=== PATIENT | male | born 1945 | race Caucasian/White ===

== ENCOUNTER 2018-06-12 09:30 | Day surgery (SDC) | payer MEDICARE ==
[2018-06-09 15:06] VITALS: BMI 37.2
--- NOTE | 2018-06-12 15:45 | OP ---
DATE OF PROCEDURE: 06/12/2018 INDICATION FOR PROCEDURE: Irregular bowel habits. PROCEDURES PERFORMED: Colonoscopy with biopsy and polypectomy. DESCRIPTION OF PROCEDURE: After the risks and benefits of the procedure were explained to the patient including risks of bleeding, infection, perforation, reactions to anesthesia, aspiration and/or pain, informed consent was obtained. The patient was then taken to the endoscopy suite, where deep sedation was administered via propofol and Anesthesia support. Once adequate sedation was achieved, a digital rectal examination was performed followed by introduction of the standard colonoscope into the rectum and advanced all the way to the terminal ileum without difficulty. The quality of the prep was fair with a larger amount of adherent stool seen within the right colon, that was not amenable to aggressive irrigation and suctioning, thereby interfering with visualization for any lesions less than 5 mm in size. The patient tolerated the procedure well with no immediate perioperative complications. At the conclusion of the procedure, all equipment was removed from the patient and the patient was taken to Day Stay in satisfactory condition. FINDINGS: Digital rectal exam normal. Colon findings, normal-appearing mucosa was seen within the terminal ileum as well as at the appendiceal orifice and ileocecal valve. Three polyps measuring 3 to 4 mm were seen in the cecum and completely removed with biopsy forceps and cold snare polypectomy. They were retrieved and placed in a specimen jar for evaluation. Four polyps measuring 3 to 6 mm in size were seen in the ascending colon and removed with a combination of hot and cold snare polypectomy. All polyps were completely excised and placed in the specimen jar for evaluation. Three additional polyps were seen in the transverse colon measuring 3 to 4 mm in size and were completely removed with either biopsy forceps or cold snare polypectomy. They were placed in a specimen jar for evaluation. Otherwise, normal-appearing mucosa was seen in the distal transverse, descending, and sigmoid colon. Random colonic biopsies were taken from the ascending, transverse, descending, and sigmoid colon for evaluation of possible microscopic colitis. However, increased mucosal erythema and mild granularity of the tissue were seen in the rectum without overt erosions or ulcerations. Multiple random biopsies were taken within the rectum for evaluation of possible ulcerative colitis versus prep effect. No abnormalities were seen on rectal retroflexion. IMPRESSION: 1. Fair colonic preparation, especially within the right colon with a larger amount of adherent stool precluding visualization of any lesion less than 5 mm in size. 2. Three cecal polyps measuring 3 to 4 mm, status post biopsy forceps. 3. Four ascending colon polyps measuring 3 to 6 mm in size, status post cold and hot snare polypectomy. 4. Three 3 to 4 mm polyps in the transverse colon, status post biopsy forceps and cold snare polypectomy. 5. Increased mucosal erythema and mild granularity seen within the rectum concerning for ulcer proctitis/ulcer colitis of the rectum, status post biopsies. 6. No clear etiology for the patient's irregular bowel habits was seen during this examination other than the increased mucosal erythema in the rectum. RECOMMENDATIONS: 1. We will follow up on the biopsy results with repeat colonoscopy recommended within the next 12 months given the chronic preparation today. 2. We would recommend a higher fiber diet with Citrucel supplementation as discussed in clinic. 3. We will hold on treatment for ulcer colitis for now with biopsies to confirm the diagnosis. 4. We would have the patient follow up in 3 to 4 weeks for further management of his irregular bowel habits. Job ID: [id number]
[2018-06-12] MEDS ORDERED: PROPOFOL 200 MG/20 ML VIAL ONE (16:53)
[2018-06-12] MEDS ORDERED: Lidocaine 1% PF 5 ML VIAL ONE (16:53)
== END 2018-06-12 15:20 | disposition home or self-care (01) ==
LOC: SDC 09:30
PROVIDERS: ATTEND Internal Medicine
PROC: 0DBK8ZX Excision of Ascending Colon, Via Natural or Artificial Opening Endoscopic, Diagnostic (ICD-10-PCS; principal; 2018-06-12)
PROC: 0DBL8ZX Excision of Transverse Colon, Via Natural or Artificial Opening Endoscopic, Diagnostic (ICD-10-PCS; 2018-06-12)
PROC: 0DBN8ZZ Excision of Sigmoid Colon, Via Natural or Artificial Opening Endoscopic (ICD-10-PCS; 2018-06-12)
PROC: 0DBM8ZX Excision of Descending Colon, Via Natural or Artificial Opening Endoscopic, Diagnostic (ICD-10-PCS; 2018-06-12)
PROC: 0DBH8ZX Excision of Cecum, Via Natural or Artificial Opening Endoscopic, Diagnostic (ICD-10-PCS; 2018-06-12)
PROC: 0DBK8ZX Excision of Ascending Colon, Via Natural or Artificial Opening Endoscopic, Diagnostic (ICD-10-PCS; 2018-06-12)
PROC: 0DBL8ZZ Excision of Transverse Colon, Via Natural or Artificial Opening Endoscopic (ICD-10-PCS; 2018-06-12)
PROC: 0DBH8ZX Excision of Cecum, Via Natural or Artificial Opening Endoscopic, Diagnostic (ICD-10-PCS; 2018-06-12)
PROC: 0DBP8ZX Excision of Rectum, Via Natural or Artificial Opening Endoscopic, Diagnostic (ICD-10-PCS; 2018-06-12)
DX: D12.0 Benign neoplasm of cecum (principal); D12.2 Benign neoplasm of ascending colon; K63.5 Polyp of colon; K52.9 Noninfective gastroenteritis and colitis, unspecified; I10 Essential (primary) hypertension; E78.5 Hyperlipidemia, unspecified; J44.9 Chronic obstructive pulmonary disease, unspecified; G43.909 Migraine, unspecified, not intractable, without status migrainosus; F17.200 Nicotine dependence, unspecified, uncomplicated; N40.0 Benign prostatic hyperplasia without lower urinary tract symptoms; F41.9 Anxiety disorder, unspecified; Z79.51 Long term (current) use of inhaled steroids; Z79.899 Other long term (current) drug therapy
CPT/HCPCS: 88305; J2001; J2704

== ENCOUNTER 2018-07-17 13:38 | Outpatient (CLI) | payer MEDICARE ==
--- NOTE | 2018-07-17 15:41 | RAD ---
PA AND LATERAL VIEWS CHEST: HISTORY: Dyspnea. FINDINGS: Comparison is made with the exam of 01/16/2011. The heart size is normal. The lungs are expanded with mild chronic changes. No focal areas of conso lidation, pneumothoraces, or pleural effusions are seen. IMPRESSION: No radiographic evidence of acute cardiopulmonary process. POS: [facility]
== END 2018-07-17 13:39 | disposition home or self-care (01) ==
LOC: RAD 13:38
PROVIDERS: ATTEND Internal Medicine Pulmonary Disease
DX: R06.00 Dyspnea, unspecified (principal)
CPT/HCPCS: 71046

== ENCOUNTER 2018-08-11 10:31 | Outpatient (CLI) | payer MEDICARE ==
[2018-08-11 11:00] LABS: #Eosinphils 0.1 thou/uL (0.0-0.7); #Lymphocytes 1.4 thou/uL (1.20-3.40); #Monocytes 0.6 thou/uL (0.11-0.59); #Neutrophils 5.1 thou/uL (1.40-6.50); %Basophils 0.5 % (0.0-1.0); %Eosinophils 1.9 % (0.0-10.0); %Lymphocytes 19.6 % (21.0-51.0); %Monocytes 8.2 % (0.0-10.0); %Neutrophils 69.8 % (42.0-75.0); Hemoglobin 15.3 g/dL (14.0-18.0); Mean Corpuscular HGB CONC 32.8 g/dL (32.0-36.0); Mean Corpuscular Hemoglobin 28.6 pg (27.0-31.0); Mean Platelet Volume 7.5 fL (7.4-10.4); Platelet Count 190 thou/uL (130-400); RBC Distribution Width 12.9 % (11.5-14.5); Red Blood Cell (RBC) Count 5.35 mill/uL (4.70-6.10); White Blood Cell (WBC) Count 7.3 thou/uL (4.8-10.8)
[2018-08-11 11:05] LABS: INR-International Normal Ratio 1.1; Prothrombin Time 14.2 SEC (12.0-14.7)
[2018-08-11 11:28] LABS: ALT (SGPT) 28 U/L (8-55); AST (SGOT) 22 U/L (5-34); Albumin 4.2 g/dL (3.4-4.8); Alkaline Phosphatase 113 U/L (40-150); Anion Gap 15 mmol/L (10-20); BUN (Urea Nitrogen) 18 mg/dL (8.4-25.7); Bilirubin, Total 0.4 mg/dL (0.2-1.2); Calc. Creatinine Clearance 0 mL/min (70-130); Calcium 9.7 mg/dL (7.8-10.44); Carbon Dioxide 23 mmol/L (23-31); Chloride 108 mmol/L (98-107); Cholesterol 124 mg/dl (< 200 Desired); Estimated GFR-MDRD 60; Globulin 2.6 g/dL (2.4-3.5); Glucose 108 mg/dL (83-110); HDL Cholesterol 41 mg/dL (>60 Neg Risk); LDL Cholesterol, Calculated 62 mg/dL; Potassium 4.2 mmol/L (3.5-5.1); Protein, Total 6.8 g/dL (5.8-8.1); Sodium 142 mmol/L (136-145); Triglycerides 106 mg/dL (Less than 150)
== END 2018-08-11 10:32 | disposition home or self-care (01) ==
LOC: LABBT 10:31
PROVIDERS: ATTEND Internal Medicine Cardiovascular Disease
DX: Z01.812 Encounter for preprocedural laboratory examination (principal); I42.0 Dilated cardiomyopathy
CPT/HCPCS: 80053; 80061; 85025; 85610; 85730

== ENCOUNTER 2018-08-17 10:46 | Day surgery (SDC) | payer MEDICARE ==
[2018-08-11 10:55] VITALS: BMI 36.5
[2018-08-17] MEDS ORDERED: Iopamidol 370 76% 100 ML VIAL ONE (11:18)
[2018-08-17] MEDS ORDERED: Verapamil 5 MG/2 ML VIAL ONE (11:32)
[2018-08-17] MEDS ORDERED: Nitroglycerin 100MG/250ML BOT 250 ML ONE (11:32)
[2018-08-17] MEDS ORDERED: Heparin 10,000 UNITS/1 ML VIAL ONE (11:32)
[2018-08-17] MEDS ORDERED: Fentanyl 100 MCG/2 ML VIAL ONE (12:42)
[2018-08-17] MEDS ORDERED: Midazolam HCl 2 mg/2 ml Vial ONE (12:42)
--- NOTE | 2018-08-17 22:46 | CON ---
DATE OF CONSULTATION: HISTORY OF PRESENT ILLNESS: This is a 73-year-old gentleman with diagnosis of bladder cancer in April of this year following gross hematuria. It was partially resected and has recurred, in anticipation of repeat resection, the patient was asked to be evaluated by Cardiology. He underwent cardiac echo showing an ejection fraction of 20% with global hypokinesis. Cardiac catheterization today showed ostial left main and right coronary stenosis with the right coronary being about 90% and the ostial left main being about 70%. He had some [id number]-tm-[id number] disease in the single obtuse marginal and a bifurcating large diagonal that did not appear to have any significant disease with the LAD having about a 60% stenosis perhaps distal to this. Ejection fraction was difficult to assess, but was diminished. PAST MEDICAL HISTORY: Includes COPD, for which he is seen by Dr. Hunter. He had an FEV1 of 58%. He has a history of hypertension. No history of dyslipidemia, but was recently started on Lipitor 40 mg daily. PAST SURGICAL HISTORY: Includes cystoscopy. SOCIAL HISTORY: The patient smoked 2 packs a day until about 8 years ago. 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 REVIEW OF SYSTEMS: Significant for urinary frequency day and night. He gets dyspneic with minimal exertion and occasionally would get dyspneic talking. No history of TIA or stroke. He does have a history of Bella's esophagus, but no symptoms from this. He has occasional peripheral edema. MEDICATIONS: Include; 1. Spiriva 18 mcg b.i.d. 2. Flomax 0.4 b.i.d. 3. Prilosec 40 mg a day. 4. Losartan 100/25 daily. 5. Lipitor 40 once a day. 6. Proscar 5 mg a day. 7. Mucinex twice a day. ALLERGIES: TO TYLENOL. PHYSICAL EXAMINATION: GENERAL: Alert, cooperative gentleman, recorded weight of 245 pounds, height 5 feet 8 inches. NECK: Prominent apices of the lungs bilaterally. No carotid bruits. LUNGS: Increased chest diameter. No wheezes. CARDIAC: Distant heart sounds. No murmurs. ABDOMEN: Quite obese and tense, nontender. EXTREMITIES: He has no peripheral edema with palpable posterior tibial pulses bilaterally. PLAN: At this time is for coronary bypass grafting to the LAD, OM, and main right coronary artery and informed consent has been obtained. We will anticipate sternal wires and zip ties due to his COPD. He may need post discharge placement due to the fact that he lives alone and has significant comorbidities. Job ID: [id number]
--- NOTE | 2018-08-18 16:45 | EKG ---
Test Reason : POST CATH-PREOP CABG Blood Pressure : / mmHG Vent. Rate : 091 BPM Atrial Rate : 091 BPM P-R Int : 164 ms QRS Dur : 100 ms QT Int : 400 ms P-R-T Axes : 051 001 075 degrees QTc Int : 492 ms Normal sinus rhythm Cannot rule out Inferior infarct , age undetermined Abnormal ECG No previous ECGs available Confirmed by DR. Brie KING ([id number]) on 08/18/2018 4:45:20 PM Referred By: JOSEFINA Confirmed By:DR. Brie KING
== END 2018-08-17 15:45 | disposition home or self-care (01) ==
LOC: CCL 10:46
PROVIDERS: ATTEND Internal Medicine Cardiovascular Disease
PROC: 4A023N7 Measurement of Cardiac Sampling and Pressure, Left Heart, Percutaneous Approach (ICD-10-PCS; principal; 2018-08-17)
PROC: B2111ZZ Fluoroscopy of Multiple Coronary Arteries using Low Osmolar Contrast (ICD-10-PCS; 2018-08-17)
DX: I25.10 Atherosclerotic heart disease of native coronary artery without angina pectoris (principal); I42.9 Cardiomyopathy, unspecified; C67.9 Malignant neoplasm of bladder, unspecified; J44.9 Chronic obstructive pulmonary disease, unspecified; I10 Essential (primary) hypertension; Z87.891 Personal history of nicotine dependence; Z79.899 Other long term (current) drug therapy
CPT/HCPCS: 93005; 93010; 93458; 99152; 99153; C1769; J1644; J2250; J3010

== ENCOUNTER 2018-08-21 05:44 | Inpatient (IN) | payer MEDICARE ==
[2018-08-21] MEDS ORDERED: Bupivacaine HCl 0.5%/Epinephrine 1:200,000/PF 30 ml Vial ONE (06:28)
[2018-08-21] MEDS ORDERED: Dexamethasone 4 mg/ml Vial ONE (06:28)
[2018-08-21] MEDS ORDERED: Dexmedetomidine 200 MCG/2 ML VIAL ONE (06:32)
[2018-08-21] MEDS ORDERED: Midazolam HCl 5 mg/5 ml Vial ONE (06:32)
[2018-08-21] MEDS ORDERED: Midazolam HCl 2 mg/2 ml Vial ONE (06:32)
[2018-08-21] MEDS ORDERED: Fentanyl 100 MCG/2 ML VIAL ONE (06:32)
[2018-08-21] MEDS ORDERED: Vecuronium 10 MG VIAL ONE ×2 (06:32→16:47)
[2018-08-21] MEDS ORDERED: Heparin 10,000 UNITS/1 ML VIAL 30,000 UNITS in Sodium Chloride 0.9% 1,000 ML FS SCH (06:45)
[2018-08-21] MEDS ORDERED: Milrinone 10 MG/10 ML VIAL ONE (07:36)
[2018-08-21] MEDS ORDERED: Phenylephrine HCL 10 MG/ML VIAL ONE (09:46)
[2018-08-21] MEDS ORDERED: PHENYLEPHRINE-NS 100 MCG/ML 10 ML SYRINGE ONE ×2 (09:46→16:47)
[2018-08-21] MEDS ORDERED: Insulin Regular 300 UNITS/3 ML VIAL ONE (10:36)
[2018-08-21] MEDS ORDERED: Ketorolac Tromethamine 30 MG/ML VIAL IVP SCH (12:00)
[2018-08-21] MEDS ORDERED: Hetastarch 6% 500 ML 500 ML IVPB PRN (12:03)
[2018-08-21] MEDS ORDERED: Potassium Chloride 20 MEQ/100 ML PREMIX BAG IVPB PRN (12:03)
[2018-08-21] MEDS ORDERED: Promethazine HCl 25 MG/ML VIAL IM PRN (12:03)
[2018-08-21] MEDS ORDERED: Post-Op Insulin Drip Protocol IVPB ONE (12:03)
[2018-08-21] MEDS ORDERED: Mag-Al 1200 mg/1200 mg/30 ML UDCUP PO PRN (12:03)
[2018-08-21] MEDS ORDERED: Morphine 2 MG/ML SYRINGE SLOW IVP PRN (12:03)
[2018-08-21] MEDS ORDERED: Phenylephrine 10 MG/NS 250 ML 250 ML IVPB PRN (12:03)
[2018-08-21] MEDS ORDERED: hydrALAZINE 20 MG/ML VIAL SLOW IVP PRN (12:03)
[2018-08-21] MEDS ORDERED: DOPamine 400 MG/D5W 250 ML 250 ML IVPB PRN (12:03)
[2018-08-21] MEDS ORDERED: Guaifenesin DM 100-10/5 ML UDCUP PO PRN (12:03)
[2018-08-21] MEDS ORDERED: Sodium Chloride 0.9% 1,000 ML IV SCH (12:03)
[2018-08-21] MEDS ORDERED: Bisacodyl 10 MG SUPP PR PRN (12:03)
[2018-08-21] MEDS ORDERED: Norepinephrine 8 MG/0.9% NS 250 ML IVPB PRN (12:03)
[2018-08-21] MEDS ORDERED: Nitroglycerin 50 MG/250 ML BOT 250 ML IVPB PRN (12:03)
[2018-08-21] MEDS ORDERED: Fentanyl 100 MCG/2 ML VIAL SLOW IVP PRN (12:03)
[2018-08-21] MEDS ORDERED: Dextrose 50% Abboject 50 ML SYRINGE SLOW IVP PRN (12:07)
[2018-08-21] MEDS ORDERED: Dextrose 5% in Water 1,000 ML IV PRN (12:07)
[2018-08-21] MEDS ORDERED: HUMULIN R 100 UNITS in Sodium Chloride 0.9% 100 ML IVPB SCH (12:07)
[2018-08-21] MEDS ORDERED: Magnesium 2 GM/50 ML 2 GM in Premix Bag 1 BAG IVPB SCH (12:30)
[2018-08-21 12:31] LABS: #Eosinphils 0.1 thou/uL (0.0-0.7); #Lymphocytes 1.2 thou/uL (1.20-3.40); #Neutrophils 12.2 thou/uL (1.40-6.50); %Basophils 0.1 % (0.0-1.0); %Eosinophils 0.9 % (0.0-10.0); %Monocytes 6.7 % (0.0-10.0); %Neutrophils 84.3 % (42.0-75.0); Hemoglobin 11.2 g/dL (14.0-18.0); Mean Corpuscular HGB CONC 33.6 g/dL (32.0-36.0); Mean Corpuscular Hemoglobin 29.7 pg (27.0-31.0); Mean Corpuscular Volume 88.5 fL (78.0-98.0); Mean Platelet Volume 7.2 fL (7.4-10.4); Platelet Count 139 thou/uL (130-400); Red Blood Cell (RBC) Count 3.79 mill/uL (4.70-6.10); White Blood Cell (WBC) Count 14.5 thou/uL (4.8-10.8)
[2018-08-21 12:36] LABS: INR-International Normal Ratio 1.4; PTT 28.8 SEC (22.9-36.1); Prothrombin Time 17.6 SEC (12.0-14.7)
[2018-08-21] MEDS: Insulin Regular 300 UNITS/3 ML VIAL SC PRN ×3 (12:36→20:07)
[2018-08-21 12:54] LABS: Anion Gap 13 mmol/L (10-20); BUN (Urea Nitrogen) 17 mg/dL (8.4-25.7); Calc. Creatinine Clearance 80 mL/min (70-130); Calcium 8.5 mg/dL (7.8-10.44); Carbon Dioxide 24 mmol/L (23-31); Chloride 109 mmol/L (98-107); Estimated GFR-MDRD 52; Glucose 146 mg/dL (83-110); Potassium 4.3 mmol/L (3.5-5.1); Sodium 142 mmol/L (136-145)
[2018-08-21] MEDS: Fentanyl 100 MCG/2 ML VIAL SLOW IVP PRN ×2 (13:08→18:01)
[2018-08-21] MEDS: CEFAZOLIN 2 GM in Premix Bag 1 BAG IVPB SCH ×2 (13:18→21:51)
--- NOTE | 2018-08-21 14:12 | OP ---
DATE OF PROCEDURE: 08/21/2018 PREOPERATIVE DIAGNOSES: Coronary artery disease, left ventricular dysfunction, ejection fraction 23%, and bladder tumor. PROCEDURES PERFORMED: Coronary artery bypass graft x4, good quality left internal mammary artery to a 2 mm left anterior descending, good quality saphenous vein to a distal right coronary artery extending onto the PDA orifice, a 2.5 mm small saphenous vein to a 1.25 to 1.5 mm obtuse marginal, and small saphenous vein to a 1.5 to 2 mm diagonal second branch probably closer to 1.5. STUD SETTER: Issa Sandoval MD TRANSFUSION: None. DESCRIPTION OF PROCEDURE: After adequate anesthesia had been obtained, Dr. Sandoval performed an endovascular vein harvest of the left greater saphenous vein while I performed a median sternotomy. The left internal mammary artery was harvested without opening the left pleura. The patient was heparinized, mammary divided distally and passed posterior to the thymus gland. Pericardium had been opened and traction sutures were placed. The aorta was going to be cannulated above the pericardial reflection; however, there was calcified anterior plaque and for this reason, the cannulation was done lower into the right of the midline. The right atrium was cannulated and cardiopulmonary bypass was begun. Vessels were inspected for grafting. Aorta was crossclamped and a liter of cold blood cardioplegia was given through the aortic root. Following which, the 4 distal anastomosis were completed. Following removal of the cross clamp, a partial occluding clamp was placed and a single anastomosis performed on the aortic root with the right coronary graft. The other vein grafts were too small to place directly on the root. For this reason, the OM was placed on the wall of the right coronary graft and the partial occluding clamp was removed. The diagonal vein graft, which was the shortest of the group was anastomosed to the side of the OM vein graft about an inch and a half from the aortic root. The patient was then weaned from cardiopulmonary bypass. Cannula was removed and aortic cannulation site was secured with a Prolene suture. Weaning was slow from bypass due to poor left ventricular function and requirement for Levophed. Milrinone had been given after the initial HAYDEE confirmed an ejection fraction of 20%. The sternum was then reapproximated with a combination of #7 wire and zip ties using vancomycin paste on the sternal edges, platelet rich blood and platelet poor plasma. Subcutaneous tissue and skin were closed in layers and the patient is to be taken to the ICU in guarded condition. Job ID: [id number]
--- NOTE | 2018-08-21 14:31 | RAD ---
RADIOGRAPH CHEST 1 VIEW: Date: 08/21/18 Time: 1216 HOURS HISTORY: 73-year-old male status post open heart surgery. COMPARISON: 07/17/18. FINDINGS: There are new sternotomy wires. There is a new right subclavian central vascular catheter with distal tip overlying the SVC/right atrial junction. This is a supine image, which would be insensitive for pneumothorax detection. No cardiomegaly or pulmonary edema. No gross consolidation. IMPRESSION: 1. Very recently status post coronary artery bypass graft surgery is evidence for coronary atheroscl erotic disease. 2. Right subclavian central vascular catheter placement. ALFREDITO [] POS: [facility]
--- NOTE | 2018-08-21 14:31 | CON ---
DATE OF CONSULTATION: 08/21/2018 PRIMARY LEAF SORTER: Pacheco Paulino MD REASON FOR CONSULTATION: Post CABG. HISTORY OF PRESENT ILLNESS: Mr. Barahona is a very pleasant 73-year-old white gentleman, who comes to the hospital for a planned CABG. He came to see me about a month ago for preoperative evaluation. He was scheduled to have shaving of his bladder cancer and possible resection of part of his bladder. He was seeing me for preoperative evaluation and testing showed an EF of 20% to 25%, so he was taken to the catheterization lab, where he was found to have multivessel coronary artery disease. CT surgery was consulted and he was brought in for surgery today. He had this done earlier today. He is currently extubated. His blood pressure is being maintained on no pressors or inotropic support. LV function was severely reduced before his catheterization. PAST MEDICAL HISTORY: 1. COPD. 2. Hypertension. 3. Hyperlipidemia. 4. Coronary artery disease as above. PAST SURGICAL HISTORY: 1. Cystoscopy. 2. Coronary artery bypass grafting earlier today. OUTPATIENT MEDICATIONS: Include: 1. Spiriva. 2. Flomax. 3. Prilosec. 4. Losartan 100/25 with hydrochlorothiazide daily. 5. Lipitor 40 mg daily. 6. Proscar 5 mg a day. 7. Mucinex p.r.n. ALLERGIES: TYLENOL. SOCIAL HISTORY: Smokes 2 packs a day up until about 8 years ago. No alcohol or drugs. REVIEW OF SYSTEMS: A 12-point review of systems was done and negative unless stated in the history of present illness. FAMILY HISTORY: Noncontributory. PHYSICAL EXAMINATION: VITAL SIGNS: Temperature 96.8, pulse 87, respiratory rate 13, saturating 97% on 2 L nasal cannula, and blood pressure 107/58. GENERAL: Awake, alert, and oriented x3, in no distress. HEENT: Normocephalic, atraumatic. NECK: Supple. LUNGS: Clear. CARDIOVASCULAR: S1 and S2. There is a 2-component rub consistent with his recent bypass surgery and chest tubes. ABDOMEN: Soft. EXTREMITIES: 1+ edema bilateral. SKIN: Warm and dry. LABORATORY DATA: Laboratory work was reviewed. CBC was reviewed. Coags and chemistries were reviewed. Most recent creatinine 1.34. This is after surgery. ASSESSMENT AND PLAN: 1. Coronary artery disease. 2. Status post coronary artery bypass grafting. 3. Bladder cancer. 4. Hematuria. 5. Ischemic cardiomyopathy, ejection fraction at 20-25% on HAYDEE before surgery. PLAN: 1. Continue postoperative care. 2. Aspirin and statin for life. 3. We will add beta-polly and RACHEL inhibitor slowly in the next few days as blood pressure allows. Currently blood pressure borderline low, so we will stay away from these for now. 4. We will increase PT as tolerated in the next few days. 5. If everything goes well and his postoperative time goes without issues, he should be ready to have surgery at least after 1 month. Thank you for letting me to participate in the care of your patient. Job ID: [id number]
[2018-08-21] MEDS: HYDROcodone/Acetaminophen 5/325 mg Tablet PO PRN ×2 (14:41→19:40)
[2018-08-21] MEDS: Sodium Chloride 0.9% 1,000 ML IV SCH (16:19)
[2018-08-21] MEDS ORDERED: Esmolol 100 MG/10 ML VIAL ONE (16:47)
[2018-08-21] MEDS ORDERED: Heparin 30,000 units/30 ml VIAL ONE (16:47)
[2018-08-21] MEDS ORDERED: Norepinephrine 4 MG/4 ML VIAL ONE (16:47)
[2018-08-21] MEDS ORDERED: Magnesium 5 GM/10 ML VIAL ONE (16:47)
[2018-08-21] MEDS ORDERED: Albumin 25% 25 GM/100 ML BOT ONE (16:47)
[2018-08-21] MEDS ORDERED: Ondansetron PF 4 MG/2 ML Vial ONE (16:47)
[2018-08-21] MEDS ORDERED: Mannitol 12.5 GM/50 ML ONE (16:47)
[2018-08-21] MEDS ORDERED: Nitroglycerin 50 MG/250 ML BOT ONE (16:47)
[2018-08-21] MEDS ORDERED: Aminocaproic Acid 5 GM/20 ML VIAL ONE (16:47)
[2018-08-21] MEDS ORDERED: Glycopyrrolate 0.2 MG/ML 5 ML SYRINGE ONE (16:47)
[2018-08-21] MEDS ORDERED: Papaverine 60 MG/2 ML VIAL ONE (16:47)
[2018-08-21] MEDS ORDERED: Ketorolac Tromethamine 30 MG/ML VIAL ONE (16:47)
[2018-08-21] MEDS ORDERED: Sodium Bicarb 50 MEQ/50 ML VIAL ONE (16:47)
[2018-08-21] MEDS ORDERED: Potassium Chloride 60 MEQ/30 ML VIAL ONE (16:47)
[2018-08-21] MEDS ORDERED: Lidocaine 2% PF 100 mg/5 ml Syringe ONE (16:47)
[2018-08-21] MEDS ORDERED: Cardioplegic Soln 1,000 ML BAG ONE (16:47)
[2018-08-21] MEDS ORDERED: Calcium Chloride 1 GM/10 ML Abboject SYRINGE ONE (16:47)
[2018-08-21] MEDS ORDERED: Thrombin 5000 UNITS/5 ML VIAL ONE (16:47)
[2018-08-21] MEDS ORDERED: Heparin 5,000 UNITS/ML VIAL ONE (16:47)
[2018-08-21] MEDS ORDERED: ePHEDrine 50 MG/ML VIAL ONE (16:47)
[2018-08-21] MEDS ORDERED: Protamine Sulfate 250 MG/25 ML VIAL ONE (16:47)
[2018-08-21] MEDS ORDERED: Lidocaine 2% 11 ML SYR TOP SCH (17:30)
[2018-08-21 18:07] LABS: Hemoglobin 10.8 g/dL (14.0-18.0)
[2018-08-21 18:21] LABS: Potassium 4.5 mmol/L (3.5-5.1)
[2018-08-21] MEDS: Atorvastatin Calcium 10 MG TAB PO SCH (19:39)
[2018-08-21] MEDS ORDERED: Famotidine/PF 20 mg/2ml Vial SLOW IVP SCH (21:00)
[2018-08-21] MEDS ORDERED: Prevnar 13-Val Conj/PF 0.5 ML SYRINGE IM ONE (21:00)
--- NOTE | 2018-08-21 21:19 | CON ---
DATE OF CONSULTATION: 08/21/2018 SERVICE: Pulmonary Medicine. REASON FOR CONSULT: ICU patient. HISTORY OF PRESENT ILLNESS: The patient is a 73-year-old white male with past medical history significant for COPD. He follows with Dr. Hunter in the outpatient basis and takes Symbicort. Dr. Greco is out of town today, so I am covering for him. Denies any current fevers, chills, nausea, or vomiting. He was in his usual state of health when he was discovered to have some bladder cancer. He went for a big surgery. Ultimately, he was required to undergo cardiac evaluation for an elective procedure and was discovered to have multivessel disease. As such, he was referred for a coronary artery bypass graft surgery. This was an elective procedure. He presented in the outpatient setting and is recovering very nicely. He returned to the ICU, already extubated in the postanesthesia care unit. He denies any current fevers, chills, cough, sputum production, nausea, or vomiting. His voice is a little hoarse. This is new since the procedure. Otherwise, he has no specific complaints. PAST MEDICAL HISTORY: 1. COPD. 2. Hypertension. 3. Dyslipidemia. 4. Coronary artery disease. PAST SURGICAL HISTORY: 1. Cystoscopy. 2. Other bladder surgery. 3. Coronary artery bypass graft. ALLERGIES: TYLENOL. MEDICATIONS: List of his inpatient medications was reviewed. No specific updates were made at this time. Of note, he takes Spiriva and Symbicort in the outpatient setting. SOCIAL HISTORY: He has a greater than 80 pack-year history of smoking. Denies any alcohol or illicit drug use. He has no exposure to chemicals, dust, asbestos, or tuberculosis. FAMILY HISTORY: Noncontributory. REVIEW OF SYSTEMS: General, head, ears, eyes, nose, throat, cardiovascular, respiratory, GI, , musculoskeletal, neurologic, and skin is negative except as mentioned in the HPI. PHYSICAL EXAMINATION: VITAL SIGNS: Afebrile, pulse 90, blood pressure 110/67, respirations 8, and saturation at 95% on 3 L nasal cannula. GENERAL: The patient is awake and alert, in no apparent distress. LUNGS: Decent air entry. There is a slightly prolonged expiratory phase. I appreciate rhonchi, but no wheezing. Minimal dependent crackles are appreciated. HEART: Normal rate. Regular. ABDOMEN: Soft, nontender, and nondistended. Bowel sounds are positive. MUSCULOSKELETAL: No cyanosis or clubbing. There is 1 to 2+ pitting in the bilateral lower extremities. NEUROLOGIC: Grossly nonfocal. LABORATORY DATA: WBC 14.5, postoperatively; hemoglobin 11.2 (baseline 15), and platelets 139,000. INR 1.4. Creatinine 1.34, above baseline of 1.2. Basic metabolic profile is otherwise unremarkable. IMAGING STUDIES: Chest x-ray demonstrates right subclavian central venous catheter terminates in good position. Sternotomy wires are noted. I see no acute cardiopulmonary abnormality. ASSESSMENT: 1. Acute hypoxic respiratory failure. 2. Chronic obstructive pulmonary disease without current exacerbation. 3. Coronary artery disease, status post coronary artery bypass graft x4 vessels. 4. Chronic systolic heart failure (20% ejection fraction). 5. Bladder cancer. DISCUSSION AND PLAN: We will schedule DuoNebs every 6 hours. We will avoid his home Symbicort as he would not be able to get this medication effectively either way. Pulmonary Critical Care will continue to follow along. Tomorrow, we will mobilize the patient. He does have increased lower extremity swelling. As such , we will be careful with fluids and have a low threshold for giving a dose of Lasix in the morning. Pulmonary Critical Care will follow. 70 minutes have been devoted to this patient in various activities. I personally reviewed all imaging studies and laboratory data noted within this document. For fifty percent of this time, I was interacting with the patient at the bedside or coordinating care with the care team. For the remainder of the time I was immediately available to the patient in the hospital unit. Job ID: [id number] MTDD
--- NOTE | 2018-08-21 22:41 | CON ---
DATE OF CONSULTATION: 08/21/2018 HISTORY OF PRESENT ILLNESS: This is a 73-year-old white male who has had a coronary bypass graft done today by Dr. Causey. He has gross hematuria currently. He has a history of bladder cancer that was diagnosed in [place] in April. He is seeing Dr. Almaraz here and I think he needs to have another cysto TURBT done, but because of his cardiac status, he needed this bypass surgery done first. He is currently not on blood thinners, but was on heparin during the procedure. He had bloody urine yesterday I believe before coming into the hospital. I do not know anything about the stage and grade of his cancer. He is currently comfortable and his urine is grossly bloody. He has what looks to be a 16-Sammarinese catheter in with a temperature probe. PAST MEDICAL HISTORY: COPD, hypertension, hyperlipidemia, coronary artery disease. SURGICAL PROCEDURES: Includes TURBT in April. MEDICATIONS: Listed. He has been on Flomax for presumed lower urinary tract symptoms. ALLERGIES: HE HAS AN ALLERGY TO TYLENOL. PHYSICAL EXAMINATION: His bladder is not distended. He is circumcised, little bit of blood outside the catheter. Catheter is in good position. Testicles descended without mass or tenderness. I hand irrigated with about 250 mL of sterile water and cleared him up, just a few clots came out. Urine is light pink, so he may do okay draining with the catheter in now. However, I have brought up the floor 20 and 22-Sammarinese Miller catheter and asked the nurses to go ahead and get some xylocaine jelly so that if needs be, we can change his catheter out for a larger one. His hemoglobin at noon was 11.2 and his creatinine was 1.34. I will follow along with you while he is in the hospital while Dr. Almaraz is away. Job ID: [id number]
[2018-08-22] MEDS: Insulin Regular 300 UNITS/3 ML VIAL SC PRN ×2 (00:43→06:09)
[2018-08-22] MEDS: HYDROcodone/Acetaminophen 5/325 mg Tablet PO PRN ×3 (01:56→15:56)
[2018-08-22 05:38] LABS: #Lymphocytes 1.1 thou/uL (1.20-3.40); #Monocytes 0.8 thou/uL (0.11-0.59); #Neutrophils 6.4 thou/uL (1.40-6.50); %Eosinophils 0.1 % (0.0-10.0); %Lymphocytes 12.7 % (21.0-51.0); %Monocytes 9.5 % (0.0-10.0); %Neutrophils 77.7 % (42.0-75.0); Mean Corpuscular HGB CONC 33.3 g/dL (32.0-36.0); Mean Corpuscular Hemoglobin 29.5 pg (27.0-31.0); Mean Corpuscular Volume 88.6 fL (78.0-98.0); Mean Platelet Volume 7.6 fL (7.4-10.4); Platelet Count 146 thou/uL (130-400); RBC Distribution Width 13.2 % (11.5-14.5); Red Blood Cell (RBC) Count 3.72 mill/uL (4.70-6.10); White Blood Cell (WBC) Count 8.3 thou/uL (4.8-10.8)
[2018-08-22] MEDS: CEFAZOLIN 2 GM in Premix Bag 1 BAG IVPB SCH (05:39)
[2018-08-22 06:01] LABS: Anion Gap 11 mmol/L (10-20); BUN (Urea Nitrogen) 17 mg/dL (8.4-25.7); Calc. Creatinine Clearance 88 mL/min (70-130); Calcium 8.1 mg/dL (7.8-10.44); Carbon Dioxide 27 mmol/L (23-31); Chloride 108 mmol/L (98-107); Estimated GFR-MDRD 59; Glucose 131 mg/dL (83-110); Potassium 4.1 mmol/L (3.5-5.1); Sodium 142 mmol/L (136-145)
[2018-08-22] MEDS: Sodium Chloride 0.9% 1,000 ML IV SCH (06:10)
--- NOTE | 2018-08-22 08:46 | RAD ---
PORTABLE CHEST: HISTORY: Postop sternotomy. COMPARISON: 08/21/2018 FINDINGS: The lungs appear well aerated and clear of infiltrate. Postop sternotomy changes. Heart size upper normal and stable. Central line unchanged. IMPRESSION: No acute lung process or interval change apparent. POS: [facility]
[2018-08-22] MEDS: Aspirin 325 MG TAB PO SCH (08:50)
[2018-08-22] MEDS: Tamsulosin HCl 0.4 MG CAP PO SCH ×2 (08:51→20:41)
[2018-08-22] MEDS: Famotidine 20 MG TAB PO SCH ×2 (08:59→20:41)
--- NOTE | 2018-08-22 09:29 | PRG ---
DATE OF SERVICE: 08/22/2018 SUBJECTIVE: The patient states he is doing okay. He is still feeling like he is recovering from his chest surgery, which was yesterday. He is denying any significant bladder pain or bladder spasms. OBJECTIVE: VITAL SIGNS: Temperature 99.7, pulse 115, respirations 19, blood pressure 123/104, and saturations 94% on nasal cannula. GENERAL: No apparent distress. CARDIOVASCULAR: Tachycardic, symmetric pulses. CHEST: Incision is dressed. I did not remove the dressing. Bilateral crackles. ABDOMEN: Soft, nontender, and nondistended. GENITOURINARY: Miller catheter is in place. A 16-Moldovan with temperature probe with brighter red colored urine within the catheter, which appears to be free-flowing. No clots visible. EXTREMITIES: 1+ edema bilaterally. LABORATORY DATA: On laboratory evaluations, full set of labs in the [facility], which I have reviewed. Of note, white count is 8.3, hemoglobin is 11. Creatinine is 1.21. ASSESSMENT: A 73-year-old white male, status post coronary artery bypass grafting, postop day 1, with a known history of muscle invasive bladder cancer and BPH. The patient had originally been planned for a transurethral resection of the prostate and transurethral resection of bladder tumour concurrently, but during his cardiac clearance, he failed and was found to have stenotic vessels for which he has undergone a coronary artery bypass grafting for. At this point, he has not been cleared to undergo repeat surgery for 1 month. The earliest we could plan his surgery would probably be in early September or the very end of August, pending Dr. Paulino's cardiac clearance. In the meantime, we will have to leave the tumor in situ until he is adequately recovered to have surgery. As far as his gross hematuria, it is very likely coming due to the catheter irritation on the tumor itself. The best solution would be to remove the catheter as promptly as possible per Dr. Causey's protocol. Once the catheter was removed, the patient should be permitted to void on his own and the hematuria should clear. The patient does have a history of BPH and he may not be able to urinate since he had recent surgery with anesthesia. If this occurs, he would likely need to have the catheter replaced and I would recommend a larger catheter such as either a 20 or 22-Moldovan three-way Miller catheter in case the patient will require continuous bladder irrigation. The patient is currently taking his tamsulosin, which I recommend continuing. I will continue to follow along with the patient and ensure that his hematuria resolves, but the fastest way to ensure resolution of the hematuria would be removal of the catheter. Hopefully, the patient will be able to void, but we will monitor subsequently to ensure that he is able to continue voiding. SUMMARY OF PLAN: 1. Discontinue Miller as soon as possible. 2. We will monitor hematuria and the patient's ability to void. 3. Continue Flomax. Job ID: [id number]
[2018-08-22] MEDS ORDERED: Furosemide 20 MG/2 ML VIAL SLOW IVP SCH (09:30)
--- NOTE | 2018-08-22 09:51 | PRG ---
DATE OF SERVICE: 08/22/2018 SERVICE: Pulmonary Medicine. INTERVAL HISTORY: The patient is doing really well from respiratory standpoint. Breathing comfortably. He continues to have some chest discomfort. Otherwise, it is uneventful. There are no reports of nausea or vomiting. His appetite is coming back slowly. PHYSICAL EXAMINATION: VITAL SIGNS: Afebrile, pulse 100, blood pressure 122/104, respirations 19, and saturation 94% on 2 L nasal cannula. GENERAL: The patient is awake and alert, in no apparent distress. LUNGS: Decent air entry. Rhonchi are present, but clear with cough. Dependent crackles are noted. There is a prolonged expiratory phase, but I do not hear any overt wheezing. HEART: Normal rate and regular. ABDOMEN: Soft, nontender, and nondistended. Bowel sounds are positive. MUSCULOSKELETAL: No cyanosis or clubbing. There is 2+ pitting in the bilateral lower extremities. NEUROLOGIC: Grossly nonfocal. LABORATORY DATA: WBC 8.3, hemoglobin 11.0 and stable, platelets 146,000. Basic metabolic profile is otherwise unremarkable. Creatinine 1.21 and downtrending. IMAGING STUDIES: Chest x-ray demonstrates no acute lung process or interval changes apparent. There are no obvious pleural effusions present. Sternotomy changes are noted. Central line is in good position. ASSESSMENT: 1. Acute hypoxic respiratory failure. 2. Chronic obstructive pulmonary disease without current exacerbation. 3. Coronary artery disease, status post coronary artery bypass graft x4 vessels, postop day #1. 4. Chronic systolic heart failure (20% EF). 5. Bladder cancer with gross hematuria. DISCUSSION AND PLAN: The patient would benefit from having the Miller catheter removed as soon as possible. He has touch volume. As such, I will provide him with a dose of Lasix. Pulmonary/Critical Care will continue to follow along for the time being, but at this point, there is no need for aggressive management for COPD exacerbation as respiratory status is close to baseline. Job ID: [id number]
[2018-08-22] MEDS: Ondansetron PF 4 MG/2 ML Vial IVP PRN (16:33)
[2018-08-22] MEDS: Bisacodyl 5 MG TAB PO PRN (18:15)
--- NOTE | 2018-08-22 18:55 | PDOC.CTH ---
Cardiology Progress Note - Subjective No new issues. Sore chest. - Objective Vital Signs Temp Pulse Resp Pulse Ox 08/22/18 16:00 99.1 F 08/22/18 07:06 100 08/22/18 06:57 111 H 19 95 Weight 251 lb 14.4 oz 08/21/18 08/22/18 08/23/18 06:59 06:59 06:59 Intake Total 2412.6 1000 Output Total 1695 1190 Balance 717.6 -190 - Physical Examination General/Neuro: alert & oriented x3, NAD Neck: no JVD present Lungs: unlabored respirations Heart: RRR Abdomen: NT/ND Extremities: + edema B (2+) - Telemetry Telemetry Rhythm: NSR - Labs Result Diagrams: 08/22/18 04:35 08/22/18 04:35 - Assessment/Plan 1. Severe LM and ostial RCA disease. 2. S/P CABG x 4, ROSE to LAD, SVG to RPDA, SVG to OM, SVG to D1 3. Muscle invasive bladder cancer. 4. Ischemic CM EF at 20% PLAN: - Continue post op care. - Aspirin/statin for life - BB and ACEI once BP allows. - PT as tolerated. - Bladder surgery in one month if no major complications.
[2018-08-22] MEDS: Atorvastatin Calcium 10 MG TAB PO SCH (20:41)
[2018-08-23] MEDS: HYDROcodone/Acetaminophen 5/325 mg Tablet PO PRN ×5 (01:16→20:37)
[2018-08-23 05:46] LABS: #Monocytes 1.1 thou/uL (0.11-0.59); #Neutrophils 8.6 thou/uL (1.40-6.50); %Basophils 0.1 % (0.0-1.0); %Eosinophils 0.2 % (0.0-10.0); %Lymphocytes 9.5 % (21.0-51.0); %Monocytes 10.2 % (0.0-10.0); Hemoglobin 11.4 g/dL (14.0-18.0); Mean Corpuscular HGB CONC 32.5 g/dL (32.0-36.0); Mean Corpuscular Hemoglobin 29.2 pg (27.0-31.0); Mean Corpuscular Volume 89.6 fL (78.0-98.0); Mean Platelet Volume 7.3 fL (7.4-10.4); Platelet Count 153 thou/uL (130-400); RBC Distribution Width 13.2 % (11.5-14.5); Red Blood Cell (RBC) Count 3.92 mill/uL (4.70-6.10); White Blood Cell (WBC) Count 10.7 thou/uL (4.8-10.8)
[2018-08-23 06:00] LABS: Anion Gap 10 mmol/L (10-20); BUN (Urea Nitrogen) 17 mg/dL (8.4-25.7); Calc. Creatinine Clearance 96 mL/min (70-130); Calcium 8.6 mg/dL (7.8-10.44); Carbon Dioxide 29 mmol/L (23-31); Chloride 106 mmol/L (98-107); Estimated GFR-MDRD 64; Glucose 139 mg/dL (83-110); Potassium 4.2 mmol/L (3.5-5.1); Sodium 141 mmol/L (136-145)
--- NOTE | 2018-08-23 08:20 | RAD ---
CHEST ONE VIEW: Indication: Status post heart surgery. Comparison: 08-22-18 FINDINGS: There is a left subclavian central venous catheter. Mild cardiomegaly persists. No definite consolida tion, pleural effusion, or pneumothorax is evident. IMPRESSION: Stable exam to the prior day. POS: [facility]
[2018-08-23] MEDS: Famotidine 20 MG TAB PO SCH ×2 (08:37→20:34)
[2018-08-23] MEDS: Carvedilol 3.125 MG TAB PO SCH ×2 (08:37→16:20)
[2018-08-23] MEDS: Tamsulosin HCl 0.4 MG CAP PO SCH ×2 (08:40→20:34)
[2018-08-23] MEDS: Aspirin 325 MG TAB PO SCH (08:58)
[2018-08-23] MEDS ORDERED: Furosemide 20 MG/2 ML VIAL SLOW IVP SCH (09:00)
[2018-08-23] MEDS ORDERED: Lisinopril 2.5 MG TAB PO SCH (09:00)
--- NOTE | 2018-08-23 11:18 | PRG ---
DATE OF SERVICE: 08/23/2018 SERVICE: Pulmonary Medicine. INTERVAL HISTORY: The patient is doing fine from respiratory standpoint. Breathing comfortably. He is down to room air. He is out of bed into a chair. Denies any fevers, chills, chest pain, nausea, or vomiting. Otherwise, he is recovering, albeit slowly. 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 PHYSICAL EXAMINATION: VITAL SIGNS: Afebrile, pulse 114, blood pressure 145/108, respirations 19, saturation 93% on room air. GENERAL: The patient is awake and alert, in no apparent distress. LUNGS: Excellent air entry. No crackles or rhonchi appreciated. HEART: Normal rate, regular. ABDOMEN: Soft, nontender, and nondistended. Bowel sounds are positive. MUSCULOSKELETAL: No cyanosis or clubbing. There is 2+ pitting in the bilateral lower extremities. NEUROLOGIC: Grossly nonfocal. LABORATORY DATA: WBC 10.7, hemoglobin 11.4 and up trending, platelets 153,000. INR 1.4. Creatinine 1.12 and gently downtrending. Basic metabolic profile and potassium are unremarkable. IMAGING DATA: Chest x-ray demonstrates no acute cardiopulmonary abnormality. Low lung volumes are noted. Right subclavian central venous catheter terminates in excellent position. Costophrenic angles for the most part sharp. I see a mild amount of fluid in the fissure. His bibasilar interstitial changes are prominent, possibly consistent with his low lung volume state and atelectasis. I do not see any overt air bronchograms. ASSESSMENT: 1. Acute hypoxic respiratory failure, resolved. 2. Chronic obstructive pulmonary disease without current exacerbation. 3. Coronary artery disease, status post coronary artery bypass graft x4 vessels, postoperative day 2. 4. Chronic systolic heart failure (20% ejection fraction). 5. Bladder cancer with gross hematuria. DISCUSSION AND PLAN: The patient is stable for transition out of the ICU to the telemetry unit. We will continue to watch his heart rate. He remains a touch volume overloaded. I think he is tolerating once daily doses of Lasix. Pulmonary/Critical Care will continue to follow along for the time being. At this point, there is no indication for steroids for COPD, though we will continue his nebulized medications. Job ID: [id number]
--- NOTE | 2018-08-23 12:17 | RAD ---
FExam: KUB HISTORY: Abdominal distention COMPARISON: None FINDINGS: There is moderate gaseous distention of loops of small and large bowel which are nonspecifi c. No definite free air is noted. Lung bases are clear IMPRESSION: Nonspecific gaseous distention of small and large bowel may reflect ileus. Low colonic ob struction is not excluded. Continued follow-up is recommended.
[2018-08-23] MEDS ORDERED: Bisacodyl 10 MG SUPP PR PRN (12:40)
[2018-08-23] MEDS ORDERED: Magnesium Citrate 300 ML BOT PO SCH (12:45)
--- NOTE | 2018-08-23 17:06 | PRG ---
DATE OF SERVICE: 08/23/2018 SUBJECTIVE: The patient is still having pain from his surgery, but is otherwise recovering as expected. His Miller catheter was taken out this morning and he has since voided. His urine is still bloody, but he states that he did not have a significant amount of difficulty passing his urine. He felt fairly empty when he was done. He does not report any significant burning or discomfort with urination. OBJECTIVE: VITAL SIGNS: Temperature 97.7, pulse 116, respirations 16, blood pressure 118/93, and saturation 94% on room air. GENERAL: No apparent distress, communicating, and alert. ABDOMEN: Soft, nontender, and nondistended. : Miller catheter is gone. Penis otherwise unremarkable. There is urine in the urinal, which is a dark maroon color. ASSESSMENT AND PLAN: A 73-year-old white male, status post coronary artery bypass graft postop day #2 with successful void trial. His catheter has been removed and he is peeing on his own. He does have hematuria, which I expect will clear over the course of the next 2 to 3 days. If he has any problems with inability to urinate, I would recommend replacement with at least a 20 or 22-Samoan catheter to allow passage of blood and blood clots. So long as he is urinating on his own, I would not treat the hematuria as this should resolve ultimately. As per Dr. Paulino's recommendation, we will await at least 1 month, at which point once he receives his cardiac clearance, we will take him back for TURBT and remove his remaining bladder cancer. At which point, he will need to be referred to Oncology for chemotherapy with radiation to the bladder. I will check on him again after 1 or 2 days to ensure that he is still voiding okay and that his hematuria has cleared. Job ID: [id number]
--- NOTE | 2018-08-23 18:42 | PDOC.CTH ---
Cardiology Progress Note - Subjective No new issues. Chest tubes are out. He is passing gas and had a small BM earlier today. - Objective Vital Signs Temp Pulse Resp BP Pulse Ox 08/23/18 18:00 97.8 F 08/23/18 13:47 109 H 16 94 L 08/23/18 13:03 97.7 F 08/23/18 11:20 115 H 13 95 08/23/18 08:37 115 H 125/85 08/23/18 07:53 115 H 14 97 08/23/18 07:32 97 08/23/18 07:00 98.4 F Weight 254 lb 4.8 oz 08/22/18 08/23/18 08/24/18 06:59 06:59 06:59 Intake Total 2412.6 1080 270 Output Total 1695 1830 250 Balance 717.6 -750 20 - Physical Examination General/Neuro: alert & oriented x3, NAD Neck: no JVD present Lungs: unlabored respirations Heart: RRR Abdomen: other: (Distended but not tender.) Extremities: + edema B (1+) - Telemetry Telemetry Rhythm: NSR - Labs Result Diagrams: 08/23/18 05:20 08/23/18 05:20 - Assessment/Plan 1. Severe LM and ostial RCA disease. 2. S/P CABG x 4, ROSE to LAD, SVG to RPDA, SVG to OM, SVG to D1 3. Muscle invasive bladder cancer. 4. Ischemic CM EF at 20% PLAN: - Continue post op care. - Aspirin/statin for life - Tolerating BB and ACEI. - PT as tolerated. - Bladder surgery in one month if no major complications. - His abdomen is distended but not tender and he is passing gas, he states his abdomen gets this distended all the time.
[2018-08-23] MEDS: Acetaminophen 325 MG TAB PO PRN (18:53)
[2018-08-23] MEDS: Atorvastatin Calcium 10 MG TAB PO SCH (20:34)
[2018-08-24] MEDS: HYDROcodone/Acetaminophen 5/325 mg Tablet PO PRN ×3 (03:39→22:25)
[2018-08-24 04:05] LABS: #Eosinphils 0.1 thou/uL (0.0-0.7); #Lymphocytes 1.1 thou/uL (1.20-3.40); #Monocytes 1.1 thou/uL (0.11-0.59); #Neutrophils 8.7 thou/uL (1.40-6.50); %Basophils 0.2 % (0.0-1.0); %Lymphocytes 9.5 % (21.0-51.0); %Monocytes 10.1 % (0.0-10.0); %Neutrophils 79.3 % (42.0-75.0); Hemoglobin 10.7 g/dL (14.0-18.0); Mean Corpuscular HGB CONC 32.2 g/dL (32.0-36.0); Mean Corpuscular Hemoglobin 29.1 pg (27.0-31.0); Mean Corpuscular Volume 90.3 fL (78.0-98.0); Mean Platelet Volume 7.7 fL (7.4-10.4); Platelet Count 150 thou/uL (130-400); RBC Distribution Width 13.1 % (11.5-14.5); Red Blood Cell (RBC) Count 3.68 mill/uL (4.70-6.10)
[2018-08-24 04:33] LABS: Anion Gap 14 mmol/L (10-20); BUN (Urea Nitrogen) 34 mg/dL (8.4-25.7); Calc. Creatinine Clearance 41 mL/min (70-130); Calcium 8.5 mg/dL (7.8-10.44); Carbon Dioxide 28 mmol/L (23-31); Chloride 104 mmol/L (98-107); Estimated GFR-MDRD 24; Glucose 113 mg/dL (83-110); Potassium 4.8 mmol/L (3.5-5.1); Sodium 141 mmol/L (136-145)
[2018-08-24] MEDS ORDERED: Sodium Chloride 0.45% 1,000 ML IV SCH ×2 (07:00→16:13)
[2018-08-24] MEDS: DOBUTamine 500 mg/250 ml 250 ML IVPB SCH ×2 (07:24→22:06)
[2018-08-24 07:33] LABS: Anion Gap 13 mmol/L (10-20); BUN (Urea Nitrogen) 38 mg/dL (8.4-25.7); Calc. Creatinine Clearance 38 mL/min (70-130); Calcium 8.6 mg/dL (7.8-10.44); Carbon Dioxide 27 mmol/L (23-31); Chloride 103 mmol/L (98-107); Estimated GFR-MDRD 22; Glucose 110 mg/dL (83-110); Potassium 4.8 mmol/L (3.5-5.1); Sodium 138 mmol/L (136-145)
--- NOTE | 2018-08-24 07:48 | RAD ---
CHEST 1 VIEW: HISTORY: Post open heart surgery. COMPARISON: Radiograph prior day. FINDINGS: Central venous catheter tips extend to the inferior SVC in similar position. Atelectatic changes in both lung bases are similar. Heart size is enlarged. No pneumothorax. No significant effusion. IMPRESSION: Similar examination of the chest. POS: HOME
[2018-08-24] MEDS: Famotidine 20 MG TAB PO SCH ×2 (08:36→20:05)
[2018-08-24] MEDS: Aspirin 325 MG TAB PO SCH (08:36)
[2018-08-24] MEDS: Tamsulosin HCl 0.4 MG CAP PO SCH ×2 (08:36→20:05)
--- NOTE | 2018-08-24 11:48 | ULT ---
RENAL ULTRASOUND: Indications: Acute kidney insufficiency. FINDINGS: Both kidneys measure approximately 10 cm in length. Cortical echogenicity appears normally preserved. There is no evidence of hydronephrosis or mass lesion. Urinary bladder is only mildly distended and poorly evaluated. Bladder volume is recorded at 49 cc. IMPRESSION: Unremarkable renal ultrasound. POS: [facility]
--- NOTE | 2018-08-24 14:01 | CON ---
DATE OF CONSULTATION: REASON FOR CONSULTATION: Elevated creatinine. CONSULTING PHYSICIAN: Dr. Markus Almaraz. HISTORY OF PRESENT ILLNESS: This is a very pleasant 73-year-old gentleman, who was admitted to the hospital, status post CABG. The patient's baseline creatinine was 1.1, which increased to 2.6 today and 2.8 later today. The patient denies any chest pain at this time. Denies any other issues. PAST MEDICAL HISTORY: Coronary artery disease, status post coronary artery bypass graft, hypertension, anemia, COPD, cystoscopy, bladder surgery. ALLERGIES: REVIEWED. HOME MEDICATION: List reviewed. SOCIAL HISTORY: No alcohol use. REVIEW OF SYSTEMS: A 15-point review of system was performed negative except for what was noted above. GENERAL: HEAD: NECK: No swelling or lumps. NOSE: No epistaxis or discharge. EYES: No diplopia or pain. 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 NEUROPSYCHIATRIC SYSTEMS: No suicidal ideation. No ideation. SKIN: Denies any rash or ulcer. CONSTITUTIONAL: No fever or chills. FAMILY HISTORY: Noncontributory. PHYSICAL EXAMINATION: GENERAL: The patient is awake and alert. VITAL SIGNS: Afebrile, pulse 75, breathing 16, blood pressure was 95/61. GENERAL APPEARANCE AND MENTAL STATUS: Fair. HEAD/NECK: Normocephalic. Atraumatic. EYES: EOMI. No deformity. EARS: Clear. No ulcers. NOSE: Intact. No lesions. MOUTH: Clear. No discharge. THROAT: Clear. No exudate. LUNGS: Clear. No crackles. CARDIAC: S1, S2. No rub. ABDOMEN: Benign. Bowel sounds positive. GENITALIA/RECTUM: Miller absent. BACK/EXTREMITIES: Edema 0+. NEUROLOGICAL: Alert and motor intact. SKIN: LYMPHATICS: LABORATORY DATA: Labs show creatinine of 2.8. ASSESSMENT: 1. Acute kidney injury. 2. Chronic kidney disease, stage 4. No indication for dialysis. We will rule out hydronephrosis. 3. Cardiorenal syndrome. 4. Hypertension, stable. 5. Medication based on GFR, appropriate. Agree with stopping RACHEL. Job ID: [id number]
[2018-08-24 16:17] LABS: Anion Gap 13 mmol/L (10-20); BUN (Urea Nitrogen) 47 mg/dL (8.4-25.7); Calc. Creatinine Clearance 29 mL/min (70-130); Calcium 8.6 mg/dL (7.8-10.44); Carbon Dioxide 27 mmol/L (23-31); Chloride 103 mmol/L (98-107); Estimated GFR-MDRD 16; Glucose 118 mg/dL (83-110); Potassium 4.6 mmol/L (3.5-5.1); Sodium 138 mmol/L (136-145)
[2018-08-24] MEDS ORDERED: predniSONE 20 MG TAB PO SCH (16:30)
--- NOTE | 2018-08-24 16:42 | PRG ---
DATE OF SERVICE: 08/24/2018 SERVICE: Pulmonary Medicine. INTERVAL HISTORY: The patient is doing okay from a respiratory standpoint. Work of breathing is slightly increased. Denies any current chest pain, fevers, or chills. He is coughing a little bit. This is a nonproductive cough. Otherwise, there has been no interval change to his condition. PHYSICAL EXAMINATION: VITAL SIGNS: Afebrile, pulse 113, blood pressure 111/76, respirations 15, and saturation 93% on 2 L nasal cannula. GENERAL: The patient is awake and alert, in no apparent distress. LUNGS: Reduced air entry today. There is a prolonged expiratory phase. Both polyphonic wheezing and crackles are noted. HEART: Normal rate and regular. ABDOMEN: Soft, nontender, and nondistended. Bowel sounds are positive. MUSCULOSKELETAL: No cyanosis or clubbing. There is 2+ pitting in the bilateral lower extremities. NEUROLOGIC: Grossly nonfocal. LABORATORY DATA: WBC 11.0, hemoglobin 10.7, platelets 150,000. INR 1.0. Creatinine 2.85, which is significantly elevated compared to yesterday. Basic metabolic profile is otherwise unremarkable. IMAGING STUDIES: Ultrasound of bilateral kidneys demonstrates no evidence for hydronephrosis. It is unremarkable ultrasound of the kidneys. Chest x-ray demonstrates no acute interval change. ASSESSMENT: 1. Acute hypoxic respiratory failure. 2. Chronic obstructive pulmonary disease with mild exacerbation. 3. Coronary artery disease, status post coronary artery bypass graft x4 vessels, postop day #3. 4. Chronic systolic heart failure (20% EF). 5. Bladder cancer with gross hematuria. 6. Acute kidney injury. DISCUSSION AND PLAN: The kidney injury corresponds to his previous surgical procedure. At this point, we will likely back off diuretics and minimize IV fluids through time as the patient is volume overload presently. Prednisone will be started for a period of 5 days. Pulmonary/Critical Care will continue to follow along. Job ID: [id number]
--- NOTE | 2018-08-24 17:35 | PDOC.CTH ---
Cardiology Progress Note - Subjective He was hypotensive over night. - Objective Vital Signs Temp Pulse Pulse Pulse Resp BP BP 08/24/18 16:00 98.4 F 08/24/18 12:24 109 H 21 H 08/24/18 11:25 98.8 F 08/24/18 09:15 115 H 119 H 103/60 96/65 08/24/18 07:23 104 H 15 08/24/18 07:04 08/24/18 07:00 98.0 F Pulse Ox Pulse Ox Pulse Ox 08/24/18 16:00 08/24/18 12:24 08/24/18 11:25 08/24/18 09:15 91 L 91 L 08/24/18 07:23 08/24/18 07:04 94 L 08/24/18 07:00 Weight 255 lb 11.779 oz 08/23/18 08/24/18 08/25/18 06:59 06:59 06:59 Intake Total 1080 400 600 Output Total 1830 400 500 Balance -750 0 100 - Physical Examination General/Neuro: alert & oriented x3, NAD Neck: no JVD present Lungs: unlabored respirations Heart: RRR, other: (Tachy) Abdomen: other: (DIstended but not tender, tiipmanic, reducd Bowel sounds but is passing gas. ) Extremities: + edema B (1+) - Telemetry Telemetry Rhythm: S Tach - Labs Result Diagrams: 08/24/18 03:50 08/24/18 15:36 - Assessment/Plan 1. Severe LM and ostial RCA disease. 2. S/P CABG x 4, ROSE to LAD, SVG to RPDA, SVG to OM, SVG to D1 3. Muscle invasive bladder cancer. 4. Ischemic CM EF at 20% 5. LEENA on CKD, likely from hypotension. PLAN: - Post op care. - Agree with dobutamine. If BP continues to fall may need addition of levophed and would scan his belly. - He is passing gas so not obstructed. - Continue to stay away from any BP agents for now. - Normal appearing kidneys. - Remain in ICU. - Hgb stable
[2018-08-24] MEDS: Atorvastatin Calcium 10 MG TAB PO SCH (20:05)
[2018-08-25 05:20] LABS: #Lymphocytes 0.5 thou/uL (1.20-3.40); #Monocytes 0.9 thou/uL (0.11-0.59); %Eosinophils 0.1 % (0.0-10.0); %Lymphocytes 5.9 % (21.0-51.0); %Monocytes 10.2 % (0.0-10.0); %Neutrophils 83.8 % (42.0-75.0); Hemoglobin 10.5 g/dL (14.0-18.0); Mean Corpuscular HGB CONC 32.5 g/dL (32.0-36.0); Mean Corpuscular Hemoglobin 29.2 pg (27.0-31.0); Mean Platelet Volume 7.8 fL (7.4-10.4); Platelet Count 180 thou/uL (130-400); RBC Distribution Width 13.3 % (11.5-14.5); Red Blood Cell (RBC) Count 3.58 mill/uL (4.70-6.10); White Blood Cell (WBC) Count 8.4 thou/uL (4.8-10.8)
[2018-08-25 05:44] LABS: Anion Gap 12 mmol/L (10-20); BUN (Urea Nitrogen) 60 mg/dL (8.4-25.7); Calc. Creatinine Clearance 28 mL/min (70-130); Calcium 8.8 mg/dL (7.8-10.44); Carbon Dioxide 27 mmol/L (23-31); Chloride 102 mmol/L (98-107); Estimated GFR-MDRD 16; Glucose 137 mg/dL (83-110); Potassium 4.4 mmol/L (3.5-5.1); Sodium 137 mmol/L (136-145)
[2018-08-25] MEDS: Aspirin 325 MG TAB PO SCH (09:04)
[2018-08-25] MEDS: Famotidine 20 MG TAB PO SCH ×3 (09:04→20:55)
[2018-08-25] MEDS: Tamsulosin HCl 0.4 MG CAP PO SCH ×3 (09:04→20:57)
[2018-08-25] MEDS: predniSONE 20 MG TAB PO SCH (09:05)
--- NOTE | 2018-08-25 10:07 | PRG ---
DATE OF SERVICE: 08/25/2018 SERVICE: Pulmonary Medicine. INTERVAL HISTORY: The patient has yet turned the corner. He is on a dobutamine drip. He has hiccups. Also, he has an aversion for food. He has increased work of breathing, though he says he is comfortable. Denies any current chest pain, fevers, or chills. He has a little bit of confusion at setting overnight. He did not realize where he was. PHYSICAL EXAMINATION: VITAL SIGNS: Afebrile, pulse 115, blood pressure 98/64, respirations 14, saturation 91% on 3 L nasal cannula. GENERAL: The patient is awake and alert, in no apparent distress. LUNGS: Slightly improved air entry. Dependent crackles are noted. There is a prolonged expiratory phase, but I do not hear the polyphonic wheezing today. HEART: Normal rate, regular. ABDOMEN: Soft, nontender, and nondistended. Bowel sounds are positive. MUSCULOSKELETAL: No cyanosis or clubbing. There is 1 to 2+ pitting in the bilateral lower extremities. LABORATORY DATA: WBC 8.4, hemoglobin 10.5, and platelets 180,000. INR 1.4. Creatinine 3.84 and roughly stable, BUN 60. Basic metabolic profile is otherwise unremarkable. ASSESSMENT: 1. Acute hypoxic respiratory failure. 2. Chronic obstructive pulmonary disease with mild exacerbation. 3. Coronary artery disease status post coronary artery bypass graft x4 vessels, postop day #4. 4. Chronic systolic heart failure (20% EF). 5. Acute kidney injury. 6. Bladder cancer with hematuria, resolved. DISCUSSION AND PLAN: We will continue supportive care. The patient is technically volume overloaded. Inotropic support of the heart will be continued. He will need to remain in the ICU or IMCU for the time being. His kidneys will take a little bit of time to recover. We will try to avoid any nephrotoxic agents or hypotension moving forward. Pulmonary will continue to follow. Job ID: [id number]
--- NOTE | 2018-08-25 12:34 | RAD ---
FAbdomen one view HISTORY: Abdominal pain and distention. COMPARISON: 2019. FINDINGS: Gaseous distention of the colon and small bowel persists, only minimally improved since the prior exam. Gas (within the stomach) overlying the upper abdomen and lower mediastinum is similar in appearance to prior exams. IMPRESSION: Persistent radiographic appearance of ileus, with only minimal improvement since the prev ious exam.
[2018-08-25] MEDS ORDERED: Bisacodyl 10 MG SUPP PR SCH ×2 (13:00→13:15)
[2018-08-25] MEDS: Sodium Chloride 0.45% 1,000 ML IV SCH (13:00)
--- NOTE | 2018-08-25 13:03 | PRG ---
DATE OF SERVICE: 08/25/2018 SUBJECTIVE: A 73-year-old male being seen for acute kidney injury. The patient denies any nausea, vomiting, or chest pain. OBJECTIVE: CONSTITUTIONAL: The patient is awake and alert. VITAL SIGNS: Pulse 57, breathing 16, and blood pressure . GENERAL APPEARANCE AND MENTAL STATUS: Fair. HEAD/NECK: Normocephalic. Atraumatic. EYES: EOMI. No deformity. EARS: Clear. No ulcers. NOSE: Intact. No lesions. MOUTH: Clear. No discharge. THROAT: Clear. No exudate. LUNGS: Clear. No crackles. CARDIAC: S1, S2. No rub. ABDOMEN: Benign. Bowel sounds positive. GENITALIA/RECTUM: Miller absent. BACK/EXTREMITIES: Edema 0+. NEUROLOGICAL: Alert and motor intact. SKIN: LYMPHATICS: LABORATORY DATA: Labs showed hemoglobin 10.5, creatinine 3.8. IMPRESSION AND PLAN: 1. Acute kidney injury with chronic kidney disease due to cardiorenal syndrome and baseline CKD. His baseline GFR was at chronic kidney disease stage 3. 2. Anemia, stable. 3. Medication based on GFR appropriate. No indication for dialysis. All the above findings were discussed and explained to the patient. Job ID: [id number]
[2018-08-25] MEDS: DOBUTamine 500 mg/250 ml 250 ML IVPB SCH (13:14)
--- NOTE | 2018-08-25 15:08 | PDOC.CTH ---
Cardiology Progress Note - Subjective Abdominal discomfort worse today. NG tube in place now. - Objective Vital Signs Temp Pulse Pulse Pulse Resp BP BP 08/25/18 14:35 116 H 12 08/25/18 12:00 98.7 F 08/25/18 09:24 122 H 117 H 114/83 81/65 L 08/25/18 08:00 08/25/18 07:00 98.6 F 08/25/18 06:54 123 H 17 08/25/18 04:00 98.4 F Pulse Ox Pulse Ox Pulse Ox 08/25/18 14:35 92 L 08/25/18 12:00 08/25/18 09:24 93 L 91 L 08/25/18 08:00 95 08/25/18 07:00 08/25/18 06:54 95 08/25/18 04:00 Weight 255 lb 11.779 oz 08/24/18 08/25/18 08/26/18 06:59 06:59 06:59 Intake Total 400 1848 1270 Output Total 400 850 100 Balance 0 998 1170 - Physical Examination General/Neuro: alert & oriented x3 Neck: no JVD present Lungs: unlabored respirations Heart: other: (SInus tach) Abdomen: NT/ND Extremities: + edema B (1+) - Telemetry Telemetry Rhythm: S tach - Labs Result Diagrams: 08/25/18 04:30 08/25/18 04:30 - Assessment/Plan 1. Severe LM and ostial RCA disease. 2. S/P CABG x 4, ROSE to LAD, SVG to RPDA, SVG to OM, SVG to D1 3. Muscle invasive bladder cancer. 4. Ischemic CM EF at 20% 5. LEENA on CKD, likely from hypotension and increased abdominal pressures. 6. Post op Ileus PLAN: - Continue post op care. - NG tube in place. - Continue innotropes. - Severely ill and would not be unexpected. - No BB or ACEI. - Agree with gentle hydration.
--- NOTE | 2018-08-25 15:40 | RAD ---
ABDOMEN 1 VIEW: HISTORY: Confirm NG tube placement. COMPARISON: 08/25/2018, 2:48 p.m. study. FINDINGS: Again noted is moderate dilatation of the colon and small bowel, evidence for persistent ileus. An N G tube has been placed with the tip extending into the stomach. The side hole is difficult to see bu t is probably at the GE junction region. IMPRESSION: Stable gaseous dilatation of the colon and small bowel, evidence for ileus. Nasogastric tube in plac e with the tip in the stomach and the side hole, somewhat difficult to see, probably near the gastroe sophageal junction. POS: [facility]
--- NOTE | 2018-08-25 15:52 | RAD ---
CHEST ONE VIEW: 08/25/18 HISTORY: NG tube placement. COMPARISON: KUB done earlier today. Heart size is within normal limits. Postop sternotomy changes seen. A right subclavian line is presen t. On this film, an NG tube is seen. The tip of the tube is in the region of the GE junction. I canno t see the distal end of the tube on this study. IMPRESSION: NG tube which is seen at least to the level of the GE junction. POS: [facility]
--- NOTE | 2018-08-25 18:55 | RAD ---
KUB: 08/25/18 HISTORY: NG tube placement. COMPARISON: Earlier exam done today. Once again, an NG tube is present. The tip is coiled and lies in the region of the GE junction. There is an air structure which is in the midline of the abdomen presumably this is the stomach, although slightly more midline in position than typically seen. IMPRESSION: NG tube which is coiled overlying the GE junction region. POS: [facility]
[2018-08-25] MEDS ORDERED: Polyethylene Glycol 3350 17 GM Packet PO PRN (19:53)
[2018-08-25] MEDS: Atorvastatin Calcium 10 MG TAB PO SCH ×2 (20:41→20:55)
[2018-08-25] MEDS: Acetaminophen 325 MG TAB PO PRN (20:41)
--- NOTE | 2018-08-26 00:08 | RAD ---
SUPINE ABDOMEN: 08/25/18 HISTORY: NG tube. The NG tube is not identified on this film of the lower chest and upper abdomen. Diffuse gaseous dist ention of the colon is noted. IMPRESSION: NG tube is not identified on this film. POS: [facility]
--- NOTE | 2018-08-26 03:09 | CON ---
DATE OF CONSULTATION: 08/25/2018 REASON FOR CONSULTATION: Postoperative ileus, increased abdominal distention. CONSULTING PHYSICIAN: Dr. Juan A Causey. HISTORY OF PRESENT ILLNESS: The patient is a 73-year-old male with past medical history of COPD, hypertension, hyperlipidemia, bladder cancer, ischemic cardiomyopathy, and coronary artery disease, now status post CABG x4 vessel bypass, presenting with increased abdominal distention in the postoperative period. The patient was recently diagnosed with a bladder cancer and as part of the workup related to this particular condition, a cardiac workup was initiated given increased risk of complication with any cardiac abnormalities. He was noted to have significant coronary artery disease and was subsequently admitted to the hospital for cardiac bypass surgery that was performed on August 21, 2018. In the postoperative period, he experienced a first constipation with inability to have a bowel movement and was placed on a bowel regimen consisting of lactulose and bisacodyl. However, over the last 2 to 3 days, he has been having increased abdominal distention as well as decreased frequency of having a bowel movement with his last bowel movement being approximately 2 to 3 days ago. When he did have a bowel movement 2 to 3 days ago, it was liquid in consistency and very small volume per the patient and the patient's brother. He has been able to ambulate around the sánchez somewhat yesterday, but had not been able to ambulate around the sánchez today due to significant hypotension noted on monitoring and was ultimately placed on a dobutamine drip. With his increased abdominal distention over the last 2 to 3 days, it prompted obtaining an abdominal x-ray on August 25, 2018 and August 23, 2018, which showed moderate gaseous distention of loops of small and large bowels that were nonspecific and most likely reflected a postoperative ileus. At this time, the patient does endorse mild increased abdominal pain located in the generalized abdomen and characterized as an aching/cramping type sensation with a severity of approximately 3/10 to 4/10. This is associated with mild increase in nausea with vomiting of nonbloody emesis x1. However, he currently denies any fevers, chills, hematemesis, melena, hematochezia, dysphagia, or odynophagia. Of note, he had repeat imaging obtained earlier today, which showed only minimal improvement of colonic and small bowel distention. REVIEW OF SYSTEMS: A 10-category review of systems was obtained with all responses negative except for the pertinent positives as listed in the HPI. PAST MEDICAL HISTORY: As per HPI. PAST SURGICAL HISTORY: TURBT, coronary artery bypass graft with 4-vessel bypass. FAMILY HISTORY: Denies any family history of GI malignancy. SOCIAL HISTORY: Denies any tobacco, alcohol, or illicit drug use. ALLERGIES: NO KNOWN DRUG ALLERGIES. PHYSICAL EXAMINATION: VITAL SIGNS: Temperature 98.3, pulse 115, blood pressure 145/78, respiratory rate 13, saturating 92% on 2 L nasal cannula. GENERAL: The patient was lying in bed, in no acute distress. Alert and oriented x3. HEENT: Normocephalic, atraumatic. No scleral icterus noted. NECK: Supple. CARDIOVASCULAR: Regular rate and rhythm with no discernible murmurs, gallops, or rubs. RESPIRATORY: Clear to auscultation bilaterally with no discernible wheezes or rales (although difficult to discern due to patient's body habitus). ABDOMEN: Hypoactive bowel sounds, tense to palpation. Moderate to severe abdominal distention, but relatively nonpainful to palpation. EXTREMITIES: No cyanosis or clubbing, 1+ bilateral lower extremity edema. LABORATORY DATA: CBC with a white blood cell count of 8.4, hemoglobin 10.5, hematocrit 32.3, platelets 180. Chemistry with a sodium of 137, potassium 4.4, chloride 102, CO2 of 27, BUN 60, creatinine 3.84, glucose 137. IMAGING DATA: Plain film of the abdomen obtained on August 25, 2018, showed again moderate dilation of the colon and small bowel, evidence for persistent ileus, although an NG tube had been placed with its tip extending into the stomach. Repeat KUB on August 25, 2018 at 1800 hours showed that the NG tube tip was coiled and lies in the region of the GE junction. ASSESSMENT AND PLAN: The patient is a 73-year-old male with past medical history of chronic obstructive pulmonary disease, hypertension, hyperlipidemia, ischemic cardiomyopathy, bladder cancer, and now coronary artery disease status post 4-vessel coronary artery bypass graft, presenting with postoperative ileus. Postoperative ileus: As part of the workup for surgery to remove the bladder cancer, he ultimately underwent a cardiac workup which showed significant coronary artery disease. He subsequently underwent a coronary artery bypass graft with 4-vessel bypass on August 21, 2018. In the postoperative period, he experienced increased constipation with inability to have a bowel movement while on narcotic medications. However, over the last 2 to 3 days, he has had significant worsening abdominal distention as well as constipation/inability to have a bowel movement, with bowel movements obtained thus far being small in volume and liquid in consistency. Upon evaluation of imaging of the abdomen, it is most consistent with a postoperative ileus given dilation of both the small and large bowels with no clear transition point. Upon evaluating his labs, he is currently electrolyte replete making the likelihood of electrolyte abnormality much less likely. At this point, the more likely reason the patient may or may not have a postoperative ileus is due to the significant operation that has taken place and just ileus from that particular procedure. However, with the use of narcotics and administration of lactulose (which is notorious for being gas-forming) they could contribute to the current clinical situation. At this point, his ileus seems to be slightly improving on imaging and I would continue with a more conservative management at this time with holding on any endoscopic management due to increased risk of complication. RECOMMENDATIONS: 1. Pain control per primary team, but we would attempt to minimize any narcotic administration given its ability to decrease colonic transit and further contribute to colonic/small bowel ileus. 2. We would continue IV fluid administration and maintain normovolemia and electrolyte replacement. 3. We would make the patient n.p.o. for now given significant abdominal distention and restart the patient on a liquid diet upon resolving abdominal distention. 4. We would continue with NG tube suction to low intermittent wall suctioning. 5. We would obtain KUB evaluation daily to determine worsening or improvement of the colonic ileus. 6. We would discontinue the use of lactulose in favor of MiraLAX daily as part of the bowel regimen given its less gas-forming qualities. We will continue to follow. Please call with any questions. Job ID: [id number]
[2018-08-26] MEDS: Ondansetron PF 4 MG/2 ML Vial IVP PRN (03:10)
[2018-08-26] MEDS: HYDROcodone/Acetaminophen 5/325 mg Tablet PO PRN ×4 (03:20→20:40)
[2018-08-26] MEDS: DOBUTamine 500 mg/250 ml 250 ML IVPB SCH (03:51)
[2018-08-26 04:48] LABS: Anion Gap 13 mmol/L (10-20); BUN (Urea Nitrogen) 79 mg/dL (8.4-25.7); Calc. Creatinine Clearance 38 mL/min (70-130); Calcium 8.5 mg/dL (7.8-10.44); Carbon Dioxide 27 mmol/L (23-31); Chloride 103 mmol/L (98-107); Estimated GFR-MDRD 22; Glucose 123 mg/dL (83-110); Potassium 3.9 mmol/L (3.5-5.1); Sodium 139 mmol/L (136-145)
[2018-08-26 05:09] LABS: Band 37 % (5-11); Hemoglobin 9.8 g/dL (14.0-18.0); Lymphocytes 19 % (21-51); MDiff Complete? YES; Mean Corpuscular HGB CONC 33.1 g/dL (32.0-36.0); Mean Corpuscular Hemoglobin 29.4 pg (27.0-31.0); Mean Corpuscular Volume 88.9 fL (78.0-98.0); Mean Platelet Volume 7.3 fL (7.4-10.4); Metamyelocyte 1 % (0-0); Monocytes 17 % (0-10); Myelocyte 2 % (0-0); Neutrophil 24 % (42-75); Platelet Count 188 thou/uL (130-400); RBC Distribution Width 13.4 % (11.5-14.5); Red Blood Cell (RBC) Count 3.33 mill/uL (4.70-6.10); White Blood Cell (WBC) Count 4.8 thou/uL (4.8-10.8)
[2018-08-26] MEDS: Aspirin 325 MG TAB PO SCH (08:30)
[2018-08-26] MEDS: predniSONE 20 MG TAB PO SCH (08:30)
[2018-08-26] MEDS: Famotidine 20 MG TAB PO SCH ×2 (08:31→20:38)
[2018-08-26] MEDS: Tamsulosin HCl 0.4 MG CAP PO SCH ×3 (08:31→20:59)
--- NOTE | 2018-08-26 08:36 | RAD ---
KUB: Date: 08/26/18 INDICATION: Abdominal distention. COMPARISON: Prior exam dated 08/25/18. IMPRESSION: Gas-filled loops of small and large bowel are unchanged. NG tube is not demonstrated. IMPRESSION: Diffuse gaseous distention of small and large bowel appear similar. POS: BH
--- NOTE | 2018-08-26 10:14 | PDOC.CTH ---
Cardiology Progress Note - Subjective He is doing better. Still no BM but more comfortable. - Objective Vital Signs Temp Pulse Resp Pulse Ox 08/26/18 07:42 96 08/26/18 07:41 96 08/26/18 07:40 113 H 15 96 08/26/18 07:02 98.2 F 08/26/18 04:00 98.8 F 100 08/26/18 00:00 98.6 F 120 H 18 96 Weight 248 lb 08/25/18 08/26/18 08/27/18 06:59 06:59 06:59 Intake Total 1848 2070 Output Total 850 1025 Balance 998 1045 - Physical Examination General/Neuro: alert & oriented x3 Neck: no JVD present Lungs: CTA, unlabored respirations Heart: RRR Abdomen: NT/ND Extremities: + edema B (1+) - Telemetry Telemetry Rhythm: S tach. - Labs Result Diagrams: 08/26/18 04:13 08/26/18 04:13 - Assessment/Plan 1. Severe LM and ostial RCA disease. 2. S/P CABG x 4, ROSE to LAD, SVG to RPDA, SVG to OM, SVG to D1 3. Muscle invasive bladder cancer. 4. Ischemic CM EF at 20% 5. LEENA on CKD, likely from hypotension and increased abdominal pressures. 6. Post op Ileus PLAN: - Continue post op care. - Continue NG tube for decompression. - Continue innotropes. - No BB or ACEI. - Creatinine improving now.
--- NOTE | 2018-08-26 11:52 | PRG ---
DATE OF SERVICE: 08/26/2018 SUBJECTIVE: This is a 73-year-old gentleman being seen for acute kidney injury. The patient denied any nausea, vomiting, or chest pain. OBJECTIVE: CONSTITUTIONAL: On examination, the patient is awake, alert. VITAL SIGNS: Afebrile, pulse 75, breathing 16, and blood pressure 110/73. GENERAL APPEARANCE AND MENTAL STATUS: Fair. HEAD/NECK: Normocephalic. Atraumatic. EYES: EOMI. No deformity. EARS: Clear. No ulcers. NOSE: Intact. No lesions. MOUTH: Clear. No discharge. THROAT: Clear. No exudate. LUNGS: Clear. No crackles. CARDIAC: S1, S2. No rub. ABDOMEN: Benign. Bowel sounds positive. GENITALIA/RECTUM: Miller absent. BACK/EXTREMITIES: Edema 0+. NEUROLOGICAL: Alert and motor intact. LABORATORY DATA: Hemoglobin 9.8. Creatinine 2.8. ASSESSMENT AND PLAN: 1. Acute kidney injury, improved. 2. Hypertension, stable. 3. Anemia, stable. 4. Medications based on glomerular filtration rate are appropriate. I will continue hydration with normal saline. Job ID: [id number]
--- NOTE | 2018-08-26 14:10 | PRG ---
DATE OF SERVICE: 08/26/2018 SERVICE: Pulmonary Medicine. INTERVAL HISTORY: The patient is doing a little bit better today. His abdominal distention is improving ever so slightly. Otherwise, there has been no interval change to his condition. He really does not have much of an appetite for food. There were no fevers or overnight events. PHYSICAL EXAMINATION: VITAL SIGNS: Afebrile, pulse 111, blood pressure 111/73, respirations 15, saturation 96% on room air. GENERAL: The patient is awake and alert, in no apparent distress. LUNGS: Good air entry. There is a prolonged expiratory phase with minimal wheezing. No rhonchi or crackles are appreciated. HEART: Normal rate, regular. ABDOMEN: Distended. Bowel sounds are hypoactive. : Miller catheter in place. NEUROLOGIC: Grossly nonfocal. LABORATORY DATA: WBC 4.8. His band count has increased to 37%. Hemoglobin 9.8, platelets 188,000. INR 1.4. Creatinine 2.81. Basic metabolic profile is otherwise unremarkable. IMAGING STUDIES: Abdominal x-ray demonstrates diffuse gaseous distention of small and large bowel is roughly similar. NG tube is in place. ASSESSMENT: 1. Acute hypoxic respiratory failure. 2. Chronic obstructive pulmonary disease with mild exacerbation. 3. Coronary artery disease, status post coronary artery bypass graft x4 vessels, postop day 5. 4. Chronic systolic heart failure. 5. Ileus. 6. Acute kidney injury, improving. 7. Bladder cancer with hematuria. DISCUSSION AND PLAN: Because he has had this band count and tachycardia, we will go ahead and panculture him. I am not going to initiate any antibiotics for the time being. Simethicone will be scheduled for 4-5 doses. If he has a bowel movement and it is liquidy, C diff will obviously be sent. Pulmonary Critical Care will continue to follow along. He will remain in the IM for the time being. Job ID: [id number]
--- NOTE | 2018-08-26 16:56 | PRG ---
DATE OF SERVICE: 08/26/2018 REASON FOR CONSULTATION: Postoperative ileus, increased abdominal distention. SUBJECTIVE: Today, the patient states that he is feeling better when compared to previous with slightly decreased abdominal distention, decreased hiccups, and overall just feeling slightly better. Currently, he denies any nausea, vomiting, fevers, chills, abdominal pain. Although, he has not been able to have a bowel movement nor is he passing much gas. OBJECTIVE: VITAL SIGNS: Temperature 97.8, pulse 114, blood pressure 89/64, respiratory rate 16, saturating 97% on 2 L nasal cannula. GENERAL: The patient was sitting at bedside, in no acute distress. Alert and oriented x4. CARDIOVASCULAR: Regular rate and rhythm. RESPIRATORY: Clear to auscultation bilaterally. ABDOMEN: Hypoactive bowel sounds, tense to palpation, moderate to severe abdominal distention, but nonpainful to palpation. EXTREMITIES: No cyanosis or clubbing. 1+ bilateral lower extremity edema. LABORATORY DATA: CBC with a white blood cell count of 4.8, hemoglobin 9.8, hematocrit 29.6, platelets 188. Chemistry with a sodium of 139, potassium 3.9, chloride 103, CO2 of 27, BUN 79, creatinine 2.81, glucose 123. IMAGING DATA: KUB obtained on August 26, 2018, showed gas-filled loops of small and large bowel that are relatively unchanged when compared to previous. ASSESSMENT AND PLAN: The patient is a 73-year-old male with past medical history of chronic obstructive pulmonary disease, hypertension, hyperlipidemia, ischemic cardiomyopathy, bladder cancer, and now coronary artery disease, status post four-vessel CABG, presenting with postoperative ileus. Postoperative ileus. As part of the workup for surgery to remove the bladder cancer, he ultimately underwent a cardiac workup, which showed significant coronary artery disease, necessitating a 4-vessel bypass that was performed on August 21, 2018. In the postoperative period, he experienced increased constipation with inability to have a bowel movement while on narcotic medications, but within 2 to 3 days of the operative period, began having significant worsening of abdominal distention along with constipation. Upon evaluation of the imaging within the last 24 to 48 hours, which shows dilation of both the small and large intestine consistent with a postoperative ileus. At this point, he is feeling somewhat better with more conservative management including discontinuation of lactulose, minimization of narcotics, and placement of an NG tube to low intermittent wall suction. RECOMMENDATIONS: 1. Pain control per primary team, but would attempt to minimize any narcotic administration. 2. Continue IV fluid administration with monitoring towards euvolemia. 3. We would continue the patient on n.p.o. status with NG tube placed to low intermittent wall suctioning. 4. We would obtain KUB daily for monitoring of his postoperative ileus. We will continue to follow. Please call with any questions. Job ID: [id number]
[2018-08-26] MEDS: Sodium Chloride 0.45% 1,000 ML IV SCH (18:08)
[2018-08-26] MEDS: Simethicone Chewable 80 MG TAB PO SCH (20:38)
[2018-08-26] MEDS: Atorvastatin Calcium 10 MG TAB PO SCH (20:38)
[2018-08-27] MEDS: Simethicone Chewable 80 MG TAB PO SCH ×4 (00:19→19:13)
[2018-08-27 04:23] LABS: Phosphorus 3.6 mg/dL (2.3-4.7)
[2018-08-27 04:24] LABS: Anion Gap 13 mmol/L (10-20); BUN (Urea Nitrogen) 70 mg/dL (8.4-25.7); Calc. Creatinine Clearance 68 mL/min (70-130); Calcium 8.9 mg/dL (7.8-10.44); Carbon Dioxide 28 mmol/L (23-31); Chloride 104 mmol/L (98-107); Estimated GFR-MDRD 44; Glucose 125 mg/dL (83-110); Magnesium 2.5 mg/dL (1.6-2.6); Potassium 3.9 mmol/L (3.5-5.1); Sodium 141 mmol/L (136-145)
[2018-08-27 04:51] LABS: Band 22 % (5-11); Eosinophils 1 % (0-10); Hemoglobin 10.8 g/dL (14.0-18.0); Lymphocytes 18 % (21-51); MDiff Complete? YES; Mean Corpuscular HGB CONC 33.8 g/dL (32.0-36.0); Mean Corpuscular Hemoglobin 29.7 pg (27.0-31.0); Mean Corpuscular Volume 87.9 fL (78.0-98.0); Mean Platelet Volume 6.8 fL (7.4-10.4); Monocytes 16 % (0-10); Neutrophil 42 % (42-75); Platelet Count 240 thou/uL (130-400); RBC Distribution Width 13.4 % (11.5-14.5); Red Blood Cell (RBC) Count 3.63 mill/uL (4.70-6.10); White Blood Cell (WBC) Count 5.1 thou/uL (4.8-10.8)
[2018-08-27] MEDS: Sodium Chloride 0.45% 1,000 ML IV SCH (06:02)
[2018-08-27] MEDS: DOBUTamine 500 mg/250 ml 250 ML IVPB SCH (08:16)
[2018-08-27] MEDS ORDERED: DOBUTamine 500 mg/250 ml 250 ML IVPB SCH (09:45)
[2018-08-27] MEDS: predniSONE 20 MG TAB PO SCH (10:36)
[2018-08-27] MEDS: Famotidine 20 MG TAB PO SCH ×2 (10:37→21:16)
[2018-08-27] MEDS: Aspirin 325 MG TAB PO SCH (10:38)
[2018-08-27] MEDS: Tamsulosin HCl 0.4 MG CAP PO SCH ×3 (10:42→21:29)
--- NOTE | 2018-08-27 11:31 | PRG ---
DATE OF SERVICE: 08/27/2018 SUBJECTIVE: A 73-year-old gentleman being seen for acute kidney injury. The patient denied any nausea, vomiting, or chest pain. OBJECTIVE: CONSTITUTIONAL: On examination, the patient is awake and alert. VITAL SIGNS: Afebrile, pulse 106, breathing 16, blood pressure 143/75. GENERAL APPEARANCE AND MENTAL STATUS: Fair. HEAD/NECK: Normocephalic. Atraumatic. EYES: EOMI. No deformity. EARS: Clear. No ulcers. NOSE: Intact. No lesions. MOUTH: Clear. No discharge. THROAT: Clear. No exudate. LUNGS: Clear. No crackles. CARDIAC: S1, S2. No rub. ABDOMEN: Benign. Bowel sounds positive. GENITALIA/RECTUM: Miller absent. BACK/EXTREMITIES: Edema 0+. NEUROLOGICAL: Alert and motor intact. SKIN: LYMPHATICS: LABORATORY DATA: Labs show hemoglobin 10.8. ASSESSMENT AND PLAN: 1. Stage 4 chronic kidney disease, stable. 2. Acute kidney injury, resolved. 3. Hypertension, stable. 4. Anemia, stable. I will sign off on this patient. Please reconsult as needed. Job ID: [id number]
--- NOTE | 2018-08-27 12:16 | PRG ---
DATE OF SERVICE: 08/27/2018 SERVICE: Pulmonary Medicine. INTERVAL HISTORY: The patient is doing quite a bit better. Yesterday, he walked around several times. His pain is under better control so is not requiring narcotics. He is passing significant amounts of gas. He is not having any nausea. That being said, he still has a little aversion for food. He is asking for solid food, but I told him that I think that would be craig at this point. Denies any chest pain. His shortness of breath has actually improved, though he remains quite labored. PHYSICAL EXAMINATION: VITAL SIGNS: Afebrile, pulse 114, blood pressure 108/88, respirations 15, and saturation 100% on 3 L nasal cannula. GENERAL: The patient is awake and alert, in no apparent distress. LUNGS: Decreased air entry with a prolonged expiratory phase. There is some wheezing present. I do not appreciate any crackling. HEART: Normal rate and regular. ABDOMEN: Soft, nontender, and nondistended. Bowel sounds are positive. MUSCULOSKELETAL: No cyanosis or clubbing. No pitting in the bilateral lower extremities. NEUROLOGIC: Grossly nonfocal. LABORATORY DATA: WBC 5.1, hemoglobin 10.8, platelets 240,000. Creatinine 1.55 and improving, BUN 70 and downtrending. Basic metabolic profile is otherwise unremarkable. Phosphorus 3.6, magnesium 2.5. Blood cultures x2 and urine culture are unremarkable. ASSESSMENT: 1. Acute hypoxic respiratory failure. 2. Chronic obstructive pulmonary disease with mild exacerbation. 3. Coronary artery disease, status post coronary artery bypass graft x4 vessels, postop day 6. 4. Chronic systolic heart failure. 5. Ileus, resolving. 6. Acute kidney injury, improving. 7. Bladder cancer with hematuria. DISCUSSION AND PLAN: The patient is doing absolutely wonderful at this point. We will continue our supportive measures. He is on prednisone for a mild COPD exacerbation. Mobilization efforts will be continued. Pulmonary Critical Care will follow in this location. Job ID: [id number]
--- NOTE | 2018-08-27 16:38 | PDOC.CTH ---
Cardiology Progress Note - Subjective He is doing much better today. he has not had a BM yet but is passing much more gas. - Objective Vital Signs Temp Pulse Pulse Pulse Resp BP BP 08/27/18 15:00 98.8 F 08/27/18 14:49 115 H 23 H 08/27/18 13:13 108 H 106 H 135/86 117/86 08/27/18 11:10 97.2 F L 08/27/18 09:52 114 H 114 H 108/88 125/80 08/27/18 07:37 98.6 F 08/27/18 06:07 08/27/18 06:04 111 H 14 Pulse Ox Pulse Ox Pulse Ox 08/27/18 15:00 08/27/18 14:49 98 08/27/18 13:13 98 100 08/27/18 11:10 08/27/18 09:52 100 100 08/27/18 07:37 08/27/18 06:07 99 08/27/18 06:04 99 Weight 242 lb 11.2 oz 08/26/18 08/27/18 08/28/18 06:59 06:59 06:59 Intake Total 2070 757 Output Total 1025 1670 50 Balance 1045 -913 -50 - Physical Examination General/Neuro: alert & oriented x3 Neck: no JVD present Lungs: unlabored respirations Heart: RRR Abdomen: NT/ND Extremities: + edema B (1+) - Telemetry Telemetry Rhythm: S tach - Labs Result Diagrams: 08/27/18 03:50 08/27/18 03:50 - Assessment/Plan 1. Severe LM and ostial RCA disease. 2. S/P CABG x 4, ROSE to LAD, SVG to RPDA, SVG to OM, SVG to D1 3. Muscle invasive bladder cancer. 4. Ischemic CM EF at 20% 5. LEENA on CKD, likely from hypotension and increased abdominal pressures. 6. Post op Ileus PLAN: - Continue post op care. - Continue NG tube for decompression. - Continue innotropes today, probably will start to wean tomorrow. - No BB or ACEI. - Creatinine continues to improve now.
[2018-08-27] MEDS: Bisacodyl 5 MG TAB PO PRN (21:15)
[2018-08-27] MEDS: Atorvastatin Calcium 10 MG TAB PO SCH (21:17)
--- NOTE | 2018-08-27 23:35 | PRG ---
DATE OF SERVICE: 08/27/2018 REASON FOR CONSULTATION: Postoperative ileus, increased abdominal distention. SUBJECTIVE: The patient states that he has been able to ambulate around the sánchez without difficulty, was feeling much better. He has also been able to pass a significant amount of gas when compared to previous, although he has not had a bowel movement just yet. Currently, he denies any nausea, vomiting, fevers, chills, or abdominal pain. OBJECTIVE: VITAL SIGNS: Temperature 99.3, pulse 111, blood pressure 138/84, respiratory rate 16, saturating 95% on room air. GENERAL: The patient was sitting in a chair at bedside. No acute distress. Alert and oriented x4. CARDIOVASCULAR: Regular rate and rhythm. RESPIRATORY: Clear to auscultation bilaterally. ABDOMEN: Mildly hypoactive bowel sounds, but improved from previous. Mildly tense to palpation. Moderate to severe abdominal distention, but nonpainful to palpation. EXTREMITIES: No cyanosis or clubbing. 1+ bilateral lower extremity edema to mid snyder. LABORATORY DATA: CBC with a white blood cell count of 5.1, hemoglobin 10.8, hematocrit 31.9, platelets 240. Chemistry with a sodium of 141, potassium 3.9, chloride 104, CO2 28, BUN 70, creatinine 1.55, glucose 125. IMAGING DATA: No current GI imaging is available for review. ASSESSMENT AND PLAN: The patient is a 73-year-old male with past medical history of chronic obstructive pulmonary disease, hypertension, hyperlipidemia, ischemic cardiomyopathy, bladder cancer, and now coronary artery disease status post 4-vessel CABG, presenting with postoperative ileus. Postoperative ileus: As part of the workup for surgery to remove the bladder cancer, he ultimately underwent a cardiac workup which shows significant coronary artery disease necessitating a 4-vessel bypass. In the postoperative period, he experienced increased constipation with inability to have a bowel movement while on narcotic medications, but was also associated with increased abdominal distention. With an NG tube placed to lower mid wall suction, he did experience some mild relief in symptoms, but this was removed earlier today by the Cardiothoracic Surgery Service. Currently passing increased amounts of gas and increased bowel sounds indicating response to treatment. RECOMMENDATIONS: 1. Pain control per Primary Team but would attempt to minimize any narcotic administration. 2. Would hold on replacing the NG-tube secondary to discomfort with placement, but would rather monitor clinically for passing increased flatus. 3. Would obtain KUB tomorrow for monitoring of the postoperative ileus. At this point, he is responding to more conservative management. We have no further recommendations. We will sign off at this time. Please call with any additional questions. Job ID: [id number]
[2018-08-28 06:39] LABS: Anion Gap 9 mmol/L (10-20); BUN (Urea Nitrogen) 42 mg/dL (8.4-25.7); Calc. Creatinine Clearance 89 mL/min (70-130); Calcium 8.5 mg/dL (7.8-10.44); Carbon Dioxide 30 mmol/L (23-31); Chloride 107 mmol/L (98-107); Estimated GFR-MDRD 62; Glucose 112 mg/dL (83-110); Magnesium 2.1 mg/dL (1.6-2.6); Potassium 3.4 mmol/L (3.5-5.1); Sodium 143 mmol/L (136-145)
[2018-08-28 06:57] LABS: Band 10 % (5-11); Eosinophils 1 % (0-10); Hemoglobin 9.6 g/dL (14.0-18.0); Lymphocytes 28 % (21-51); MDiff Complete? YES; Mean Corpuscular HGB CONC 33.1 g/dL (32.0-36.0); Mean Corpuscular Hemoglobin 28.8 pg (27.0-31.0); Mean Corpuscular Volume 87.1 fL (78.0-98.0); Mean Platelet Volume 7.1 fL (7.4-10.4); Monocytes 17 % (0-10); Myelocyte 1 % (0-0); Neutrophil 43 % (42-75); Platelet Count 213 thou/uL (130-400); RBC Distribution Width 13.3 % (11.5-14.5); Red Blood Cell (RBC) Count 3.34 mill/uL (4.70-6.10); White Blood Cell (WBC) Count 4.9 thou/uL (4.8-10.8)
[2018-08-28] MEDS ORDERED: Activase 2 MG VIAL CATH SCH (08:45)
[2018-08-28] MEDS: predniSONE 20 MG TAB PO SCH (09:34)
[2018-08-28] MEDS: Famotidine 20 MG TAB PO SCH ×2 (09:34→21:49)
[2018-08-28] MEDS: Aspirin 325 MG TAB PO SCH (09:34)
[2018-08-28] MEDS: Tamsulosin HCl 0.4 MG CAP PO SCH ×2 (09:34→21:50)
[2018-08-28] MEDS ORDERED: Potassium Chloride 20 MEQ TAB PO SCH ×2 (14:15→15:15)
[2018-08-28] MEDS ORDERED: Furosemide 40 MG TAB PO SCH (14:15)
--- NOTE | 2018-08-28 15:35 | PRG ---
DATE OF SERVICE: 08/28/2018 SERVICE: Pulmonary Medicine. INTERVAL HISTORY: The patient had significant amounts of gas and had multiple bowel movements in the last 24 hours. He indicates that his abdominal swelling has significantly improved. He denies any current chest pain, fevers, or chills. He denies any shortness of breath. He appears to be less labored today with his respirations. Nursing reports no other events overnight. PHYSICAL EXAMINATION: VITAL SIGNS: Afebrile, pulse 112, blood pressure 131/83, respirations 16, saturation 99% on room air. GENERAL: The patient is awake and alert, in no apparent distress. LUNGS: Much improved air entry. There is not a prolonged expiratory phase or wheezing appreciated today. No crackles or rhonchi. HEART: Normal rate, regular. ABDOMEN: Soft, nontender, and nondistended. Bowel sounds are positive. MUSCULOSKELETAL: No cyanosis or clubbing. No pitting in the bilateral lower extremities. NEUROLOGIC: Grossly nonfocal. LABORATORY DATA: WBC 4.9, hemoglobin 9.6, platelets 213,000. Creatinine 1.15 and downtrending, BUN 42. Basic metabolic profile is otherwise unremarkable. Potassium 3.4. Magnesium 1.5, phosphorus 3.0. Clostridium difficile antigen and toxin are unremarkable. Blood culture x2 are negative. Urine culture is unremarkable. ASSESSMENT: 1. Acute hypoxic respiratory failure. 2. Chronic obstructive pulmonary disease with mild exacerbation, improving. 3. Coronary artery disease, status post coronary artery bypass graft x4 vessels, postoperative day 7. 4. Chronic systolic heart failure (20% ejection fraction). 5. Ileus, resolved. 6. Acute kidney injury, resolved. 7. Bladder cancer with hematuria. DISCUSSION AND PLAN: At this point, the patient is stable for transition out of the IMCU to the medical unit. Potassium will be replaced. Pulmonary/Critical Care will continue to follow along while he remains in-house. Job ID: [id number] [facility]
--- NOTE | 2018-08-28 15:37 | PDOC.CTH ---
Cardiology Progress Note - Subjective Doing much better. Finally had a BM today and passing gas. - Objective Vital Signs Temp Pulse Pulse Pulse Resp BP BP 08/28/18 15:07 98.8 F 08/28/18 13:08 111 H 108 H 143/106 H 142/94 H 08/28/18 13:05 112 H 22 H 08/28/18 06:07 107 H 21 H 08/28/18 04:00 99.0 F Pulse Ox Pulse Ox Pulse Ox 08/28/18 15:07 08/28/18 13:08 97 100 08/28/18 13:05 98 08/28/18 06:07 100 08/28/18 04:00 Weight 239 lb 08/27/18 08/28/18 08/29/18 06:59 06:59 06:59 Intake Total 757 1688 Output Total 1670 1475 Balance -913 213 - Physical Examination General/Neuro: alert & oriented x3, NAD Neck: no JVD present Lungs: CTA, unlabored respirations Heart: RRR Abdomen: NT/ND Extremities: + edema B (1+) - Telemetry Telemetry Rhythm: NSR - Labs Result Diagrams: 08/28/18 06:00 08/28/18 06:00 - Assessment/Plan 1. Severe LM and ostial RCA disease. 2. S/P CABG x 4, ROSE to LAD, SVG to RPDA, SVG to OM, SVG to D1 3. Muscle invasive bladder cancer. 4. Ischemic CM EF at 20% 5. LEENA on CKD, likely from hypotension and increased abdominal pressures. 6. Post op Ileus, improved. PLAN: - Continue post op care. - Stop innotropes today. - No BB or ACEI until more stable. - Creatinine continues to improve now back to normal.
[2018-08-28] MEDS: Sodium Chloride 0.45% 1,000 ML IV SCH (15:51)
[2018-08-28 16:27] LABS: Actual Bicarbonate (HCO3a) 22.9 mEq/L (22-28); Analyzer IN Cardio OR; Base Excess (BEa) -3.3 mEq/L (-2.0 to +3.0); CO2 Tension 45.4 mmHg (35.0-45.0); Calcium, Ionized 1.17 mmol/L (1.12-1.30); Carboxyhemoglobin (COHb) 0.4 gm% (0.0-3.0); Hemoglobin (Hb) 14.6 g/dL (14.0-18.0); O2 Tension (PaO2) 467.8 mmHg (> 70.0); Potassium - ABG Lab 3.99 mmol/L (3.70-5.30); pH, Arterial 7.32 (7.35-7.45)
[2018-08-28 16:28] LABS: Actual Bicarbonate (HCO3a) 24.7 mEq/L (22-28); Analyzer IN Cardio OR; Base Excess (BEa) -3.2 mEq/L (-2.0 to +3.0); CO2 Tension 56.5 mmHg (35.0-45.0); Calcium, Ionized 1.13 mmol/L (1.12-1.30); Carboxyhemoglobin (COHb) 0.4 gm% (0.0-3.0); Hemoglobin (Hb) 13.9 g/dL (14.0-18.0); O2 Tension (PaO2) 476.8 mmHg (> 70.0); Potassium - ABG Lab 4.33 mmol/L (3.70-5.30); pH, Arterial 7.26 (7.35-7.45)
[2018-08-28 16:28] LABS: Actual Bicarbonate (HCO3a) 25.9 mEq/L (22-28); Analyzer IN Cardio OR; Base Excess (BEa) -0.8 mEq/L (-2.0 to +3.0); CO2 Tension 52.1 mmHg (35.0-45.0); Calcium, Ionized 1.03 mmol/L (1.12-1.30); Carboxyhemoglobin (COHb) 0.3 gm% (0.0-3.0); Hemoglobin (Hb) 11.5 g/dL (14.0-18.0); O2 Tension (PaO2) 441.3 mmHg (> 70.0); Potassium - ABG Lab 5.04 mmol/L (3.70-5.30); pH, Arterial 7.32 (7.35-7.45)
[2018-08-28 16:29] LABS: Actual Bicarbonate (HCO3v) 26 mEq/L (22-28); Analyzer IN Cardio OR; Base Excess -2.6 mEq/L (-2.0 to +3.0); Calcium, Ionized 1.03 mmol/L (1.16-1.32); Chloride (ABG LAB) 102 mmol/L (98-106); Hemoglobin (Hb) 11.5 g/dL (12.6-17.4); Potassium - ABG Lab 4.86 mmol/L (3.70-5.30); Sodium 132.9 mmol/L (133-146)
[2018-08-28 16:29] LABS: Actual Bicarbonate (HCO3v) 24 mEq/L (22-28); Analyzer IN Cardio OR; Base Excess -2.5 mEq/L (-2.0 to +3.0); Calcium, Ionized 1.02 mmol/L (1.16-1.32); Chloride (ABG LAB) 107 mmol/L (98-106); Potassium - ABG Lab 5.06 mmol/L (3.70-5.30); Sodium 136.2 mmol/L (133-146); pH (venous) 7.31 (7.32-7.43)
[2018-08-28 16:30] LABS: Actual Bicarbonate (HCO3v) 28 mEq/L (22-28); Analyzer IN Cardio OR; Base Excess 1.2 mEq/L (-2.0 to +3.0); Calcium, Ionized 1.19 mmol/L (1.16-1.32); Chloride (ABG LAB) 107 mmol/L (98-106); Hemoglobin (Hb) 11.1 g/dL (12.6-17.4); Potassium - ABG Lab 4.59 mmol/L (3.70-5.30); Sodium 137.3 mmol/L (133-146); pH (venous) 7.31 (7.32-7.43)
[2018-08-28 16:30] LABS: Actual Bicarbonate (HCO3a) 24.7 mEq/L (22-28); Analyzer IN Cardio OR; Base Excess (BEa) -2.2 mEq/L (-2.0 to +3.0); CO2 Tension 51.5 mmHg (35.0-45.0); Calcium, Ionized 1.16 mmol/L (1.12-1.30); Carboxyhemoglobin (COHb) 0.2 gm% (0.0-3.0); Hemoglobin (Hb) 11.7 g/dL (14.0-18.0); O2 Tension (PaO2) 338.8 mmHg (> 70.0); Potassium - ABG Lab 4.29 mmol/L (3.70-5.30)
--- NOTE | 2018-08-28 16:40 | EKG ---
Test Reason : POST CABG Blood Pressure : / mmHG Vent. Rate : 097 BPM Atrial Rate : 097 BPM P-R Int : 152 ms QRS Dur : 098 ms QT Int : 408 ms P-R-T Axes : 073 044 066 degrees QTc Int : 518 ms Sinus rhythm with Premature ventricular complexes or Fusion complexes Prolonged QT Abnormal ECG When compared with ECG of 17-AUG-2018 14:08, Fusion complexes are now Present Premature ventricular complexes are now Present Confirmed by ZAMZAM HAYNES (2) on 08/28/2018 4:40:08 PM Referred By: OPAL Confirmed By:ZAMZAM HAYNES
--- NOTE | 2018-08-28 17:38 | PRG ---
DATE OF SERVICE: 08/28/2018 SUBJECTIVE: Patient was seen and examined at bedside and overnight events noted. Patient denies any shortness of breath or chest pain or palpitation. No history of nausea or vomiting or diarrhea or fever or chills or cramps. OBJECTIVE: GENERAL: This is a well-built male, in no apparent distress. VITAL SIGNS: Temperature 98. Heart rate 106. Respiratory rate 18. Blood pressure 128/78. HEENT: Atraumatic, normocephalic. Oral mucosa is moist NECK: Supple. CARDIOVASCULAR: S1, S2 heard. Rate and rhythm regular. RESPIRATORY: Clear to auscultation. GASTROINTESTINAL: Abdomen is soft. MUSCULOSKELETAL: No tenderness. No edema. DERMATOLOGIC: No skin rash. NEUROLOGIC: Alert and awake and oriented X3. No focal neurologic deficits. Moving all the extremities. PSYCHIATRIC: Mood and affect normal. LABORATORY DATA: Potassium 3.4, BUN is 42, and creatinine is 1.1. ASSESSMENT AND PLAN: 1. Acute kidney injury on chronic kidney disease stage 2, much improved. 2. Hypertension, stable. 3. Anemia. Creatinine is much better. I will sign off. Please call back with any questions. Job ID: [id number]
[2018-08-28] MEDS: Atorvastatin Calcium 10 MG TAB PO SCH (21:49)
[2018-08-29 06:08] LABS: Anion Gap 11 mmol/L (10-20); BUN (Urea Nitrogen) 32 mg/dL (8.4-25.7); Calc. Creatinine Clearance 88 mL/min (70-130); Calcium 8.4 mg/dL (7.8-10.44); Carbon Dioxide 29 mmol/L (23-31); Chloride 108 mmol/L (98-107); Estimated GFR-MDRD 63; Glucose 108 mg/dL (83-110); Potassium 3.4 mmol/L (3.5-5.1); Sodium 145 mmol/L (136-145)
[2018-08-29] MEDS ORDERED: Furosemide 40 MG TAB PO SCH (07:30)
[2018-08-29 07:53] LABS: Puncture Site ALINE
[2018-08-29 07:57] LABS: pH (venous) 7.24 (7.32-7.43)
[2018-08-29 07:58] LABS: Puncture Site ALINE
[2018-08-29 07:58] LABS: Puncture Site ALINE
[2018-08-29 07:58] LABS: Puncture Site ALINE
[2018-08-29] MEDS ORDERED: Potassium Chloride 20 MEQ TAB PO SCH ×2 (10:30→17:00)
--- NOTE | 2018-08-29 10:44 | PRG ---
DATE OF SERVICE: 08/29/2018 SERVICE: Pulmonary Medicine. INTERVAL HISTORY: The patient is doing really well from respiratory standpoint. He continues to pass gas. Denies any current chest pain, fevers, or chills. Otherwise, there has been no interval change to his condition. PHYSICAL EXAMINATION: VITAL SIGNS: Afebrile, pulse 118, blood pressure 140/79, respirations 16, and saturation 100% on 2 L nasal cannula. GENERAL: The patient is awake and alert, in no apparent distress. LUNGS: Decent air entry with no prolonged expiratory phase. HEART: Normal rate, regular. ABDOMEN: Soft. Distended. Bowel sounds are present. No rebound or guarding is present. MUSCULOSKELETAL: No cyanosis or clubbing. There is trace pitting in the bilateral lower extremities. NEUROLOGIC: Grossly nonfocal. LABORATORY DATA: Sodium 145, potassium 3.4. Basic metabolic profile stable/unremarkable otherwise. C diff antigen and toxin are negative. Blood cultures x2 and urine culture are negative to date. ASSESSMENT: 1. Acute hypoxic respiratory failure. 2. Chronic obstructive pulmonary disease with mild exacerbation, improving. 3. Coronary artery disease, status post coronary artery bypass graft x4 vessel, postop day 8. 4. Chronic systolic heart failure. 5. Ileus, resolved. 6. Acute kidney injury, resolved. 7. Bladder cancer with hematuria. DISCUSSION AND PLAN: The patient is stable for transition out of the IMCU to the telemetry unit or to discharge from the hospital altogether. I will once again replace potassium. Please call with additional questions or concerns through time. Job ID: [id number] MTDD
[2018-08-29] MEDS: Carvedilol 3.125 MG TAB PO SCH ×2 (11:01→17:50)
[2018-08-29] MEDS: Aspirin 325 MG TAB PO SCH (11:04)
[2018-08-29] MEDS: Famotidine 20 MG TAB PO SCH ×2 (11:04→21:55)
[2018-08-29] MEDS: Tamsulosin HCl 0.4 MG CAP PO SCH ×2 (11:04→21:55)
[2018-08-29] MEDS ORDERED: Furosemide 20 MG/2 ML VIAL SLOW IVP SCH (13:15)
--- NOTE | 2018-08-29 17:31 | PDOC.CTH ---
Cardiology Progress Note - Subjective SOB since this morning. - Objective Vital Signs Temp Pulse Pulse Pulse Resp BP BP 08/29/18 15:12 98.4 F 08/29/18 12:19 112 H 17 08/29/18 11:26 98.0 F 08/29/18 09:45 137 H 112 H 158/105 H 126/84 08/29/18 08:00 08/29/18 07:16 98.8 F 08/29/18 06:47 08/29/18 06:31 105 H 17 Pulse Ox Pulse Ox Pulse Ox 08/29/18 15:12 08/29/18 12:19 100 08/29/18 11:26 08/29/18 09:45 92 L 97 08/29/18 08:00 100 08/29/18 07:16 08/29/18 06:47 94 L 08/29/18 06:31 94 L Weight 245 lb 08/28/18 08/29/18 08/30/18 06:59 06:59 06:59 Intake Total 1688 695 550 Output Total 1475 1325 150 Balance 213 -630 400 - Physical Examination General/Neuro: alert & oriented x3, NAD Neck: no JVD present Lungs: other: (mild crackles.) Heart: RRR Abdomen: soft Extremities: + edema B (1+) - Telemetry Telemetry Rhythm: S Tach - Labs Result Diagrams: 08/28/18 06:00 08/29/18 05:35 - Assessment/Plan 1. Severe LM and ostial RCA disease. 2. S/P CABG x 4, ROSE to LAD, SVG to RPDA, SVG to OM, SVG to D1 3. Muscle invasive bladder cancer. 4. Ischemic CM EF at 20% 5. LEENA on CKD, likely from hypotension and increased abdominal pressures. 6. Post op Ileus, improved. PLAN: - Continue post op care. - On BB now, tolerating well. - Will give extra dose of lasix this afternoon.
[2018-08-29] MEDS: Acetaminophen 325 MG TAB PO PRN (19:18)
--- NOTE | 2018-08-29 19:34 | RAD ---
CHEST ONE VIEW: 08/29/18 COMPARISON: 08/25/18 HISTORY: Increased difficulty breathing. FINDINGS: Right sided central venous catheter, terminates in the region of the superior vena cava. Normal cardi ac silhouette. Pulmonary vessels and hilum are normal. No consolidation or mass. No pneumothorax or o sseous abnormalities. IMPRESSION: No acute cardiopulmonary process. POS: PPP
[2018-08-29] MEDS ORDERED: Furosemide 40 MG/4 ML VIAL SLOW IVP SCH (20:00)
[2018-08-29] MEDS ORDERED: Enoxaparin Sodium 40 MG/0.4 ML SYRINGE SC SCH (21:00)
--- NOTE | 2018-08-29 21:25 | EKG ---
Test Reason : Blood Pressure : / mmHG Vent. Rate : 115 BPM Atrial Rate : 115 BPM P-R Int : 134 ms QRS Dur : 098 ms QT Int : 350 ms P-R-T Axes : 071 076 061 degrees QTc Int : 484 ms Sinus tachycardia with occasional Premature ventricular complexes Cannot rule out Inferior infarct (cited on or before 29-AUG-2018) Abnormal ECG When compared with ECG of 21-AUG-2018 12:24, Fusion complexes are no longer Present ST elevation now present in Inferior leads Confirmed by DEVIN HUFF, DR. Peña ([id number]) on 08/29/2018 9:25:11 PM Referred By: OPAL Confirmed By:DR. Casey BELTRAN MD
--- NOTE | 2018-08-29 21:45 | ULT ---
FEXAM: Bilateral lower extremity venous Doppler PROVIDED CLINICAL HISTORY: Bilateral lower extremity edema FINDINGS: Grayscale and color Doppler sonography with spectral analysis was performed of the common femoral, fe moral, popliteal, posterior tibial, greater saphenous and profunda femoral veins bilaterally. There i s partial compressibility and decreased flow involving the distal right popliteal and proximal radiology supervisor ior tibial veins. There is partial compressibility and decreased flow involving the left posterior ti bial vein in the midportion. The remainder of the interrogated deep venous structures of each lower e xtremity appear normal. IMPRESSION: Bilateral lower extremity deep vein thrombosis as above. Findings were communicated to the clinicians caring for the patient upon completion of the examination by the timber watchman.
[2018-08-29] MEDS: Atorvastatin Calcium 10 MG TAB PO SCH (21:56)
[2018-08-29] MEDS ORDERED: Enoxaparin Sodium 120 MG/0.8 ML SYRINGE SC SCH (22:00)
[2018-08-30] MEDS: HYDROcodone/Acetaminophen 5/325 mg Tablet PO PRN (03:45)
[2018-08-30 06:55] LABS: Anion Gap 14 mmol/L (10-20); BUN (Urea Nitrogen) 31 mg/dL (8.4-25.7); Calc. Creatinine Clearance 72 mL/min (70-130); Calcium 8.8 mg/dL (7.8-10.44); Carbon Dioxide 28 mmol/L (23-31); Chloride 105 mmol/L (98-107); Estimated GFR-MDRD 48; Glucose 119 mg/dL (83-110); Sodium 143 mmol/L (136-145)
[2018-08-30] MEDS ORDERED: Furosemide 20 MG/2 ML VIAL SLOW IVP SCH ×2 (07:00→15:00)
[2018-08-30] MEDS ORDERED: Furosemide 40 MG/4 ML VIAL SLOW IVP SCH (09:00)
[2018-08-30] MEDS ORDERED: Amoxicillin/Potassium Clav 500 MG TAB PO SCH (10:15)
[2018-08-30] MEDS ORDERED: predniSONE 20 MG TAB PO SCH (10:15)
[2018-08-30] MEDS: Enoxaparin Sodium 120 MG/0.8 ML SYRINGE SC SCH ×2 (10:35→20:59)
[2018-08-30] MEDS: Carvedilol 3.125 MG TAB PO SCH ×2 (10:36→17:50)
[2018-08-30] MEDS: Aspirin 325 MG TAB PO SCH (10:36)
[2018-08-30] MEDS: Tamsulosin HCl 0.4 MG CAP PO SCH ×2 (10:36→21:00)
[2018-08-30] MEDS: Famotidine 20 MG TAB PO SCH ×2 (10:36→20:59)
--- NOTE | 2018-08-30 10:48 | PRG ---
DATE OF SERVICE: 08/30/2018 SERVICE: Pulmonary Medicine. INTERVAL HISTORY: The patient is doing okay from a cardiovascular standpoint. From a respiratory standpoint; however, the patient is doing poorly. He has shortness of breath with minimal activity. Despite the fact that his belly has been decreasing in size over the last 48 hours, his shortness of breath is actually gotten a little bit worse. Denies any current fevers, chills, nausea, or vomiting. PHYSICAL EXAMINATION: VITAL SIGNS: Afebrile, pulse 103, blood pressure 115/77, respirations 18, and saturation 96% on 3 L nasal cannula. GENERAL: The patient is awake and alert, in no apparent distress. LUNGS: There is a decreased air entry with a prolonged expiratory phase and polyphonic wheezing. HEART: Normal rate. Regular. ABDOMEN: Distended. Bowel sounds are present. No rebound or guarding. MUSCULOSKELETAL: No cyanosis or clubbing. There is trace pitting in the bilateral lower extremities. NEUROLOGIC: Grossly nonfocal. LABORATORY DATA: Creatinine 1.43. Basic metabolic profile is otherwise unremarkable. Potassium 4.0. C. diff antigen and toxin are negative. Blood cultures x2 and urine culture are unremarkable. IMAGING: Ultrasound of the bilateral lower extremities demonstrates evidence consistent with acute DVTs. Chest x-ray demonstrates no acute cardiopulmonary abnormality. Minimal cephalization/pulmonary vascular congestion is noted, particularly on the left and the right lung appears to be hypovolemic. Right subclavian central venous catheter terminates in very good position. ASSESSMENT: 1. Acute hypoxic respiratory failure. 2. Chronic obstructive pulmonary disease with mild exacerbation. 3. Coronary artery disease, status post coronary artery bypass graft x4 vessel, postop day 9. 4. Chronic systolic heart failure. 5. Ileus, resolving. 6. Deep venous thrombosis of the bilateral lower extremities. 7. Acute kidney injury. 8. Bladder cancer with hematuria. DISCUSSION AND PLAN: The patient is already on full-dose anticoagulation. A V/Q scan is being scheduled for this afternoon. We will continue our low-dose prednisone through time. I will initiate a brief course of antibiotics treating for a COPD exacerbation. Job ID: [id number]
--- NOTE | 2018-08-30 12:23 | NM ---
FVentilation perfusion lung scan: 08/30/2018 COMPARISON: None HISTORY: Shortness of breath, DVT noted on recent lower extremity Doppler ultrasound, assess for pulm onary embolism TECHNIQUE: Ventilation imaging obtained following the inhalation of 7.5 mCi xenon-133 gas via facemas k. Perfusion imaging obtained following the intravenous administration of 6 mCi technetium 99m labele d M AA FINDINGS: The ventilation imaging demonstrates normal wash-in, equilibrium, and washout phase imaging . There is a large mismatched perfusion defect involving the right upper lobe. There are scattered smal l mismatched perfusion defects also noted within the right lung base, the region of the lingula, and the lateral aspect of the mid left lung zone. IMPRESSION: High probability for pulmonary embolism.
[2018-08-30] MEDS ORDERED: Sodium Chloride 0.9% 500 ML IV SCH (16:00)
--- NOTE | 2018-08-30 18:13 | PDOC.CTH ---
Cardiology Progress Note - Subjective He had a LE doppler US yesterday evening and had DVT's most likely his SOB is from DVT/PE. - Objective Vital Signs Temp Pulse Resp Pulse Ox 08/30/18 15:30 97.5 F L 08/30/18 13:59 103 H 22 H 98 08/30/18 08:00 98 08/30/18 07:43 109 H 24 H 98 08/30/18 07:15 98.8 F Weight 238 lb 4.8 oz 08/29/18 08/30/18 08/31/18 06:59 06:59 06:59 Intake Total 695 2 1000 Output Total 1325 3376 2024 Balance -911 -8415 -6318 - Physical Examination General/Neuro: alert & oriented x3, NAD Neck: no JVD present Lungs: CTA, unlabored respirations Heart: RRR Abdomen: NT/ND Extremities: + edema B (1+) - Telemetry Telemetry Rhythm: S tach. - Labs Result Diagrams: 08/28/18 06:00 08/30/18 06:25 - Assessment/Plan 1. Severe LM and ostial RCA disease. 2. S/P CABG x 4, ROSE to LAD, SVG to RPDA, SVG to OM, SVG to D1 3. Muscle invasive bladder cancer. 4. Ischemic CM EF at 20% 5. LEENA on CKD, likely from hypotension and increased abdominal pressures. 6. Post op Ileus, improved. 7. Acute DVT/PE PLAN: - Full anticoagulation with Lovenox. - Continue BB, ASA, statin. - Agree with holding diuresis for now.
[2018-08-30] MEDS: Amoxicillin/Potassium Clav 500 MG TAB PO SCH (21:00)
[2018-08-30] MEDS: Atorvastatin Calcium 10 MG TAB PO SCH (21:00)
[2018-08-31 07:20] LABS: Anion Gap 11 mmol/L (10-20); BUN (Urea Nitrogen) 32 mg/dL (8.4-25.7); Calc. Creatinine Clearance 80 mL/min (70-130); Calcium 8.6 mg/dL (7.8-10.44); Carbon Dioxide 32 mmol/L (23-31); Chloride 103 mmol/L (98-107); Estimated GFR-MDRD 56; Glucose 133 mg/dL (83-110); Sodium 142 mmol/L (136-145)
[2018-08-31] MEDS: Enoxaparin Sodium 120 MG/0.8 ML SYRINGE SC SCH ×2 (09:20→21:06)
[2018-08-31] MEDS: Amoxicillin/Potassium Clav 500 MG TAB PO SCH ×2 (09:21→21:05)
[2018-08-31] MEDS: Aspirin 325 MG TAB PO SCH (09:21)
[2018-08-31] MEDS: predniSONE 20 MG TAB PO SCH (09:21)
[2018-08-31] MEDS: Carvedilol 3.125 MG TAB PO SCH ×2 (09:22→17:46)
[2018-08-31] MEDS: Tamsulosin HCl 0.4 MG CAP PO SCH ×2 (09:22→21:06)
[2018-08-31] MEDS: Famotidine 20 MG TAB PO SCH ×2 (09:22→21:05)
--- NOTE | 2018-08-31 12:46 | PDOC.CTH ---
Cardiology Progress Note - Subjective Still SOB. Not worse but no better. Still passing gas. No BM today. - Objective Vital Signs Temp Pulse Resp Pulse Ox 08/31/18 07:24 95 18 96 08/31/18 04:00 98.1 F 08/31/18 01:52 97.4 F L Weight 239 lb 11.2 oz 08/30/18 08/31/18 09/01/18 06:59 06:59 06:59 Intake Total 2 1720 Output Total 7720 2750 Balance -1323 -1030 - Physical Examination General/Neuro: alert & oriented x3 Neck: no JVD present Lungs: unlabored respirations Heart: RRR Abdomen: NT/ND Extremities: + edema B (1+) - Telemetry Telemetry Rhythm: NSR. - Labs Result Diagrams: 08/28/18 06:00 08/31/18 06:40 - Assessment/Plan 1. Severe LM and ostial RCA disease. 2. S/P CABG x 4, ROSE to LAD, SVG to RPDA, SVG to OM, SVG to D1 3. Muscle invasive bladder cancer. 4. Ischemic CM EF at 20% 5. LEENA on CKD, likely from hypotension and increased abdominal pressures. 6. Post op Ileus, improved. 7. Acute DVT/PE PLAN: - Full anticoagulation with Lovenox. - Continue BB, ASA, statin. - Currently on treatment for possible COPD exacerbation. - Continue other meds. - 45 minutes critical care.
--- NOTE | 2018-08-31 14:05 | PRG ---
DATE OF SERVICE: 08/31/2018 SERVICE: Pulmonary Medicine. INTERVAL HISTORY: The patient is doing fine from respiratory standpoint. Breathing okay. His shortness of breath is not any better today. That being said, it is not any worse. Last night, however, he had a different story. Apparently, he got into a pretty bad state associated with some desaturations. For a brief period of time, he did not think he was going to make it, but ultimately he settled back down. PHYSICAL EXAMINATION: VITAL pulse: Afebrile, pulse 114, blood pressure 129/82, respirations 26, and saturation 97% on 3 L nasal cannula. HEENT: Normocephalic and atraumatic. Sclerae white. Conjunctivae pink. Oral mucosa is moist without lesions. LUNGS: Decent air entry. There is a prolonged expiratory phase, polyphonic wheezing, as well as minimal crackles present. HEART: Normal rate and regular. ABDOMEN: Soft, nontender, and nondistended. Bowel sounds are positive. MUSCULOSKELETAL: No cyanosis or clubbing. There is trace to 1+ pitting in the bilateral lower extremities. NEUROLOGIC: Grossly nonfocal. LABORATORY DATA: Creatinine has improved to 1.27. Basic metabolic profile is otherwise unremarkable once again. ASSESSMENT: 1. Acute hypoxic respiratory failure. 2. Chronic obstructive pulmonary disease with mild exacerbation. 3. Acute pulmonary embolism. 4. Coronary artery disease, status post coronary artery bypass graft x4 vessels, postop day #10. 5. Chronic systolic heart failure. 6. Ileus, resolved. 7. Bladder cancer with hematuria. DISCUSSION AND PLAN: I will repeat a stat echocardiogram to see how the right ventricle is holding up. If it is doing well, we will just simply continue anticoagulation. If on the other hand it is not doing very well, we will consider transitioning him to a higher level of care and/or giving him a low dose of tPA, which would likely exacerbate bladder bleeding. He has multiple relative contraindications (recent surgery, age, active hematuria). If the right ventricle was stressed out, a temporary IVC filter will be placed. Job ID: [id number] MTDD
[2018-08-31] MEDS: Atorvastatin Calcium 10 MG TAB PO SCH (21:05)
[2018-09-01] MEDS: Carvedilol 3.125 MG TAB PO SCH ×2 (09:03→16:00)
[2018-09-01] MEDS: Amoxicillin/Potassium Clav 500 MG TAB PO SCH ×2 (09:03→20:25)
[2018-09-01] MEDS: predniSONE 20 MG TAB PO SCH (09:03)
[2018-09-01] MEDS: Enoxaparin Sodium 120 MG/0.8 ML SYRINGE SC SCH ×2 (09:04→20:24)
[2018-09-01] MEDS: Aspirin 325 MG TAB PO SCH (09:04)
[2018-09-01] MEDS: Tamsulosin HCl 0.4 MG CAP PO SCH ×2 (09:04→20:25)
[2018-09-01] MEDS: Famotidine 20 MG TAB PO SCH ×2 (09:04→20:25)
--- NOTE | 2018-09-01 11:33 | PRG ---
DATE OF SERVICE: 09/01/2018 SERVICE: Pulmonary Medicine. INTERVAL HISTORY: The patient is doing fine from respiratory standpoint. Breathing comfortably. He actually feels like he has turned the corner to a significant degree. He is up, walking with Physical Therapy yesterday, and his dyspnea on exertion has much improved. Denies any fevers or chills. Otherwise, there has been no interval change to his condition. He slept well last night. He is passing plenty of gas, and having good bowel movements. PHYSICAL EXAMINATION: VITAL SIGNS: Afebrile. Pulse 103, blood pressure 125/76, respirations 22, and saturations 98% on 3 L nasal cannula. GENERAL: The patient is awake and alert, in no apparent distress. LUNGS: Decent air entry. There is expiratory wheezing. There is a prolonged expiratory phase. Minimal dependent crackles are noted. HEART: Normal rate, regular. ABDOMEN: Soft, nontender. It is a little distended. Bowel sounds are present. : No [place]. NEUROLOGIC: Grossly nonfocal. MUSCULOSKELETAL: No cyanosis or clubbing. There is trace 1+ pitting in the bilateral lower extremities. IMAGING: Echocardiogram limited for the RV function, did not demonstrate any significant reduced RV systolic function. The left atrium is still dilated with a reduced ejection fraction of 20% to 25% of the LV. ASSESSMENT: 1. Acute hypoxic respiratory failure. 2. Chronic obstructive pulmonary disease with mild exacerbation. 3. Acute pulmonary embolism. 4. Coronary artery disease, status post coronary artery bypass graft x4 vessels, postop day 11. 5. Chronic systolic heart failure. 6. Bladder cancer with hematuria. 7. Ileus, resolved. DISCUSSION AND PLAN: The RV seems to be holding up just fine with his pulmonary embolism. As such, I do not see a role in IVC filters or any aggressive maneuvers. We will continue our full-dose anticoagulation, which will need to be continued for a minimum of 6 months, but I would prefer 9 months if the patient is tolerating it well. Any elective procedures needs to be delayed at the very least for 6 weeks before any interruption in anticoagulation can be done. Pulmonary Critical Care will continue to follow along while the patient remains inhouse. Job ID: [id number]
[2018-09-01] MEDS: Acetaminophen 325 MG TAB PO PRN (16:00)
--- NOTE | 2018-09-01 16:19 | PDOC.CTH ---
Cardiology Progress Note - Subjective He is doing better today;. He had a BM and had breakfast. Breathing is better. - Objective Vital Signs Temp Pulse Pulse Pulse Resp BP Pulse Ox 09/01/18 15:55 97.8 F 09/01/18 13:27 98 20 97 09/01/18 11:10 97.8 F 09/01/18 09:32 97 94 125/79 09/01/18 07:50 97 09/01/18 07:23 97.2 F L 09/01/18 07:06 98 17 96 Pulse Ox Pulse Ox 09/01/18 15:55 09/01/18 13:27 09/01/18 11:10 09/01/18 09:32 90 L 99 09/01/18 07:50 09/01/18 07:23 09/01/18 07:06 Admit Weight 253 lb 4.978 oz Weight 240 lb 8 oz 08/31/18 09/01/18 09/02/18 06:59 06:59 06:59 Intake Total 1720 320 Output Total 2750 1045 Balance -1030 -725 - Physical Examination General/Neuro: alert & oriented x3, NAD Neck: no JVD present Lungs: unlabored respirations Heart: RRR Abdomen: NT/ND Extremities: + edema B (1+) - Telemetry Telemetry Rhythm: NSR - Labs Result Diagrams: 08/28/18 06:00 08/31/18 06:40 - Assessment/Plan 1. Severe LM and ostial RCA disease. 2. S/P CABG x 4, ROSE to LAD, SVG to RPDA, SVG to OM, SVG to D1 3. Muscle invasive bladder cancer. 4. Ischemic CM EF at 20% 5. LEENA on CKD, likely from hypotension and increased abdominal pressures. 6. Post op Ileus, improved. 7. Acute DVT/PE PLAN: - Full anticoagulation with Lovenox. - Continue BB, ASA, statin. - Currently on treatment for possible COPD exacerbation, significant improvement since starting this. - Continue other meds. - 30 minutes critical care.
[2018-09-01] MEDS: Atorvastatin Calcium 10 MG TAB PO SCH (20:25)
[2018-09-02 05:25] LABS: Hemoglobin 10.5 g/dL (14.0-18.0); Platelet Count 29 thou/uL (130-400)
[2018-09-02] MEDS: predniSONE 20 MG TAB PO SCH (08:07)
[2018-09-02] MEDS: Carvedilol 3.125 MG TAB PO SCH (08:07)
[2018-09-02] MEDS: Famotidine 20 MG TAB PO SCH (08:07)
[2018-09-02] MEDS: Tamsulosin HCl 0.4 MG CAP PO SCH (08:07)
[2018-09-02] MEDS: Amoxicillin/Potassium Clav 500 MG TAB PO SCH (08:07)
[2018-09-02] MEDS ORDERED: Apixaban 5 MG TAB PO SCH ×2 (09:00→20:00)
--- NOTE | 2018-09-02 09:03 | PDOC.CTH ---
Cardiology Progress Note - Objective Vital Signs Temp Pulse Resp Pulse Ox 09/02/18 07:48 91 L 09/02/18 07:47 105 H 24 H 91 L 09/02/18 07:07 97.5 F L 09/02/18 04:00 97.4 F L 09/02/18 00:26 95 23 H 97 09/01/18 23:57 98.0 F Admit Weight 253 lb 4.978 oz Weight 237 lb 4 oz 09/01/18 09/02/18 09/03/18 06:59 06:59 06:59 Intake Total 320 1380 Output Total 1045 1150 Balance -725 230 - Labs Result Diagrams: 09/02/18 04:59 09/02/18 04:15 - Assessment/Plan 1. Severe LM and ostial RCA disease. 2. S/P CABG x 4, ROSE to LAD, SVG to RPDA, SVG to OM, SVG to D1 3. Muscle invasive bladder cancer. 4. Ischemic CM EF at 20% 5. LEENA on CKD, likely from hypotension and increased abdominal pressures. 6. Post op Ileus, improved. 7. Acute DVT/PE
[2018-09-02] MEDS: Sodium Chloride 0.9% 1,000 ML IV SCH ×3 (09:11→23:43)
--- NOTE | 2018-09-02 09:34 | CT ---
FCT angiogram abdomen with contrast CT angiogram pelvis with contrast CT angiogram bilateral lower extremities with contrast: 09/02/2018 HISTORY: 73-year-old male with right lower extremity pain. TECHNIQUE: chief cardiopulmonary technologist notified patient's nurse of the current decreased GFR. Nurse confirmed that the CTA w as to be performed despite that. Nurse was advised to hydrate the patient before and after the IV con trast injection, and to monitor the GFR for a few weeks. IV injection of 100 mL of Isovue-370. Arteri al bolus chasing technique scan performed from upper abdomen to bilateral feet. Coronal and sagittal 3-D MIP reconstructions. FINDINGS: Central lobular emphysema at lung bases. Abdomen distended by the large volume of visceral fat. No as cites or pneumoperitoneum. Diffuse mural thickening of the urinary bladder with mild surrounding fat stranding representing lorin a. Small 1 x 1.5 cm focal masslike lesion at with peripheral enhancement in the left wall of urinary bladder. Bladder volume small at time of scan. Calcified and noncalcified atherosclerotic plaque in most major arteries, to varying degrees. Abdominal aorta: No high-grade stenosis. 2.8 cm AP oblique dimension of infrarenal mid abdominal aort a at L2-3 level. 2.5 cm AP dimension of the distal abdominal aorta at L4-5 level at bifurcation with posterior outpouching. Superior mesenteric: No high-grade stenosis proximally. Atherosclerotic irregularity throughout. Celiac: Severe stenosis at origin. 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 Upper pole moiety is diffusely small in caliber and difficult to evaluate. There may be a moderate stenosis at proximal aspect of lower and mid pole moiety. Left renal: Calcified and noncalcified plaque proximally causing moderate stenosis. Right common iliac: No high-grade stenosis Right internal iliac: Moderate to severe stenosis at origin. Right external iliac: No high-grade stenosis Right common femoral: Multifocal mild stenosis. Occluded distally. Right profunda femoral: Occluded at origin, but branches are reconstituted. Right superficial femoral: Occluded at origin and proximal several centimeters. Brief reconstitution with contrast opacification in severely narrowed proximal to mid segment, then totally occluded throu ghout rest of mid and distal portion. Right popliteal: Severe stenosis throughout. Small amount of contrast at posterior aspect probably re presents contrast opacification rather than calcification. Right popliteal trifurcation: No contrast visualized within the lumen of the tibioperoneal trunk, ant erior tibial artery, posterior tibial artery, or peroneal artery. Left common iliac: No high-grade stenosis identified Left internal iliac: Moderate stenosis at origin. Left external iliac: No high-grade stenosis Left common femoral: No high-grade stenosis Left profunda femoral: No high-grade stenosis Left superficial femoral: Short segment focal moderate to severe stenosis at level of proximal femora l shaft. No high-grade stenosis at rest of mid and distal, until Giovanni's canal, where there is multi focal mild and moderate stenosis. Left popliteal: No high-grade stenosis. Left popliteal trifurcation: Tibioperoneal trunk, anterior tibial, posterior tibial, and peroneal, ar e contrast opacified proximally. Distal posterior tibial artery runoff to the foot is demonstrated. N o contrast is visualized in the other 2 vessels at the ankle or foot. IMPRESSION: 1. Extensive atherosclerotic disease involving all major arteries. 2. Occlusion of arteries on the right, with varying degrees of reconstitution, beginning at the dista l common femoral artery, involving most of right superficial femoral artery, and lack of contrast opa cification of trifurcation vessels of the right popliteal artery. No runoff to the right foot. 3. Single vessel runoff to the left foot.
[2018-09-02] MEDS ORDERED: Fentanyl 250 MCG/5 ML VIAL ONE (09:55)
[2018-09-02] MEDS ORDERED: Norepinephrine 8 MG/0.9% NS 250 ML ONE (09:55)
[2018-09-02] MEDS ORDERED: Vecuronium 10 MG VIAL ONE (10:00)
[2018-09-02] MEDS ORDERED: Succinylcholine Chloride 20 MG/ML 10 ml SYRINGE FS ONE (10:00)
[2018-09-02] MEDS ORDERED: Rocuronium Bromide 10 MG/ML (10ML VIAL) ONE (10:00)
[2018-09-02] MEDS ORDERED: Lidocaine 1% PF 5 ML VIAL ONE (10:00)
[2018-09-02] MEDS: Argatroban (Non -ESRD) 250 MG in Sodium Chloride 0.9% 250 ML 250 ML IVPB SCH (10:05)
[2018-09-02] MEDS: OCTAGAM 10% 80 GM, OCTAGAM 10% 10 GM in Admixture Fee 1 EACH IVPB SCH (10:10)
--- NOTE | 2018-09-02 10:43 | PRG ---
DATE OF SERVICE: 09/02/2018 SUBJECTIVE: Keith Barahona this morning was found to be severely thrombocytopenic. Shortly thereafter, he started having pain in his right leg and now has an arterial occlusion on the right. He has not been in atrial fibrillation. 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 He will need to go to the operating room to restore flow to his leg. He is in no distress at this time other than the pain in his leg. OBJECTIVE: VITAL SIGNS: His heart rate is 97, blood pressure 133/79, respiratory rate is 18. LUNGS: Clear. HEART: Regular rhythm. ABDOMEN: Soft. LABORATORY DATA: Hemoglobin is 10.5, platelets are down to 29,000 from 213,000 five days ago. Creatinine is down to 1.22, but unfortunately received contrast today to evaluate the flow to his leg. PLAN: I plan to give him IV immunoglobulin 90 g prior to his trip to the OR and start him on argatroban at 1.5 mcg/kg/minute. I met with family and answered their questions. Dr. Causey and I have met multiple times and discussed this case. Hopefully, we will have successful protestant of flow. I would anticipate he will probably need blood at some point in the perioperative period. He will need to avoid all heparin flushes and all heparin products. CRITICAL CARE TIME: 30 minutes. He will come back to the operating room mechanically ventilated. Job ID: [id number]
[2018-09-02] MEDS ORDERED: Norepinephrine 8 MG/0.9% NS 250 ML IVPB PRN (12:51)
[2018-09-02] MEDS ORDERED: Ondansetron PF 4 MG/2 ML Vial IVP PRN (12:51)
[2018-09-02] MEDS ORDERED: DOPamine 400 MG/D5W 250 ML 250 ML IVPB PRN (12:51)
[2018-09-02] MEDS ORDERED: niCARdipine HCl 25 MG in Sodium Chloride 0.9% 250 ML 240 ML IVPB PRN (12:51)
[2018-09-02] MEDS ORDERED: Fentanyl 100 MCG/2 ML VIAL SLOW IVP PRN ×2 (12:51)
[2018-09-02] MEDS ORDERED: hydrALAZINE 20 MG/ML VIAL SLOW IVP PRN (12:51)
[2018-09-02] MEDS ORDERED: Nitroglycerin 50 MG/250 ML BOT 250 ML IVPB PRN (12:51)
[2018-09-02] MEDS ORDERED: Morphine 2 MG/ML SYRINGE SLOW IVP PRN ×2 (12:51→13:09)
[2018-09-02] MEDS ORDERED: Hetastarch 6% 500 ML 500 ML IVPB PRN (12:51)
[2018-09-02] MEDS ORDERED: Propofol 1,000 MG/100 ML VIAL IV ONE (12:52)
[2018-09-02] MEDS ORDERED: Ventilator Sedation Protocol 1 EACH FS ONE (13:04)
[2018-09-02] MEDS ORDERED: Lorazepam 2 MG/ML VIAL SLOW IVP PRN (13:09)
[2018-09-02] MEDS ORDERED: Fentanyl BOLUS 250 ML IVPB PRN (13:09)
[2018-09-02] MEDS ORDERED: Propofol BOLUS 1,000 MG/100 ML VIAL IV PRN (13:09)
[2018-09-02] MEDS ORDERED: DISCONTINUE PREVIOUS NARCOTIC PAIN MEDICATIONS AND BENZODIAZEPINES FS SCH (13:09)
[2018-09-02] MEDS ORDERED: fentaNYL Citrate/PF 2,000 MCG in Sodium Chloride 0.9% 60 ML IV SCH (13:09)
[2018-09-02 13:14] LABS: Actual Bicarbonate (HCO3a) 27.6 mEq/L (22-28); Base Excess (BEa) -2.1 mEq/L (-2.0 to +3.0); Calcium, Ionized 1.11 mmol/L (1.12-1.30); Carboxyhemoglobin (COHb) 0.8 gm% (0.0-3.0); Hemoglobin (Hb) 11.3 g/dL (14.0-18.0); O2 Tension (PaO2) 100.4 mmHg (> 70.0); Potassium - ABG Lab 5.37 mmol/L (3.70-5.30)
--- NOTE | 2018-09-02 13:16 | RAD ---
FRadiograph chest one view: 09/02/2018 12:56 PM HISTORY: 73-year-old male status post open heart surgery COMPARISON: 08/29/2018 FINDINGS: Sternotomy wires are again demonstrated. Right subclavian central venous catheter remains. There is a new endotracheal tube with distal tip in midthoracic trachea. Lungs remain fairly clear. No pulmonar y edema or pneumothorax. No interval change in the appearance of the lungs. IMPRESSION: 1. Status post intubation. 2. No other interval change.
[2018-09-02 13:36] LABS: #Eosinphils 0.2 thou/uL (0.0-0.7); #Lymphocytes 1.1 thou/uL (1.20-3.40); #Neutrophils 14.7 thou/uL (1.40-6.50); %Lymphocytes 6.2 % (21.0-51.0); %Monocytes 5.9 % (0.0-10.0); %Neutrophils 86.9 % (42.0-75.0); Hemoglobin 9.7 g/dL (14.0-18.0); Mean Corpuscular HGB CONC 31.8 g/dL (32.0-36.0); Mean Corpuscular Hemoglobin 28.6 pg (27.0-31.0); Mean Corpuscular Volume 90.1 fL (78.0-98.0); Platelet Count 30 thou/uL (130-400); RBC Distribution Width 13.5 % (11.5-14.5); White Blood Cell (WBC) Count 16.9 thou/uL (4.8-10.8)
[2018-09-02 13:41] LABS: INR-International Normal Ratio 3.8; Prothrombin Time 37.6 SEC (12.0-14.7)
[2018-09-02 13:51] LABS: Anion Gap 11 mmol/L (10-20); BUN (Urea Nitrogen) 31 mg/dL (8.4-25.7); Calc. Creatinine Clearance 59 mL/min (70-130); Calcium 7.4 mg/dL (7.8-10.44); Carbon Dioxide 24 mmol/L (23-31); Chloride 100 mmol/L (98-107); Estimated GFR-MDRD 40; Glucose 207 mg/dL (83-110); Potassium 5.2 mmol/L (3.5-5.1); Sodium 130 mmol/L (136-145)
[2018-09-02 14:02] LABS: CO2 Tension 75.4 mmHg (35.0-45.0); Puncture Site RBA; pH, Arterial 7.18 (7.35-7.45)
[2018-09-02] MEDS ORDERED: Iopamidol 370 76% 100 ML VIAL ONE (15:15)
[2018-09-02 16:45] LABS: Actual Bicarbonate (HCO3v) 28 mEq/L (22-28); pH (venous) 7.37 (7.32-7.43)
[2018-09-02 16:46] LABS: Hemoglobin (Hb) 9.5 g/dL (12.6-17.4)
[2018-09-02 16:47] LABS: Calcium, Ionized 1.11 mmol/L (1.16-1.32); Chloride (ABG LAB) 104 mmol/L (98-106); Potassium - ABG Lab 4.47 mmol/L (3.70-5.30); Sodium 134.9 mmol/L (133-146)
[2018-09-02] MEDS: CEFAZOLIN 2 GM in Premix Bag 1 BAG IVPB SCH (18:25)
[2018-09-02 18:33] LABS: INR-International Normal Ratio 3.6; Prothrombin Time 36.1 SEC (12.0-14.7)
[2018-09-02 18:34] LABS: PTT 80.6 SEC (22.9-36.1)
[2018-09-02 19:13] LABS: Hemoglobin 9.1 g/dL (14.0-18.0)
[2018-09-02 19:28] LABS: Potassium 4.2 mmol/L (3.5-5.1)
[2018-09-02] MEDS: DOBUTamine 500 mg/250 ml 500 MG in Premix Bag 1 BAG IVPB SCH (19:30)
[2018-09-02] MEDS: Propofol 1,000 MG/100 ML VIAL IV PRN (20:02)
[2018-09-02] MEDS: Famotidine/PF 20 mg/2ml Vial SLOW IVP SCH (20:03)
[2018-09-02 20:40] LABS: INR-International Normal Ratio 3.2; PTT 76.6 SEC (22.9-36.1); Prothrombin Time 32.5 SEC (12.0-14.7)
[2018-09-03] MEDS: Propofol 1,000 MG/100 ML VIAL IV PRN ×4 (01:43→20:39)
[2018-09-03] MEDS: CEFAZOLIN 2 GM in Premix Bag 1 BAG IVPB SCH ×2 (02:34→10:35)
[2018-09-03 05:05] LABS: #Eosinphils 0.1 thou/uL (0.0-0.7); #Lymphocytes 1.3 thou/uL (1.20-3.40); #Monocytes 0.8 thou/uL (0.11-0.59); #Neutrophils 8.2 thou/uL (1.40-6.50); %Basophils 0.1 % (0.0-1.0); %Eosinophils 1.1 % (0.0-10.0); %Lymphocytes 12.3 % (21.0-51.0); %Monocytes 7.3 % (0.0-10.0); %Neutrophils 79.3 % (42.0-75.0); Hemoglobin 8.5 g/dL (14.0-18.0); Mean Corpuscular HGB CONC 32.7 g/dL (32.0-36.0); Mean Corpuscular Hemoglobin 29.3 pg (27.0-31.0); Mean Corpuscular Volume 89.6 fL (78.0-98.0); Mean Platelet Volume 9.2 fL (7.4-10.4); Platelet Count 37 thou/uL (130-400); RBC Distribution Width 13.7 % (11.5-14.5); Red Blood Cell (RBC) Count 2.89 mill/uL (4.70-6.10); White Blood Cell (WBC) Count 10.3 thou/uL (4.8-10.8)
[2018-09-03] MEDS: Argatroban (Non -ESRD) 250 MG in Sodium Chloride 0.9% 250 ML 250 ML IVPB SCH (05:51)
[2018-09-03] MEDS: Famotidine/PF 20 mg/2ml Vial SLOW IVP SCH ×2 (08:24→20:40)
[2018-09-03] MEDS: Sodium Chloride 0.9% 1,000 ML IV SCH ×2 (08:24→17:46)
[2018-09-03] MEDS: Aspirin Chewable 81 MG TAB PO SCH (08:27)
[2018-09-03 08:35] LABS: Actual Bicarbonate (HCO3v) 26 mEq/L (22-28); Base Excess 1.4 mEq/L (-2.0 to +3.0); Hemoglobin (Hb) 8.8 g/dL (12.6-17.4); pH (venous) 7.43 (7.32-7.43)
[2018-09-03 08:36] LABS: Calcium, Ionized 1.13 mmol/L (1.16-1.32); Chloride (ABG LAB) 110 mmol/L (98-106); Potassium - ABG Lab 3.76 mmol/L (3.70-5.30)
--- NOTE | 2018-09-03 08:41 | RAD ---
FRadiograph chest one view: 09/03/2018 at 4:57 AM HISTORY: 73-year-old male on assisted ventilation. COMPARISON: 09/02/2018 at 12:56 PM FINDINGS: The visualized lung merritt are clear. The cardiomediastinal silhouette is normal. No pneumothorax. No change in life support lines. Sternotomy wires. No interval change overall. IMPRESSION: No acute cardiopulmonary findings. No interval change Life-support lines remain
[2018-09-03 10:23] LABS: Anion Gap 10 mmol/L (10-20); BUN (Urea Nitrogen) 23 mg/dL (8.4-25.7); Calc. Creatinine Clearance 79 mL/min (70-130); Calcium 7.5 mg/dL (7.8-10.44); Carbon Dioxide 25 mmol/L (23-31); Chloride 107 mmol/L (98-107); Estimated GFR-MDRD 56; Glucose 110 mg/dL (83-110); Potassium 3.8 mmol/L (3.5-5.1); Sodium 138 mmol/L (136-145)
[2018-09-03] MEDS: DOBUTamine 500 mg/250 ml 500 MG in Premix Bag 1 BAG IVPB SCH (10:28)
[2018-09-03] MEDS: OCTAGAM 10% 80 GM, OCTAGAM 10% 10 GM in Admixture Fee 1 EACH IVPB SCH (10:28)
--- NOTE | 2018-09-03 11:35 | PDOC.CTH ---
Cardiology Progress Note - Subjective Improving. Following commands. Good pulses in LE bilaterally. - Objective Vital Signs Temp Pulse Resp BP Pulse Ox 09/03/18 10:00 24 H 09/03/18 08:00 24 H 09/03/18 07:23 100 09/03/18 07:05 77 117/69 09/03/18 07:04 78 24 H 99 09/03/18 07:00 99.3 F 09/03/18 06:00 24 H 09/03/18 04:00 24 H 09/03/18 03:00 98.2 F 09/03/18 02:49 79 09/03/18 02:00 24 H 09/03/18 00:00 24 H Admit Weight 253 lb 4.978 oz Weight 238 lb 8.642 oz 09/02/18 09/03/18 09/04/18 06:59 06:59 06:59 Intake Total 1380 2940 0 Output Total 1150 1865 360 Balance 230 1075 -360 - Physical Examination General/Neuro: alert & oriented x3, NAD Neck: carotid US brisk, no JVD present Lungs: CTA, unlabored respirations Heart: PMI normal, RRR Abdomen: NT/ND, soft Extremities: + femoral B - Labs Result Diagrams: 09/03/18 04:40 09/03/18 04:40 - Assessment/Plan 1. Severe LM and ostial RCA disease. 2. S/P CABG x 4, ROSE to LAD, SVG to RPDA, SVG to OM, SVG to D1 3. Muscle invasive bladder cancer. 4. Ischemic CM EF at 20% 5. LEENA on CKD, likely from hypotension and increased abdominal pressures. 6. Post op Ileus, improved. 7. Acute DVT/PE HIT Improving PTLT count better On direct thrombin inhibitor Switch to Factor X inhibitor vs DTI po after a fewdays
--- NOTE | 2018-09-03 13:32 | PRG ---
DATE OF SERVICE: 09/03/2018 SUBJECTIVE: Keith Barahona remains mechanically ventilated. His minute volume is 12 to 14 L a minute. OBJECTIVE: VITAL SIGNS: He is afebrile, heart rate is 85, and blood pressure is 117/69. HEAD AND NECK: Unremarkable. LUNGS: Clear. HEART: Regular rhythm. ABDOMEN: Soft and nontender. EXTREMITIES: Warm. He has pulses in both lower extremities. LABORATORY DATA: White count 10.3, hemoglobin 8.5, and platelets 37,000. PTT this morning is 65. Venous blood gas, pH of 7.43 this morning. Electrolytes are normal this morning. IMPRESSION: Heparin-induced thrombocytopenia with transient arterial occlusion, status post IVIG as well as argatroban, clinically stable. We will decrease ventilatory support today and I suspect he will be weanable in the morning from mechanical ventilation. He was severely hypoventilating after his trip to the OR. Prior to going to the OR, he had mild respiratory acidosis. I suspect he will do well, but I also suspect he has significant obstructive sleep apnea. His family says he definitely does. He may benefit from extubation to CPAP or BiPAP. CRITICAL CARE TIME: 30 minutes. Job ID: [id number]
[2018-09-04] MEDS: DOBUTamine 500 mg/250 ml 500 MG in Premix Bag 1 BAG IVPB SCH ×2 (02:36→20:50)
[2018-09-04] MEDS: Propofol 1,000 MG/100 ML VIAL IV PRN ×2 (02:37→06:26)
[2018-09-04] MEDS: Sodium Chloride 0.9% 1,000 ML IV SCH ×3 (02:38→06:53)
[2018-09-04 06:03] LABS: #Eosinphils 0.1 thou/uL (0.0-0.7); #Monocytes 0.6 thou/uL (0.11-0.59); %Basophils 0.2 % (0.0-1.0); %Eosinophils 1.2 % (0.0-10.0); %Lymphocytes 13.2 % (21.0-51.0); %Monocytes 7.8 % (0.0-10.0); %Neutrophils 77.7 % (42.0-75.0); Hemoglobin 7.6 g/dL (14.0-18.0); Mean Corpuscular HGB CONC 32.8 g/dL (32.0-36.0); Mean Corpuscular Hemoglobin 29.6 pg (27.0-31.0); Mean Corpuscular Volume 90.3 fL (78.0-98.0); Mean Platelet Volume 7.9 fL (7.4-10.4); Platelet Count 48 thou/uL (130-400); RBC Distribution Width 13.8 % (11.5-14.5); Red Blood Cell (RBC) Count 2.56 mill/uL (4.70-6.10); White Blood Cell (WBC) Count 7.8 thou/uL (4.8-10.8)
[2018-09-04] MEDS: Argatroban (Non -ESRD) 250 MG in Sodium Chloride 0.9% 250 ML 250 ML IVPB SCH (06:22)
--- NOTE | 2018-09-04 07:42 | RAD ---
FXR Chest 1 View Portable History: [Assisted ventilation.] Comparison: Radiograph prior day Findings: The patient continues to be intubated with endotracheal tube tip below the clavicles approx imately 5.2 cm. Enteric tube tip not well seen. Mild atelectatic changes in the lung bases. No pneumothorax. Central venous catheter similar. Impression: Similar examination of the chest.
--- NOTE | 2018-09-04 08:58 | PRG ---
DATE OF SERVICE: 09/04/2018 SUBJECTIVE: A 73-year-old morbidly obese gentleman, status post CABG with multiple medical problems. He is now intubated on the vent. He developed LETICIA and is now getting dobutamine, argatroban neb treatments. OBJECTIVE: GENERAL: He is awake, responsive. VITAL SIGNS: Blood pressure 135/83, pulse is 90, saturations 90% and respiratory rate 18. CHEST: Decreased breath sounds. No wheezing. CARDIAC: Normal S1, S2. No gallop. ABDOMEN: No masses. LABORATORY DATA: H and H are 7.6 and 23, platelet count 48. White count 7000. Creatinine 1.27. IMPRESSION: Status post coronary artery bypass graft, morbid obesity, sleep apnea, chronic obstructive pulmonary disease, renal failure, and status post heparin induced thrombocytopenia with thrombosis. PLAN: Continue present treatment. We will try and wean and extubate. May require noninvasive ventilation post extubation. We will follow. One-half hour of critical time. Job ID: [id number]
[2018-09-04] MEDS: Famotidine/PF 20 mg/2ml Vial SLOW IVP SCH ×2 (09:30→21:01)
[2018-09-04] MEDS: methylPREDNISolone Sod Succ 40 MG VIAL IVP SCH ×2 (09:35→21:01)
[2018-09-04 12:10] LABS: Anion Gap 6 mmol/L (10-20); BUN (Urea Nitrogen) 13 mg/dL (8.4-25.7); Calc. Creatinine Clearance 106 mL/min (70-130); Calcium 7.8 mg/dL (7.8-10.44); Carbon Dioxide 26 mmol/L (23-31); Chloride 109 mmol/L (98-107); Estimated GFR-MDRD 77; Glucose 99 mg/dL (83-110); Potassium 3.4 mmol/L (3.5-5.1); Sodium 138 mmol/L (136-145)
[2018-09-04] MEDS: Aspirin Chewable 81 MG TAB PO SCH (12:37)
--- NOTE | 2018-09-04 18:11 | PRG ---
DATE OF SERVICE: 09/04/2018 SUBJECTIVE: The patient is currently intubated and sedated. He does open his eyes and will respond to simple commands. OBJECTIVE: VITAL SIGNS: Temperature 98, pulse 90, respirations 18 on ventilator, blood pressure 124/74, and saturation 97%. GENERAL: Intubated, does respond to brief commands with hand gestures and feet motions. CHEST: Incision clean, dry, and intact. ABDOMEN: Soft, nontender, mildly distended. Hypoactive bowel sounds. : Miller catheter in place with a very light pink translucent urine without clots. EXTREMITIES: 2+ edema bilaterally. ASSESSMENT AND PLAN: A 73-year-old white male with muscle invasive bladder cancer, currently with multiple complicated issues after his coronary artery bypass graft including pulmonary embolisms and ileus. The patient is recovering and is on anticoagulation currently. From my standpoint, his hematuria is very mild. I would recommend keeping the catheter in at the current time as the patient is very weak and is currently sedated. Even after he is extubated, I would not attempt a void trial until the patient is able to ambulate and move around some as he has a high likelihood of failing his void trial. For the current time, the patient's hematuria is not bad enough to warrant any kind of continuous bladder irrigation. I would not recommend any change in the current plans other than continued catheterization until the patient is more mobile, at which point, another voiding trial can be initiated. I will be on standby, but not be actively following the patient unless my assistance is necessary. Job ID: [id number]
--- NOTE | 2018-09-04 18:22 | PDOC.CTH ---
Cardiology Progress Note - Subjective No new issues. Extubated this morning. Had BM after extubation. - Objective Vital Signs Temp Pulse Pulse Resp BP BP Pulse Ox 09/04/18 16:32 98.0 F 09/04/18 16:20 97 09/04/18 13:32 102 H 19 98 09/04/18 13:00 98.9 F 09/04/18 11:57 97 09/04/18 10:00 99.4 F 09/04/18 09:23 95 09/04/18 09:22 99.4 F 95 20 135/84 97 09/04/18 08:53 97 144/82 H 09/04/18 08:00 99.5 F 22 H 09/04/18 07:55 99.5 F 96 22 H 109/68 98 09/04/18 07:40 97 09/04/18 06:51 92 121/67 Admit Weight 253 lb 4.978 oz Weight 241 lb 2.971 oz 09/03/18 09/04/18 09/05/18 06:59 06:59 06:59 Intake Total 2940 4624 2525 Output Total 1865 2710 1385 Balance 1075 1914 1140 - Physical Examination General/Neuro: alert & oriented x3, NAD Neck: no JVD present Lungs: unlabored respirations Heart: RRR Abdomen: NT/ND Extremities: + edema B (1+) - Telemetry Telemetry Rhythm: NSR - Labs Result Diagrams: 09/04/18 05:35 09/04/18 11:11 - Assessment/Plan 1. Severe LM and ostial RCA disease. 2. S/P CABG x 4, ROSE to LAD, SVG to RPDA, SVG to OM, SVG to D1 3. Muscle invasive bladder cancer. 4. Ischemic CM EF at 20% 5. LEENA on CKD, likely from hypotension and increased abdominal pressures. 6. Post op Ileus, improved. 7. Acute DVT/PE 8. HIT PLAN: - Continue Argatroban. - Plateletes improving. - Will get PF4 - Will need to switch to Eliquis before discharge. - Replace K.
[2018-09-04] MEDS: Mometasone/Formoterol 120 PUFF INHALER INH SCH (19:29)
[2018-09-04] MEDS ORDERED: Magnesium Oxide 400 MG TAB PO PRN ×2 (19:41)
[2018-09-04] MEDS ORDERED: Potassium Chloride 40 MEQ in Premix Bag 1 BAG IVPB PRN (19:41)
[2018-09-04] MEDS ORDERED: CCU ELECTROLYTE REPLACEMENT PROTOCOL FS PRN (19:41)
[2018-09-04] MEDS ORDERED: PHOS-NAK 1 PKT PACK PO PRN ×2 (19:41)
[2018-09-04] MEDS ORDERED: Potassium Phosphate 9 MMOL in Sodium Chloride 0.9% 100 ML IVPB PRN (19:41)
[2018-09-04] MEDS ORDERED: Potassium Phosphate 15 MMOL in Sodium Chloride 0.9% 250 ML 250 ML IV PRN (19:41)
[2018-09-04] MEDS ORDERED: Potassium Chloride 40 MEQ in Sodium Chloride 0.9% 250 ML 250 ML IVPB PRN (19:41)
[2018-09-04] MEDS ORDERED: Potassium Chloride 20 MEQ TAB PO PRN (19:41)
[2018-09-04] MEDS ORDERED: Magnesium 2 GM/50 ML 2 GM in Premix Bag 1 BAG IVPB PRN (19:41)
[2018-09-04] MEDS ORDERED: Potassium Phosphate 12 MMOL in Sodium Chloride 0.9% 250 ML 250 ML IV PRN (19:41)
[2018-09-05] MEDS: Sodium Chloride 0.9% 1,000 ML IV SCH (03:17)
[2018-09-05 04:49] LABS: #Basophils 0.1 thou/uL (0.0-0.2); #Lymphocytes 0.4 thou/uL (1.20-3.40); #Monocytes 0.4 thou/uL (0.11-0.59); #Neutrophils 10.1 thou/uL (1.40-6.50); %Basophils 1.1 % (0.0-1.0); %Eosinophils 0.4 % (0.0-10.0); %Lymphocytes 3.5 % (21.0-51.0); %Monocytes 3.2 % (0.0-10.0); %Neutrophils 91.8 % (42.0-75.0); Mean Corpuscular Hemoglobin 28.5 pg (27.0-31.0); Mean Corpuscular Volume 89.2 fL (78.0-98.0); Mean Platelet Volume 8.4 fL (7.4-10.4); Platelet Count 72 thou/uL (130-400); RBC Distribution Width 13.8 % (11.5-14.5); Red Blood Cell (RBC) Count 3.16 mill/uL (4.70-6.10)
[2018-09-05 05:00] LABS: Anion Gap 9 mmol/L (10-20); BUN (Urea Nitrogen) 17 mg/dL (8.4-25.7); Calc. Creatinine Clearance 97 mL/min (70-130); Carbon Dioxide 24 mmol/L (23-31); Chloride 110 mmol/L (98-107); Estimated GFR-MDRD 69; Glucose 175 mg/dL (83-110); Potassium 3.8 mmol/L (3.5-5.1); Sodium 139 mmol/L (136-145)
[2018-09-05] MEDS: Argatroban (Non -ESRD) 250 MG in Sodium Chloride 0.9% 250 ML 250 ML IVPB SCH (06:06)
--- NOTE | 2018-09-05 07:41 | RAD ---
EXAM: Chest one view: HISTORY: Postop open heart COMPARISON: 09/04/2018 FINDINGS: Right central line. Post midline sternotomy. Heart size is within normal limits. The lungs appear clear of acute process. No evidence for pneumonia, pleural effusion, acute edema, or pneumothorax, or other significant acute process. IMPRESSION: No significant acute intrathoracic disease. Stable from prior study.
[2018-09-05] MEDS: Mometasone/Formoterol 120 PUFF INHALER INH SCH ×2 (07:58→19:14)
[2018-09-05] MEDS ORDERED: DC Sedation Protocol FS ONE (08:32)
--- NOTE | 2018-09-05 08:57 | PRG ---
DATE OF SERVICE: 09/05/2018 SUBJECTIVE: This morning, awake, alert, responsive, better. OBJECTIVE: VITAL SIGNS: Saturations are 96% on 2 L, respiratory rate 17, pulse 100, blood pressure 134/76. CHEST: Decreased breath sounds. No wheezing. CARDIAC: Normal S1 and S2. No gallops. no murmers ABDOMEN: Soft. No masses. LABORATORY DATA: Platelet count is 72,000, H and H are 9 and 28. His lytes are normal. He has some blood in the urine, probably traumatic. X-ray is clear. IMPRESSION: Status post coronary artery bypass grafting, status post LETICIA thrombocytopenia, status post pulmonary emboli. PLAN: Continue argatroban until platelet count of 100,000. Correct electrolytes. Wean and taper off Levophed. PT. Supportive care. Nocturnal CPAP. We will follow. Job ID: [id number] MTDD
[2018-09-05] MEDS: methylPREDNISolone Sod Succ 40 MG VIAL IVP SCH ×2 (09:00→21:55)
[2018-09-05] MEDS: Aspirin Chewable 81 MG TAB PO SCH (09:00)
[2018-09-05] MEDS: Famotidine/PF 20 mg/2ml Vial SLOW IVP SCH ×2 (09:00→21:54)
--- NOTE | 2018-09-05 20:04 | PDOC.CTH ---
Cardiology Progress Note - Subjective He is doing much better. Having a BM today. - Objective Vital Signs Temp Pulse Resp Pulse Ox 09/05/18 19:16 96 09/05/18 19:14 96 09/05/18 16:00 98.8 F 09/05/18 13:18 92 16 95 Admit Weight 253 lb 4.978 oz Weight 241 lb 2.971 oz 09/04/18 09/05/18 09/06/18 06:59 06:59 06:59 Intake Total 4624 4129 1229 Output Total 2710 2145 860 Balance 1914 1984 369 - Physical Examination General/Neuro: alert & oriented x3, NAD Neck: no JVD present Lungs: CTA, unlabored respirations Heart: RRR Abdomen: NT/ND Extremities: + edema B (1+) - Telemetry Telemetry Rhythm: NSR - Labs Result Diagrams: 09/06/18 03:52 09/06/18 03:52 - Assessment/Plan 1. Severe LM and ostial RCA disease. 2. S/P CABG x 4, ROSE to LAD, SVG to RPDA, SVG to OM, SVG to D1 3. Muscle invasive bladder cancer. 4. Ischemic CM EF at 20% 5. LEENA on CKD, likely from hypotension and increased abdominal pressures. 6. Post op Ileus, improved. 7. Acute DVT/PE 8. HIT PLAN: - Continue Argatroban. - Platelets improving. - Will switch to Eliquis 10 mg BID. - Replace K.
[2018-09-05] MEDS: Acetaminophen 500 MG TAB PO PRN (23:24)
[2018-09-06 04:06] LABS: #Lymphocytes 0.5 thou/uL (1.20-3.40); #Monocytes 0.4 thou/uL (0.11-0.59); #Neutrophils 9.2 thou/uL (1.40-6.50); %Eosinophils 0.3 % (0.0-10.0); %Lymphocytes 5.3 % (21.0-51.0); %Monocytes 3.4 % (0.0-10.0); Hemoglobin 9.1 g/dL (14.0-18.0); Mean Corpuscular HGB CONC 32.7 g/dL (32.0-36.0); Mean Corpuscular Hemoglobin 29.1 pg (27.0-31.0); Mean Corpuscular Volume 89.1 fL (78.0-98.0); Mean Platelet Volume 7.7 fL (7.4-10.4); Platelet Count 93 thou/uL (130-400); RBC Distribution Width 13.8 % (11.5-14.5); Red Blood Cell (RBC) Count 3.11 mill/uL (4.70-6.10); White Blood Cell (WBC) Count 10.1 thou/uL (4.8-10.8)
[2018-09-06 04:17] LABS: Anion Gap 8 mmol/L (10-20); BUN (Urea Nitrogen) 20 mg/dL (8.4-25.7); Calc. Creatinine Clearance 104 mL/min (70-130); Carbon Dioxide 25 mmol/L (23-31); Chloride 109 mmol/L (98-107); Estimated GFR-MDRD 75; Glucose 137 mg/dL (83-110); Potassium 4.1 mmol/L (3.5-5.1); Sodium 138 mmol/L (136-145)
[2018-09-06] MEDS: Mometasone/Formoterol 120 PUFF INHALER INH SCH ×2 (07:52→18:20)
--- NOTE | 2018-09-06 08:48 | PRG ---
DATE OF SERVICE: 09/06/2018 SUBJECTIVE: This morning, he is awake, alert, responsive, no distress. OBJECTIVE: VITAL SIGNS: Sats are 97% on 2 L, temperature 99, blood pressure 129/75, and respiratory rate 18. CHEST: Decreased breath sounds. No wheezing. CARDIAC: Normal S1, S2. No gallops. ABDOMEN: No masses. LABORATORY DATA: PTT is 61. He is well anticoagulated. White count 10,000 and H and H 9 and 27, and platelet count is 93,000, much improved. IMPRESSION: 1. Status post coronary artery bypass graft. 2. Cardiomyopathy. 3. Sleep apnea. 4. Morbid obesity. 5. Status post heparin-induced thrombocytopenia with thrombosis syndrome. PLAN: His argatroban was discontinued. He was started on Eliquis 10 mg twice a day. Continue aggressive PT. Eventually, transferred out of the ICU. We will follow. Job ID: [id number]
[2018-09-06] MEDS ORDERED: Furosemide 40 MG/4 ML VIAL SLOW IVP SCH (09:00)
[2018-09-06] MEDS: Aspirin Chewable 81 MG TAB PO SCH (09:15)
[2018-09-06] MEDS: Apixaban 5 MG TAB PO SCH ×2 (09:15→20:26)
[2018-09-06] MEDS: Famotidine/PF 20 mg/2ml Vial SLOW IVP SCH ×2 (09:15→20:26)
[2018-09-06] MEDS: methylPREDNISolone Sod Succ 40 MG VIAL IVP SCH (09:16)
--- NOTE | 2018-09-06 18:36 | PDOC.CTH ---
Cardiology Progress Note - Subjective He is doing well. He denies any chest pain. No new issues. - Objective Vital Signs Temp Pulse Pulse Pulse Resp BP BP 09/06/18 18:13 98 16 09/06/18 16:00 98.3 F 09/06/18 14:25 98 108 H 167/67 H 122/72 09/06/18 12:34 102 H 19 09/06/18 11:00 98.4 F 09/06/18 07:52 94 17 09/06/18 07:00 98.4 F Pulse Ox Pulse Ox Pulse Ox 09/06/18 18:13 98 09/06/18 16:00 09/06/18 14:25 99 97 09/06/18 12:34 09/06/18 11:00 09/06/18 07:52 09/06/18 07:00 Admit Weight 253 lb 4.978 oz Weight 241 lb 2.971 oz 09/05/18 09/06/18 09/07/18 06:59 06:59 06:59 Intake Total 4129 2572 503.3 Output Total 2145 1485 3385 Balance 1984 1087 -2881.7 - Physical Examination General/Neuro: alert & oriented x3, NAD Neck: no JVD present Lungs: unlabored respirations Heart: RRR Abdomen: NT/ND Extremities: other: (no edema) - Telemetry Telemetry Rhythm: S tach. - Labs Result Diagrams: 09/06/18 03:52 09/06/18 03:52 - Assessment/Plan 1. Severe LM and ostial RCA disease. 2. S/P CABG x 4, ROSE to LAD, SVG to RPDA, SVG to OM, SVG to D1 3. Muscle invasive bladder cancer. 4. Ischemic CM EF at 20% 5. LEENA on CKD, likely from hypotension and increased abdominal pressures. 6. Post op Ileus, improved. 7. Acute DVT/PE 8. HIT PLAN: - Continue full anticoagulation with Eliquis for HIT in same dosage s for DVT/ PE treatment. - Continue to increase PT as tolerated. - Restart Statin. - BB and ACEI as BP allows.
[2018-09-06] MEDS: Atorvastatin Calcium 40 MG TAB PO SCH (20:26)
[2018-09-07 02:13] LABS: Heparin-Induced Ab (HITA) Positive (.)
[2018-09-07 05:17] LABS: #Eosinphils 0.1 thou/uL (0.0-0.7); #Lymphocytes 1.3 thou/uL (1.20-3.40); #Monocytes 0.9 thou/uL (0.11-0.59); #Neutrophils 7.5 thou/uL (1.40-6.50); %Basophils 0.1 % (0.0-1.0); %Eosinophils 1.2 % (0.0-10.0); %Lymphocytes 13.6 % (21.0-51.0); %Monocytes 8.7 % (0.0-10.0); %Neutrophils 76.5 % (42.0-75.0); Hemoglobin 10.1 g/dL (14.0-18.0); Mean Corpuscular HGB CONC 33.1 g/dL (32.0-36.0); Mean Corpuscular Volume 87.8 fL (78.0-98.0); Mean Platelet Volume 7.2 fL (7.4-10.4); Platelet Count 120 thou/uL (130-400); RBC Distribution Width 13.9 % (11.5-14.5); Red Blood Cell (RBC) Count 3.47 mill/uL (4.70-6.10); White Blood Cell (WBC) Count 9.8 thou/uL (4.8-10.8)
[2018-09-07] MEDS ORDERED: Mag-Al 1200 mg/1200 mg/30 ML UDCUP PO PRN (06:23)
[2018-09-07] MEDS ORDERED: Mineral Oil ENEMA PR PRN (06:23)
[2018-09-07] MEDS ORDERED: Guaifenesin DM 100-10/5 ML UDCUP PO PRN (06:23)
[2018-09-07] MEDS ORDERED: Nitroglycerin 0.4 MG TAB (25 Tab Bottle) SL PRN (06:23)
[2018-09-07] MEDS ORDERED: Bisacodyl 10 MG SUPP PR PRN (06:23)
[2018-09-07] MEDS: Mometasone/Formoterol 120 PUFF INHALER INH SCH ×2 (07:30→18:13)
[2018-09-07] MEDS: Carvedilol 3.125 MG TAB PO SCH ×2 (08:50→17:13)
[2018-09-07] MEDS: Apixaban 5 MG TAB PO SCH ×2 (08:50→19:49)
[2018-09-07] MEDS: Famotidine 20 MG TAB PO SCH ×2 (08:50→19:49)
[2018-09-07] MEDS: Aspirin Chewable 81 MG TAB PO SCH (08:50)
[2018-09-07] MEDS: Potassium Chloride 10 MEQ TAB PO SCH (08:50)
[2018-09-07] MEDS: Furosemide 40 MG TAB PO SCH (08:50)
--- NOTE | 2018-09-07 09:58 | PRG ---
DATE OF SERVICE: 09/07/2018 SUBJECTIVE: This morning, he is much better, awake, alert, and responsive. OBJECTIVE: VITAL SIGNS: Blood pressure is 150/80, sats are 98% on 2 L, pulse 101, and temperature 98. CHEST: Minimal wheezing. CARDIAC: Normal S1 and S2. No gallops. ABDOMEN: No masses. LABORATORY DATA: White count 9000, hemoglobin and hematocrit platelet count 120 back to normal. His heparin antibody assay was positive. IMPRESSION: Status post heparin-induced thrombocytopenia with pulmonary embolism and deep venous thrombosis, status post argatroban, now on Eliquis minimum 6 months of anticoagulation. PLAN: He transferred out of the ICU. Continue cardiac care. PT supportive care. Eventually, outpatient sleep study. Job ID: [id number]
--- NOTE | 2018-09-07 15:53 | PDOC.CTH ---
Cardiology Progress Note - Subjective He is doing better every day. Still having BM's. Working with PT. No new issues. - Objective Vital Signs Temp Pulse Pulse Pulse Resp BP BP 09/07/18 14:49 111 H 94 131/87 120/83 09/07/18 12:20 100 19 09/07/18 11:00 98.4 F 09/07/18 10:43 111 H 102 H 134/80 149/80 H 09/07/18 09:03 115 H 107 H 136/82 133/77 09/07/18 07:30 101 H 14 09/07/18 07:00 98.4 F Pulse Ox Pulse Ox 09/07/18 14:49 96 95 09/07/18 12:20 09/07/18 11:00 09/07/18 10:43 09/07/18 09:03 96 95 09/07/18 07:30 09/07/18 07:00 Admit Weight 253 lb 4.978 oz Weight 241 lb 2.971 oz 09/06/18 09/07/18 09/08/18 06:59 06:59 06:59 Intake Total 2572 1143.3 480 Output Total 1485 4035 1140 Balance 1087 -2891.7 -660 - Physical Examination General/Neuro: alert & oriented x3, NAD Neck: no JVD present Lungs: CTA, unlabored respirations Heart: RRR Abdomen: NT/ND Extremities: + edema B (1+) - Telemetry Telemetry Rhythm: NSR - Labs Result Diagrams: 09/07/18 05:05 09/06/18 03:52 - Assessment/Plan 1. Severe LM and ostial RCA disease. 2. S/P CABG x 4, ROSE to LAD, SVG to RPDA, SVG to OM, SVG to D1 3. Muscle invasive bladder cancer. 4. Ischemic CM EF at 20% 5. LEENA on CKD, likely from hypotension and increased abdominal pressures. 6. Post op Ileus, improved. 7. Acute DVT/PE 8. HIT PLAN: - Continue full anticoagulation with Eliquis for HIT in same dosage as for DVT/ PE treatment. - Continue to increase PT as tolerated. - Statin. - On BB - BP still borderline low for addition of ACEI/ARB. Will start Entresto once BP allows.
[2018-09-07] MEDS: Acetaminophen 500 MG TAB PO PRN (19:49)
[2018-09-07] MEDS: Atorvastatin Calcium 40 MG TAB PO SCH (19:49)
[2018-09-08] MEDS: Mometasone/Formoterol 120 PUFF INHALER INH SCH ×2 (06:50→19:41)
[2018-09-08] MEDS: Carvedilol 3.125 MG TAB PO SCH ×2 (07:48→16:01)
[2018-09-08] MEDS: Potassium Chloride 10 MEQ TAB PO SCH (07:49)
[2018-09-08] MEDS: Furosemide 40 MG TAB PO SCH (08:02)
[2018-09-08] MEDS: Famotidine 20 MG TAB PO SCH ×2 (08:02→20:24)
[2018-09-08] MEDS: Apixaban 5 MG TAB PO SCH ×2 (08:02→20:24)
[2018-09-08] MEDS: Aspirin Chewable 81 MG TAB PO SCH (08:02)
--- NOTE | 2018-09-08 12:37 | PRG ---
DATE OF SERVICE: 09/08/2018 SUBJECTIVE: This morning, he is better, less short of breath. OBJECTIVE: VITAL SIGNS: Saturations 92% on room air, respiratory rate 18, temperature 98.7, pulse is 89, and blood pressure 140/66. CHEST: Decreased breath sounds. No wheezing. CARDIAC: Normal S1 and S2. No gallops. ABDOMEN: No masses. IMPRESSION: 1. Status post heparin-induced thrombocytopenia syndrome. 2. Status post coronary artery bypass grafting. 3. Status post pulmonary embolism and deep venous thrombosis. 4. Status post severe thrombocytopenia, resolved. PLAN: The patient is much improved. He can be transferred to rehab any time. As noted, he is going to need Eliquis for a total of 6 months. Job ID: [id number]
--- NOTE | 2018-09-08 16:37 | PDOC.CTH ---
Cardiology Progress Note - Subjective He is doing well. He has been walking without issues. He is having BM's and feels better overall. - Objective Vital Signs Temp Pulse Pulse Pulse Resp BP BP 09/08/18 15:57 97.8 F 93 18 09/08/18 13:38 113 H 98 132/75 127/72 09/08/18 11:54 89 18 09/08/18 11:07 97.5 F L 101 H 19 09/08/18 08:54 118 H 104 H 151/81 H 127/73 09/08/18 07:39 98.1 F 102 H 18 09/08/18 06:50 84 18 09/08/18 06:49 84 18 BP Pulse Ox Pulse Ox Pulse Ox 09/08/18 15:57 149/82 H 93 L 09/08/18 13:38 91 L 94 L 09/08/18 11:54 94 L 09/08/18 11:07 148/66 H 94 L 09/08/18 08:54 90 L 91 L 09/08/18 07:39 136/75 93 L 09/08/18 06:50 94 L 09/08/18 06:49 94 L Admit Weight 253 lb 4.978 oz Weight 241 lb 2.971 oz 09/07/18 09/08/18 09/09/18 06:59 06:59 06:59 Intake Total 1143.3 1120 Output Total 4035 2840 Balance -2891.7 -1720 - Physical Examination General/Neuro: alert & oriented x3, NAD Neck: no JVD present Lungs: CTA, unlabored respirations Heart: RRR Abdomen: NT/ND Extremities: + edema B (Trace) - Telemetry Telemetry Rhythm: NSR - Labs Result Diagrams: 09/07/18 05:05 09/06/18 03:52 - Assessment/Plan 1. Severe LM and ostial RCA disease. 2. S/P CABG x 4, ROSE to LAD, SVG to RPDA, SVG to OM, SVG to D1 3. Muscle invasive bladder cancer. 4. Ischemic CM EF at 20% 5. LEENA on CKD, likely from hypotension and increased abdominal pressures. 6. Post op Ileus, improved. 7. Acute DVT/PE 8. HIT PLAN: - Continue full anticoagulation with Eliquis for HIT in same dosage as for DVT/ PE treatment. - Continue to increase PT as tolerated. - Statin. - On BB - Will start Entresto tomorrow. - Placement. Likely will need PT. - Bladder surgery in the future once he can be off anticoagulation.
--- NOTE | 2018-09-08 17:29 | PDOC.CTH ---
Cardiology Progress Note - Subjective Doing much better today. Still having BM's, walking with PT. No new issues. - Objective Vital Signs Temp Pulse Pulse Pulse Resp BP BP 09/08/18 15:57 97.8 F 93 18 09/08/18 13:38 113 H 98 132/75 127/72 09/08/18 11:54 89 18 09/08/18 11:07 97.5 F L 101 H 19 09/08/18 08:54 118 H 104 H 151/81 H 127/73 09/08/18 07:39 98.1 F 102 H 18 09/08/18 06:50 84 18 09/08/18 06:49 84 18 09/08/18 04:26 98.7 F 93 20 BP BP Pulse Ox Pulse Ox Pulse Ox 09/08/18 15:57 149/82 H 93 L 09/08/18 13:38 91 L 94 L 09/08/18 11:54 94 L 09/08/18 11:07 148/66 H 94 L 09/08/18 08:54 90 L 91 L 09/08/18 07:39 136/75 93 L 09/08/18 06:50 94 L 09/08/18 06:49 94 L 09/08/18 04:26 129/78 93 L Admit Weight 253 lb 4.978 oz Weight 241 lb 2.971 oz 09/07/18 09/08/18 09/09/18 06:59 06:59 06:59 Intake Total 1143.3 1120 Output Total 4035 2840 Balance -2891.7 -1720 - Physical Examination General/Neuro: alert & oriented x3, NAD Neck: no JVD present Lungs: unlabored respirations Heart: RRR Abdomen: NT/ND Extremities: other: (trace edema.) - Telemetry Telemetry Rhythm: NSR - Labs Result Diagrams: 09/07/18 05:05 09/06/18 03:52
[2018-09-08] MEDS: Atorvastatin Calcium 40 MG TAB PO SCH (20:24)
[2018-09-08] MEDS: Sacubitril 24.5 MG/Valsartan 25.5 MG TABLET PO SCH (20:24)
[2018-09-09 04:41] LABS: #Eosinphils 0.2 thou/uL (0.0-0.7); #Lymphocytes 1.3 thou/uL (1.20-3.40); #Monocytes 0.8 thou/uL (0.11-0.59); #Neutrophils 5.3 thou/uL (1.40-6.50); %Basophils 0.6 % (0.0-1.0); %Eosinophils 2.2 % (0.0-10.0); %Lymphocytes 17.3 % (21.0-51.0); %Monocytes 10.7 % (0.0-10.0); %Neutrophils 69.1 % (42.0-75.0); Hemoglobin 10.8 g/dL (14.0-18.0); Mean Corpuscular HGB CONC 32.3 g/dL (32.0-36.0); Mean Corpuscular Hemoglobin 28.6 pg (27.0-31.0); Mean Corpuscular Volume 88.8 fL (78.0-98.0); Mean Platelet Volume 7.6 fL (7.4-10.4); Platelet Count 128 thou/uL (130-400); RBC Distribution Width 14.1 % (11.5-14.5); Red Blood Cell (RBC) Count 3.76 mill/uL (4.70-6.10); White Blood Cell (WBC) Count 7.6 thou/uL (4.8-10.8)
[2018-09-09 04:58] LABS: Anion Gap 12 mmol/L (10-20); BUN (Urea Nitrogen) 22 mg/dL (8.4-25.7); Calc. Creatinine Clearance 108 mL/min (70-130); Carbon Dioxide 20 mmol/L (23-31); Chloride 108 mmol/L (98-107); Estimated GFR-MDRD 79; Potassium 3.1 mmol/L (3.5-5.1); Sodium 137 mmol/L (136-145)
[2018-09-09 04:59] LABS: Calcium 8.3 mg/dL (7.8-10.44); Glucose 99 mg/dL (83-110)
[2018-09-09] MEDS: Aspirin Chewable 81 MG TAB PO SCH (08:47)
[2018-09-09] MEDS: Furosemide 40 MG TAB PO SCH (08:47)
[2018-09-09] MEDS: Potassium Chloride 10 MEQ TAB PO SCH (08:47)
[2018-09-09] MEDS: Carvedilol 3.125 MG TAB PO SCH ×2 (08:47→16:45)
[2018-09-09] MEDS: Famotidine 20 MG TAB PO SCH ×2 (08:47→20:29)
[2018-09-09] MEDS: Apixaban 5 MG TAB PO SCH ×2 (08:47→20:29)
[2018-09-09] MEDS: Mometasone/Formoterol 120 PUFF INHALER INH SCH ×2 (09:36→19:21)
[2018-09-09] MEDS: Sacubitril 24.5 MG/Valsartan 25.5 MG TABLET PO SCH ×2 (10:11→20:29)
--- NOTE | 2018-09-09 12:35 | PDOC.CTH ---
Cardiology Progress Note - Subjective The pt seen and examined. No overnight events. No cardiac complaints. He complains of generalized weakness. - Objective Vital Signs Temp Pulse Resp BP Pulse Ox 09/09/18 09:36 72 18 09/09/18 09:24 72 18 09/09/18 08:00 98.4 F 99 16 131/63 92 L 09/09/18 03:44 97.6 F 92 16 133/79 94 L 09/09/18 00:48 83 16 94 L Admit Weight 253 lb 4.978 oz Weight 241 lb 2.971 oz 09/08/18 09/09/18 09/10/18 06:59 06:59 06:59 Intake Total 1120 1420 Output Total 2840 740 Balance -1720 680 - Physical Examination General/Neuro: alert & oriented x3 Neck: no JVD present Lungs: CTA (diminished at bases) Heart: RRR Abdomen: soft Extremities: other: (generalized edema; distended ABD) - Telemetry Telemetry Rhythm: SR - Labs Result Diagrams: 09/09/18 04:29 09/09/18 04:29 - Assessment/Plan 1. Severe LM and ostial RCA disease. 2. S/P CABG x 4, ROSE to LAD, SVG to RPDA, SVG to OM, SVG to D1 - stable; On Bblocker, ASA, statin 3. Acute DVT/PE - On Eliquis 10mg BID from 09/06/2018 4. Ischemic CM EF at 20-25% in 08/2018 - EF on 08/11/2018 was 15-20%; On Entresto, Bblocker, and Lasix; LifeVest will be ordered 5. LEENA on CKD, likely from hypotension and increased abdominal pressures - stable 6. Post op Ileus, improved. 7. Muscle invasive bladder cancer - Bladder surgery in the future once he can be off anticoagulation. 8. HTN - stable 9. Post-op Afib - remains in SR; on BBlocker and Eliquis for DVT/PE/AFib MAR reviewed * LifeVest will be ordered * Dr Paulino's pt. Pt. seen and eval. by me. I agree with the A/P by the PHOTOGRAPHY INSTRUCTOR. No complaints. Maintaining NSR.Chest clear. RRR. Review of Systems - Review of Systems Constitutional: reports: weakness EENTM: reports: no symptoms reported Respiratory: reports: no symptoms reported Cardiac (ROS): reports: no symptoms reported ABD/GI: reports: no symptoms reported : reports: no symptoms reported Musculoskeletal: reports: no symptoms reported
--- NOTE | 2018-09-09 12:50 | PRG ---
DATE OF SERVICE: 09/09/2018 SUBJECTIVE: This morning, he is doing better. Awaiting placement. OBJECTIVE: VITAL SIGNS: Saturations are 92% on room air, respiratory rate 18, and temperature 98, blood pressure . CHEST: Decreased breath sounds. No wheezing. CARDIAC: Normal S1, S2. No gallops. ABDOMEN: Soft. LABORATORY DATA: His platelet count is normal 128. His lytes are normal. ASSESSMENT AND PLAN: 1. Status post heparin-induced thrombocytopenia, resolved. 2. Congestive heart failure. 3. Coronary artery bypass grafting. 4. Pulmonary embolism. 5. Deep venous thrombosis. Continue aggressive PT placement. Job ID: [id number]
[2018-09-09] MEDS ORDERED: Potassium Chloride 20 MEQ TAB PO SCH (13:30)
[2018-09-09] MEDS: Atorvastatin Calcium 40 MG TAB PO SCH (20:29)
[2018-09-10] MEDS: Mometasone/Formoterol 120 PUFF INHALER INH SCH ×2 (08:42→18:50)
[2018-09-10] MEDS: Furosemide 40 MG TAB PO SCH (09:27)
[2018-09-10] MEDS: Famotidine 20 MG TAB PO SCH ×2 (09:27→20:34)
[2018-09-10] MEDS: Potassium Chloride 10 MEQ TAB PO SCH (09:27)
[2018-09-10] MEDS: Aspirin Chewable 81 MG TAB PO SCH (09:27)
[2018-09-10] MEDS: Carvedilol 3.125 MG TAB PO SCH ×2 (09:27→16:20)
[2018-09-10] MEDS: Sacubitril 24.5 MG/Valsartan 25.5 MG TABLET PO SCH ×2 (09:28→20:34)
[2018-09-10] MEDS: Apixaban 5 MG TAB PO SCH ×2 (09:28→20:34)
--- NOTE | 2018-09-10 12:11 | PRG ---
DATE OF SERVICE: 09/10/2018 SUBJECTIVE: This morning, he is doing well. OBJECTIVE: VITAL SIGNS: Saturations are 97% on room air, blood pressure is 149/69, pulse 98, respiratory rate 18, and afebrile. CHEST: No wheezing, crackles. CARDIAC: Normal S1 and S2. No gallops. ABDOMEN: No masses. IMPRESSION: 1. Status post respiratory failure. 2. Obesity. 3. Sleep apnea. 4. Chronic obstructive pulmonary disease. 5. Coronary artery bypass graft. PLAN: Hopefully, we continue Rush. Job ID: [id number]
--- NOTE | 2018-09-10 16:36 | PDOC.CTH ---
Cardiology Progress Note - Subjective The pt seen and examined. No overnight events. No cardiac complaints. - Objective Vital Signs Temp Pulse Pulse Pulse Resp BP BP 09/10/18 16:00 97.5 F L 83 16 09/10/18 14:00 86 16 09/10/18 12:00 98.1 F 92 18 09/10/18 09:08 115 H 94 149/69 H 123/65 09/10/18 08:42 99 16 09/10/18 08:33 99 16 09/10/18 08:00 98.1 F 96 17 BP Pulse Ox Pulse Ox Pulse Ox 09/10/18 16:00 122/68 95 09/10/18 14:00 09/10/18 12:00 110/64 94 L 09/10/18 09:08 90 L 94 L 09/10/18 08:42 09/10/18 08:33 97 09/10/18 08:00 101/65 93 L Admit Weight 253 lb 4.978 oz Weight 241 lb 2.971 oz 09/09/18 09/10/18 09/11/18 06:59 06:59 06:59 Intake Total 1420 1840 Output Total 740 1450 Balance 680 390 - Physical Examination General/Neuro: alert & oriented x3 Neck: no JVD present Lungs: CTA (diminished at bases) Heart: RRR Abdomen: soft Extremities: other: (generalized edema) - Telemetry Telemetry Rhythm: SR - Labs Result Diagrams: 09/09/18 04:29 09/09/18 04:29 - Assessment/Plan 1. Severe LM and ostial RCA disease. 2. S/P CABG x 4 on 08/21/2018 with ROSE to LAD, SVG to RPDA, SVG to OM, SVG to D1 - stable; On Bblocker, ASA, statin 3. Acute DVT/PE - On Eliquis 10mg BID from 09/06/2018 (may changed to 5mg BID for 6 months from 09/13/2018); managed by optimization analyst/PCP 4. Ischemic CM EF at 20-25% in 08/2018 - EF on 08/11/2018 was 15-20%; On Entresto, Bblocker, and Lasix; LifeVest will be ordered 5. LEENA on CKD, likely from hypotension and increased abdominal pressures - stable 6. Post op Ileus, improved. 7. Muscle invasive bladder cancer - Bladder surgery in the future once he can be off anticoagulation. 8. HTN - stable 9. Post-op Afib - remains in SR; on BBlocker and Eliquis for DVT/PE/AFib MAR reviewed * LifeVest will be ordered * Dr Paulino's pt. Pt. seen and eval. by me. I agree with the A/P by the [employer] RECEIVABLE ASSOCIATE Review of Systems - Review of Systems Constitutional: reports: no symptoms reported EENTM: reports: no symptoms reported Respiratory: reports: no symptoms reported Cardiac (ROS): reports: no symptoms reported ABD/GI: reports: no symptoms reported : reports: no symptoms reported Musculoskeletal: reports: no symptoms reported
[2018-09-10] MEDS: Atorvastatin Calcium 40 MG TAB PO SCH (20:34)
[2018-09-11] MEDS: Mometasone/Formoterol 120 PUFF INHALER INH SCH ×2 (06:28→18:33)
[2018-09-11] MEDS: Famotidine 20 MG TAB PO SCH ×2 (08:44→20:16)
[2018-09-11] MEDS: Potassium Chloride 10 MEQ TAB PO SCH ×2 (08:44→17:41)
[2018-09-11] MEDS: Aspirin Chewable 81 MG TAB PO SCH (08:44)
[2018-09-11] MEDS: Carvedilol 3.125 MG TAB PO SCH ×2 (08:44→17:41)
[2018-09-11] MEDS: Furosemide 40 MG TAB PO SCH (08:44)
[2018-09-11] MEDS: Apixaban 5 MG TAB PO SCH ×2 (08:44→20:16)
[2018-09-11] MEDS: Sacubitril 24.5 MG/Valsartan 25.5 MG TABLET PO SCH ×2 (08:48→20:16)
--- NOTE | 2018-09-11 10:26 | PRG ---
DATE OF SERVICE: 09/11/2018 SUBJECTIVE: This morning, he is better, less short of breath. He has a LifeVest in place and was started on Entresto. OBJECTIVE: VITAL SIGNS: Blood pressure is 112/66, sats are 94% on room air, respiratory rate 18, temperature 98, pulse 87. CHEST: Decreased breath sounds. No wheezing. CARDIAC: Normal S1, S2. No gallops. IMPRESSION: 1. Congestive heart failure. 2. Coronary artery bypass grafting. 3. Morbid obesity. 4. Sleep apnea. 5. Status post heparin-induced thrombocytopenia. DISPOSITION: Rehab. PLAN: 1. We will follow. 2. Continue Eliquis. Job ID: [id number]
--- NOTE | 2018-09-11 12:34 | PDOC.CTH ---
Cardiology Progress Note - Subjective He is doing very well. Walking around without issues. - Objective Vital Signs Temp Pulse Pulse Pulse Pulse Resp BP 09/11/18 09:50 114 H 89 112 H 123/67 09/11/18 08:00 98.3 F 87 18 09/11/18 06:27 87 20 09/11/18 04:00 98 F 98 18 09/11/18 00:46 94 20 BP BP BP Pulse Ox Pulse Ox Pulse Ox Pulse Ox 09/11/18 09:50 132/76 92 L 94 L 94 L 09/11/18 08:00 112/66 94 L 09/11/18 06:27 94 L 09/11/18 04:00 135/71 94 L 09/11/18 00:46 93 L Admit Weight 253 lb 4.978 oz Weight 240 lb 6.4 oz 09/10/18 09/11/18 09/12/18 06:59 06:59 06:59 Intake Total 1840 900 Output Total 1450 1140 Balance 390 -240 - Physical Examination General/Neuro: alert & oriented x3, NAD Neck: no JVD present Lungs: unlabored respirations, other: (reduced breath sounds bilat. ) Heart: RRR Abdomen: NT/ND Extremities: + edema B (1+) - Telemetry Telemetry Rhythm: NSR - Labs Result Diagrams: 09/09/18 04:29 09/09/18 04:29 - Assessment/Plan 1. Severe LM and ostial RCA disease. 2. S/P CABG x 4, ROSE to LAD, SVG to RPDA, SVG to OM, SVG to D1 3. Muscle invasive bladder cancer. 4. Ischemic CM EF at 20% 5. LEENA on CKD, likely from hypotension and increased abdominal pressures. 6. Post op Ileus, improved. 7. Acute DVT/PE 8. HIT PLAN: - Continue full anticoagulation with Eliquis for HIT in same dosage as for DVT/ PE treatment. - Continue to increase PT as tolerated. - Statin. - On BB - Will start Entresto tomorrow. - Placement. Likely will need PT. - Bladder surgery in the future once he can be off anticoagulation. - Lifevest set up. May discharge any time from cardiac perspective.
[2018-09-11] MEDS: Atorvastatin Calcium 40 MG TAB PO SCH (20:16)
[2018-09-12] MEDS ORDERED: Metolazone 2.5 MG TAB PO SCH (06:30)
[2018-09-12] MEDS: Mometasone/Formoterol 120 PUFF INHALER INH SCH ×2 (07:10→18:32)
--- NOTE | 2018-09-12 09:34 | PRG ---
DATE OF SERVICE: 09/12/2018 SUBJECTIVE: A 73-year-old gentleman status post CABG, status post HIT, doing well. OBJECTIVE: VITAL SIGNS: Saturations are 92% on room air, respiratory rate 18, temperature 97 and blood pressure 130/71. LifeVest placed yesterday. CHEST: Decreased breath sounds. No wheezing. CARDIAC: Normal S1, S2. No gallops. ABDOMEN: No masses. IMPRESSION: Decrease Eliquis after tomorrow to 5 mg twice a day for a total of at least 6 months. Otherwise, continue supportive care and PT. We will follow. Job ID: [id number]
[2018-09-12] MEDS: Apixaban 5 MG TAB PO SCH ×2 (09:35→20:26)
[2018-09-12] MEDS: Furosemide 40 MG TAB PO SCH (09:35)
[2018-09-12] MEDS: Carvedilol 3.125 MG TAB PO SCH ×2 (09:35→17:26)
[2018-09-12] MEDS: Aspirin Chewable 81 MG TAB PO SCH (09:35)
[2018-09-12] MEDS: Famotidine 20 MG TAB PO SCH ×2 (09:35→20:26)
[2018-09-12] MEDS: Potassium Chloride 10 MEQ TAB PO SCH ×2 (09:36→17:27)
[2018-09-12] MEDS: Sacubitril 24.5 MG/Valsartan 25.5 MG TABLET PO SCH ×2 (09:36→20:30)
--- NOTE | 2018-09-12 13:16 | DIS ---
DATE OF ADMISSION: 08/21/2018 DATE OF DISCHARGE: 09/11/2018 HOSPITAL COURSE: This is a 73-year-old gentleman, who was admitted to the hospital for elective coronary artery bypass grafting on 08/21. At that time, he underwent grafting to the LAD, right PDA, obtuse marginal and diagonal. Postoperatively, he was seen in consultation by Urology for known bladder cancer with hematuria. Pulmonary for known COPD and Cardiology for known poor ejection fraction. He initially demonstrated a significant abdominal distention from an ileus. About 3 days postop, he had a markedly elevated creatinine having gone from 1.12 mg/dL on 08/23 to 2.62 on 08/24, and peaking at 3.84 on 08/25. It then gradually returned toward normal levels. He was making slow, but steady progress. However, on 08/29, he complained of this new dyspnea just prior to being sent to rehab and a venous ultrasound demonstrated bilateral DVT and a V/Q scan was suspicious for pulmonary emboli. He was begun on Lovenox twice a day and was making marginal progress. On 09/02, he had a platelet count of 29,000, which was markedly decreased from the 1 checked previously on 08/28. Within an hour of this laboratory value coming back, he complained of severe right leg pain, felt to have HIT, later confirmed by antibodies and begun on a thrombin inhibitor argatroban IV. He was taken emergently to the operating room, where he underwent embolectomy from his right superficial femoral artery, having a good Doppler signal return to his right foot. Since that time, he has been switched from IV argatroban to oral Eliquis 10 b.i.d. with plan to decrease this to 5 b.i.d. in a couple of more days. He will be discharged home with a LifeVest in place as well as an aspirin 81 a day, Coreg 3.125 b.i.d., Lasix 40 daily, potassium 10 b.i.d., Entresto 24/25 b.i.d., Flomax 0.4 b.i.d., and Proscar 5 daily. No pain medicines have been prescribed. He will follow up with me in 2 weeks after discharge from inpatient rehab. Discharge and followup instructions have been given. His wounds are healing nicely and he still has at least 1+ bilateral pitting edema in his legs and plan for daily Lasix with resolution of this. Once again, his Eliquis is to be tapered to 5 b.i.d. later this week and he is to avoid all heparin products due to his diagnosis of HIT. Job ID: [id number]
--- NOTE | 2018-09-12 15:22 | PDOC.CTH ---
Cardiology Progress Note - Subjective he is doign very well. Waiting to be accepted at [facility]. - Objective Vital Signs Temp Pulse Pulse Pulse Resp BP BP 09/12/18 11:20 118 H 101 H 146/80 H 134/75 09/12/18 07:50 97.9 F 88 20 09/12/18 07:08 91 16 09/12/18 04:00 98.0 F 88 20 BP BP Pulse Ox Pulse Ox Pulse Ox 09/12/18 11:20 93 L 92 L 09/12/18 07:50 136/71 09/12/18 07:08 92 L 09/12/18 04:00 129/71 96 Admit Weight 253 lb 4.978 oz Weight 240 lb 6.4 oz 09/11/18 09/12/18 09/13/18 06:59 06:59 06:59 Intake Total 900 1100 Output Total 1140 1250 Balance -240 -150 - Physical Examination General/Neuro: alert & oriented x3, NAD Neck: no JVD present Lungs: unlabored respirations, other: (Reduced breath sounds. ) Heart: RRR Abdomen: NT/ND Extremities: + edema B (Trace) - Telemetry Telemetry Rhythm: NSR - Labs Result Diagrams: 09/09/18 04:29 09/09/18 04:29 - Assessment/Plan 1. Severe LM and ostial RCA disease. 2. S/P CABG x 4, ROSE to LAD, SVG to RPDA, SVG to OM, SVG to D1 3. Muscle invasive bladder cancer. 4. Ischemic CM EF at 20% 5. LEENA on CKD, likely from hypotension and increased abdominal pressures. 6. Post op Ileus, improved. 7. Acute DVT/PE 8. HIT PLAN: - Continue full anticoagulation with Eliquis for HIT in same dosage as for DVT/ PE treatment, down to 5 mg BID tomorrow. - Continue to increase PT as tolerated. - Statin/BB/Entresto. - Bladder surgery in the future once he can be off anticoagulation. - Lifevest in place. May discharge to [facility] from cardiac perspective.
[2018-09-12] MEDS: Atorvastatin Calcium 40 MG TAB PO SCH (20:26)
[2018-09-12] MEDS: Acetaminophen 500 MG TAB PO PRN (20:26)
[2018-09-13 07:10] LABS: #Eosinphils 0.1 thou/uL (0.0-0.7); #Lymphocytes 1.1 thou/uL (1.20-3.40); #Monocytes 0.5 thou/uL (0.11-0.59); #Neutrophils 3.1 thou/uL (1.40-6.50); %Basophils 0.2 % (0.0-1.0); %Lymphocytes 21.6 % (21.0-51.0); %Monocytes 10.9 % (0.0-10.0); %Neutrophils 64.3 % (42.0-75.0); Hemoglobin 10.4 g/dL (14.0-18.0); Mean Corpuscular HGB CONC 32.6 g/dL (32.0-36.0); Mean Corpuscular Hemoglobin 28.3 pg (27.0-31.0); Mean Platelet Volume 7.3 fL (7.4-10.4); Platelet Count 131 thou/uL (130-400); RBC Distribution Width 14.5 % (11.5-14.5); Red Blood Cell (RBC) Count 3.67 mill/uL (4.70-6.10); White Blood Cell (WBC) Count 4.9 thou/uL (4.8-10.8)
[2018-09-13 07:39] LABS: Anion Gap 9 mmol/L (10-20); BUN (Urea Nitrogen) 14 mg/dL (8.4-25.7); Calc. Creatinine Clearance 101 mL/min (70-130); Calcium 8.4 mg/dL (7.8-10.44); Carbon Dioxide 25 mmol/L (23-31); Chloride 109 mmol/L (98-107); Estimated GFR-MDRD 73; Glucose 104 mg/dL (83-110); Potassium 3.6 mmol/L (3.5-5.1); Sodium 139 mmol/L (136-145)
[2018-09-13] MEDS: Mometasone/Formoterol 120 PUFF INHALER INH SCH ×2 (08:09→20:12)
[2018-09-13] MEDS: Carvedilol 3.125 MG TAB PO SCH ×2 (09:43→16:15)
[2018-09-13] MEDS: Potassium Chloride 10 MEQ TAB PO SCH ×2 (09:44→16:15)
[2018-09-13] MEDS: Apixaban 5 MG TAB PO SCH ×2 (09:45→20:24)
[2018-09-13] MEDS: Sacubitril 24.5 MG/Valsartan 25.5 MG TABLET PO SCH ×2 (09:47→20:24)
[2018-09-13] MEDS: Aspirin Chewable 81 MG TAB PO SCH (09:47)
[2018-09-13] MEDS: Famotidine 20 MG TAB PO SCH ×2 (09:47→20:24)
[2018-09-13] MEDS: Furosemide 40 MG TAB PO SCH (09:47)
--- NOTE | 2018-09-13 10:31 | PRG ---
DATE OF SERVICE: 09/13/2018 SUBJECTIVE: Keith Barahona is better placement. OBJECTIVE: VITAL SIGNS: Saturations are 98% on room air, temperature 98.7, pulse 83, respirations 14, blood pressure 120/68. LUNGS: Denies any wheezing, chest pain, shortness of breath. CHEST: Decreased breath sounds. No wheezing. CARDIAC: Normal S1, S2. No gallops. ABDOMEN: No masses. IMPRESSION: 1. Status post coronary artery bypass graft. 2. Status post heparin-induced thrombocytopenia. 3. Status post deep venous thrombosis/pulmonary embolism. 4. Status post severe thrombocytopenia. 5. Morbid obesity. 6. Sleep apnea. 7. Chronic obstructive pulmonary disease. PLAN: Eliquis decreased to 5 mg twice a day. Continue supportive care, PT, eventually placement. Job ID: [id number]
[2018-09-13 13:15] VITALS: BMI 36.5
[2018-09-13] MEDS ORDERED: Potassium Chloride 20 MEQ TAB PO SCH (13:15)
--- NOTE | 2018-09-13 17:03 | PDOC.CTH ---
Cardiology Progress Note - Subjective No new issues. Awaiting approval from insurance company for placement. - Objective Vital Signs Temp Pulse Pulse Pulse Resp BP BP 09/13/18 16:11 97.9 F 90 18 09/13/18 13:50 115 H 97 174/75 H 123/69 09/13/18 13:04 100 21 H 09/13/18 10:30 90 88 120/69 121/68 09/13/18 08:08 09/13/18 08:06 83 14 09/13/18 07:55 97.8 F 88 20 BP Pulse Ox Pulse Ox Pulse Ox Pulse Ox 09/13/18 16:11 121/71 93 L 09/13/18 13:50 91 L 87 L 96 09/13/18 13:04 09/13/18 10:30 94 L 94 L 09/13/18 08:08 99 09/13/18 08:06 99 09/13/18 07:55 121/68 97 Admit Weight 253 lb 4.978 oz Weight 240 lb 6.4 oz 09/12/18 09/13/18 09/14/18 06:59 06:59 06:59 Intake Total 1100 400 Output Total 1250 350 Balance -150 50 - Physical Examination General/Neuro: alert & oriented x3, NAD Neck: no JVD present Lungs: CTA, unlabored respirations Heart: RRR Abdomen: NT/ND Extremities: + edema B (1+) - Telemetry Telemetry Rhythm: NSR - Labs Result Diagrams: 09/13/18 06:44 09/13/18 06:44 - Assessment/Plan 1. Severe LM and ostial RCA disease. 2. S/P CABG x 4, ROSE to LAD, SVG to RPDA, SVG to OM, SVG to D1 3. Muscle invasive bladder cancer. 4. Ischemic CM EF at 20% 5. LEENA on CKD, likely from hypotension and increased abdominal pressures. 6. Post op Ileus, improved. 7. Acute DVT/PE 8. HIT PLAN: - Continue full anticoagulation with Eliquis for HIT in same dosage as for DVT/ PE treatment, down to 5 mg BID today. - Continue to increase PT as tolerated. - Statin/BB/Entresto. - Bladder surgery in the future once he can be off anticoagulation. - Lifevest in place. May discharge to swing bed from cardiac perspective. - Will see in 4 weeks at which point he will be 6 weeks out of initial HIT diagnosis and may stop anticoagulation at that time fro bladder surgery.
[2018-09-13] MEDS: Atorvastatin Calcium 40 MG TAB PO SCH (20:24)
[2018-09-14] MEDS: Mometasone/Formoterol 120 PUFF INHALER INH SCH ×2 (07:30→18:37)
[2018-09-14] MEDS: Apixaban 5 MG TAB PO SCH ×2 (08:46→20:41)
[2018-09-14] MEDS: Carvedilol 3.125 MG TAB PO SCH ×2 (08:46→16:08)
[2018-09-14] MEDS: Famotidine 20 MG TAB PO SCH ×2 (08:47→20:41)
[2018-09-14] MEDS: Aspirin Chewable 81 MG TAB PO SCH (08:47)
[2018-09-14] MEDS: Metolazone 5 MG TAB PO SCH (08:47)
[2018-09-14] MEDS: Furosemide 40 MG TAB PO SCH (08:48)
[2018-09-14] MEDS: Potassium Chloride 10 MEQ TAB PO SCH ×2 (08:48→16:08)
[2018-09-14] MEDS: Sacubitril 24.5 MG/Valsartan 25.5 MG TABLET PO SCH ×2 (08:48→21:21)
--- NOTE | 2018-09-14 09:45 | PRG ---
DATE OF SERVICE: SUBJECTIVE: Keith Barahona is still awaiting placement. OBJECTIVE: VITAL SIGNS: Sats are 98% on room air, respiratory rate 16, temperature 98, blood pressure 132/79. Denies pain, discomfort, or shortness of breath. CHEST: Clear. CARDIAC: Normal S1 and S2. No gallops. ABDOMEN: No masses. ASSESSMENT AND PLAN: Status post coronary artery bypass graft, status post thrombocytopenia, probably sleep apnea, chronic obstructive pulmonary disease, pulmonary embolism and deep venous thrombosis. Eliquis 5 mg twice a day for 6 months. We will follow. Job ID: [id number]
--- NOTE | 2018-09-14 11:55 | PDOC.CTH ---
Cardiology Progress Note - Subjective He feels a little dysuria today. No fevers. - Objective Vital Signs Temp Pulse Pulse Pulse Resp BP BP 09/14/18 11:32 98.0 F 80 20 09/14/18 08:50 95 110 H 132/74 146/78 H 09/14/18 08:46 09/14/18 07:28 88 16 09/14/18 07:27 84 18 09/14/18 04:20 98.1 F 91 16 09/14/18 01:34 86 16 BP BP Pulse Ox Pulse Ox 09/14/18 11:32 105/67 96 09/14/18 08:50 94 L 09/14/18 08:46 99 09/14/18 07:28 98 09/14/18 07:27 132/79 99 09/14/18 04:20 138/69 93 L 09/14/18 01:34 Admit Weight 253 lb 4.978 oz Weight 240 lb 6.4 oz 09/13/18 09/14/18 09/15/18 06:59 06:59 06:59 Intake Total 400 1700 Output Total 350 1100 Balance 50 600 - Physical Examination General/Neuro: alert & oriented x3, NAD Neck: no JVD present Lungs: CTA, unlabored respirations Heart: RRR Abdomen: NT/ND Extremities: + edema B (2+) - Telemetry Telemetry Rhythm: NSR - Labs Result Diagrams: 09/13/18 06:44 09/13/18 06:44 - Assessment/Plan 1. Severe LM and ostial RCA disease. 2. S/P CABG x 4, ROSE to LAD, SVG to RPDA, SVG to OM, SVG to D1 3. Muscle invasive bladder cancer. 4. Ischemic CM EF at 20% 5. LEENA on CKD, likely from hypotension and increased abdominal pressures. 6. Post op Ileus, improved. 7. Acute DVT/PE 8. HIT 9. Possible UTI. PLAN: - Continue full anticoagulation with Eliquis for HIT in same dosage as for DVT/ PE treatment, down to 5 mg BID yesterday. - Continue to increase PT as tolerated. - Statin/BB/Entresto. - Bladder surgery in the future once he can be off anticoagulation. - Lifevest in place. May discharge to swing bed from cardiac perspective. - Will see in 4 weeks at which point he will be 6 weeks out of initial HIT diagnosis and may stop anticoagulation at that time fro bladder surgery. - UA - Awaiting insurance approval for placement.
[2018-09-14 12:37] LABS: Bilirubin Negative (Negative); Blood, Urine Moderate (Negative); Clarity CLOUDY (Clear); Glucose, Urine (Dipstick) Negative (Negative); Leukocyte Moderate (Negative); Nitrite Negative (Negative); Protein, Urine (Dipstick) Negative (Neg-Trace); Specific Gravity, Urine 1.008 (1.002-1.036); Urobilinogen 0.2 mg/dL (0.2-1.0)
[2018-09-14 12:39] LABS: Bacteria/HPF 1+ HPF (None Seen); Hyaline Casts/LPF 0-3 HYALINE CAST LPF (0-3 Hyaline); Pathc Cast-AUWi Flag 0.27 (0-2.49); Squamous Epithelial None Seen HPF (0-3)
[2018-09-14] MEDS: Atorvastatin Calcium 40 MG TAB PO SCH (20:41)
[2018-09-14] MEDS: Acetaminophen 500 MG TAB PO PRN (20:41)
[2018-09-15] MEDS: Furosemide 40 MG TAB PO SCH (08:49)
[2018-09-15] MEDS: Aspirin Chewable 81 MG TAB PO SCH (08:49)
[2018-09-15] MEDS: Apixaban 5 MG TAB PO SCH ×2 (08:49→20:48)
[2018-09-15] MEDS: Famotidine 20 MG TAB PO SCH ×2 (08:49→20:48)
[2018-09-15] MEDS: Carvedilol 3.125 MG TAB PO SCH ×2 (08:49→16:35)
[2018-09-15] MEDS: Metolazone 5 MG TAB PO SCH (08:49)
[2018-09-15] MEDS: Sacubitril 24.5 MG/Valsartan 25.5 MG TABLET PO SCH ×2 (08:49→20:48)
[2018-09-15] MEDS: Potassium Chloride 10 MEQ TAB PO SCH ×2 (08:49→16:35)
[2018-09-15] MEDS: Mometasone/Formoterol 120 PUFF INHALER INH SCH ×2 (11:11→18:39)
--- NOTE | 2018-09-15 13:24 | PRG ---
DATE OF SERVICE: 09/15/2018 SUBJECTIVE: Mr. Barahona is doing well. He had no complaints for me. He says he is breathing fine. OBJECTIVE: VITAL SIGNS: His temperature is 97.7, pulse 101, respirations 22, O2 saturation 93% on room air, blood pressure 130/70. HEENT: Unremarkable. NECK: No JVD. CHEST: Clear to auscultation anteriorly. CARDIAC: S1, S2. Regular. ABDOMEN: Soft. EXTREMITIES: 2+ edema from the knees downward. ASSESSMENT: 1. Stable pulmonary status. 2. Status post coronary artery bypass grafting surgery. 3. Stable chronic obstructive pulmonary disease. 4. History of pulmonary embolism and deep venous thrombosis. PLAN: The patient is continuing anticoagulation with Eliquis. He is awaiting rehab placement. Job ID: [id number]
[2018-09-15] MEDS: Atorvastatin Calcium 40 MG TAB PO SCH (20:48)
[2018-09-16] MEDS: Bisacodyl 5 MG TAB PO PRN (01:51)
[2018-09-16] MEDS: Mometasone/Formoterol 120 PUFF INHALER INH SCH ×2 (06:59→19:29)
[2018-09-16] MEDS: Furosemide 40 MG TAB PO SCH (08:29)
[2018-09-16] MEDS: Sacubitril 24.5 MG/Valsartan 25.5 MG TABLET PO SCH ×2 (08:29→20:22)
[2018-09-16] MEDS: Famotidine 20 MG TAB PO SCH ×2 (08:29→20:22)
[2018-09-16] MEDS: Potassium Chloride 10 MEQ TAB PO SCH ×2 (08:29→16:35)
[2018-09-16] MEDS: Carvedilol 3.125 MG TAB PO SCH ×2 (08:29→16:35)
[2018-09-16] MEDS: Aspirin Chewable 81 MG TAB PO SCH (08:29)
[2018-09-16] MEDS: Apixaban 5 MG TAB PO SCH ×2 (08:29→20:22)
[2018-09-16] MEDS: Metolazone 5 MG TAB PO SCH (08:29)
--- NOTE | 2018-09-16 12:55 | PRG ---
DATE OF SERVICE: 09/16/2018 SUBJECTIVE: He is sitting up in a chair, doing well, has no complaints. OBJECTIVE: VITAL SIGNS: On exam, temperature 98.1, pulse 86, respirations 20, O2 saturation 97% on room air, blood pressure 127/76. HEENT: Unremarkable. NECK: No JVD. LUNGS: Clear to Auscultation. CARDIAC: S1 and S2 regular without murmur. ABDOMEN: Soft, nontender. EXTREMITIES: No edema. LABORATORY DATA: No labs were obtained today. ASSESSMENT: 1. Stable pulmonary status. 2. Status post coronary artery bypass grafting surgery. 3. Chronic obstructive pulmonary disease. 4. History of pulmonary embolism and DVT. PLAN: Continuing anticoagulation with Eliquis. He is stable for discharge from Pulmonary standpoint. Job ID: [id number]
[2018-09-16] MEDS: Acetaminophen 500 MG TAB PO PRN ×2 (14:05→20:22)
[2018-09-16] MEDS: Atorvastatin Calcium 40 MG TAB PO SCH (20:22)
[2018-09-17] MEDS: Mometasone/Formoterol 120 PUFF INHALER INH SCH ×2 (07:07→19:07)
[2018-09-17] MEDS: Famotidine 20 MG TAB PO SCH ×2 (08:12→21:36)
[2018-09-17] MEDS: Apixaban 5 MG TAB PO SCH ×2 (08:12→21:36)
[2018-09-17] MEDS: Furosemide 40 MG TAB PO SCH (08:12)
[2018-09-17] MEDS: Potassium Chloride 10 MEQ TAB PO SCH ×2 (08:12→16:38)
[2018-09-17] MEDS: Aspirin Chewable 81 MG TAB PO SCH (08:12)
[2018-09-17] MEDS: Sacubitril 24.5 MG/Valsartan 25.5 MG TABLET PO SCH ×2 (08:12→21:36)
[2018-09-17] MEDS: Metolazone 5 MG TAB PO SCH (08:12)
[2018-09-17] MEDS: Carvedilol 3.125 MG TAB PO SCH ×2 (08:13→16:38)
--- NOTE | 2018-09-17 12:53 | PRG ---
DATE OF SERVICE: 09/17/2018 SUBJECTIVE: The patient is doing good except for urinary retention. He is having no breathing spells. OBJECTIVE: VITAL SIGNS: On exam, temperature 97.3, pulse 92, respirations 16, and O2 saturations 96% on room air. HEENT: Unremarkable. NECK: Without adenopathy, JVD, or bruits. LUNGS: Clear. CARDIAC: S1 and S2. Regular. ABDOMEN: Soft. EXTREMITIES: No edema. ASSESSMENT: 1. Stable pulmonary status. 2. Status post coronary artery bypass grafting surgery. 3. Chronic obstructive pulmonary disease. PLAN: Continue current care and current anticoagulation. He is stable for discharge from the hospital. Job ID: [id number]
--- NOTE | 2018-09-17 13:04 | PRG ---
DATE OF SERVICE: 09/17/2018 SUBJECTIVE: The patient is currently doing well, has no complaints. He has been walking around the [place] with assistance. OBJECTIVE: VITAL SIGNS: On exam, temperature 97.5, pulse 108, respirations 16, O2 saturation 93% on room air. HEENT: Unremarkable. NECK: No adenopathy or JVD. CHEST: Clear. CARDIAC: S1 and S2. Regular. ABDOMEN: Soft. Wound VAC noted. EXTREMITIES: No edema. ASSESSMENT: 1. Stable pulmonary status. 2. Status post laparotomy. 3. Stable chronic obstructive pulmonary disease. PLAN: Continue nebulization treatments and Dulera. Job ID: [id number]
[2018-09-17] MEDS: Acetaminophen 500 MG TAB PO PRN (21:35)
[2018-09-17] MEDS: Bisacodyl 5 MG TAB PO PRN (21:35)
[2018-09-17] MEDS: Atorvastatin Calcium 40 MG TAB PO SCH (21:36)
[2018-09-18] MEDS: Mometasone/Formoterol 120 PUFF INHALER INH SCH (07:06)
[2018-09-18] MEDS: Sacubitril 24.5 MG/Valsartan 25.5 MG TABLET PO SCH (08:52)
[2018-09-18] MEDS: Metolazone 5 MG TAB PO SCH (08:52)
[2018-09-18] MEDS: Apixaban 5 MG TAB PO SCH (08:52)
[2018-09-18] MEDS: Famotidine 20 MG TAB PO SCH (08:52)
[2018-09-18] MEDS: Aspirin Chewable 81 MG TAB PO SCH (08:52)
[2018-09-18] MEDS: Carvedilol 3.125 MG TAB PO SCH ×2 (08:53→17:17)
[2018-09-18] MEDS: Furosemide 40 MG TAB PO SCH (08:53)
[2018-09-18] MEDS: Potassium Chloride 10 MEQ TAB PO SCH ×2 (08:53→17:17)
--- NOTE | 2018-09-18 10:12 | PRG ---
DATE OF SERVICE: 09/18/2018 OBJECTIVE: Sats are 94%, respiratory rate 18, temperature 98.7, blood pressure 130/62. GENERAL: He is weak, but no shortness of breath. CHEST: Clear. CARDIAC: Normal S1 and S2. No gallops. ABDOMEN: No masses. IMPRESSION: 1. Status post coronary artery bypass graft. 2. Chronic obstructive pulmonary disease. 3. Status post pulmonary embolism and deep venous thrombosis. PLAN: Continue Eliquis. PT supportive care. Placement. Job ID: [id number]
[2018-09-18 12:32] VITALS: TEMP 98.1
[2018-09-18 17:16] VITALS: BP 109/66
--- NOTE | 2018-09-19 08:07 | DIS ---
DATE OF ADMISSION: 08/21/2018 DATE OF DISCHARGE: 09/18/2018 ADDENDUM: The patient was previously discharged on 09/11, however, did not qualify for rehab. Over the ensuing week, he was evaluated for [facility] unit swing bed, ultimately being turned down by his insurance company for coverage. He is now being discharged with a LifeVest in place for ejection fraction of 23% with some nonsustained ventricular tachycardia. His discharge medications will include Eliquis 5 b.i.d., aspirin 81 a day, Lipitor 40 at bedtime, Coreg 3.125 b.i.d., Lasix 40 daily, potassium 10 mEq b.i.d., Entresto 24/25 b.i.d. He is going to resume his medications for his bladder problems, which include saw palmetto, Flomax, and Proscar. He will follow up with me in [address] Paulino in about 3-4 weeks. Discharge and followup instructions have been given. Job ID: [id number]
--- NOTE | 2018-09-19 13:11 | OP ---
DATE OF PROCEDURE: 09/02/2018 PREOPERATIVE DIAGNOSIS: Acutely ischemic right lower extremity due to the heparin-induced thrombocytopenia. PROCEDURE PERFORMED: Embolectomy, right femoral system. ANESTHESIA: General. ESTIMATED BLOOD LOSS: 150. DESCRIPTION OF PROCEDURE: After prepping and draping, the right groin incision was made over the right common femoral artery. The patient was on a thrombin inhibitor on arrival to the OR and this was continued. After isolating the common superficial and deep femoral arteries, arteriotomy was performed in the distal common femoral artery. There was good forward flow. There was no retrograde flow from the SFA or profunda. Balloon catheter was passed down the profunda femoral artery and withdrawn and although there was no thrombus removed, there was then good backbleeding. Saline was used to flush this and following this, the embolectomy catheter was passed down the superficial femoral artery. Initial pass did not reveal any thrombus or blood flow. On second pass, the catheter would not pass more than about 1 cm down the SFA. At that time, it was elected to extent the arteriotomy onto the SFA and at that time, a white plug was visualized and removed and my initial impression was that I may have performed an endarterectomy with a balloon catheter. The balloon catheter was then repassed down the SFA and passed this time and on removal a second white plug was removed and at this time, there was a good brisk backbleeding from the SFA. A bovine patch was then used to close the arteriotomy and flow was restored. There was a good pulse in the SFA and profunda vessels. The wound was then irrigated and closed in layers and the patient is to be taken to the ICU in guarded condition. Job ID: [id number]
== END 2018-09-18 17:24 | disposition home or self-care (01) | DRG 235 ==
LOC: SURG A 05:44 → CCU 12:21 → IMCU/EMU 08-25 17:17 → CCU 09-02 12:05 → 2NO 09-07 16:44
PROVIDERS: ADMIT Thoracic Surgery (Cardiothoracic Vascular Surgery); ATTEND Thoracic Surgery (Cardiothoracic Vascular Surgery)
PROC: 02100Z9 Bypass Coronary Artery, One Artery from Left Internal Mammary, Open Approach (ICD-10-PCS; principal; 2018-08-21)
PROC: 021209W Bypass Coronary Artery, Three Arteries from Aorta with Autologous Venous Tissue, Open Approach (ICD-10-PCS; 2018-08-21)
PROC: 06BQ4ZZ Excision of Left Saphenous Vein, Percutaneous Endoscopic Approach (ICD-10-PCS; 2018-08-21)
PROC: 5A1221Z Performance of Cardiac Output, Continuous (ICD-10-PCS; 2018-08-21)
PROC: 04CK0ZZ Extirpation of Matter from Right Femoral Artery, Open Approach (ICD-10-PCS; 2018-09-02)
PROC: 04UK0KZ Supplement Right Femoral Artery with Nonautologous Tissue Substitute, Open Approach (ICD-10-PCS; 2018-09-02)
DX: I25.10 Atherosclerotic heart disease of native coronary artery without angina pectoris (principal); J96.01 Acute respiratory failure with hypoxia; I26.99 Other pulmonary embolism without acute cor pulmonale; I50.22 Chronic systolic (congestive) heart failure; N17.9 Acute kidney failure, unspecified; I13.0 Hypertensive heart and chronic kidney disease with heart failure and stage 1 through stage 4 chronic kidney disease, or unspecified chronic kidney disease; N18.4 Chronic kidney disease, stage 4 (severe); J44.1 Chronic obstructive pulmonary disease with (acute) exacerbation; K56.7 Ileus, unspecified; I82.403 Acute embolism and thrombosis of unspecified deep veins of lower extremity, bilateral; I74.3 Embolism and thrombosis of arteries of the lower extremities; I47.2 Ventricular tachycardia; D75.82 Heparin induced thrombocytopenia (HIT); T45.515A Adverse effect of anticoagulants, initial encounter; I95.9 Hypotension, unspecified; D63.1 Anemia in chronic kidney disease; I42.0 Dilated cardiomyopathy; I25.5 Ischemic cardiomyopathy; I48.0 Paroxysmal atrial fibrillation; K59.03 Drug induced constipation; T40.605A Adverse effect of unspecified narcotics, initial encounter; C67.9 Malignant neoplasm of bladder, unspecified; E78.5 Hyperlipidemia, unspecified; G47.33 Obstructive sleep apnea (adult) (pediatric); N40.1 Benign prostatic hyperplasia with lower urinary tract symptoms; R33.8 Other retention of urine; R31.0 Gross hematuria; E66.9 Obesity, unspecified; Z87.891 Personal history of nicotine dependence; Z68.37 Body mass index [BMI] 37.0-37.9, adult
CPT/HCPCS: 36415; 36416; 36430; 71045; 74018; 75635; 76770; 78582; 80048; 81003; 81015; 82542; 82565; 82805; 83735; 84100; 85014; 85018; 85025; 85049; 85610; 85730; 86850; 86900; 86901; 87040; 87086; 87324; 87449; 88304; 93005; 93010; 93306; 93798; 93970; 94002; 94003; 94150; 94640; 94664; A9540; A9558; J0360; J0670; J0690; J0883; J1100; J1250; J1265; J1568; J1642; J1644; J1650; J1815; J1885; J1940; J2001; J2060; J2150; J2250; J2260; J2370; J2405; J2440; J2704; J2720; J2920; J2997; J3010; J3370; J3475; J3480; J3490; J7050; J7512; J7620; P9016; P9045; P9047; Q9967; S0017; S0028

== ENCOUNTER 2018-10-17 12:12 | Outpatient (CLI) | payer MEDICARE ==
--- NOTE | 2018-10-17 13:58 | RAD ---
Chest 2 views HISTORY: Preop. COMPARISON: 09/05/2018. FINDINGS: Cardiac silhouette and pulmonary vasculature are unremarkable. Mediastinum is midline with postoperative changes. Lungs remain slightly hyperinflated. Linear scarring at the lung bases. Nipple shadows overlie the lung bases. No lobar consolidation, pleural fluid, or pneumothorax. IMPRESSION: No active cardiopulmonary abnormalities are demonstrated.
[2018-10-17 14:39] LABS: Hemoglobin 12.7 g/dL (14.0-18.0); Mean Corpuscular HGB CONC 32.8 g/dL (32.0-36.0); Mean Corpuscular Volume 85.2 fL (78.0-98.0); Mean Platelet Volume 7.2 fL (7.4-10.4); Platelet Count 252 thou/uL (130-400); RBC Distribution Width 14.3 % (11.5-14.5); Red Blood Cell (RBC) Count 4.52 mill/uL (4.70-6.10); White Blood Cell (WBC) Count 9.7 thou/uL (4.8-10.8)
[2018-10-17 14:45] LABS: INR-International Normal Ratio 1.5; PTT 38.1 SEC (22.9-36.1); Prothrombin Time 18.3 SEC (12.0-14.7)
[2018-10-17 14:59] LABS: Anion Gap 14 mmol/L (10-20); Calc. Creatinine Clearance 0 mL/min (70-130); Calcium 9.7 mg/dL (7.8-10.44); Carbon Dioxide 25 mmol/L (23-31); Chloride 105 mmol/L (98-107); Estimated GFR-MDRD 42; Glucose 131 mg/dL (83-110); Sodium 140 mmol/L (136-145)
[2018-10-17 15:03] LABS: BUN (Urea Nitrogen) 30 mg/dL (8.4-25.7)
== END 2018-10-17 12:13 | disposition home or self-care (01) ==
LOC: LABBT 12:12
PROVIDERS: ATTEND Urology
DX: Z01.818 Encounter for other preprocedural examination (principal); C67.9 Malignant neoplasm of bladder, unspecified
CPT/HCPCS: 71046; 80048; 85027; 85610; 85730; 87086; 93005; 93010

== ENCOUNTER 2018-10-24 14:12 | Outpatient (CLI) | payer MEDICARE ==
--- NOTE | 2018-10-24 15:53 | CT ---
CT of abdomen and pelvis: 10/24/2018 COMPARISON: 09/02/2018 TECHNIQUE: Axial CT imaging obtained at 5 mm intervals from lung bases through pubic symphysis withou t contrast. Coronal reformatted imaging obtained. Contrast media was not administered secondary to the patient's abnormal renal function HISTORY: Bladder cancer. FINDINGS: There is a nonspecific 7-8 mm pulmonary nodule within the left lower lobe, unchanged when c ompared to a CT examination performed 05/15/2018. The lack of contrast limits assessment of the viscera, bowel, vascular structures, and for lymphadeno cezar. No free intraperitoneal air or fluid is seen. The liver, gallbladder, spleen, pancreas, and adrenal glands are grossly unremarkable. No nephrolithiasis or evidence of obstructive uropathy is seen on either side. There is a cyst within the mid pole of the left kidney posteriorly measuring 1.4 cm. There is a retroaortic left renal vein. There is circumferential irregular urinary bladder wall thickening, consistent with the provided hist ory of bladder cancer, not optimally assessed on noncontrast enhanced imaging. No evidence for bowel inflammatory change or bowel obstruction. Postoperative clips are noted anterior to the right inguinal vasculature. There is extensive atherosclerotic calcification of the abdominal aorta and its branches. Limited ass essment for lymphadenopathy within the abdomen and pelvis appears unremarkable. There is prominent multilevel degenerative change within the imaged spine with multilevel disc space narrowing osteophyte formation and vacuum disc formation. No worrisome lytic or blastic bone lesions. IMPRESSION: Irregular circumferential urinary bladder wall thickening, consistent with the provided h istory of bladder cancer. Nonspecific subcentimeter pulmonary nodule within the left lower lobe. Transcribed Date/Time: 10/24/2018 4:16 PM
== END 2018-10-24 14:13 | disposition home or self-care (01) ==
LOC: CT 14:12
PROVIDERS: ATTEND Urology
DX: C67.9 Malignant neoplasm of bladder, unspecified (principal); R91.1 Solitary pulmonary nodule
CPT/HCPCS: 74176; 82565

== ENCOUNTER 2018-10-26 08:59 | Inpatient (IN) | payer MEDICARE ==
[2018-10-26] MEDS ORDERED: Levofloxacin 500 mg/D5W 100 ml Premix Bag ONE (11:31)
[2018-10-26] MEDS ORDERED: Iothalamate Meglumine 60% 50 ML VIAL FS ONE (12:51)
[2018-10-26] MEDS ORDERED: Fentanyl 100 MCG/2 ML VIAL ONE ×3 (13:45→17:29)
[2018-10-26] MEDS ORDERED: Norepinephrine 8 MG/0.9% NS 250 ML ONE (13:46)
[2018-10-26] MEDS ORDERED: Phenylephrine HCL 10 MG/ML VIAL ONE (15:38)
[2018-10-26] MEDS ORDERED: Rocuronium Bromide 10 MG/ML (10ML VIAL) ONE (15:38)
[2018-10-26] MEDS ORDERED: Glycopyrrolate 0.2 MG/ML 5 ML SYRINGE ONE (15:38)
[2018-10-26] MEDS ORDERED: Furosemide 20 MG/2 ML VIAL ONE (16:14)
[2018-10-26] MEDS ORDERED: SUGAMMADEX SODIUM 200 MG/2 ML VIAL ONE (16:14)
[2018-10-26] MEDS ORDERED: B & O ONE (16:44)
[2018-10-26] MEDS ORDERED: Promethazine HCl 25 MG/ML VIAL SLOW IVP PRN (17:09)
[2018-10-26] MEDS ORDERED: Hyoscyamine Sulfate SL 0.125 mg Tablet ONE (17:09)
[2018-10-26] MEDS ORDERED: Promethazine HCl 25 MG/ML VIAL IM PRN (17:09)
[2018-10-26] MEDS ORDERED: Ondansetron HCl/PF 4 MG/2 ML Vial IVP PRN (17:09)
[2018-10-26] MEDS ORDERED: diphenhydrAMINE 25 MG CAP PO PRN (17:23)
[2018-10-26] MEDS ORDERED: Oxybutynin 5 MG TAB PO PRN (17:23)
[2018-10-26] MEDS ORDERED: Hyoscyamine Sulfate SL 0.125 mg Tablet SL PRN (17:23)
[2018-10-26] MEDS ORDERED: HYDROcodone/Acetaminophen 5/325 mg Tablet PO PRN (17:23)
[2018-10-26] MEDS ORDERED: hydrALAZINE 20 MG/ML VIAL SLOW IVP PRN (17:23)
[2018-10-26] MEDS ORDERED: Bisacodyl 10 MG SUPP PR PRN (17:23)
[2018-10-26] MEDS ORDERED: Mag-Al 1200 mg/1200 mg/30 ML UDCUP PO PRN (17:23)
[2018-10-26] MEDS ORDERED: traMADol HCl 50 MG TAB PO PRN (17:27)
--- NOTE | 2018-10-26 18:50 | ULT ---
BILATERAL LOWER EXTREMITY VENOUS DUPLEX STUDY: 10/26/18 Deep veins of both lower extremities evaluated with color Doppler, spectral analysis and compression. INDICATIONS: Bilateral lower extremity patent edema. Deep veins of both lower extremities show normal blood flow and compression. No evidence of DVT. IMPRESSION: No evidence of DVT. POS: FRANCIA
[2018-10-26] MEDS: Morphine 4 MG/ML VIAL SLOW IVP PRN (20:07)
[2018-10-26] MEDS: Docusate 100 MG CAP PO SCH (20:16)
[2018-10-26] MEDS: guaiFENesin ER 600 MG TAB PO SCH (20:17)
[2018-10-26] MEDS: Atorvastatin Calcium 40 MG TAB PO SCH (20:17)
[2018-10-26] MEDS: Famotidine/PF 20 mg/2ml Vial SLOW IVP SCH (20:17)
[2018-10-26] MEDS: Gabapentin 300 MG CAP PO SCH (20:17)
[2018-10-26] MEDS ORDERED: Non-Formulary Item 1 EACH (Symbicort 2 PUFF) INH SCH (21:00)
[2018-10-26] MEDS ORDERED: Sacubitril 24.5 MG/Valsartan 25.5 MG TABLET PO SCH (21:45)
--- NOTE | 2018-10-26 23:09 | OP ---
DATE OF PROCEDURE: 10/26/2018 SERVICE: Urology. PREOPERATIVE DIAGNOSIS: Muscle invasive bladder cancer. POSTOP DIAGNOSIS: Muscle invasive bladder cancer. PROCEDURE PERFORMED: Transurethral resection of bladder tumor, greater than 5 cm. INDICATION FOR PROCEDURE: Mr. Barahona is a 73-year-old white male, who initially presented to me with a history of muscle invasive bladder cancer, which had been diagnosed and resected at an outside hospital. Due to his significant cardiac comorbidities, I recommended that he not undergo cystectomy, but rather go re-resection for maximal removal of tumor and then subsequently undergo chemotherapy with radiation. He failed his cardiac clearance and ended up getting a CABG with multiple other complications while in the hospital. He has finally been cleared by Cardiology to proceed forward, although he remains at high risk for mortality and morbidity. We have had an extensive discussion about end of life care as well as the resuscitative measures and hospice care and he has elected to proceed forward with transurethral resection of bladder tumor. DESCRIPTION OF PROCEDURE: After identification of armband and verification of consent, the patient was brought back to the operating room. He underwent general anesthesia with endotracheal intubation and full paralysis. He was placed in dorsal lithotomy position and prepped and draped in usual sterile fashion. After appropriate time-out, a lubricated 22-Icelandic rigid resectoscope sheath with visual obturator was passed through the urethra into the bladder. There was an extensive amount of tumor, which had previously been noted on prior office cystoscopy. The visual obturator was switched out for the bipolar bladder resectoscope loop. The tumor was resected from all visible areas along almost the entire dome of the bladder, majority of the left and right lateral grande, anterior bladder with the only areas being spared being around the bladder neck in certain locations and the trigone and superior posterior bladder wall. The ureteral orifices could be identified during resection and actually were not found to have any significant concerns for tumor. These were marked cephalad and medial to the ureteral orifice for easier identification. The resection was carried down to the muscular layer, but not through the muscular layer. There was no noted perforations. After approximately 2 hours of resecting, it did appear that almost all the visible tumor had been resected. There are obviously little pockets of areas that appeared to have small amounts of tumor that may be within cellules of the bladder. These could not safely be resected without high risk for perforation. These small areas will probably have to be treated with chemotherapy and radiation as it is unlikely there will be any significant success with repeat resection and the patient again remains extremely high risk for anesthesia. I do feel that at least 98% of the tumor has been resected, although there are probably small islands of cancer that are still present within the muscle tissue and in scattered locations around the bladder. Upon completion, all tumor chips were evacuated. Both ureters were identified in orthotopic location and were seen effluxing clear urine. Meticulous hemostasis was performed until there was no active bleeding even with the bladder decompressed. The bladder was then refilled and the resectoscope removed. A 22-Icelandic 3-way Miller catheter was inserted into the bladder with ease. 30 mL of sterile water was placed into the balloon. Continuous bladder irrigation was initiated at a slow drip since the patient has had an extensive resection. He was then awakened and transported to PACU for recovery in stable condition. COMPLICATIONS: None. ESTIMATED BLOOD LOSS: Minimal. RETAINED TUBES AND DRAINS: 22-Icelandic 3-way Miller catheter. SPECIMENS: Bladder tumor. DISPOSITION: The patient will go to ICU due to his severe comorbidities. He can probably do a step-down telemetry bed rather than full critical care. We will monitor him there for at least 24 hours before we could consider either discharge or transfer to a floor bed depending on any other issues. We will continue to monitor him and Dr. Paulino, his dispensary technician is aware of his surgery today. Job ID: [id number]
[2018-10-26] MEDS: HYDROcodone/Acetaminophen 5/325 mg Tablet PO PRN (23:11)
[2018-10-26] MEDS: Ipratropium Bromide 2.5 ml Neb NEB SCH (23:20)
[2018-10-27] MEDS: Morphine 4 MG/ML VIAL SLOW IVP PRN (02:13)
[2018-10-27 04:38] LABS: #Eosinphils 0.3 thou/uL (0.0-0.7); #Monocytes 0.9 thou/uL (0.11-0.59); #Neutrophils 6.8 thou/uL (1.40-6.50); %Eosinophils 3.8 % (0.0-10.0); %Lymphocytes 11.5 % (21.0-51.0); %Monocytes 9.6 % (0.0-10.0); Mean Corpuscular HGB CONC 33.1 g/dL (32.0-36.0); Mean Corpuscular Volume 84.7 fL (78.0-98.0); Mean Platelet Volume 7.4 fL (7.4-10.4); Platelet Count 208 thou/uL (130-400); RBC Distribution Width 14.3 % (11.5-14.5); Red Blood Cell (RBC) Count 4.27 mill/uL (4.70-6.10); White Blood Cell (WBC) Count 9.1 thou/uL (4.8-10.8)
[2018-10-27 05:01] LABS: Anion Gap 13 mmol/L (10-20); BUN (Urea Nitrogen) 21 mg/dL (8.4-25.7); Calc. Creatinine Clearance 79 mL/min (70-130); Calcium 8.8 mg/dL (7.8-10.44); Carbon Dioxide 24 mmol/L (23-31); Chloride 103 mmol/L (98-107); Estimated GFR-MDRD 60; Glucose 109 mg/dL (83-110); Potassium 4.1 mmol/L (3.5-5.1); Sodium 136 mmol/L (136-145)
[2018-10-27] MEDS: Ipratropium Bromide 2.5 ml Neb NEB SCH ×3 (08:05→19:25)
[2018-10-27] MEDS: Mometasone/Formoterol 120 PUFF INHALER INH SCH ×2 (08:06→19:25)
[2018-10-27] MEDS: Carvedilol 3.125 MG TAB PO SCH ×2 (08:22→16:07)
[2018-10-27] MEDS: guaiFENesin ER 600 MG TAB PO SCH ×2 (08:23→20:06)
[2018-10-27] MEDS: Ferrous Sulfate 325 MG TAB PO SCH (08:23)
[2018-10-27] MEDS: Furosemide 40 MG TAB PO SCH (08:23)
[2018-10-27] MEDS: Loratadine 10 MG TAB PO SCH (08:23)
[2018-10-27] MEDS: Tamsulosin HCl 0.4 MG CAP PO SCH (08:23)
[2018-10-27] MEDS: Potassium Chloride 10 MEQ TAB PO SCH ×2 (08:23→16:07)
[2018-10-27] MEDS: Zinc Sulfate 220 MG CAP PO SCH (08:23)
[2018-10-27] MEDS: Sacubitril 24.5 MG/Valsartan 25.5 MG TABLET PO SCH ×2 (08:24→20:06)
[2018-10-27] MEDS: Finasteride 5 MG TAB PO SCH (08:24)
[2018-10-27] MEDS: predniSONE 20 MG TAB PO SCH (08:24)
[2018-10-27] MEDS: Docusate 100 MG CAP PO SCH ×2 (08:24→20:06)
[2018-10-27] MEDS: Citrucel 500 MG TAB PO SCH (08:24)
[2018-10-27] MEDS: Senokot 8.6 MG TAB PO SCH (08:24)
[2018-10-27] MEDS: Gabapentin 300 MG CAP PO SCH ×2 (08:24→20:05)
[2018-10-27] MEDS ORDERED: Metolazone 5 MG TAB PO SCH (08:30)
[2018-10-27] MEDS ORDERED: Spiriva 18 MCG CAP (Box of 5 Caps) INH SCH (09:00)
--- NOTE | 2018-10-27 09:47 | CON ---
DATE OF CONSULTATION: PRIMARY CARE PHYSICIAN: Christopher Johnson MD PRIMARY ATTENDING: Markus Almaraz MD REASON FOR CONSULT: Medical comanagement. REASON FOR ADMISSION: The patient underwent transurethral resection of bladder tumor and currently, the patient is on continuous bladder irrigation. HISTORY OF PRESENT ILLNESS: A 73-year-old male, who has underlying history of chronic systolic heart failure with ischemic cardiomyopathy. He is wearing LifeVest for almost 6 weeks. He also has underlying multiple medical problems including COPD, hypertension, benign enlargement of prostate, chronic low back pain, CKD stage 3, gastroesophageal reflux disease, and he was also recently diagnosed with bladder tumor. This patient underwent transurethral resection of bladder tumor on October 26, 2018. The patient is getting continuous bladder irrigation. He is hemodynamically stable. We are consulted for medical comanagement. At this point, the patient feels that he has constipation. He does not have any chest pain, shortness of breath. He is on room air. He denies any dizziness. He denies any pain anywhere in his body. He denies any edema, orthopnea, or PND. He denies any fever or chills. He is getting bladder irrigation and he has pinkish urine. PAST MEDICAL HISTORY: Ischemic cardiomyopathy, COPD, hypertension, benign enlargement of prostate, chronic low back pain, CKD stage 3, history of bladder tumor, obstructive uropathy, gastroesophageal reflux disease, history of DVT of bilateral lower extremity, chronic anticoagulation with Eliquis, history of heparin-induced thrombocytopenia. PAST SURGICAL HISTORY: Right femoral embolectomy [place] [address] Causey, bladder cauterization in 2018, upper endoscopy, colonoscopy, CABG in July 2018, status post transurethral resection of bladder tumor. PAST PSYCHIATRIC HISTORY: Reviewed and negative. SOCIAL HISTORY: The patient denies any tobacco, alcohol, or illicit drug abuse. He is a former smoker. ALLERGIES: HEPARIN. FAMILY HISTORY: No strong family history of premature coronary artery disease, stroke, or cancer. CURRENT HOME MEDICATION: 1. Lipitor 40 mg p.o. at bedtime. 2. Calcium with vitamin D 1 tablet p.o. daily. 3. Citrucel 500 mg daily. 4. Ferrous sulfate 325 mg p.o. daily. 5. Proscar 5 mg daily. 6. Claritin 10 mg daily. 7. Multivitamin one tablet p.o. daily. 8. Omeprazole 40 mg p.o. b.i.d. 9. Entresto one tablet p.o. b.i.d. 10. Saw palmetto one capsule b.i.d. 11. Symbicort 2 puffs inhalation b.i.d. 12. Flomax 0.8 mg daily. 13. Spiriva 18 mcg inhalation daily. 14. Coreg 3.125 mg p.o. b.i.d. 15. Lasix 40 mg p.o. daily. 16. Neurontin 300 mg p.o. b.i.d. 17. Zaroxolyn 5 mg p.o. Tuesday, Tuesday, and Tuesday. Currently, the patient is off aspirin and Eliquis because of bladder tumor surgery. REVIEW OF SYSTEMS: CONSTITUTIONAL: Negative for weight loss or gain, ability to conduct usual activities. SKIN: Negative for rash, itching. EYES: Negative for double vision, pain. ENT/MOUTH: Negative for nose bleeding, neck stiffness, pain, tenderness. CARDIOVASCULAR: Negative for palpitations, dyspnea on exertion, orthopnea. RESPIRATORY: Negative for shortness of breath, wheezing, cough, hemoptysis, fever or night sweats. GASTROINTESTINAL: Negative for poor appetite, abdominal pain, heartburn, nausea , vomiting, constipation, or diarrhea. GENITOURINARY: Negative for urgency, frequency, dysuria, nocturia. MUSCULOSKELETAL: Negative for pain, swelling. NEUROLOGIC/PSYCHIATRIC: Negative for anxiety, depression. ALLERGY/IMMUNOLOGIC: Negative for skin rash, bleeding tendency. Please see my HPI for pertinent positive and negative. All other review of systems reviewed and negative except as mentioned in HPI. Emergency room course, reviewed. PHYSICAL EXAMINATION: VITAL SIGNS: Currently, temperature 98.5, pulse 117, with occasional PVC, respiratory rate 17, saturation 98% on room air, blood pressure 100/65. Weight 220 pounds. GENERAL: The patient is currently alert, awake, in no obvious acute distress. HEENT: Head; normocephalic, atraumatic. Eyes; pupils round, reactive to light. Extraocular muscle intact. ENT; oropharynx within normal limits. Moist mucous membranes. No oral lesion. No pharyngeal erythema. No exudate. NECK: Supple. No JVD. No thyromegaly. No carotid bruit. LUNGS: Clear to auscultation without any rhonchi or rales. CARDIAC: S1, S2 regular. Occasional PVC noted on monitor. No murmur elicited. The patient has LifeVest in place. ABDOMEN: Obesity present. Bowel sounds present. Nontender. Nondistended. No organomegaly. No mass. No suprapubic tenderness. GENITALIA: Miller catheter in place with triple-lumen three way Miller catheter and the patient is getting bladder irrigation. EXTREMITIES: No edema. Good distal pulsation. No calf tenderness. SKIN: No skin rash. HEMATOLOGICAL SYSTEM: No lymphadenopathy. NEUROLOGIC: Nonfocal examination. SIGNIFICANT LABORATORY DATA: CBC; WBC 9.1, hemoglobin 12.0, platelet 208. BMP; sodium 136, potassium 4.1, chloride 103, carbon dioxide 24, anion gap 13, BUN 21 , creatinine 1.19, glucose 109, calcium 8.8. monitoring specialist showing sinus rhythm with PVCs. The patient had ultrasound of lower extremity on October 26, which is negative for any DVT. ASSESSMENT AND PLAN: Impression: 1. Chronic systolic heart failure, ACC stage C with a history of ischemic cardiomyopathy. Based on echocardiography, his ejection fraction is 20% to 25% . He has LifeVest in place for 6 weeks. He has several PVCs on monitor. I will consult Cardiology for comanagement. Currently, the patient is euvolemic. We will continue Coreg 3.125 mg p.o. b.i.d., Lasix 40 mg p.o. daily, and Entresto one tablet p.o. b.i.d. We will closely monitor on Telemetry floor. 2. Chronic obstructive pulmonary disease without exacerbation. We will continue Mucinex 1200 mg twice daily, DuoNeb q.6 hourly, Dulera 2 puff inhalation b.i.d. , and prednisone 20 mg p.o. daily. 3. Dyslipidemia. Continue Lipitor 40 mg p.o. at bedtime. 4. Coronary artery disease with history of coronary artery bypass graft, currently stable. Continue medical management. The patient will not be getting aspirin at this point because of gross hematuria after bladder tumor rejection. 5. Benign enlargement of prostate. Continue Proscar 5 mg p.o. daily and Flomax 0.8 mg p.o. daily. 6. History of bladder tumor, status post transurethral resection of bladder tumor. Currently, the patient is getting CBI and because of this, the patient is on hold for aspirin and Eliquis therapy. 7. Obesity with body mass index 33. Dietary education given. Weight loss education given. Healthy lifestyle measure discussed with the patient. 8. Deep venous thrombosis prophylaxis, SCD boots. 9. GI prophylaxis, Pepcid 20 mg p.o. daily. CODE STATUS: Patient wants everything to be done but he does not want chest compression to be done. The patient does not have any surrogate decision maker. DISPOSITION PLAN: Based on clinical course. We will follow up with you while in hospital. Job ID: [id number] BEAU
[2018-10-27] MEDS: HYDROcodone/Acetaminophen 5/325 mg Tablet PO PRN (16:07)
[2018-10-27] MEDS ORDERED: Fioricet 325/50/40 mg Tablet PO PRN (16:23)
--- NOTE | 2018-10-27 17:55 | PRG ---
DATE OF SERVICE: SUBJECTIVE: The patient states he is feeling much better today. His bladder pain has significantly improved and he is no longer having spasms or severe pain. He is on a slow drip CBI. He did undergo venous Doppler studies yesterday, which demonstrated no DVT. OBJECTIVE: VITAL SIGNS: Temperature 99.2, pulse 106, blood pressure 103/72, saturations 91% on room air, respirations 16. GENERAL: No apparent distress, communicative and alert. CARDIOVASCULAR: Sinus tachycardia with occasional irregular rhythm. Normal S1 and S2. ABDOMEN: Soft, nontender, and nondistended. Positive bowel sounds. : Miller catheter in place secured with a slow drip CBI with light pink urine. EXTREMITIES: No clubbing, cyanosis, or edema. LABORATORY EVALUATION: The full set of labs are in the [facility] system which I have reviewed. Of note, the patient's white count is 9.1 with a hemoglobin of 12. Creatinine is 1.19. ASSESSMENT AND PLAN: A 73-year-old white male with history of muscle invasive bladder cancer, status post maximal transurethral resection of bladder tumor, postop day 1, the patient had an extensive surface of his bladder resected almost 75%. I do not expect him to be able to urinate in the near future as he does have BPH and urinary difficulties. I would recommend keeping the catheter in for now. Given the patient's multiple comorbidities, I would recommend that he remain in the hospital for the time being while we restart his Eliquis, which can be done once his hematuria begins to clear. If his hematuria is not excessive on Eliquis, he can be discharged home with his Miller catheter. We will consider a voiding trial in approximately a week. Dr. Yohan Salinas will be on-call over the weekend and I will sign out to him for care during the weekend. He is also being followed by the hospitalist group and Cardiology. I will start SCDs as the patient does not have any DVTs and start a walking program to help prevent future blood clots. Job ID: [id number]
--- NOTE | 2018-10-27 18:37 | CON ---
DATE OF CONSULTATION: 10/27/2018 PRIMARY CHEMIST PHYSICAL: Pacheco Paulino MD REASON FOR CONSULTATION: Ischemic cardiomyopathy. HISTORY OF PRESENT ILLNESS: Mr. Barahona is a very pleasant 73-year-old white gentleman, very well known to myself, who comes to the hospital for planned bladder procedure. He had a transurethral resection of bladder tumor secondary to muscle invasive bladder cancer performed yesterday by Dr. Almaraz. He was seen originally for a preoperative evaluation in the office before this was done and was found to have a severe LV dysfunction. Angiogram showed evidence of multivessel disease and he underwent coronary artery bypass grafting by Dr. Causey. He had several complications postoperatively. He developed a DVT and subsequent PE. 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 He was on argatroban for a while and was discharged home after that on one anti-Xa inhibitors. He did well postoperatively, eventually was discharged home on a LifeVest given his LV dysfunction. He was seen in the office recently and was stable for this procedure, so he was scheduled for this. He did well yesterday. He had this tumor resected and is resting comfortably on the bed right now. Because he has been off blood thinners and we cannot give him DVT prophylaxis dose of anything given the possible hematuria that he may develop from his bladder surgery, we did an ultrasound of the legs to make sure that the blood clots were gone and sure enough, they were not there, and at least we have a baseline now. There is no chronic clots, which is continue to monitor clinically. He denies any chest pain, tightness, or pressure. No shortness of breath. PAST MEDICAL HISTORY: 1. Ischemic cardiomyopathy, EF at 20% to 25% before his CABG. 2. Coronary artery disease, status post CABG as above. 3. History of HIT, post CABG. 4. History of DVT and PE, post CABG. 5. Muscle invasive bladder cancer. 6. He had a postop ileus. 7. COPD. 8. Hypertension. 9. Hyperlipidemia. PAST SURGICAL HISTORY: 1. Cystoscopy in the past. 2. Resection of muscle invasive bladder cancer as above. 3. Coronary artery bypass grafting x4 just a month and half ago. MEDICATIONS: Outpatient medications were reviewed, include; 1. Loratadine. 2. Tramadol. 3. Prednisone 10 mg q.a.m. 4. Guaifenesin. 5. Zinc. 6. Spiriva. 7. Tamsulosin. 8. Symbicort. 9. Senna. 10. Saw palmetto. 11. Entresto b.i.d. 12. Klor-Con 10 mEq a day. 13. Omeprazole. 14. Multivitamin. 15. Metolazone p.r.n. he takes on Tuesday, Tuesday, and Tuesday. 16. Gabapentin 300 mg b.i.d. 17. Lasix 4 mg a day. 18. Finasteride. 19. Ferrous sulfate. 20. Citrucel. 21. Coreg 3.125 b.i.d. 22. Atorvastatin 10 mg at bedtime. 23. Tylenol p.r.n. 24. Oxybutynin. 25. Hydrocodone p.r.n. 26. Docusate. ALLERGIES: HEPARIN GAVE HIM HIT. FAMILY HISTORY: Noncontributory. SOCIAL HISTORY: Quit smoking about 8 years ago before that it was 2 packs a day. No alcohol or drugs. REVIEW OF SYSTEMS: A 12-point review of systems was done and negative unless stated in the history of present illness. PHYSICAL EXAMINATION: VITAL SIGNS: Temperature 99.2, pulse 100 to 117, respiratory rate 14, saturating 91% on 2 L nasal cannula, and blood pressure 103/72. GENERAL: Awake, alert, and oriented x3. No distress. HEENT: Normocephalic and atraumatic. NECK: Supple. LUNGS: Reduced breath sounds bilaterally. CARDIOVASCULAR: S1 and S2. No S3 or S4. There is a grade 2/6 systolic murmur at the right upper sternal border. ABDOMEN: Prominent, but positive bowel sounds. EXTREMITIES: Trace edema. SKIN: Warm and dry. LABORATORY DATA: Laboratory work was reviewed. CBC and CMP were reviewed. ASSESSMENT AND PLAN: 1. Ischemic cardiomyopathy, ejection fraction at 20% before bypass. He is about a month and a half out. We will plan on doing an echocardiogram to see if he still needs a LifeVest, which he is wearing at that time. 2. Restart home medications as soon as possible. He was on Eliquis postoperatively because of his heparin-induced thrombocytopenia. Restart this per Urology when they feel it is safe. 3. Continue to keep an eye clinically on his legs, high risk for deep venous thrombosis and pulmonary embolism. If he develops a deep venous thrombosis, he will need an inferior vena cava filter placed. Thank you for letting me to participate in the care of your patient. We will follow. Job ID: [id number]
[2018-10-27] MEDS: Famotidine/PF 20 mg/2ml Vial SLOW IVP SCH (20:05)
[2018-10-27] MEDS: Atorvastatin Calcium 40 MG TAB PO SCH (20:05)
[2018-10-28 05:54] LABS: #Eosinphils 0.2 thou/uL (0.0-0.7); White Blood Cell (WBC) Count 9.6 thou/uL (4.8-10.8)
[2018-10-28 06:04] LABS: #Lymphocytes 1.2 thou/uL (1.20-3.40); #Neutrophils 7.3 thou/uL (1.40-6.50); %Basophils 0.1 % (0.0-1.0); %Eosinophils 1.6 % (0.0-10.0); %Lymphocytes 12.5 % (21.0-51.0); %Monocytes 10.1 % (0.0-10.0); %Neutrophils 75.7 % (42.0-75.0); Hemoglobin 12.1 g/dL (14.0-18.0); Mean Corpuscular HGB CONC 31.2 g/dL (32.0-36.0); Mean Corpuscular Hemoglobin 26.3 pg (27.0-31.0); Mean Corpuscular Volume 84.2 fL (78.0-98.0); Mean Platelet Volume 6.8 fL (7.4-10.4); Platelet Count 217 thou/uL (130-400); RBC Distribution Width 14.4 % (11.5-14.5)
[2018-10-28 06:10] LABS: Anion Gap 12 mmol/L (10-20); BUN (Urea Nitrogen) 22 mg/dL (8.4-25.7); Calc. Creatinine Clearance 68 mL/min (70-130); Carbon Dioxide 26 mmol/L (23-31); Chloride 100 mmol/L (98-107); Estimated GFR-MDRD 49; Glucose 120 mg/dL (83-110); Potassium 3.9 mmol/L (3.5-5.1); Sodium 134 mmol/L (136-145)
[2018-10-28] MEDS: Mometasone/Formoterol 120 PUFF INHALER INH SCH ×2 (08:10→19:14)
[2018-10-28] MEDS: Ipratropium Bromide 2.5 ml Neb NEB SCH ×5 (08:10→23:41)
[2018-10-28] MEDS: Tamsulosin HCl 0.4 MG CAP PO SCH (08:58)
[2018-10-28] MEDS: Zinc Sulfate 220 MG CAP PO SCH (08:58)
[2018-10-28] MEDS: Finasteride 5 MG TAB PO SCH (08:59)
[2018-10-28] MEDS: guaiFENesin ER 600 MG TAB PO SCH ×2 (08:59→19:48)
[2018-10-28] MEDS: Ferrous Sulfate 325 MG TAB PO SCH (09:00)
[2018-10-28] MEDS: Senokot 8.6 MG TAB PO SCH (09:00)
[2018-10-28] MEDS: Docusate 100 MG CAP PO SCH ×2 (09:00→19:48)
[2018-10-28] MEDS: Furosemide 40 MG TAB PO SCH (09:00)
[2018-10-28] MEDS: Loratadine 10 MG TAB PO SCH (09:00)
[2018-10-28] MEDS: Potassium Chloride 10 MEQ TAB PO SCH ×2 (09:00→16:38)
[2018-10-28] MEDS: predniSONE 20 MG TAB PO SCH (09:01)
[2018-10-28] MEDS: Carvedilol 3.125 MG TAB PO SCH ×2 (09:01→16:38)
[2018-10-28] MEDS: Sacubitril 24.5 MG/Valsartan 25.5 MG TABLET PO SCH ×2 (09:01→19:47)
[2018-10-28] MEDS: Gabapentin 300 MG CAP PO SCH ×2 (09:01→19:48)
[2018-10-28] MEDS: Citrucel 500 MG TAB PO SCH (11:38)
--- NOTE | 2018-10-28 15:02 | PDOC.PN ---
- Subjective Encounter Start Date: 10/28/18 Encounter Start Time: 11:20 Doing very well. No complaints. - Objective Resuscitation Status - Order Detail: 10/27/18 09:17 Resuscitation Status Routine Resuscitation Status: PRTL: Chem only Discussed with: discussed with pt Additional comments: he does not want CPR only, otherwise everything OK Vital Signs & Weight: Vital Signs (12 hours) Temp Pulse Resp Pulse Ox 10/28/18 14:55 98.3 F 10/28/18 14:43 103 H 15 97 10/28/18 10:31 97.6 F 10/28/18 08:10 97 15 99 10/28/18 07:28 96 10/28/18 07:17 98.1 F 10/28/18 03:45 99.0 F 10/28/18 03:12 95 Weight Admit Weight 225 lb Weight 228 lb 4.8 oz Most Recent Monitor Data Heart Rate from ECG 98 NIBP 124/84 NIBP BP-Mean 97 Respiration from ECG 17 SpO2 96 I&O: 10/27/18 10/28/18 10/29/18 06:59 06:59 06:59 Intake Total 6090 Output Total 250 5725 2800 Balance -250 365 -2800 Result Diagrams: 10/28/18 05:39 10/28/18 05:39 Phys Exam - Physical Examination Constitutional: NAD Respiratory: no wheezing, no rales, no rhonchi, clear to auscultation bilateral Cardiovascular: RRR, no significant murmur, no rub Gastrointestinal: soft, non-tender, no distention, positive bowel sounds Musculoskeletal: no edema Psychiatric: normal affect, A&O x 3 Dx/Plan (1) COPD (chronic obstructive pulmonary disease) Status: Acute (2) CAD (coronary artery disease) Code(s): I25.10 - ATHSCL HEART DISEASE OF [place] CORONARY ARTERY W/O ANG PCTRS Status: Acute (3) Ischemic cardiomyopathy Code(s): I25.5 - ISCHEMIC CARDIOMYOPATHY Status: Acute (4) Bladder tumor Code(s): D49.4 - NEOPLASM OF UNSPECIFIED BEHAVIOR OF BLADDER Status: Acute - Plan * S/P TURBT. * CBI. * Continue Dulera, nebs as needed. * echo pending. Recent CABG. Checking to see if the EF has improved. Continue Life Vest for now.
[2018-10-28] MEDS: Atorvastatin Calcium 40 MG TAB PO SCH (19:48)
[2018-10-28] MEDS: Famotidine/PF 20 mg/2ml Vial SLOW IVP SCH (19:49)
[2018-10-29 04:56] LABS: #Eosinphils 0.1 thou/uL (0.0-0.7); #Lymphocytes 1.2 thou/uL (1.20-3.40); #Neutrophils 7.8 thou/uL (1.40-6.50); %Basophils 0.3 % (0.0-1.0); %Eosinophils 1.1 % (0.0-10.0); %Lymphocytes 12.1 % (21.0-51.0); %Monocytes 9.7 % (0.0-10.0); %Neutrophils 76.8 % (42.0-75.0); Hemoglobin 12.7 g/dL (14.0-18.0); Mean Corpuscular HGB CONC 32.3 g/dL (32.0-36.0); Mean Corpuscular Hemoglobin 27.5 pg (27.0-31.0); Mean Corpuscular Volume 85.2 fL (78.0-98.0); Mean Platelet Volume 6.9 fL (7.4-10.4); Platelet Count 199 thou/uL (130-400); RBC Distribution Width 14.3 % (11.5-14.5); Red Blood Cell (RBC) Count 4.63 mill/uL (4.70-6.10); White Blood Cell (WBC) Count 10.1 thou/uL (4.8-10.8)
[2018-10-29 05:17] LABS: Anion Gap 12 mmol/L (10-20); BUN (Urea Nitrogen) 29 mg/dL (8.4-25.7); Calc. Creatinine Clearance 68 mL/min (70-130); Calcium 9.2 mg/dL (7.8-10.44); Carbon Dioxide 24 mmol/L (23-31); Chloride 101 mmol/L (98-107); Estimated GFR-MDRD 49; Glucose 125 mg/dL (83-110); Potassium 3.6 mmol/L (3.5-5.1); Sodium 133 mmol/L (136-145)
[2018-10-29] MEDS: Ipratropium Bromide 2.5 ml Neb NEB SCH ×4 (07:30→23:39)
[2018-10-29] MEDS: Mometasone/Formoterol 120 PUFF INHALER INH SCH ×2 (07:30→18:44)
[2018-10-29] MEDS: predniSONE 20 MG TAB PO SCH (08:55)
[2018-10-29] MEDS: Carvedilol 3.125 MG TAB PO SCH ×2 (08:55→17:13)
[2018-10-29] MEDS: Potassium Chloride 10 MEQ TAB PO SCH ×2 (08:55→17:13)
[2018-10-29] MEDS: Docusate 100 MG CAP PO SCH ×2 (08:56→20:25)
[2018-10-29] MEDS: Citrucel 500 MG TAB PO SCH (08:56)
[2018-10-29] MEDS: Ferrous Sulfate 325 MG TAB PO SCH (08:56)
[2018-10-29] MEDS: Finasteride 5 MG TAB PO SCH (08:56)
[2018-10-29] MEDS: Senokot 8.6 MG TAB PO SCH (08:57)
[2018-10-29] MEDS: Gabapentin 300 MG CAP PO SCH ×2 (08:57→20:25)
[2018-10-29] MEDS: guaiFENesin ER 600 MG TAB PO SCH ×2 (08:57→20:25)
[2018-10-29] MEDS: Sacubitril 24.5 MG/Valsartan 25.5 MG TABLET PO SCH ×2 (08:57→20:25)
[2018-10-29] MEDS: Loratadine 10 MG TAB PO SCH (08:57)
[2018-10-29] MEDS: Tamsulosin HCl 0.4 MG CAP PO SCH (08:57)
[2018-10-29] MEDS: Furosemide 40 MG TAB PO SCH (08:57)
[2018-10-29] MEDS: Zinc Sulfate 220 MG CAP PO SCH (08:58)
--- NOTE | 2018-10-29 12:12 | PDOC.PN ---
- Subjective Encounter Start Date: 10/29/18 Encounter Start Time: 10:20 Feels well. No complaints except he doesn't enjoy wearing the Life Vest. - Objective Resuscitation Status - Order Detail: 10/27/18 09:17 Resuscitation Status Routine Resuscitation Status: PRTL: Chem only Discussed with: discussed with pt Additional comments: he does not want CPR only, otherwise everything OK Vital Signs & Weight: Vital Signs (12 hours) Temp Pulse Resp Pulse Ox 10/29/18 11:05 98.0 F 10/29/18 08:00 98 10/29/18 07:32 100 10/29/18 07:30 95 17 100 10/29/18 07:05 97.9 F 10/29/18 03:48 97.6 F 10/29/18 02:22 95 Weight Admit Weight 225 lb Weight 223 lb 9.6 oz Most Recent Monitor Data Heart Rate from ECG 102 NIBP 113/84 NIBP BP-Mean 93 Respiration from ECG 21 SpO2 99 I&O: 10/28/18 10/29/18 10/30/18 06:59 06:59 06:59 Intake Total 6090 1200 Output Total 5725 5200 200 Balance 365 -4000 -200 Result Diagrams: 10/29/18 04:41 10/29/18 04:41 Phys Exam - Physical Examination Constitutional: NAD Respiratory: no wheezing, no rales, no rhonchi, clear to auscultation bilateral Cardiovascular: RRR, no significant murmur, no rub Gastrointestinal: soft, non-tender, no distention, positive bowel sounds Musculoskeletal: no edema Dx/Plan (1) COPD (chronic obstructive pulmonary disease) Status: Acute (2) CAD (coronary artery disease) Code(s): I25.10 - ATHSCL HEART DISEASE OF [place] CORONARY ARTERY W/O ANG PCTRS Status: Acute (3) Ischemic cardiomyopathy Code(s): I25.5 - ISCHEMIC CARDIOMYOPATHY Status: Acute (4) Bladder tumor Code(s): D49.4 - NEOPLASM OF UNSPECIFIED BEHAVIOR OF BLADDER Status: Acute - Plan * Discussed with Dr. Salinas. Urine is clearing. * Will stop the CBI today. * If urine remains clear tomorrow, can restart the Eliquis. * His echo shows persistent cardiomyopathy. Continue the Life Vest.
[2018-10-29] MEDS: Atorvastatin Calcium 40 MG TAB PO SCH (20:25)
[2018-10-29] MEDS: Famotidine/PF 20 mg/2ml Vial SLOW IVP SCH (20:25)
[2018-10-30 05:38] LABS: Anion Gap 12 mmol/L (10-20); BUN (Urea Nitrogen) 36 mg/dL (8.4-25.7); Calc. Creatinine Clearance 70 mL/min (70-130); Calcium 9.1 mg/dL (7.8-10.44); Carbon Dioxide 27 mmol/L (23-31); Chloride 100 mmol/L (98-107); Estimated GFR-MDRD 52; Glucose 106 mg/dL (83-110); Potassium 3.6 mmol/L (3.5-5.1); Sodium 135 mmol/L (136-145)
[2018-10-30 05:44] LABS: #Eosinphils 0.4 thou/uL (0.0-0.7); #Lymphocytes 1.5 thou/uL (1.20-3.40); #Neutrophils 7.8 thou/uL (1.40-6.50); %Basophils 0.1 % (0.0-1.0); %Eosinophils 3.5 % (0.0-10.0); %Monocytes 9.6 % (0.0-10.0); %Neutrophils 72.9 % (42.0-75.0); Hemoglobin 12.5 g/dL (14.0-18.0); Mean Corpuscular HGB CONC 32.5 g/dL (32.0-36.0); Mean Corpuscular Hemoglobin 27.5 pg (27.0-31.0); Mean Corpuscular Volume 84.6 fL (78.0-98.0); Platelet Count 199 thou/uL (130-400); RBC Distribution Width 14.6 % (11.5-14.5); Red Blood Cell (RBC) Count 4.55 mill/uL (4.70-6.10); White Blood Cell (WBC) Count 10.7 thou/uL (4.8-10.8)
[2018-10-30] MEDS: Carvedilol 3.125 MG TAB PO SCH ×2 (08:22→17:10)
[2018-10-30] MEDS: Ipratropium Bromide 2.5 ml Neb NEB SCH ×3 (08:22→19:01)
[2018-10-30] MEDS: Potassium Chloride 10 MEQ TAB PO SCH ×2 (08:23→17:10)
[2018-10-30] MEDS: Docusate 100 MG CAP PO SCH ×2 (08:23→20:02)
[2018-10-30] MEDS: Ferrous Sulfate 325 MG TAB PO SCH (08:23)
[2018-10-30] MEDS: predniSONE 20 MG TAB PO SCH (08:23)
[2018-10-30] MEDS: Mometasone/Formoterol 120 PUFF INHALER INH SCH ×2 (08:24→19:01)
[2018-10-30] MEDS: Finasteride 5 MG TAB PO SCH (08:24)
[2018-10-30] MEDS: Zinc Sulfate 220 MG CAP PO SCH (08:24)
[2018-10-30] MEDS: Gabapentin 300 MG CAP PO SCH ×2 (08:24→20:02)
[2018-10-30] MEDS: Furosemide 40 MG TAB PO SCH (08:24)
[2018-10-30] MEDS: Tamsulosin HCl 0.4 MG CAP PO SCH (08:24)
[2018-10-30] MEDS: Senokot 8.6 MG TAB PO SCH (08:25)
[2018-10-30] MEDS: guaiFENesin ER 600 MG TAB PO SCH ×2 (08:25→20:02)
[2018-10-30] MEDS: Loratadine 10 MG TAB PO SCH (08:25)
[2018-10-30] MEDS: Sacubitril 24.5 MG/Valsartan 25.5 MG TABLET PO SCH ×2 (08:25→20:01)
--- NOTE | 2018-10-30 10:42 | PDOC.PN ---
- Subjective Encounter Start Date: 10/30/18 Encounter Start Time: 12:30 Subjective: Patient with mild hematuria this morning. No other complaints. Eating ok. -: No SOB/Chest pain/N/V. - Objective Resuscitation Status - Order Detail: 10/27/18 09:17 Resuscitation Status Routine Resuscitation Status: PRTL: Chem only Discussed with: discussed with pt Additional comments: he does not want CPR only, otherwise everything OK MAR Reviewed: Yes Vital Signs & Weight: Vital Signs (12 hours) Temp Pulse Resp Pulse Ox 10/30/18 08:22 99 18 99 10/30/18 07:41 98 10/30/18 07:34 98.2 F 10/30/18 04:00 98.4 F 10/30/18 00:47 98.4 F 10/29/18 23:39 94 18 97 Weight Admit Weight 225 lb Weight 222 lb 4.8 oz Most Recent Monitor Data Heart Rate from ECG 97 NIBP 120/77 NIBP BP-Mean 91 Respiration from ECG 16 SpO2 95 I&O: 10/29/18 10/30/18 10/31/18 06:59 06:59 06:59 Intake Total 1200 1500 Output Total 5200 2875 Balance -4000 -1375 Result Diagrams: 10/30/18 04:53 10/30/18 04:53 Phys Exam - Physical Examination Constitutional: NAD HEENT: moist MMs Respiratory: no wheezing, no rales, no rhonchi Cardiovascular: RRR Gastrointestinal: soft, non-tender, positive bowel sounds Musculoskeletal: no edema Neurological: non-focal Psychiatric: normal affect, A&O x 3 Dx/Plan (1) CAD (coronary artery disease) Code(s): I25.10 - ATHSCL HEART DISEASE OF [place] CORONARY ARTERY W/O ANG PCTRS Status: Acute (2) COPD (chronic obstructive pulmonary disease) Status: Acute (3) Ischemic cardiomyopathy Code(s): I25.5 - ISCHEMIC CARDIOMYOPATHY Status: Acute Comment: EF still 20- 25%, on LifeVest, needs Elliquis (4) Malignant neoplasm of bladder Status: Acute Comment: S/P resection of 75% of bladder wall, hematuria improving, restart Elliquis if not bleeding significantly tomorrow and observe for recurrent bleeding - Plan cont current plan of care, out of bed/ambulate, DVT proph w/SCDs Still a little blood in urine today, will recheck tomorrow and possibly -: restart Elliquis at that time -: Safe to move out of the unit * . - Discharge Day Encounter end time: 12:45
--- NOTE | 2018-10-30 11:31 | PDOC.CTH ---
Cardiology Progress Note - Subjective Doing well. No chest pain, tightness, pressure. - Objective Vital Signs Temp Pulse Resp Pulse Ox 10/30/18 11:17 97.5 F L 10/30/18 08:22 99 18 99 10/30/18 07:41 98 10/30/18 07:34 98.2 F 10/30/18 04:00 98.4 F 10/30/18 00:47 98.4 F 10/29/18 23:39 94 18 97 Admit Weight 225 lb Weight 222 lb 4.8 oz 10/29/18 10/30/18 10/31/18 06:59 06:59 06:59 Intake Total 1200 1500 Output Total 5200 2875 Balance -4000 -1375 - Physical Examination General/Neuro: alert & oriented x3, NAD Neck: no JVD present Lungs: CTA, unlabored respirations Heart: RRR Abdomen: NT/ND Extremities: other: (no edema) - Telemetry Telemetry Rhythm: S Tach - Labs Result Diagrams: 10/30/18 04:53 10/30/18 04:53 - Assessment/Plan 1. S/P bladder Ca resection 2. Ischemic CM EF remains low at 20-25% 3. S/P CABG 4. 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 DVT/PE post op PLAN: - Continue current meds. - Restart Eliquis once bleeding stopped per urology.
[2018-10-30] MEDS: Citrucel 500 MG TAB PO SCH (13:45)
[2018-10-30] MEDS: Atorvastatin Calcium 40 MG TAB PO SCH (20:01)
[2018-10-30] MEDS: Famotidine/PF 20 mg/2ml Vial SLOW IVP SCH (20:02)
--- NOTE | 2018-10-31 00:03 | PRG ---
DATE OF SERVICE: 10/30/2018 SUBJECTIVE: The patient states he is feeling well. He has no bladder spasms or bladder pain. He has not had any chest pain or shortness of breath. Repeat echo demonstrated a persistent EF of 20%. OBJECTIVE: VITAL SIGNS: Temperature 97.7, blood pressure 94/79, . GENERAL: No apparent distress. ABDOMEN: Soft, nontender, and nondistended. Positive bowel sounds. CARDIOVASCULAR: Regular rate and rhythm. : Miller catheter in place with almost completely clear urine at this point. There is no blood in the urinary drainage bag. EXTREMITIES: 1+ edema bilaterally. LABORATORY DATA: On laboratory evaluation, the full set of labs are in the [employer] system, which I have reviewed. The patient's white count is 10.7, hemoglobin of 12.5, creatinine 1.35, platelet count is 199. ASSESSMENT AND PLAN: A 73-year-old white male with muscle invasive bladder cancer, status post maximal TURBT. Pathology demonstrates high-grade T1 urothelial carcinoma. Significant amount of muscle was not obtained in the specimen as I did not take deep resection bites to avoid perforation of the bladder or significant muscular damage during the surgery to avoid permanent myogenic bladder failure. The patient has previously had demonstrated muscle invasive bladder cancer on previous resection by an outside urologist. At this time, we will continue the current plan, which is to start Eliquis tomorrow. As long as his urine is relatively clear, he can be discharged to home after another 24 hours on the Eliquis. We will consider a voiding trial after approximately 1 week. After that time, the patient will be referred to Radiation-Oncology and Medical-Oncology for consideration of chemotherapy and radiation treatment. Job ID: [id number]
[2018-10-31] MEDS: Ipratropium Bromide 2.5 ml Neb NEB SCH ×4 (00:17→19:08)
[2018-10-31 05:07] LABS: #Eosinphils 0.1 thou/uL (0.0-0.7); #Lymphocytes 1.2 thou/uL (1.20-3.40); #Monocytes 0.8 thou/uL (0.11-0.59); #Neutrophils 7.4 thou/uL (1.40-6.50); %Basophils 0.4 % (0.0-1.0); %Eosinophils 0.8 % (0.0-10.0); %Lymphocytes 12.3 % (21.0-51.0); %Monocytes 8.3 % (0.0-10.0); %Neutrophils 78.2 % (42.0-75.0); Hemoglobin 11.8 g/dL (14.0-18.0); Mean Corpuscular HGB CONC 32.2 g/dL (32.0-36.0); Mean Corpuscular Hemoglobin 26.8 pg (27.0-31.0); Mean Corpuscular Volume 83.3 fL (78.0-98.0); Mean Platelet Volume 6.8 fL (7.4-10.4); Platelet Count 190 thou/uL (130-400); RBC Distribution Width 14.4 % (11.5-14.5); Red Blood Cell (RBC) Count 4.41 mill/uL (4.70-6.10); White Blood Cell (WBC) Count 9.5 thou/uL (4.8-10.8)
[2018-10-31 05:27] LABS: Anion Gap 14 mmol/L (10-20); BUN (Urea Nitrogen) 39 mg/dL (8.4-25.7); Calc. Creatinine Clearance 72 mL/min (70-130); Calcium 9.3 mg/dL (7.8-10.44); Carbon Dioxide 24 mmol/L (23-31); Chloride 100 mmol/L (98-107); Estimated GFR-MDRD 55; Glucose 132 mg/dL (83-110); Potassium 3.6 mmol/L (3.5-5.1); Sodium 134 mmol/L (136-145)
[2018-10-31] MEDS: Mometasone/Formoterol 120 PUFF INHALER INH SCH ×2 (06:57→19:16)
--- NOTE | 2018-10-31 08:31 | PDOC.CTH ---
Cardiology Progress Note - Subjective No new issues. No chest pain. No leg edema or leg pains. - Objective Vital Signs Temp Pulse Resp Pulse Ox 10/31/18 07:43 95 10/31/18 07:13 97.6 F 10/31/18 06:59 99 10/31/18 06:58 95 16 99 10/31/18 06:57 95 16 99 10/31/18 04:00 98.6 F 10/31/18 00:32 98.2 F 10/31/18 00:17 97 Admit Weight 225 lb Weight 219 lb 3.2 oz 10/30/18 10/31/18 11/01/18 06:59 06:59 06:59 Intake Total 1500 1350 Output Total 2875 2600 Balance -1375 -1250 - Physical Examination General/Neuro: alert & oriented x3, NAD Neck: no JVD present Lungs: unlabored respirations Heart: RRR Abdomen: NT/ND Extremities: other: (no edema) - Telemetry Telemetry Rhythm: S tach HR 100's - Labs Result Diagrams: 10/31/18 04:59 10/31/18 04:59 - Assessment/Plan 1. S/P bladder Ca resection 2. Ischemic CM EF remains low at 20-25% 3. S/P CABG 4. HIT post op CABG 5. DVT/PE post op CABG 6. Ileus post op CABG PLAN: - Continue current meds. - Restart Eliquis today as urine still clear. - Observe inpatient for now to make sure he will tolerate without significant hematuria.
--- NOTE | 2018-10-31 09:24 | PDOC.PN ---
- Subjective Encounter Start Date: 10/31/18 Encounter Start Time: 12:20 Subjective: Patient denies complaints. Breathing easily. No bladder pain/spasms. - Objective Resuscitation Status - Order Detail: 10/27/18 09:17 Resuscitation Status Routine Resuscitation Status: PRTL: Chem only Discussed with: discussed with pt Additional comments: he does not want CPR only, otherwise everything OK MAR Reviewed: Yes Vital Signs & Weight: Vital Signs (12 hours) Temp Pulse Resp Pulse Ox 10/31/18 07:43 95 10/31/18 07:13 97.6 F 10/31/18 06:59 99 10/31/18 06:58 95 16 99 10/31/18 06:57 95 16 99 10/31/18 04:00 98.6 F 10/31/18 00:32 98.2 F 10/31/18 00:17 97 Weight Admit Weight 225 lb Weight 219 lb 3.2 oz Most Recent Monitor Data Heart Rate from ECG 92 NIBP 89/59 NIBP BP-Mean 69 Respiration from ECG 16 SpO2 100 I&O: 10/30/18 10/31/18 11/01/18 06:59 06:59 06:59 Intake Total 1500 1350 Output Total 2875 2600 Balance -1375 -1250 Result Diagrams: 10/31/18 04:59 10/31/18 04:59 Phys Exam - Physical Examination Constitutional: NAD HEENT: moist MMs Respiratory: no wheezing, no rales, no rhonchi Cardiovascular: RRR, no significant murmur Gastrointestinal: soft, non-tender, positive bowel sounds Musculoskeletal: no edema Neurological: non-focal Psychiatric: normal affect, A&O x 3 Dx/Plan (1) CAD (coronary artery disease) Code(s): I25.10 - ATHSCL HEART DISEASE OF [place] CORONARY ARTERY W/O ANG PCTRS Status: Acute (2) COPD (chronic obstructive pulmonary disease) Status: Acute (3) Ischemic cardiomyopathy Code(s): I25.5 - ISCHEMIC CARDIOMYOPATHY Status: Acute Comment: EF still 20- 25%, on LifeVest, restarting Elliquis (4) Malignant neoplasm of bladder Status: Acute Comment: S/P resection of 75% of bladder wall, hematuria improving, restart Elliquis and watch for 24 hours to make sure no severe bleeding - Plan cont current plan of care * . - Discharge Day Encounter end time: 12:30
[2018-10-31] MEDS: predniSONE 20 MG TAB PO SCH (09:29)
[2018-10-31] MEDS: Potassium Chloride 10 MEQ TAB PO SCH ×2 (09:29→16:21)
[2018-10-31] MEDS: Ferrous Sulfate 325 MG TAB PO SCH (09:29)
[2018-10-31] MEDS: Carvedilol 3.125 MG TAB PO SCH ×2 (09:29→16:21)
[2018-10-31] MEDS: Docusate 100 MG CAP PO SCH ×2 (09:29→20:24)
[2018-10-31] MEDS: Loratadine 10 MG TAB PO SCH (09:30)
[2018-10-31] MEDS: Gabapentin 300 MG CAP PO SCH ×2 (09:30→20:25)
[2018-10-31] MEDS: Finasteride 5 MG TAB PO SCH (09:30)
[2018-10-31] MEDS: Furosemide 40 MG TAB PO SCH (09:30)
[2018-10-31] MEDS: Sacubitril 24.5 MG/Valsartan 25.5 MG TABLET PO SCH ×2 (09:30→20:26)
[2018-10-31] MEDS: guaiFENesin ER 600 MG TAB PO SCH ×2 (09:30→20:24)
[2018-10-31] MEDS: Tamsulosin HCl 0.4 MG CAP PO SCH (09:31)
[2018-10-31] MEDS: Senokot 8.6 MG TAB PO SCH (09:34)
[2018-10-31] MEDS: Zinc Sulfate 220 MG CAP PO SCH (09:34)
[2018-10-31] MEDS: Apixaban 2.5 MG TAB PO SCH ×2 (09:34→20:25)
[2018-10-31] MEDS: Citrucel 500 MG TAB PO SCH (16:21)
[2018-10-31] MEDS: Famotidine/PF 20 mg/2ml Vial SLOW IVP SCH (20:23)
[2018-10-31] MEDS: Atorvastatin Calcium 40 MG TAB PO SCH (20:25)
--- NOTE | 2018-10-31 23:04 | PRG ---
DATE OF SERVICE: 10/31/2018 SUBJECTIVE: The patient states he is feeling fine. No complaints. No bladder spasms or bladder pain. CP has been off for 24 hours. OBJECTIVE: temp 97.6, blood pressure 105/77, respirations 17, saturation 99% on room air. GENERAL: no apparent distress, communicative and alert ABDOMEN: Soft, nontender, and nondistended. Positive bowel sounds. GENITOURINARY: Miller catheter in place, draining clear yellow urine, off CBI. EXTREMITIES: 1+ edema bilaterally, stable. No evidence of DVT. Negative Homans sign. SCDs in place. LABORATORY EVALUATION: The full set of labs are in the [employer] System which I have reviewed. Hemoglobin 11.8, white count 9.5. Creatinine 1.29. ASSESSMENT AND PLAN: 73-year-old white male with muscle invasive bladder cancer , status post maximal TURBT, currently with Miller catheter in place with no history of BPH. Catheter will remain in place for at least one week, at which point we can consider a voiding trial. The patient can restart his Eliquis today at low dose. Dr. Paulino will start him on the patient's Eliquis and have already spoke with him. We will monitor his urine for 24 hours. If his urine remains relatively clear, his dose can be escalated and we can consider discharge from the hospital, so long his urine has not been excessively bloody. We will keep the catheter in and I will plan a voiding trial in 1 week, at which time I will also refer him to Medical Oncology and Radiation for consideration of initiating that portion of the treatment. Job ID: [id number] [facility]
[2018-11-01] MEDS: Ipratropium Bromide 2.5 ml Neb NEB SCH ×3 (00:02→13:34)
[2018-11-01] MEDS: Mometasone/Formoterol 120 PUFF INHALER INH SCH (08:00)
--- NOTE | 2018-11-01 09:31 | PRG ---
DATE OF SERVICE: 11/01/2018 SUBJECTIVE: The patient states he is feeling fine. No complaints overnight. He has started on his Eliquis. There is no significant hematuria. OBJECTIVE: VITAL SIGNS: Temperature 97.1, pulse 97, respirations 20, blood pressure 89/63, heart rate 85, saturation 100% on room air. GENERAL: No apparent distress, communicative and alert. CARDIOVASCULAR: Regular rate and rhythm. ABDOMEN: Soft, nontender, nondistended. Positive bowel sounds. : Miller catheter in place with very light pink translucent urine and peach colored urine within the bag. EXTREMITIES: No clubbing, cyanosis, or edema. ASSESSMENT AND PLAN: A 73-year-old white male with muscle invasive bladder cancer, status post maximal transurethral resection of bladder tumor with no evidence of significant bleeding after restarting his Eliquis. I am actually okay leaving him as he is and I think that he could probably go home. I encouraged him not to drink an excessive amount of water as it will likely cause him to go back into heart failure, but he will need to rely on restricted activities and avoiding straining for bowel movements or heavy lifting to avoid bleeding. Should the bleeding reoccur, he may need to re-stop his Eliquis and aspirin again and notify me. Otherwise, I do think that the patient can probably go home and we will plan to see him back next week for a void trial. Outpatient referrals will also be made at that time for Medical Oncology and Radiation Oncology. We will check in with Cardiology and Medicine to ensure that there are no other contraindications for him to go home today. Job ID: [id number]
[2018-11-01] MEDS: Zinc Sulfate 220 MG CAP PO SCH (09:57)
[2018-11-01] MEDS: Docusate 100 MG CAP PO SCH (09:57)
[2018-11-01] MEDS: Apixaban 2.5 MG TAB PO SCH (09:57)
[2018-11-01] MEDS: Finasteride 5 MG TAB PO SCH (09:57)
[2018-11-01] MEDS: guaiFENesin ER 600 MG TAB PO SCH (09:57)
[2018-11-01] MEDS: Tamsulosin HCl 0.4 MG CAP PO SCH (09:57)
[2018-11-01] MEDS: Sacubitril 24.5 MG/Valsartan 25.5 MG TABLET PO SCH (09:57)
[2018-11-01] MEDS: Senokot 8.6 MG TAB PO SCH (09:58)
[2018-11-01] MEDS: Citrucel 500 MG TAB PO SCH (09:58)
[2018-11-01] MEDS: predniSONE 20 MG TAB PO SCH (09:58)
[2018-11-01] MEDS: Furosemide 40 MG TAB PO SCH (09:58)
[2018-11-01] MEDS: Loratadine 10 MG TAB PO SCH (09:58)
[2018-11-01] MEDS: Carvedilol 3.125 MG TAB PO SCH (09:58)
[2018-11-01] MEDS: Gabapentin 300 MG CAP PO SCH (09:58)
[2018-11-01] MEDS: Ferrous Sulfate 325 MG TAB PO SCH (09:58)
[2018-11-01] MEDS: Potassium Chloride 10 MEQ TAB PO SCH (09:58)
[2018-11-01 11:29] VITALS: BMI 34.2
--- NOTE | 2018-11-01 11:35 | PDOC.PN ---
- Subjective Encounter Start Date: 11/01/18 Encounter Start Time: 11:30 Subjective: Patient without complaints. No recurrence of gross hematuria with restart -: of Eliquis. Being discharged today by urology. - Objective Resuscitation Status - Order Detail: 10/27/18 09:17 Resuscitation Status Routine Resuscitation Status: PRTL: Chem only Discussed with: discussed with pt Additional comments: he does not want CPR only, otherwise everything OK MAR Reviewed: Yes Vital Signs & Weight: Vital Signs (12 hours) Temp Pulse Resp Pulse Ox 11/01/18 08:01 100 11/01/18 08:00 97 20 100 11/01/18 07:49 97.1 F L 11/01/18 07:45 98 11/01/18 03:54 97.4 F L 11/01/18 00:02 83 18 99 10/31/18 23:48 97.4 F L Weight Admit Weight 225 lb Weight 225 lb 6.4 oz Most Recent Monitor Data Heart Rate from ECG 115 NIBP 103/68 NIBP BP-Mean 79 Respiration from ECG 18 SpO2 95 I&O: 10/31/18 11/01/18 11/02/18 06:59 06:59 06:59 Intake Total 1350 480 Output Total 2600 2150 Balance -1250 -1670 Result Diagrams: 10/31/18 04:59 10/31/18 04:59 Phys Exam - Physical Examination Constitutional: NAD HEENT: moist MMs Respiratory: no wheezing, no rales, no rhonchi Cardiovascular: RRR, no significant murmur Gastrointestinal: soft, positive bowel sounds tovar in place, red, but no clots or worsening of hematuria Neurological: non-focal Psychiatric: normal affect, A&O x 3 Dx/Plan (1) CAD (coronary artery disease) Code(s): I25.10 - ATHSCL HEART DISEASE OF [place] CORONARY ARTERY W/O ANG PCTRS Status: Acute (2) COPD (chronic obstructive pulmonary disease) Status: Acute (3) Ischemic cardiomyopathy Code(s): I25.5 - ISCHEMIC CARDIOMYOPATHY Status: Acute Comment: EF still 20- 25%, on LifeVest, restarting Elliquis (4) Malignant neoplasm of bladder Status: Acute Comment: S/P resection of 75% of bladder wall, hematuria improving, restarted Elliquis without significant bleeding - Plan cont current plan of care can d/c home, f/u uro outpatient * . - Discharge Day Encounter end time: 11:45
[2018-11-01 12:01] VITALS: TEMP 97.8
--- NOTE | 2018-11-01 20:04 | PDOC.CTH ---
Cardiology Progress Note - Subjective Doing well. No significant hematuria since starting low dose Eliquis. - Objective Vital Signs Temp 11/01/18 12:00 97.8 F Admit Weight 225 lb Weight 225 lb 6.4 oz 10/31/18 11/01/18 11/02/18 06:59 06:59 06:59 Intake Total 1350 480 Output Total 2600 2150 Balance -1250 -1670 - Physical Examination General/Neuro: alert & oriented x3, NAD Neck: no JVD present Lungs: CTA, unlabored respirations Heart: RRR Abdomen: NT/ND Extremities: other: (no edema) - Telemetry Telemetry Rhythm: NSR - Labs Result Diagrams: 10/31/18 04:59 10/31/18 04:59 - Assessment/Plan 1. S/P bladder Ca resection 2. Ischemic CM EF remains low at 20-25% 3. S/P CABG 4. HIT post op CABG 5. DVT/PE post op CABG 6. Ileus post op CABG PLAN: - Continue current meds. - Continue Eliquis at current dose for 2 more weeks and then increase back to regular dose of 5 mg BID in 2 weeks if no significant heamturia seen. - May discharge any time from cardiac perspective. - Already has a follow up in the office.
--- NOTE | 2018-11-02 11:34 | DIS ---
DATE OF ADMISSION: 10/26/2018 DATE OF DISCHARGE: 11/01/2018 ADMITTING DIAGNOSES: 1. Muscle invasive bladder cancer. 2. Heart failure. 3. Pulmonary embolism. DISCHARGE DIAGNOSES: 1. Muscle invasive bladder cancer. 2. Heart failure. 3. Pulmonary embolism. PROCEDURE PERFORMED: Transurethral resection of bladder tumor. CONSULTS: Obtained while in the hospital: 1. Cardiology. 2. Internal Medicine. BRIEF HISTORY: Mr. Barahona is a 73-year-old white male with a history of muscle invasive bladder cancer. He has recurrence of a significant amount of tumor after he underwent bypass surgery and is now coming in for maximal resection of this tumor before starting chemotherapy and radiation. Extensive cardiac testing has been done to prepare the patient as well as he can tolerate for surgery. Risks and benefits have extensively been discussed with the patient. HOSPITAL COURSE: After surgery (please see operative note for details). The patient was admitted to the step-down unit in the ICU for cardiac monitoring and intensive nursing care. He had continuous bladder irrigation started. His urine cleared up fairly significantly. He did have significant bladder spasms and pain on postop day #0, which significantly subsided by postop day #1 and did not return. He was able to eat a diet and a lower extremity Doppler was performed which did not demonstrate any lower extremity DVTs. SCDs were placed and no chemical prophylaxis was performed as the patient has a history of HIT. Cardiology and Medicine were consulted for assistance on his heart and Medicine was following along for medical comorbidities. He did undergo a repeat echo requested by Cardiology, which demonstrated a maintained EF of around 20%, which has not improved much since his bypass surgery. He remained in the hospital over the weekend with a slow drip CBI which was subsequently stopped over the weekend. His urine was a little bloody after the CBI was stopped, but then this subsequently cleared up to a completely yellow and clear urine. We elected to restart his Eliquis the next day and his urine only became light pink. Satisfied that the patient is probably not bleeding significantly and has been able to go back on his blood thinners without significant bleeding and he has no pain and is able to ambulate, we felt that it would be okay for him to be discharged home. We elected to keep the catheter as well as the patient does have a history of BPH and with a significant amount of resection within his bladder, he will likely fail a void trial and may cause recurrent bleeding due to extensive amount of resection on his bladder wall. After discussion with the patient, he has agreed to be discharged. DISCHARGE CONDITION: Stable. DISPOSITION: Discharged to home with Miller catheter. DISCHARGE MEDICATIONS: The patient will resume all home medications including his aspirin and Eliquis. He should also remain on his finasteride and tamsulosin and take all of the medications that he had previously been on. DISCHARGE INSTRUCTIONS: No heavy lifting or strenuous activities. Avoid constipation. He was instructed to start laxatives if he has a history of chronic constipation as well as remaining on stool softeners. He should notify me if he gets excessively bloody urine, his catheter stops draining, he starts to experience suprapubic pain or any flank pain, fevers, or any other concerning signs or symptoms. He should notify his chef de froid for chest pain or shortness of breath. Followup will be in 1 week for a void trial. Subsequent referrals will be made to Medical Oncology and Radiation Oncology for initiation of his bladder sparing trimodal therapy for muscle invasive bladder cancer. Job ID: [id number]
== END 2018-11-01 16:12 | disposition home or self-care (01) | DRG 669 ==
LOC: SDC 08:59 → IMCU/EMU 18:46
PROVIDERS: ADMIT Urology; ATTEND Urology
PROC: 0TBB8ZZ Excision of Bladder, Via Natural or Artificial Opening Endoscopic (ICD-10-PCS; principal; 2018-10-26)
DX: C67.9 Malignant neoplasm of bladder, unspecified (principal); I13.0 Hypertensive heart and chronic kidney disease with heart failure and stage 1 through stage 4 chronic kidney disease, or unspecified chronic kidney disease; I50.22 Chronic systolic (congestive) heart failure; K56.7 Ileus, unspecified; J44.9 Chronic obstructive pulmonary disease, unspecified; N18.3 Chronic kidney disease, stage 3 (moderate); N40.0 Benign prostatic hyperplasia without lower urinary tract symptoms; M54.5 Low back pain; G89.29 Other chronic pain; K21.9 Gastro-esophageal reflux disease without esophagitis; E78.5 Hyperlipidemia, unspecified; I25.10 Atherosclerotic heart disease of native coronary artery without angina pectoris; I25.5 Ischemic cardiomyopathy; E66.9 Obesity, unspecified; Z68.34 Body mass index [BMI] 34.0-34.9, adult; Z86.718 Personal history of other venous thrombosis and embolism; Z79.01 Long term (current) use of anticoagulants; Z95.1 Presence of aortocoronary bypass graft; Z87.891 Personal history of nicotine dependence; Z88.8 Allergy status to other drugs, medicaments and biological substances; Z79.899 Other long term (current) drug therapy
CPT/HCPCS: 36415; 74176; 80048; 82565; 85025; 86850; 86900; 86901; 88305; 93306; 93970; 94640; C1769; J1940; J1956; J2270; J2370; J3010; J7512; Q9961; S0028

== ENCOUNTER 2018-11-23 11:25 | Outpatient (CLI) | payer MEDICARE ==
--- NOTE | 2018-11-23 14:09 | PET ---
Nuclear medicine FDG PET/CT: (Positron emission tomography and computed tomography) DATE: 11/23/2018 HISTORY: 73-year-old male with "malignant neoplasm of trigone of the bladder, muscle invasive bladder cancer, lung nodule, evaluate for metastatic disease" Initial PET scan. COMPARISON: None available TECHNIQUE: IV injection of F-18 fluorodeoxyglucose (FDG) dose: 13.0 mCi. PET scan and attenuation correction CT performed from skull base to proximal thighs. FINDINGS: SUV (standard uptake values) numbers given are maximum SUVs. QCLR used. The small, approximately 7 mm left lower lobe noncalcified pulmonary nodule is not FDG-avid, but it m ay be too small for that. It is unchanged since April 2018. Surrounding the anterior segmental branch of the left upper lobe bronchus, there is a small soft tiss ue density lesion abutting the left cardiac border with SUV of 3.5. This could be a small focal pneumonitis or a primary bronchogenic carcinoma. No mediastinal or hilar hypermetabolic activity. Focus of increased uptake at distal descending colon just proximal to the sigmoid junction, with SUV of 7.4. Nonspecific. Recommend correlation with results of any recent colonoscopy. Otherwise no areas suspicious for metastatic disease in the upper abdominal cavity. Because of the naturally intense activity in the lumen of the urinary bladder, the no in the bladder wall tumor cannot be evaluated with PET. No evidence of iliac chain lymphadenopathy. IMPRESSION: 1) small focus of increased uptake surrounding anterior segmental left upper lobe bronchus branch. Pn eumonitis versus lung cancer. Recommend follow-up. 2) small focus of increased uptake at distal descending colon. Physiologic versus primary colon cance r. Recommend correlation with results of most recent colonoscopy. 3) otherwise, no evidence of metastatic disease.
== END 2018-11-23 11:26 | disposition home or self-care (01) ==
LOC: PET 11:25
PROVIDERS: ATTEND Internal Medicine Hematology & Oncology
DX: C67.0 Malignant neoplasm of trigone of bladder (principal)
CPT/HCPCS: 78815; A9552

== ENCOUNTER 2019-04-05 17:02 | Inpatient (IN) | payer MEDICARE ==
[2019-04-05] MEDS ORDERED: Aspirin Chewable 81 MG TAB ONE (18:26)
[2019-04-05] MEDS ORDERED: Furosemide 40 MG/4 ML VIAL ONE (18:26)
[2019-04-05 18:35] LABS: Bacteria/HPF 4+ HPF (None Seen); Bilirubin Negative (Negative); Blood, Urine 1+ (Negative); Clarity Extra Turbid (Clear); Glucose, Urine (Dipstick) Normal (Negative); Leukocyte 500 Leu/uL (Negative); Nitrite Negative (Negative); Protein, Urine (Dipstick) 50 mg/dL (Neg-Trace); RBC/HPF 21-50 HPF (0-3); Squamous Epithelial 0-3 HPF (0-3); Urobilinogen Normal mg/dL (Less than 2); WBC/HPF Greater than 50 HPF (0-3)
[2019-04-05 18:35] LABS: #Eosinphils 0.2 thou/uL (0.0-0.7); #Lymphocytes 0.7 thou/uL (1.20-3.40); #Monocytes 0.6 thou/uL (0.11-0.59); #Neutrophils 5.2 thou/uL (1.40-6.50); %Eosinophils 2.9 % (0.0-10.0); %Lymphocytes 10.7 % (21.0-51.0); %Monocytes 9.2 % (0.0-10.0); %Neutrophils 77.3 % (42.0-75.0); Hemoglobin 10.6 g/dL (14.0-18.0); Mean Corpuscular HGB CONC 33.9 g/dL (32.0-36.0); Mean Corpuscular Hemoglobin 30.9 pg (27.0-31.0); Mean Platelet Volume 6.9 fL (7.4-10.4); Platelet Count 235 thou/uL (130-400); Red Blood Cell (RBC) Count 3.44 mill/uL (4.70-6.10); White Blood Cell (WBC) Count 6.7 thou/uL (4.8-10.8)
[2019-04-05 18:47] LABS: ALT (SGPT) 12 U/L (8-55); AST (SGOT) 14 U/L (5-34); Albumin 3.8 g/dL (3.4-4.8); Alkaline Phosphatase 94 U/L (40-110); Anion Gap 15 mmol/L (10-20); BUN (Urea Nitrogen) 22 mg/dL (8.4-25.7); Bilirubin, Total 0.4 mg/dL (0.2-1.2); CK (CPK) 94 U/L (30-200); Calc. Creatinine Clearance 0 mL/min (70-130); Calcium 8.7 mg/dL (7.8-10.44); Carbon Dioxide 23 mmol/L (23-31); Chloride 107 mmol/L (98-107); Estimated GFR-MDRD 51; Globulin 2.7 g/dL (2.4-3.5); Glucose 110 mg/dL (83-110); Lipase 21 U/L (8-78); Potassium 3.8 mmol/L (3.5-5.1); Protein, Total 6.5 g/dL (5.8-8.1); Sodium 141 mmol/L (136-145)
--- NOTE | 2019-04-05 19:56 | RAD ---
EXAM: Single view of the chest HISTORY: Lymphedema and fluid overload COMPARISON: 09/05/2018 FINDINGS: Single view of the chest shows a normal sized cardiomediastinal silhouette. The patient is status post CABG. A left subclavian pacemaker is seen with its leads in the right atrium and ventricle. There is no evidence of consolidation, mass, or pleural effusion. The bones are unremarka ble. IMPRESSION: No evidence of acute cardiopulmonary disease
[2019-04-05 21:15] LABS: Troponin I Less than 0.010 ng/mL (< 0.028)
[2019-04-05] MEDS ORDERED: Ondansetron PF 4 MG/2 ML Vial IVP PRN (22:16)
[2019-04-05] MEDS ORDERED: Ondansetron ODT 4 MG TAB SL PRN (22:16)
[2019-04-05] MEDS ORDERED: Bisacodyl 5 MG TAB PO PRN (22:52)
[2019-04-05] MEDS ORDERED: Loperamide HCl 2 MG CAP PO PRN (22:52)
[2019-04-05] MEDS ORDERED: Senokot S 8.6-50 MG TAB PO PRN (22:52)
[2019-04-05] MEDS ORDERED: Bisacodyl 10 MG SUPP PR PRN (22:52)
[2019-04-05] MEDS ORDERED: HYDROcodone/Acetaminophen 5/325 mg Tablet PO PRN (22:52)
[2019-04-05] MEDS ORDERED: Oxybutynin 5 MG TAB PO PRN (22:58)
--- NOTE | 2019-04-05 23:31 | PDOC.HHP ---
Hospitalist HPI - History of Present Illness Bilateral lower extremity and scrotal swelling History of Present Illness: Patient is a 74 year old male with PMH CAD, COPD, bladder cancer who presents to ED for significant scrotal swelling and pain and inability to urinate to a large degree. Patient has extensive urologic history with bladder cancer treated with chemotherapy, radiation, surgery, last treatment of chemoradiation in December and cystoscopy 1-2 months ago with no evidence of cancer but examination limited by radiation. urologist is Dr Almaraz. Patient reports swelling in legs and scrotum last few weeks, now has to dangle scrotum at all times on toilet, urine constantly leaking, extremely painful. legs also swollen , and now beginning to weep, there is suspected lymphedema secondary to radiation tx. In ED, labs with mild anemia and Cr 1.36 which is slightly above baseline of ~1.0, BNP 300, UA with strong suggestion of infection. CXR with no acute findings. scrotum very swollen, patient does not do lymphedema wrapping at home, takes lasix, I discussed with Chen who was warehouse operations associate and he recommends elevate scrotum, order placed with recs for nursing. brother at bedside, he is next of kin and emergnecy contact, can be reached [phone], his name is Yusuf. patient had CABG in August and ICD placed February. he has discussed tovar with patient, patient states he is concerned that it will be too painful. outpatient team Dr Paulino cardiology Dr Causey CTVS Dr Almaraz urology Dr Bustamante sees pulm and GI as well as needed Hospitalist ROS - Review of Systems Constitutional: denies: fever, chills Eyes: denies: vision change, conjunctivae inflammation ENT: denies: mouth swelling, throat pain Respiratory: denies: cough, shortness of breath Cardiovascular: denies: chest pain, palpitations Gastrointestinal: denies: nausea, vomiting, abdominal pain Genitourinary: reports: dysuria, incontinence, other (scrotal swelling, leaking of urine) Musculoskeletal: denies: neck pain, shoulder pain Skin: denies: rash, lesions Neurological: denies: weakness, numbness All other systems reviewed; all pertinent +/- noted in HPI/Subj Hospitalist History - Past Medical History Other Medical History: COPD CAD bladder cancer - Past Surgical History Other Surgical History: CABG bladder surgery colonoscopy - Family History Other Family History: reviewed and noncontributory - Social History Other Social History: quit tobacco 8 months ago no alcohol or drugs - Exam General Appearance: NAD, awake alert Eye: PERRL ENT: normocephalic atraumatic, moist mucosa Neck: supple, no JVD Heart: RRR, no murmur, no gallops Respiratory: CTAB, no wheezes, no rales Gastrointestinal: soft, non-tender, non-distended, normal bowel sounds Extremities: no cyanosis, no clubbing Extremities - other findings: lymphedema, weeping pedal edema Skin - other findings: significant swelling of scrotum and bilateral lower extremities with weepin Neurological: cranial nerve grossly intact, normal sensation to touch, no weakness, no focal deficits Musculoskeletal: normal tone, normal strength Psychiatric: normal affect, normal behavior, A&O x 3 Hospitalist Results - Labs Result Diagrams: 04/06/19 04:36 04/06/19 04:36 Lab results: WBC 6.7 thou/uL (4.8-10.8) 04/05/19 18:17 Hgb 10.6 g/dL (14.0-18.0) L 04/05/19 18:17 Hct 31.3 % (42.0-52.0) L 04/05/19 18:17 MCV 91.0 fL (78.0-98.0) 04/05/19 18:17 Plt Count 235 thou/uL (130-400) 04/05/19 18:17 Neutrophils % 77.3 % (42.0-75.0) H 04/05/19 18:17 Sodium 141 mmol/L (136-145) 04/05/19 18:17 Potassium 3.8 mmol/L (3.5-5.1) 04/05/19 18:17 Chloride 107 mmol/L (98-107) 04/05/19 18:17 Carbon Dioxide 23 mmol/L (23-31) 04/05/19 18:17 BUN 22 mg/dL (8.4-25.7) 04/05/19 18:17 Creatinine 1.36 mg/dL (0.7-1.3) H 04/05/19 18:17 Glucose 110 mg/dL (83-110) 04/05/19 18:17 Calcium 8.7 mg/dL (7.8-10.44) 04/05/19 18:17 Total Bilirubin 0.4 mg/dL (0.2-1.2) 04/05/19 18:17 AST 14 U/L (5-34) 04/05/19 18:17 ALT 12 U/L (8-55) 04/05/19 18:17 Alkaline Phosphatase 94 U/L (40-110) 04/05/19 18:17 Creatine Kinase 94 U/L (30-200) 04/05/19 18:17 Troponin I Less than 0.010 ng/mL (< 0.028) 04/05/19 20:39 B-Natriuretic Peptide 307.5 pg/mL (0-100) H 04/05/19 18:17 Serum Total Protein 6.5 g/dL (5.8-8.1) 04/05/19 18:17 Albumin 3.8 g/dL (3.4-4.8) 04/05/19 18:17 Lipase 21 U/L (8-78) 04/05/19 18:17 Urine Ketones Negative mg/dL (Negative) 04/05/19 18:25 Urine Blood 1+ (Negative) A 04/05/19 18:25 Urine Nitrite Negative (Negative) 04/05/19 18:25 Ur Leukocyte Esterase 500 Alfredo/uL (Negative) A 04/05/19 18:25 Urine RBC 21-50 HPF (0-3) A 04/05/19 18:25 Urine WBC Greater than 50 HPF (0-3) A 04/05/19 18:25 Ur Squamous Epith Cells 0-3 HPF (0-3) 04/05/19 18:25 Urine Bacteria 4+ HPF (None Seen) A 04/05/19 18:25 Hospitalist H&P A/P - Problem (1) Lymphedema Code(s): I89.0 - LYMPHEDEMA, NOT ELSEWHERE CLASSIFIED Status: Acute Assessment and Plan: severe and worsening with significant scrotal edema, consult wound care nurse for wrapping and case management for home health wound care/wrapping if needed (2) Scrotal edema Code(s): N50.89 - OTHER SPECIFIED DISORDERS OF THE MALE GENITAL ORGANS Status : Acute Assessment and Plan: consult patients urologist Dr Almaraz in AM, discussed informally with warehouse operations associate urology Dr Chicas who recommends elevation of scrotum (3) CAD (coronary artery disease) Code(s): I25.10 - ATHSCL HEART DISEASE OF [place] CORONARY ARTERY W/O ANG PCTRS Status: Acute Assessment and Plan: noted ,continue home medications as appropriate (4) COPD (chronic obstructive pulmonary disease) Status: Acute Assessment and Plan: no wheezing on my exam, conitnue home inhaled meds (5) Malignant neoplasm of bladder Status: Acute Assessment and Plan: treated with chemotherapy and radiation, had surgery as well, Dr Almaraz consulted, reportedly no evidence of tumor on cystoscopy last month (6) UTI (urinary tract infection) Status: Acute Assessment and Plan: start ceftriaxone, urine culture, will need intervention I believe for scrotal swelling to ensure adequate emptying of bladder
[2019-04-05] MEDS ORDERED: Ipratropium Bromide 2.5 ml Neb ONE (23:52)
[2019-04-05] MEDS: cefTRIAXone\\ROCEPHIN 1 GM in Sodium Chloride 0.9% 100 ML IVPB SCH (23:57)
[2019-04-06] MEDS: Ipratropium Bromide 2.5 ml Neb NEB SCH ×4 (00:23→19:28)
[2019-04-06 01:06] LABS: Troponin I Less than 0.010 ng/mL (< 0.028)
[2019-04-06 04:47] LABS: #Eosinphils 0.2 thou/uL (0.0-0.7); #Lymphocytes 0.6 thou/uL (1.20-3.40); #Monocytes 0.7 thou/uL (0.11-0.59); #Neutrophils 4.7 thou/uL (1.40-6.50); %Basophils 0.4 % (0.0-1.0); %Eosinophils 3.2 % (0.0-10.0); %Lymphocytes 9.6 % (21.0-51.0); %Neutrophils 75.8 % (42.0-75.0); Mean Corpuscular Volume 91.2 fL (78.0-98.0); Mean Platelet Volume 6.9 fL (7.4-10.4); Platelet Count 199 thou/uL (130-400); RBC Distribution Width 12.8 % (11.5-14.5); Red Blood Cell (RBC) Count 3.23 mill/uL (4.70-6.10); White Blood Cell (WBC) Count 6.2 thou/uL (4.8-10.8)
[2019-04-06 05:11] LABS: Anion Gap 16 mmol/L (10-20); BUN (Urea Nitrogen) 23 mg/dL (8.4-25.7); Calc. Creatinine Clearance 62 mL/min (70-130); Calcium 9.1 mg/dL (7.8-10.44); Carbon Dioxide 25 mmol/L (23-31); Chloride 107 mmol/L (98-107); Estimated GFR-MDRD 47; Glucose 122 mg/dL (83-110); Potassium 3.7 mmol/L (3.5-5.1); Sodium 144 mmol/L (136-145)
[2019-04-06] MEDS ORDERED: Furosemide 40 MG/4 ML VIAL SLOW IVP SCH (06:00)
[2019-04-06] MEDS ORDERED: Enoxaparin Sodium 30 MG/0.3 ML SYRINGE SC SCH (09:00)
[2019-04-06] MEDS ORDERED: Non-Formulary Item 1 EACH (Symbicort 2 PUFF) INH SCH (09:00)
[2019-04-06] MEDS: Tamsulosin HCl 0.4 MG CAP PO SCH (09:48)
[2019-04-06] MEDS: Carvedilol 3.125 MG TAB PO SCH ×2 (09:48→17:26)
[2019-04-06] MEDS: Famotidine 20 MG TAB PO SCH ×2 (09:48→20:29)
[2019-04-06] MEDS: Finasteride 5 MG TAB PO SCH (09:48)
--- NOTE | 2019-04-06 12:55 | PDOC.HOSPP ---
- Subjective Encounter Date: 04/06/19 Encounter Time: 09:51 Subjective: 74 y/o male with CAD s/p CABG, ICM s/p ICD recent placement, recurrent bladder cancer s/p resction in 10/2018, COPD, HTN, Nephrolithiasis, prior VTE and others admitted due increasing bilateral leg edema and difficulty urinating due to genital swelling. Found to have abnormal UA suggestive of UTI. - Objective Vital Signs & Weight: Vital Signs (12 hours) Temp Pulse Resp BP Pulse Ox 04/06/19 11:45 97.1 F L 98 20 157/72 H 98 04/06/19 08:14 91 16 96 04/06/19 08:00 97.9 F 94 20 138/66 98 04/06/19 04:00 97.3 F L 94 18 115/58 L 95 Weight Weight 218 lb I&O: 04/05/19 04/06/19 04/07/19 06:59 06:59 06:59 Intake Total 1000 480 Output Total 800 400 Balance 200 80 Result Diagrams: 04/06/19 04:36 04/06/19 04:36 Hospitalist ROS - Medication Medications: Active Medications Generic Name Dose Route Start Last Admin Trade Name Freq PRN Reason Stop Dose Admin Carvedilol 3.125 mg 04/06/19 08:00 04/06/19 09:48 Coreg PO 3.125 mg BID-WM GABRIELLA Administration Famotidine 20 mg 04/06/19 09:00 04/06/19 09:48 Pepcid PO 20 mg BID GABRIELLA Administration Finasteride 5 mg 04/06/19 09:00 04/06/19 09:48 Proscar PO 5 mg DAILY GABRIELLA Administration Ceftriaxone Sodium 1 gm/ 100 mls @ 200 mls/hr 04/05/19 23:15 04/05/19 23:57 Sodium Chloride IVPB 04/11/19 23:44 100 mls Q24HR GABRIELLA Administration Ipratropium [place] 2.5 ml 04/06/19 01:00 04/06/19 08:14 Atrovent NEB 2.5 ml [id number] GABRIELLA Administration Pantoprazole Sodium 40 mg 04/06/19 09:00 04/06/19 09:48 Protonix PO 40 mg BID GABRIELLA Administration Tamsulosin HCl 0.8 mg 04/06/19 09:00 04/06/19 09:48 Flomax PO 0.8 mg DAILY GABRIELLA Administration - Exam General Appearance: awake alert Eye: anicteric sclera ENT: normocephalic atraumatic Neck: supple Heart: RRR Respiratory: no ronchi, normal chest expansion Respiratory - other findings: fair air entry bilaterally Gastrointestinal: soft, non-tender, normal bowel sounds Gastrointestinal - other findings: scrotal and penal edema noted Extremities: 2+ LE edema Extremities - other findings: small anterior leg wound with minimal erythema Neurological: cranial nerve grossly intact Psychiatric: A&O x 3 Hosp A/P (1) Penile edema Code(s): N48.89 - OTHER SPECIFIED DISORDERS OF PENIS Status: Acute (2) Scrotal edema Code(s): N50.89 - OTHER SPECIFIED DISORDERS OF THE MALE GENITAL ORGANS Status : Acute (3) Bilateral lower extremity edema Code(s): R60.0 - LOCALIZED EDEMA Status: Acute (4) CAD (coronary artery disease) Code(s): I25.10 - ATHSCL HEART DISEASE OF [place] CORONARY ARTERY W/O ANG PCTRS Status: Acute (5) COPD (chronic obstructive pulmonary disease) Status: Acute (6) Ischemic cardiomyopathy Code(s): I25.5 - ISCHEMIC CARDIOMYOPATHY Status: Acute (7) Malignant neoplasm of bladder Status: Acute (8) UTI (urinary tract infection) Status: Acute (9) Nephrolithiasis Status: Acute (10) History of venous thromboembolism Code(s): Z86.718 - PERSONAL HISTORY OF OTHER VENOUS THROMBOSIS AND EMBOLISM Status: Acute - Plan Get bilateral lower extremity doppler Start anticoagulation with eliquis given cancer, prior VTE and chronic bilateral leg edema Await Urology evaluation and tovar placement. Patient reported that he has history of difficult tovar placement Hold diuretic for now as there is no overt feature of cardiac decompensation. Elevated lower extremities. CTA abd/pelvis contemplated if renal function improves. had one in september but evaluation was limited due to lack of contrast. Antibiotic therapy for UTI to continue. Await urine culture Monitor renal function and cbc
--- NOTE | 2019-04-06 13:44 | ULT ---
US Renal Bilateral STANDARD: 04/06/2019 12:48 PM CLINICAL HISTORY: Urinary retention and obstructive uropathy.. STUDY: Renal ultrasound COMPARISON: None. FINDINGS: Right kidney: Echogenicity: Normal. Masses/cysts: None. Hydronephrosis: Moderate Calcifications: None. Length: 10.9 cm Left kidney: Echogenicity: Normal. Masses/cysts: None. Hydronephrosis: Moderate Calcifications: None. Length: 10.5 cm Limited visualization of the urinary bladder is unremarkable. The bladder is not overly distended. IMPRESSION: Moderate bilateral hydronephrosis.
[2019-04-06 14:04] VITALS: BMI 33.1
--- NOTE | 2019-04-06 14:18 | ULT ---
ULTRASOUND WITH DOPPLER DUPLEX VENOUS LOWER EXTREMITY BILATERAL: CPT: 70907 ICD-10-PCS: [id number] INDICATION: Edema. TECHNIQUE: Color flow Doppler, spectral waveform analysis of pulsed Doppler, and lomeli-scale imaging with deborah rl and augmentation, were used to evaluate the bilateral common femoral, femoral, popliteal, lan support specialist ior tibial, and superficial femoral, veins; and the proximal portions of the profunda femoral and gre ater saphenous, veins. FINDINGS: There is appropriate compressibility and flow within the imaged deep vein system of each lower extrem ity, although there is limitation of visualization of the posterior tibial vein of the left lower ext remity. Incidental note of soft tissue edema. IMPRESSION: No deep venous thrombosis visualized within the imaged bilateral lower extremities. POS: [facility]
[2019-04-06] MEDS ORDERED: B & O PR PRN (17:07)
--- NOTE | 2019-04-06 18:13 | CT ---
CT Stone Protocol 04/06/2019 5:06 PM HISTORY: Bilateral hydronephrosis without distended urinary bladder. COMPARISON: 10/24/2018 Technique: Multiple contiguous axial CT images are obtained through the abdomen and pelvis without IV contrast. Coronal reformats are provided. FINDINGS: This examination is limited for the evaluation of solid organs and vascular structures due to the lac k of intravenous contrast. Lower Chest: Median sternotomy wires are partially imaged. AICD leads are partially imaged. The lung bases are clear. No pulmonary nodule is seen at either lung base. Abdomen: Liver: Grossly normal nonenhanced CT appearance. Gallbladder: Mostly decompressed. There is suggestion of increased density material within the region of the neck of the gallbladder which could be related to small amount of sludge or gallbladder calculi. Pancreas: Grossly normal nonenhanced CT appearance. Spleen: Grossly normal nonenhanced CT appearance. Adrenals: Grossly normal nonenhanced CT appearance. Kidneys: There is bilateral moderate hydronephrosis and hydroureter to the level of the urinary bladd er. This is an interval change from prior exam. A stable hypodense lesion is seen in the medial aspect midportion left kidney which was also seen on the prior noncontrasted CT exam but is is diffic ult to characterize. Ureters: Bilateral hydroureter to the level of the urinary bladder as described above. Mild periurete ral inflammatory stranding is present. Pelvis: Urinary bladder: Decompressed. Grande of the urinary bladder do appear thickened predominantly anterio rly and posterolaterally. Mild perivesical inflammatory stranding is present. Urinary bladder wall thickening and perivesicular inflammatory stranding was also seen on the prior exam. Reproductive Organs: No pelvic masses. Lymph Nodes: Several small subcentimeter lymph nodes are seen in the aortocaval region which also graham eared to have been present on prior exam. Mildly prominent lymph node is seen within the left inguinal region measuring 1.3 cm in short axis dimension with mildly prominent right inguinal lymph n ode also present. Bowel: Normal caliber. Appendix: Not visualized, there are no CT findings to suggest appendicitis. Peritoneum: No free fluid, free air, or fluid collection. Vessels: Vascular calcifications are seen. Incidental note is made of a retroaortic left renal vein. Abdominal Wall: Postsurgical changes right inguinal region are noted. There is mild inflammatory pulliam ges seen involving the limited visualized proximal scrotum. Bones: Multilevel degenerative changes are seen in the spine. No suspicious lytic or sclerotic osseou s lesions are identified. IMPRESSION: 1. Moderate bilateral hydronephrosis and hydroureter down to the level of the urinary bladder. Urinar y bladder is decompressed completely grande urinary bladder do appear thickened with adjacent perivesical inflammatory stranding. There is also mild stranding along the course of each ureter. 2. Hypodense lesion left kidney which is difficult to characterize but stable from prior study. #3. M ildly prominent bilateral inguinal lymph nodes. 3. Minimal increased density in the region of the neck and urinary bladder. Could be related to small amount of sludge and/or gallbladder calculi.
[2019-04-06] MEDS: Atorvastatin Calcium 40 MG TAB PO SCH (20:29)
[2019-04-06] MEDS ORDERED: Apixaban 5 MG TAB PO SCH (21:00)
[2019-04-06] MEDS: cefTRIAXone\\ROCEPHIN 1 GM in Sodium Chloride 0.9% 100 ML IVPB SCH (23:44)
--- NOTE | 2019-04-07 01:00 | CON ---
DATE OF CONSULTATION: 04/06/2019 CONSULTING: Lisa Bardales Obi, MD. CONSULTED: Markus Almaraz MD REASON FOR CONSULTATION: Genital swelling and incontinence. HISTORY OF PRESENT ILLNESS: Mr. Barahona is a 74-year-old white male, who is well known to me for history of muscle invasive bladder cancer. He has multiple comorbidities, including heart failure, arrhythmias, history of pulmonary embolism and severe urge incontinence with contracted bladder secondary to chemoradiation to his bladder along with his previous maximal TURBT. He has a long history of having severe incontinence and urgency after his surgery, which has been managed on an outpatient unsuccessfully with oral medications. Unfortunately, due to his health and comorbidities, he is not a candidate for any additional surgical based treatments. The patient declined Botox as this would require for him to have an indwelling Miller catheter or perform CIC, neither of which he wanted to do. He has been having issues with genital swelling and had seen Dr. Farfan recently for lower extremity swelling along with genital swelling. He was told to increase his Lasix; however despite doing this, the patient had progressively worsening edema around his penis and scrotum along with incontinence and lower extremity swelling and so he came to the hospital through the ER where he was admitted. A renal ultrasound done today demonstrated moderate bilateral hydronephrosis. The bladder did not look very distended. A venogram done today showed no DVTs. I was consulted for concerns regarding the hydronephrosis and the patient's constant ongoing incontinence and urinary issues. He currently states that he is having pain in his genital area, primarily on his scrotum and around the perianal area. He states he constantly still feels like he needs to urinate, but he had been emptying his bladder previously. His bladder is significantly weakened and he does have detrusor underactivity and does have known BPH. He does not always empty his bladder, 100%, but he has never been in retention since the surgery, except when he has been hospitalized and has become significantly weakened. He is currently off his Eliquis secondary to hemoptysis, which is still occurring. He continues to have occasional shortness of breath. He denies any chest pain. He is still having significant lower extremity swelling. ALLERGIES: HEPARIN, WHICH CAUSES HEPARIN-INDUCED THROMBOCYTOPENIA. HOME MEDICATIONS: 1. Tylenol. 2. Lasix. 3. Citrucel. 4. Klor-Con. 5. Multivitamins. 6. [place]. 7. Guaifenesin. 8. Zinc. 9. Entresto. 10. Spiriva. 11. Flomax. 12. Symbicort. 13. Omeprazole. 14. Proscar. 15. Lipitor. PAST MEDICAL HISTORY: 1. Coronary artery disease. 2. COPD. 3. Congestive heart failure with EF of 20%. 4. Chronic kidney disease. 5. History of pulmonary embolism. 6. History of heparin-induced thrombocytopenia. 7. Bladder cancer with muscle invasive. 8. Severe overactive bladder. 9. BPH. 10. Depression. PAST SURGICAL HISTORY: 1. CABG. 2. TURBT. 3. Chemoradiation to the bladder. 4. Pacemaker placement. 5. Colonoscopy. SOCIAL HISTORY: Patient used to be a smoker, but quit. Denies alcohol or illicit drug use. Lives with his brother. FAMILY HISTORY: Noncontributory. REVIEW OF SYSTEMS: A 12-point review of system reviewed and negative other than what was commented on the HPI for pertinent positives. PHYSICAL EXAMINATION: VITAL SIGNS: Temperature 98.4, pulse 110, respirations 14, blood pressure 126/88, saturation 96% on room air. GENERAL: Awake and alert, communicative, answering questions appropriately. Appears stated age. HEENT: Normocephalic, atraumatic. Pupils are symmetric and round. Trachea midline. Moist mucous membranes. CARDIOVASCULAR: Irregular rhythm. Normal rate. Normal S1, S2. Symmetric pulses. CHEST: No increased work of breathing. Symmetric expansion. LUNGS: Clear anteriorly. ABDOMEN: Soft, nontender, and nondistended. Positive bowel sounds. GENITOURINARY: Severe scrotal edema. Unable to visualize glans. Scrotum is also significant and large. No evidence of cellulitis or Aletha gangrene. No significant skin breakdown at the current time. EXTREMITIES: Mild clubbing. No cyanosis. Positive for stasis dermatitis in the lower extremities, 3+ pitting edema in lower extremities. Onychomycosis of lower extremities. SKIN: Warm and dry. Previously noted skin changes of lower extremities as above. No rashes or lesions otherwise elsewhere. MUSCULOSKELETAL: No obvious joint deformities or joint erythema noted. Full range of motion. NEUROLOGIC: Cranial nerves 2 through 12 grossly intact. No focal or sensory deficits identified. PSYCHIATRIC: Alert and oriented x3. Appropriate mood and affect. LABORATORY EVALUATION: Full set of labs are in the [facility] system, which I have reviewed. Of note, patient's white count is 6.2 with hemoglobin of 10, creatinine of 1.46, which is worse than yesterday's. UA demonstrates 21-50 red cells, greater than 50 white cells, 4+ bacteria. No squamous cells. Urine culture preliminary demonstrates gram-negative rods with mixed skin lexus. Susceptibilities to follow. Renal ultrasound again demonstrates a nondistended bladder with bilateral hydronephrosis. ASSESSMENT AND PLAN: A 74-year-old white male with history of muscle invasive bladder cancer, status post maximal transurethral resection of a bladder tumor with chemoradiation with new onset hydronephrosis, which has not been present previously and rising creatinine. He does have evidence of a possible urinary tract infection. I agree with antibiotics until culture results are finalized. I would like to get a CT without contrast to evaluate possible reasons why his hydronephrosis is worsening despite a nondistended bladder. My primary concern would be cancer recurrence versus stricturing of the ureteral orifices secondary to radiation. Given the patient's severe bladder spasms and severe inability to tolerate anything in his bladder, I would give consideration to nephrostomy tubes in this individual, if his creatinine continues to rise. It is also possible that a worsening heart failure could cause his rising creatinine. I would like to take Dr. Hogan's opinion on this, right now the next step would be to leave him off his blood thinners for the current time and consider nephrostomy tubes, if his creatinine continues to worsen. We will continue to follow along while he is in the hospital. I will go ahead and start him on B and O suppositories to see, if we can calm his bladder down and order the CT scan as scheduled. He should continue on his BPH medications to avoid going into urinary retention. Dr. Bernabe will be on-call over the weekend for me and will see the patient in my stead until Tuesday when I will resume care. Job ID: [id number]
[2019-04-07] MEDS: Ipratropium Bromide 2.5 ml Neb NEB SCH ×4 (01:30→19:26)
[2019-04-07 04:56] LABS: #Eosinphils 0.2 thou/uL (0.0-0.7); #Lymphocytes 0.8 thou/uL (1.20-3.40); #Monocytes 0.7 thou/uL (0.11-0.59); #Neutrophils 4.5 thou/uL (1.40-6.50); %Basophils 0.3 % (0.0-1.0); %Eosinophils 3.4 % (0.0-10.0); %Lymphocytes 12.6 % (21.0-51.0); %Monocytes 10.6 % (0.0-10.0); %Neutrophils 73.1 % (42.0-75.0); Hemoglobin 9.7 g/dL (14.0-18.0); Mean Corpuscular HGB CONC 32.9 g/dL (32.0-36.0); Mean Corpuscular Hemoglobin 30.6 pg (27.0-31.0); Mean Platelet Volume 6.8 fL (7.4-10.4); Platelet Count 203 thou/uL (130-400); Red Blood Cell (RBC) Count 3.17 mill/uL (4.70-6.10); White Blood Cell (WBC) Count 6.2 thou/uL (4.8-10.8)
[2019-04-07 05:16] LABS: Anion Gap 16 mmol/L (10-20); BUN (Urea Nitrogen) 24 mg/dL (8.4-25.7); Calc. Creatinine Clearance 55 mL/min (70-130); Calcium 8.6 mg/dL (7.8-10.44); Carbon Dioxide 22 mmol/L (23-31); Chloride 106 mmol/L (98-107); Estimated GFR-MDRD 41; Glucose 107 mg/dL (83-110); Potassium 3.7 mmol/L (3.5-5.1); Sodium 140 mmol/L (136-145)
[2019-04-07] MEDS: Acetaminophen 325 MG TAB PO PRN ×2 (08:54→20:08)
[2019-04-07] MEDS: Carvedilol 3.125 MG TAB PO SCH ×2 (08:54→17:48)
[2019-04-07] MEDS: Tamsulosin HCl 0.4 MG CAP PO SCH (08:54)
[2019-04-07] MEDS: Famotidine 20 MG TAB PO SCH ×2 (08:54→20:08)
[2019-04-07] MEDS: Finasteride 5 MG TAB PO SCH (08:54)
--- NOTE | 2019-04-07 10:37 | PDOC.HOSPP ---
- Subjective Encounter Date: 04/07/19 Encounter Time: 10:35 Subjective: 74 y/o male with CAD s/p CABG, ICM s/p ICD recent placement, recurrent bladder cancer s/p resction in 10/2018, COPD, HTN, Nephrolithiasis, prior VTE and others admitted due increasing bilateral leg edema and difficulty urinating due to genital swelling. Found to have abnormal UA suggestive of UTI. Further evaluation with renal US showed new bilateral hydronephrosis which was confirmed by CT. No new problem. Denied fever, nausea, vomiting or SOB. - Objective Vital Signs & Weight: Vital Signs (12 hours) Temp Pulse Resp BP Pulse Ox 04/07/19 08:12 98.3 F 94 20 113/63 98 04/07/19 07:15 106 H 20 95 04/07/19 04:00 97.6 F 77 18 143/60 H 97 04/07/19 01:30 91 16 97 Weight Admit Weight 218 lb 12.8 oz Weight 220 lb 12.8 oz I&O: 04/06/19 04/07/19 04/08/19 06:59 06:59 06:59 Intake Total 1000 1820 Output Total 800 1000 Balance 200 820 Result Diagrams: 04/07/19 04:32 04/07/19 04:32 Hospitalist ROS - Medication Medications: Active Medications Generic Name Dose Route Start Last Admin Trade Name Freq PRN Reason Stop Dose Admin Acetaminophen 650 mg 04/05/19 22:52 04/07/19 08:54 Tylenol PO 650 mg Q4H PRN Administration Headache/Fever/Mild Pain (1-3) Hydrocodone Bitart/Acetaminophen 1 tab 04/05/19 22:52 04/06/19 15:04 [place] 5/325 PO 1 tab Q4H PRN Administration Moderate Pain (4-6) Atorvastatin Calcium 40 mg 04/06/19 21:00 04/06/19 20:29 Lipitor PO 40 mg HS GABRIELLA Administration Carvedilol 3.125 mg 04/06/19 08:00 04/07/19 08:54 Coreg PO 3.125 mg BID-WM GABRIELLA Administration Famotidine 20 mg 04/06/19 09:00 04/07/19 08:54 Pepcid PO 20 mg BID GABRIELLA Administration Finasteride 5 mg 04/06/19 09:00 04/07/19 08:54 Proscar PO 5 mg DAILY GABRIELLA Administration Ceftriaxone Sodium 1 gm/ 100 mls @ 200 mls/hr 04/05/19 23:15 04/06/19 23:44 Sodium Chloride IVPB 04/11/19 23:44 100 mls Q24HR GABRIELLA Administration Ipratropium [place] 2.5 ml 04/06/19 01:00 04/07/19 07:15 Atrovent NEB 2.5 ml [id number] GABRIELLA Administration Pantoprazole Sodium 40 mg 04/06/19 09:00 04/07/19 08:54 Protonix PO 40 mg BID GABRIELLA Administration Sodium Chloride 10 ml 04/06/19 21:00 04/07/19 08:54 Flush - Normal Saline IVF 10 ml Q12HR GABRIELLA Administration Tamsulosin HCl 0.8 mg 04/06/19 09:00 04/07/19 08:54 Flomax PO 0.8 mg DAILY GABRIELLA Administration - Exam General Appearance: awake alert Eye: anicteric sclera ENT: normocephalic atraumatic Neck: symmetric, no JVD Heart: RRR Respiratory: no wheezes, no rales, no ronchi, no tachypnea Gastrointestinal: soft, non-tender, non-distended, normal bowel sounds Extremities: 2+ LE edema Neurological: cranial nerve grossly intact, no focal deficits Psychiatric: normal affect, A&O x 3 Hosp A/P (1) LEENA (acute kidney injury) Code(s): N17.9 - ACUTE KIDNEY FAILURE, UNSPECIFIED Status: Acute (2) Bilateral hydronephrosis Code(s): N13.30 - UNSPECIFIED HYDRONEPHROSIS Status: Acute (3) Obstructive uropathy Code(s): N13.9 - OBSTRUCTIVE AND REFLUX UROPATHY, UNSPECIFIED Status: Acute (4) Penile edema Code(s): N48.89 - OTHER SPECIFIED DISORDERS OF PENIS Status: Acute (5) Scrotal edema Code(s): N50.89 - OTHER SPECIFIED DISORDERS OF THE MALE GENITAL ORGANS Status : Acute (6) Bilateral lower extremity edema Code(s): R60.0 - LOCALIZED EDEMA Status: Acute (7) CAD (coronary artery disease) Code(s): I25.10 - ATHSCL HEART DISEASE OF [place] CORONARY ARTERY W/O ANG PCTRS Status: Acute (8) COPD (chronic obstructive pulmonary disease) Status: Acute (9) Ischemic cardiomyopathy Code(s): I25.5 - ISCHEMIC CARDIOMYOPATHY Status: Acute (10) Malignant neoplasm of bladder Status: Acute (11) UTI (urinary tract infection) Status: Acute (12) Nephrolithiasis Status: Acute (13) History of venous thromboembolism Code(s): Z86.718 - PERSONAL HISTORY OF OTHER VENOUS THROMBOSIS AND EMBOLISM Status: Acute - Plan Continue antibiotics. Awaiting urology re evaluation for possible nephrostomies or stent placement. Hold anticoagulation for now inview of anticipated procedures. No diuretic as patient seem euvolemic. Elevation of lower extremities. Monitor renal function and cbc
[2019-04-07] MEDS: Cefepime 1 GM in Sodium Chloride 0.9% 100 ML IVPB SCH (11:47)
[2019-04-07] MEDS ORDERED: Ipratropium Bromide 2.5 ml Neb ONE ×2 (12:22→19:24)
--- NOTE | 2019-04-07 13:11 | PRG ---
DATE OF SERVICE: 04/07/2019 COVERAGE FOR: Dr. Markus Almaraz, primary urologist. SUBJECTIVE: The patient without complaints, denies significant flank pain, chills, dysuria, gross hematuria, and sensation of incomplete void. OBJECTIVE: VITAL SIGNS: Stable. 97.4, 89, 20, and 111/60. I's and O's, urine output 1000 over the last 24 hours. Gen no acute distress H; RRR L CTA ABDOMEN: Morbidly obese, protuberant. No gross CVA tenderness appreciated. : Demonstrates significant preputial edema, uncircumcised, scrotal edema with mild erythema with no gross evidence of cellulitic changes or fluctuance. EXTREMITIES: Bilateral edema, which appears to be chronic in nature. PERTINENT LABORATORY DATA: White count 6, hemoglobin 9.7, and platelet 203. Creatinine is 1.6, mild elevation from 1.4. Looking back at his records, his creatinine has been variable from 1.2 to 3.8. Urinalysis and culture reviewed demonstrating culture demonstrated enterobacter, previously on Rocephin. This has been transitioned to cefepime by Primary Service, which is appropriate sensitivity in coverage. CT of the abdomen and pelvis stone protocol, which I reviewed myself, demonstrates bilateral hydronephrosis to the level of the thickened bladder with no significant urine in the bladder demonstrating no evidence of urinary retention. IMPRESSION AND PLAN: Mr. Barahona is a 74-year-old male with significant cardiopulmonary comorbidities, with urologic issues of muscle invasive bladder cancer. Status post transurethral resection of bladder tumor, chemo-RT, followed by Dr. Almaraz. 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 His Eliquis has been on hold, on Tuesday, he will be ready to proceed with bilateral nephrostomy tube. Continue to monitor with daily labs, continue current antibiotic regimen. Unless the patient becomes severely fluid overloaded, in which he may require urgent dialysis. I do not anticipate this to occur as he appears to be clinically well. Plan is to proceed with bilateral perc tubes on Tuesday when his Eliquis has been held for minimum 48 hours. Interventional Radiology, Dr. Vila is aware, whom I spoke with him regarding the patient's case this morning. Informed Dr. Paulino regarding patient's status and current admission and new finding of bilateral hydronephrosis. Job ID: [id number] MTDD
[2019-04-07] MEDS: Atorvastatin Calcium 40 MG TAB PO SCH (20:08)
[2019-04-08] MEDS: Ipratropium Bromide 2.5 ml Neb NEB SCH ×5 (00:07→23:58)
[2019-04-08] MEDS: Acetaminophen 325 MG TAB PO PRN ×2 (05:29→21:28)
[2019-04-08 06:18] LABS: #Eosinphils 0.2 thou/uL (0.0-0.7); #Lymphocytes 0.6 thou/uL (1.20-3.40); #Monocytes 0.4 thou/uL (0.11-0.59); #Neutrophils 4.3 thou/uL (1.40-6.50); %Basophils 0.1 % (0.0-1.0); %Eosinophils 3.6 % (0.0-10.0); %Lymphocytes 10.3 % (21.0-51.0); %Monocytes 7.7 % (0.0-10.0); %Neutrophils 78.3 % (42.0-75.0); Mean Corpuscular HGB CONC 33.5 g/dL (32.0-36.0); Mean Corpuscular Hemoglobin 30.4 pg (27.0-31.0); Mean Corpuscular Volume 90.8 fL (78.0-98.0); Mean Platelet Volume 6.9 fL (7.4-10.4); Platelet Count 202 thou/uL (130-400); RBC Distribution Width 13.1 % (11.5-14.5); Red Blood Cell (RBC) Count 2.97 mill/uL (4.70-6.10); White Blood Cell (WBC) Count 5.5 thou/uL (4.8-10.8)
[2019-04-08] MEDS ORDERED: Ipratropium Bromide 2.5 ml Neb ONE ×2 (06:43→12:37)
[2019-04-08 06:48] LABS: Anion Gap 12 mmol/L (10-20); BUN (Urea Nitrogen) 21 mg/dL (8.4-25.7); Calc. Creatinine Clearance 68 mL/min (70-130); Calcium 8.4 mg/dL (7.8-10.44); Carbon Dioxide 25 mmol/L (23-31); Chloride 109 mmol/L (98-107); Estimated GFR-MDRD 50; Glucose 109 mg/dL (83-110); Potassium 3.8 mmol/L (3.5-5.1); Sodium 142 mmol/L (136-145)
[2019-04-08] MEDS: Famotidine 20 MG TAB PO SCH ×2 (08:33→21:25)
[2019-04-08] MEDS: Carvedilol 3.125 MG TAB PO SCH ×2 (08:33→17:00)
[2019-04-08] MEDS: Tamsulosin HCl 0.4 MG CAP PO SCH (08:33)
[2019-04-08] MEDS: Finasteride 5 MG TAB PO SCH (08:33)
--- NOTE | 2019-04-08 10:46 | PDOC.HOSPP ---
- Subjective Encounter Date: 04/08/19 Encounter Time: 08:45 Subjective: 74 y/o male with CAD s/p CABG, ICM s/p ICD recent placement, recurrent bladder cancer s/p resction in 10/2018, COPD, HTN, Nephrolithiasis, prior VTE and others admitted due increasing bilateral leg edema and difficulty urinating due to genital swelling. Found to have abnormal UA suggestive of UTI. Further evaluation with renal US showed new bilateral hydronephrosis which was confirmed by CT. No new problem. For bilateral percutaneous nephrostomies tomorrow. Denied fever, nausea, vomiting or SOB. leg swelling is improving. - Objective Vital Signs & Weight: Vital Signs (12 hours) Temp Pulse Resp BP Pulse Ox 04/08/19 07:36 98.3 F 88 20 118/62 98 04/08/19 07:09 89 16 90 L 04/08/19 04:00 98.3 F 93 14 105/58 L 93 L 04/08/19 00:07 89 12 Weight Admit Weight 218 lb 12.8 oz Weight 224 lb 8 oz I&O: 04/07/19 04/08/19 04/09/19 06:59 06:59 06:59 Intake Total 1820 1600 Output Total 1000 1300 Balance 820 300 Result Diagrams: 04/08/19 05:33 04/08/19 05:33 Hospitalist ROS - Medication Medications: Active Medications Generic Name Dose Route Start Last Admin Trade Name Freq PRN Reason Stop Dose Admin Acetaminophen 650 mg 04/05/19 22:52 04/08/19 05:29 Tylenol PO 650 mg Q4H PRN Administration Headache/Fever/Mild Pain (1-3) Hydrocodone Bitart/Acetaminophen 1 tab 04/05/19 22:52 04/06/19 15:04 [place] 5/325 PO 1 tab Q4H PRN Administration Moderate Pain (4-6) Atorvastatin Calcium 40 mg 04/06/19 21:00 04/07/19 20:08 Lipitor PO 40 mg HS GABRIELLA Administration Carvedilol 3.125 mg 04/06/19 08:00 04/08/19 08:33 Coreg PO 3.125 mg BID-WM GABRIELLA Administration Famotidine 20 mg 04/06/19 09:00 04/08/19 08:33 Pepcid PO 20 mg BID GABRIELLA Administration Finasteride 5 mg 04/06/19 09:00 04/08/19 08:33 Proscar PO 5 mg DAILY GABRIELLA Administration Cefepime HCl 1 gm/ Sodium 100 mls @ 200 mls/hr 04/07/19 11:00 04/07/19 11:47 Chloride IVPB 100 mls 1100 GABRIELLA Administration Ipratropium [place] 2.5 ml 04/06/19 01:00 04/08/19 07:09 Atrovent NEB 2.5 ml [id number] GABRIELLA Administration Oxybutynin Chloride 5 mg 04/05/19 22:58 04/07/19 12:52 Ditropan PO 5 mg Q8H PRN Administration Bladder Spasms Pantoprazole Sodium 40 mg 04/06/19 09:00 04/08/19 08:33 Protonix PO 40 mg BID GABRIELLA Administration Sodium Chloride 10 ml 04/06/19 21:00 04/08/19 08:33 Flush - Normal Saline IVF 10 ml Q12HR GABRIELLA Administration Tamsulosin HCl 0.8 mg 04/06/19 09:00 04/08/19 08:33 Flomax PO 0.8 mg DAILY GABRIELLA Administration - Exam General Appearance: awake alert Eye: anicteric sclera ENT: normocephalic atraumatic Neck: symmetric, no JVD Heart: RRR Respiratory: no wheezes, no rales, no ronchi, normal chest expansion Gastrointestinal: soft, non-tender, non-distended, normal bowel sounds Extremities: 2+ LE edema Neurological: cranial nerve grossly intact, no focal deficits Psychiatric: normal affect, A&O x 3 Hosp A/P (1) LEENA (acute kidney injury) Code(s): N17.9 - ACUTE KIDNEY FAILURE, UNSPECIFIED Status: Acute (2) Bilateral hydronephrosis Code(s): N13.30 - UNSPECIFIED HYDRONEPHROSIS Status: Acute (3) Obstructive uropathy Code(s): N13.9 - OBSTRUCTIVE AND REFLUX UROPATHY, UNSPECIFIED Status: Acute (4) Penile edema Code(s): N48.89 - OTHER SPECIFIED DISORDERS OF PENIS Status: Acute (5) Scrotal edema Code(s): N50.89 - OTHER SPECIFIED DISORDERS OF THE MALE GENITAL ORGANS Status : Acute (6) Bilateral lower extremity edema Code(s): R60.0 - LOCALIZED EDEMA Status: Acute (7) CAD (coronary artery disease) Code(s): I25.10 - ATHSCL HEART DISEASE OF [place] CORONARY ARTERY W/O ANG PCTRS Status: Acute (8) COPD (chronic obstructive pulmonary disease) Status: Acute (9) Ischemic cardiomyopathy Code(s): I25.5 - ISCHEMIC CARDIOMYOPATHY Status: Acute (10) Malignant neoplasm of bladder Status: Acute (11) UTI (urinary tract infection) Status: Acute (12) Nephrolithiasis Status: Acute (13) History of venous thromboembolism Code(s): Z86.718 - PERSONAL HISTORY OF OTHER VENOUS THROMBOSIS AND EMBOLISM Status: Acute (14) Chronic disease anemia Code(s): D63.8 - ANEMIA IN OTHER CHRONIC DISEASES CLASSIFIED ELSEWHERE Status : Acute - Plan Continue antibiotics. Avoid diuretic for now. Elevate lower extremities Holding anticoagulation inview of anticipated procedures. For bilateral nephrostomies tomorrow Monitor renal function and cbc
[2019-04-08] MEDS: Cefepime 1 GM in Sodium Chloride 0.9% 100 ML IVPB SCH (11:37)
--- NOTE | 2019-04-08 12:05 | PRG ---
DATE OF SERVICE: 04/08/2019 SUBJECTIVE: The patient without complaints, denies chest pain, shortness of breath, or flank pain. Denies sensation of incomplete void. He is quite happy regarding PureWick, which I placed yesterday, as his diaper remains dry. Urine output is clear. OBJECTIVE: VITAL SIGNS: Stable. I's and O's; 1600 in and 1300 out. He is positive 300 mL. ABDOMEN: Soft, nontender, nondistended. No rigidity. No rebound. LABORATORY DATA: White count 5, hemoglobin 9.0, platelet 209. Creatinine stable at 1.3. IMPRESSION AND PLAN: 1. Mr. Barahona is a 74-year-old male with history of muscle invasive bladder cancer, status post chemo-RT. 2. New onset bilateral hydronephrosis, likely due to supravesical obstruction, i.e., ureteral stricture. He is scheduled for nephrostomy tube tomorrow by Interventional Radiology. His Eliquis has been on hold. Dr. Almaraz will resume his care tomorrow. nPo after midnight Job ID: [id number] [facility]
[2019-04-08] MEDS: Atorvastatin Calcium 40 MG TAB PO SCH (21:25)
[2019-04-09 05:52] LABS: #Eosinphils 0.2 thou/uL (0.0-0.7); #Lymphocytes 0.6 thou/uL (1.20-3.40); #Monocytes 0.5 thou/uL (0.11-0.59); #Neutrophils 4.3 thou/uL (1.40-6.50); %Basophils 0.1 % (0.0-1.0); %Eosinophils 3.4 % (0.0-10.0); %Lymphocytes 10.7 % (21.0-51.0); %Monocytes 9.1 % (0.0-10.0); %Neutrophils 76.7 % (42.0-75.0); Hemoglobin 9.1 g/dL (14.0-18.0); Mean Corpuscular HGB CONC 32.6 g/dL (32.0-36.0); Mean Corpuscular Hemoglobin 29.8 pg (27.0-31.0); Mean Corpuscular Volume 91.3 fL (78.0-98.0); Mean Platelet Volume 6.8 fL (7.4-10.4); Platelet Count 200 thou/uL (130-400); Red Blood Cell (RBC) Count 3.06 mill/uL (4.70-6.10); White Blood Cell (WBC) Count 5.7 thou/uL (4.8-10.8)
[2019-04-09 06:18] LABS: Anion Gap 12 mmol/L (10-20); BUN (Urea Nitrogen) 18 mg/dL (8.4-25.7); Calc. Creatinine Clearance 76 mL/min (70-130); Calcium 8.5 mg/dL (7.8-10.44); Carbon Dioxide 25 mmol/L (23-31); Chloride 108 mmol/L (98-107); Estimated GFR-MDRD 58; Glucose 113 mg/dL (83-110); Potassium 3.8 mmol/L (3.5-5.1); Sodium 141 mmol/L (136-145)
[2019-04-09] MEDS: Ipratropium Bromide 2.5 ml Neb NEB SCH ×4 (08:00→23:55)
[2019-04-09] MEDS: Famotidine 20 MG TAB PO SCH ×2 (08:30→20:15)
[2019-04-09] MEDS: Cefepime 1 GM in Sodium Chloride 0.9% 100 ML IVPB SCH ×2 (08:33→20:14)
[2019-04-09] MEDS: Carvedilol 3.125 MG TAB PO SCH ×2 (08:33→16:58)
[2019-04-09] MEDS: Tamsulosin HCl 0.4 MG CAP PO SCH (09:42)
[2019-04-09] MEDS: Finasteride 5 MG TAB PO SCH (09:42)
--- NOTE | 2019-04-09 11:44 | PDOC.HOSPP ---
- Subjective Encounter Date: 04/09/19 Encounter Time: 09:42 Subjective: 74 y/o male with CAD s/p CABG, ICM s/p ICD recent placement, recurrent bladder cancer s/p resction in 10/2018, COPD, HTN, Nephrolithiasis, prior VTE and others admitted due increasing bilateral leg edema and difficulty urinating due to genital swelling. Found to have abnormal UA suggestive of UTI. Further evaluation with renal US showed new bilateral hydronephrosis which was confirmed by CT. Awaiting bilateral percutaneous nephrostomies tomorrow. Denied fever, nausea, vomiting or SOB. Leg swelling is improved. No nausea or vomiting. - Objective Vital Signs & Weight: Vital Signs (12 hours) Temp Pulse Resp BP Pulse Ox 04/09/19 11:36 97.6 F 91 17 141/75 H 97 04/09/19 08:00 97.6 F 89 16 133/73 96 04/09/19 04:00 98.3 F 100 14 134/71 93 L 04/08/19 23:58 83 12 04/08/19 23:47 98.1 F 92 14 124/68 93 L Weight Admit Weight 218 lb 12.8 oz Weight 224 lb 5 oz I&O: 04/08/19 04/09/19 04/10/19 06:59 06:59 06:59 Intake Total 1600 1880 Output Total 1300 1275 Balance 300 605 Result Diagrams: 04/09/19 05:22 04/09/19 05:22 Hospitalist ROS - Medication Medications: Active Medications Generic Name Dose Route Start Last Admin Trade Name Freq PRN Reason Stop Dose Admin Acetaminophen 650 mg 04/05/19 22:52 04/08/19 21:28 Tylenol PO 650 mg Q4H PRN Administration Headache/Fever/Mild Pain (1-3) Hydrocodone Bitart/Acetaminophen 1 tab 04/05/19 22:52 04/06/19 15:04 [place] 5/325 PO 1 tab Q4H PRN Administration Moderate Pain (4-6) Atorvastatin Calcium 40 mg 04/06/19 21:00 04/08/19 21:25 Lipitor PO 40 mg HS GABRIELLA Administration Carvedilol 3.125 mg 04/06/19 08:00 04/09/19 08:33 Coreg PO 3.125 mg BID-WM GARBIELLA Administration Famotidine 20 mg 04/06/19 09:00 04/09/19 08:30 Pepcid PO Not Given BID [facility] Finasteride 5 mg 04/06/19 09:00 04/09/19 09:42 Proscar PO 5 mg DAILY GABRIELLA Administration Cefepime HCl 1 gm/ Sodium 100 mls @ 200 mls/hr 04/09/19 09:00 04/09/19 08:33 Chloride IVPB 100 mls Q12HR GABRIELLA Administration Ipratropium [place] 2.5 ml 04/06/19 01:00 04/09/19 08:00 Atrovent NEB 2.5 ml [id number] GABRIELLA Administration Oxybutynin Chloride 5 mg 04/05/19 22:58 04/07/19 12:52 Ditropan PO 5 mg Q8H PRN Administration Bladder Spasms Pantoprazole Sodium 40 mg 04/06/19 09:00 04/09/19 08:30 Protonix PO Not Given BID [facility] Sodium Chloride 10 ml 04/06/19 21:00 04/09/19 08:51 Flush - Normal Saline IVF Not Given Q12HR [facility] Tamsulosin HCl 0.8 mg 04/06/19 09:00 04/09/19 09:42 Flomax PO 0.8 mg DAILY GABRIELLA Administration - Exam General Appearance: awake alert Eye: anicteric sclera ENT: normocephalic atraumatic Neck: symmetric, no JVD Heart: RRR Respiratory: no wheezes, no rales, no ronchi, normal chest expansion Gastrointestinal: soft, non-tender, non-distended, normal bowel sounds Gastrointestinal - other findings: genital edema without erythema noted Extremities - other findings: mild to moderate bilateral leg edema Neurological: cranial nerve grossly intact, no focal deficits Psychiatric: A&O x 3 Hosp A/P (1) LEENA (acute kidney injury) Code(s): N17.9 - ACUTE KIDNEY FAILURE, UNSPECIFIED Status: Acute (2) Bilateral hydronephrosis Code(s): N13.30 - UNSPECIFIED HYDRONEPHROSIS Status: Acute (3) Obstructive uropathy Code(s): N13.9 - OBSTRUCTIVE AND REFLUX UROPATHY, UNSPECIFIED Status: Acute (4) Penile edema Code(s): N48.89 - OTHER SPECIFIED DISORDERS OF PENIS Status: Acute (5) Scrotal edema Code(s): N50.89 - OTHER SPECIFIED DISORDERS OF THE MALE GENITAL ORGANS Status : Acute (6) Bilateral lower extremity edema Code(s): R60.0 - LOCALIZED EDEMA Status: Acute (7) CAD (coronary artery disease) Code(s): I25.10 - ATHSCL HEART DISEASE OF [place] CORONARY ARTERY W/O ANG PCTRS Status: Acute (8) COPD (chronic obstructive pulmonary disease) Status: Acute (9) Ischemic cardiomyopathy Code(s): I25.5 - ISCHEMIC CARDIOMYOPATHY Status: Acute (10) Malignant neoplasm of bladder Status: Acute (11) UTI (urinary tract infection) Status: Acute (12) Nephrolithiasis Status: Acute (13) History of venous thromboembolism Code(s): Z86.718 - PERSONAL HISTORY OF OTHER VENOUS THROMBOSIS AND EMBOLISM Status: Acute (14) Chronic disease anemia Code(s): D63.8 - ANEMIA IN OTHER CHRONIC DISEASES CLASSIFIED ELSEWHERE Status : Acute - Plan Continue antibiotics. Ceftriazone substitute with cefepime in line with susceptibility result Avoid diuretic for now. Elevate lower extremities Holding anticoagulation in view of anticipated procedures. For bilateral nephrostomies today Monitor renal function and cbc
[2019-04-09] MEDS ORDERED: Ipratropium Bromide 2.5 ml Neb ONE ×2 (12:49→13:22)
[2019-04-09] MEDS: Atorvastatin Calcium 40 MG TAB PO SCH (20:15)
[2019-04-10] MEDS: Acetaminophen 325 MG TAB PO PRN (03:21)
[2019-04-10 06:06] LABS: #Eosinphils 0.2 thou/uL (0.0-0.7); #Lymphocytes 0.5 thou/uL (1.20-3.40); #Monocytes 0.6 thou/uL (0.11-0.59); #Neutrophils 5.8 thou/uL (1.40-6.50); %Lymphocytes 7.5 % (21.0-51.0); %Monocytes 7.8 % (0.0-10.0); %Neutrophils 81.7 % (42.0-75.0); Hemoglobin 9.4 g/dL (14.0-18.0); Mean Corpuscular HGB CONC 32.1 g/dL (32.0-36.0); Mean Corpuscular Hemoglobin 29.4 pg (27.0-31.0); Mean Corpuscular Volume 91.5 fL (78.0-98.0); Mean Platelet Volume 6.8 fL (7.4-10.4); Platelet Count 222 thou/uL (130-400); Red Blood Cell (RBC) Count 3.21 mill/uL (4.70-6.10); White Blood Cell (WBC) Count 7.1 thou/uL (4.8-10.8)
[2019-04-10 06:39] LABS: Anion Gap 11 mmol/L (10-20); BUN (Urea Nitrogen) 18 mg/dL (8.4-25.7); Calc. Creatinine Clearance 78 mL/min (70-130); Calcium 8.5 mg/dL (7.8-10.44); Carbon Dioxide 25 mmol/L (23-31); Chloride 110 mmol/L (98-107); Estimated GFR-MDRD 61; Glucose 113 mg/dL (83-110); Sodium 142 mmol/L (136-145)
[2019-04-10] MEDS ORDERED: Ipratropium Bromide 2.5 ml Neb ONE (06:46)
[2019-04-10] MEDS: Ipratropium Bromide 2.5 ml Neb NEB SCH ×2 (07:05→13:00)
[2019-04-10] MEDS: Finasteride 5 MG TAB PO SCH (08:13)
[2019-04-10] MEDS: Carvedilol 3.125 MG TAB PO SCH (08:13)
[2019-04-10] MEDS: Tamsulosin HCl 0.4 MG CAP PO SCH (08:13)
[2019-04-10] MEDS: Famotidine 20 MG TAB PO SCH (08:13)
[2019-04-10] MEDS: Cefepime 1 GM in Sodium Chloride 0.9% 100 ML IVPB SCH (08:14)
--- NOTE | 2019-04-10 11:41 | ULT ---
Exam: Bilateral renal ultrasound HISTORY: Bilateral hydronephrosis COMPARISON: 12/04/2018 Correlation: Renal stone CT 04/06/2019 FINDINGS: Right kidney: Normal cortical echotexture. Moderate hydronephrosis, unchanged. Right kidney measurements: 10.8 x 5.2 x 6.1 cm. Left kidney: Normal cortical echotexture. Moderate to severe hydronephrosis. The degree of hydronephr osis has progressed. Left kidney measurements 11.6 x 5.8 x 5.4 cm. Urinary bladder: Normal mucosa. Limited evaluation due to inadequate distention IMPRESSION: 1. Stable moderate right sided hydronephrosis 2. Worsening left-sided hydronephrosis, now moderate to severe CODE T
[2019-04-10 12:08] VITALS: BP 150/81; TEMP 97.6
--- NOTE | 2019-04-10 14:25 | DIS ---
DATE OF ADMISSION: 04/05/2019 DATE OF DISCHARGE: 04/10/2019 PRIMARY CARE PHYSICIAN: Christopher Johnson MD DISCHARGE DIAGNOSES: 1. Acute kidney injury. 2. Bilateral hydronephrosis. 3. Obstructive uropathy. 4. Penile and scrotal edema. 5. Bilateral lower extremity edema. 6. Coronary artery disease. 7. Ischemic cardiomyopathy with ejection fraction of 20% to 25%. 8. Chronic obstructive pulmonary disease without acute exacerbation. 9. Malignant neoplasm of the bladder. 10. Enterobacter cloacae urinary tract infection. 11. Nephrolithiasis. 12. History of venous thromboembolism. 13. Chronic disease, anemia. CONSULT: Urology. HOSPITAL COURSE: A 74-year-old male with known history of coronary artery disease, status post CABG; ischemic cardiomyopathy, status post ICD placement; recurrent bladder cancer, status post resection in October 2018; COPD; hypertension; and prior VTE amongst others, admitted due to increasing bilateral leg edema as well as genital swelling associated with difficulty urinating. The patient was found on presentation to have abnormal UA suggestive of urinary tract infection, hence the patient was started on antibiotics while urine sample was sent for culture. Further evaluation with renal ultrasound showed new bilateral hydronephrosis. Urology consult was obtained and CT was requested and this also confirmed bilateral hydronephrosis. Given associated acute kidney injury, the patient's options of bilateral nephrostomies or stent placement were discussed with the patient and it was decided the patient to have bilateral percutaneous nephrostomies. However, during the course of this hospitalization, creatinine improved from peak of 1.65 to 1.17. At this point, Urology felt that there is no immediate need for bilateral nephrostomies and the patient actually preferred not to have them at this time. Repeat ultrasound showed mild progression of hydronephrosis on the left side and this was discussed with urologist, who recommended outpatient followup in 3 to 4 weeks for repeat ultrasound and renal function test. 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 DVT was ruled out with bilateral lower extremity Dopplers. The patient was treated with limb elevation with improvement. He remained stable and was subsequently discharged home to follow with PCP and urologist. PHYSICAL EXAMINATION: VITAL SIGNS: Temperature 97.6, pulse 94, respiratory rate 16, SpO2 of 92% on room air, and blood pressure is 150/81. GENERAL: Obese male, in no obvious distress. Afebrile. Anicteric. Acyanotic. HEENT: Normocephalic, atraumatic. Oral mucosa is moist. CARDIOVASCULAR: Regular rhythm and rate. Normal heart sounds 1 and 2. RESPIRATORY: Fair air entry bilaterally with no obvious crackle or rhonchi or use of accessory muscles. GI: Obese, soft, nontender, nondistended with normal bowel sounds. UROGENITAL: Scrotal and penile edema noted, which has improved relative to admission state. EXTREMITIES: Bilateral leg edema, mild with anterior excoriation and mild redness on both legs. BOILER CLEANER: Conscious, alert, and oriented x3 with appropriate mental status. DISCHARGE CONDITION: Improved. DISCHARGE DISPOSITION: Home. FOLLOWUP: 1. With PCP in 7 days. 2. With urologist in 3 to 4 weeks. 3. With spinning frame fixer in 2 to 3 weeks. DISCHARGE MEDICATIONS: 1. Acetaminophen 1000 mg q.4 p.r.n. 2. Lipitor 40 mg p.o. daily at bedtime. 3. Citrucel tablet 500 mg p.o. daily. 4. Cetirizine 10 mg p.o. daily. 5. Finasteride 5 mg p.o. daily. 6. Hydrocodone/acetaminophen 5/325 one tablet q.6 p.r.n. 7. Multivitamin 1 tablet daily. 8. Omeprazole 40 mg p.o. b.i.d. 9. Entresto 24/26 one tablet p.o. b.i.d., this was restarted on discharge. 10. Symbicort two puffs inhalation b.i.d. 11. Flomax 0.8 mg p.o. daily. 12. Spiriva 18 mcg daily. 13. Zinc 50 mg p.o. daily. 14. Oxybutynin 5 mg q.8 p.r.n. for bladder spasm. Discharge took more than 37 minutes. Job ID: [id number]
--- NOTE | 2019-04-10 18:15 | PRG ---
DATE OF SERVICE: 04/09/2019 SUBJECTIVE: The patient is complaining of significant genitourinary swelling still. His CT had demonstrated hydronephrosis bilaterally; however, his creatinine has continued to improve. We had discussed possible placement of a nephrostomy tube in both kidneys, which would allow for adequate drainage of his kidneys, although the patient still had not reached the decision on what he wanted to do. He does not report any significant pain. He currently is extremely satisfied with the urine wick system, which is keeping him dry and allowing for the urine to be sucked out into the wall canister. OBJECTIVE: VITAL SIGNS: Temperature 97.8, pulse 101, respirations 18, blood pressure 137/73, saturation 97% on room air. GENERAL: No apparent distress. Communicative and alert. CARDIOVASCULAR: Regular rate. Irregular rhythm. Normal S1 and S2. ABDOMEN: Soft, nontender, and nondistended. Positive bowel sounds. : Significant genitourinary edema, relatively unchanged from prior. EXTREMITIES: 3+ edema bilaterally. LABORATORY DATA: On laboratory evaluation, the patient's creatinine has decreased down to approximately 1.23. ASSESSMENT AND PLAN: A 74-year-old white male with bilateral hydronephrosis with empty bladder indicating likely bilateral ureteral obstruction secondary to stricturing from radiation changes. His creatinine continues to improve. We again discussed whether or not the patient would like nephrostomy tubes. If he chooses to have nephrostomy tubes placed, this would give significant quality of life improvement from the standpoint of not having to urinate so often and going to the bathroom approximately every hour; however, he would have to have bilateral urinary drainage bags, which he is not keen to do. Overall, he is somewhat confused as to which way he wants to proceed forward. He would like to think about it and will let me know by the morning which way he wants to proceed forward. I will continue to follow along and make recommendations accordingly. Job ID: [id number]
--- NOTE | 2019-04-10 18:17 | PRG ---
DATE OF SERVICE: 04/10/2019 SUBJECTIVE: The patient states he is feeling fine. He is having no complaints. He is still using the urine wick system which he is very happy with. Denies any bladder spasms or significant pain. OBJECTIVE: VITAL SIGNS: Temperature 98.9, pulse 92, respirations 20, blood pressure 131/70, saturation 94% on room air. GENERAL: No apparent distress. Communicative and alert CARDIOVASCULAR: Regular rate, regular rhythm. ABDOMEN: Soft, nontender, and nondistended. Positive bowel sounds. : Significant genitourinary edema, largely unchanged. EXTREMITIES: 3+ edema bilaterally. LABORATORY EVALUATION: His creatinine has come down to 1.17. ASSESSMENT AND PLAN: A 74-year-old white male with bilateral hydronephrosis with ultrasound today demonstrating moderate hydronephrosis bilaterally, which is a little bit worse; however, his creatinine continues to improve. I do suspect that he has a low-grade obstruction, but his kidney function has significantly gotten better to the point of pretty much being normal. At the current time, I do not think he needs nephrostomy tubes from the standpoint of protection of renal function as his renal function has normalized; however, we could continue to do the nephrostomy tubes if he wanted to for quality of life improvement. He does not feel that the nephrostomy tubes would be a significant quality of life improvement given that he would have to carry around urinary drainage bags on both sides. As such, he is elected to forego the nephrostomy tubes and continue to urinate as he is. As such, I would be okay with him getting discharge today with no nephrostomy tubes; however, I would recommend close followup in 4 weeks with a repeat BMP and renal ultrasound prior to his followup appointment to ensure that his hydronephrosis is not worsening and his renal failure is not returning. If it is, then we will probably need to place nephrostomy tubes at that time. For his genitourinary edema, this is secondary to his lower extremity edema as well, which is secondary function of his right-sided heart failure. Unfortunately, this probably will not get better on its own unless we can significantly improve his heart function which is not likely at this point. Diuretics and compression with a jockstrap will be the primary methods for decreasing his scrotal edema otherwise at this point. Job ID: [id number]
--- NOTE | 2019-04-12 07:35 | PQF ---
NICCI COCHRAN OBI, CHIZOBA C [id number] CLINICAL DOCUMENTATION CLARIFICATION FORM: POST DISCHARGE Addendum to original discharge summary date: ____ Late entry note date: __ DATE: 04/12/2019 ATTN:MARILYN CAMARGO Please exercise your independent, professional judgment in responding to the clarification form. Clinical indicators are provided on the bottom of this form for your review Please check appropriate box(s): HEART FAILURE: A. TYPE: [ ] Systolic / HFrEF [ ] Diastolic / HFpEF [ ] Combined Systolic / Diastolic B. ACUITY [ ] Acute [ ] Acute on Chronic [ ] Chronic [ ] Other diagnosis [ ] Unable to determine For continuity of documentation, please document condition throughout progress notes and discharge summary. Thank You. CLINICAL INDICATORS - SIGNS / SYMPTOMS / LABS - BNP:300- Hospital H&P, 04/05, Estuardo Mayen MD - Ischemic cardiomyopathy with ejection fraction of 20% to 25%-DS, 04/10, MARILYN CAMARGO - Acute fluid overload- ED record, 04/05, Earl Marte MD - Bilateral lower extremity edema- 04/06, MARILYN CAMARGO - this is sec to his lower extremity edema as well, which is secondary function of his right-sided heart failure-Progress note, 04/10, Sung Aparicio MD RISKS: -Hypertension-DS, 04/10, MARILYN CAMARGO -Coronary artery disease-DS, 04/10, MARILYN CAMARGO -PMH : CABG-DS, 04/10, Estuardo Mayen MD TREATMENTS: -Furosemide.IV- JUL, 03/05 This form is maintained as a part of the permanent medical record) 2014 [employer]. All Rights Reserved Terri Cerda [not provided] [not provided] MTDD
== END 2019-04-10 15:30 | disposition home or self-care (01) | DRG 607 ==
LOC: ERS 17:02 → 2NO 22:06
PROVIDERS: ADMIT Internal Medicine; ATTEND Internal Medicine
DX: I89.0 Lymphedema, not elsewhere classified (principal); N13.6 Pyonephrosis; N17.9 Acute kidney failure, unspecified; I25.10 Atherosclerotic heart disease of native coronary artery without angina pectoris; I25.5 Ischemic cardiomyopathy; C67.9 Malignant neoplasm of bladder, unspecified; J44.9 Chronic obstructive pulmonary disease, unspecified; B96.89 Other specified bacterial agents as the cause of diseases classified elsewhere; D63.8 Anemia in other chronic diseases classified elsewhere; E87.70 Fluid overload, unspecified; N40.0 Benign prostatic hyperplasia without lower urinary tract symptoms; I11.0 Hypertensive heart disease with heart failure; I50.9 Heart failure, unspecified; N32.81 Overactive bladder; F32.9 Major depressive disorder, single episode, unspecified; I50.810 Right heart failure, unspecified; E66.9 Obesity, unspecified; Z95.1 Presence of aortocoronary bypass graft; Z95.810 Presence of automatic (implantable) cardiac defibrillator
CPT/HCPCS: 36415; 71045; 74176; 76770; 80048; 80053; 81003; 81015; 82550; 83690; 83880; 84484; 85025; 87077; 87086; 87186; 93005; 93970; J0692; J0696; J1940; J1956; J3490

== ENCOUNTER 2019-05-24 14:36 | Inpatient (IN) | payer MEDICARE ==
[2019-05-24 15:05] LABS: #Eosinphils 0.1 thou/uL (0.0-0.7); #Lymphocytes 0.7 thou/uL (1.20-3.40); #Monocytes 0.5 thou/uL (0.11-0.59); #Neutrophils 5.6 thou/uL (1.40-6.50); %Eosinophils 1.6 % (0.0-10.0); %Lymphocytes 10.1 % (21.0-51.0); %Monocytes 7.8 % (0.0-10.0); %Neutrophils 80.4 % (42.0-75.0); Hemoglobin 11.2 g/dL (14.0-18.0); Mean Corpuscular HGB CONC 33.5 g/dL (32.0-36.0); Mean Corpuscular Hemoglobin 27.5 pg (27.0-31.0); Platelet Count 201 thou/uL (130-400); RBC Distribution Width 14.7 % (11.5-14.5); Red Blood Cell (RBC) Count 4.07 mill/uL (4.70-6.10); White Blood Cell (WBC) Count 6.9 thou/uL (4.8-10.8)
[2019-05-24 15:25] LABS: ALT (SGPT) 15 U/L (8-55); AST (SGOT) 15 U/L (5-34); Albumin 3.9 g/dL (3.4-4.8); Alkaline Phosphatase 113 U/L (40-110); Anion Gap 14 mmol/L (10-20); BUN (Urea Nitrogen) 17 mg/dL (8.4-25.7); Bilirubin, Total 0.4 mg/dL (0.2-1.2); CK (CPK) 50 U/L (30-200); Calc. Creatinine Clearance 0 mL/min (70-130); Calcium 9.2 mg/dL (7.8-10.44); Carbon Dioxide 24 mmol/L (23-31); Chloride 107 mmol/L (98-107); Estimated GFR-MDRD 68; Globulin 3.3 g/dL (2.4-3.5); Glucose 116 mg/dL (83-110); Potassium 3.8 mmol/L (3.5-5.1); Protein, Total 7.2 g/dL (5.8-8.1); Sodium 141 mmol/L (136-145)
--- NOTE | 2019-05-24 15:37 | RAD ---
EXAM: CHEST TWO VIEWS: 05/24/19 HISTORY: Chest pain, shortness of breath. COMPARISON: 04/05/19. Postop midline sternotomy. Left ICD. Alveolar parenchymal change in the anterior left mid lower chest probably the lingula. There also appears to be a 4 cm diameter nodular focus in the left infrahilar region raising concern for the possibility of a mass or abnormally enlarged lymph node. This appearan ce, above, could be related to a malignancy with post obstructive pneumonitis. There is minimal left hemidiaphragm elevation. The right lung is clear. IMPRESSION: Alveolar parenchymal density in the lingula with a 4 cm diameter somewhat more nodular focus in the l eft infrahilar region. This could certainly represent a mass in the infrahilar region resulting in br onchial obstruction and post obstructive pneumonitis. If the patient has symptoms of acute pneumonia, treatment and short term follow-up study in several weeks is recommended. If not, consideration for nonemergent follow-up chest CT scan with IV contrast is recommended. POS: TPC
[2019-05-24] MEDS ORDERED: Aspirin Chewable 81 MG TAB ONE (16:26)
[2019-05-24] MEDS ORDERED: methylPREDNISolone Sod Succ/PF 125 MG/2 ML VIAL ONE (16:26)
[2019-05-24] MEDS ORDERED: Furosemide 20 MG/2 ML VIAL ONE (16:26)
--- NOTE | 2019-05-24 18:13 | CT ---
andCT ANGIOGRAM THORAX WITH IV CONTRAST AND 3D RECONSTRUCTION: 05/24/19 HISTORY: Shortness of breath for the past few nights. Left shoulder pain. COMPARISON: None available. FINDINGS: There is a dense area of consolidation seen in the left upper lobe which may be related to pneumonia. However, there was a small focal area of increased FDG avid uptake in an anterior segmental left upp er lobe bronchus on prior PET CT exam on 11/23/18. The density and consolidation in this region is muc h larger in size. While these findings may be related to pneumonia, neoplastic process and post obstr uctive changes are certainly a possibility. Small left pleural effusion is present. There is a left lower lobe pulmonary nodule which did not demonstrate FDG avidity on the prior PET sc an. There is linear scarring versus atelectasis present in the right upper lobe. Evidence of COPD is agai n seen bilaterally and was also noted on prior PET CT exam. There is increased number and size of mediastinal lymph nodes. Largest precarinal lymph node measures 1.2 cm in short axis dimension with a prevascular space lymph node measuring approximately 1.5 cm in short axis dimension. There is a subcarinal lymph node measuring 1.2 cm in short axis dimension. Fin dings may be related to reactive lymphadenopathy. Dual lead left subclavian cardiac pacemaking device is noted in place. Median sternotomy wires are se en. No filling defects are seen in the pulmonary arteries to suggest a pulmonary embolus. Vascular calcifications are seen in the coronary arteries and involving the thoracic aorta. The thora cic aorta is normal in caliber without evidence of an aortic dissection. Minimal increased density is seen dependently within the gallbladder lumen which may represent a tiny amount of sludge or gallbladder calculi. Subcentimeter difficult to characterize hypodense lesion is seen in the medial aspect of the mid port ion left kidney which was also seen on recent PET CT exam. A subcentimeter too small to characterize hypodense lesion is again seen in the superior pole left ki dney. Degenerative changes are seen in the spine. No suspicious lytic or sclerotic osseous lesions are appr eciated. IMPRESSION: 1. Moderate sized area of dense consolidation in the left upper lobe greatest in the region of t he lingula. While findings could be related to pneumonia, there was an area of FDG avid uptake seen w ithin a left upper lobe bronchus on prior PET CT scan on 11/23/18, and findings are suspicious for con solidation secondary to obstructing lesion related to neoplastic process. Bronchoscopy is suggested. 2. Mediastinal lymphadenopathy. 3. COPD. 4. No CT evidence of a pulmonary embolus. 5. Small left pleural effusion. 6. Difficult to characterize hypodense lesions left kidney. 7. Tiny amount of sludge versus gallbladder calculi in the dependent portion of the gallbladder. POS: FRANCIA
[2019-05-24 19:44] LABS: Troponin I Less than 0.010 ng/mL (< 0.028)
[2019-05-24 22:18] VITALS: BMI 33.0
[2019-05-24 22:27] LABS: Troponin I 0.012 ng/mL (< 0.028)
[2019-05-25] MEDS ORDERED: HYDROcodone/Acetaminophen 5/325 mg Tablet PO PRN (11:19)
--- NOTE | 2019-05-25 13:09 | HP ---
The patient was seen and examined on 05/25/2019. CHIEF COMPLAINT: Shortness of breath, orthopnea, left shoulder and chest pain times days. HISTORY OF PRESENT ILLNESS: This is a 74-year-old male with past medical history of recurrent bladder cancer, status post TURP in May 2018 and September 2018, who has undergone 7 weeks of chemotherapy and 35 rounds of radiation therapy last in December 2018 with last PET scan in October 2018, showing an avid spot in the left lung, coronary artery disease status post 4-vessel CABG, ischemic cardiomyopathy, EF 20% to 25%, status post AICD, hypertension, COPD, chronic prior nicotine dependence , DVT and PE, on Eliquis; CKD 3, who presents to [facility] ER for dyspnea and orthopnea for the past 2 nights, associated with pressure on chest and pain in the left shoulder blade since Tuesday, prompting further evaluation. The patient denies any fevers, chills, sweats, nausea, vomiting, or worsening lower extremity edema. He notes chronic hemoptysis attributed secondary to bladder radiation therapy. In the ER, vital signs were unremarkable. A one-view chest x-ray revealed an alveolar parenchymal density in the lingula with a 4-cm diameter. A D-dimer was equivocal. CTA chest and thorax was negative for pulmonary embolism, but did suggest a dense area of consolidation in the left upper lobe, which may be related to pneumonia , but the density appears much larger in size than in comparison to October 2018 PET-CT scan, a neoplastic process was also a possibility. Furthermore, increased number and size of mediastinal lymphadenopathy was also noted. The patient was admitted for further inpatient evaluation. At bedside, the patient reports his pain was improved. He still has some dyspnea and orthopnea, but notes again his lower extremity edema was overall improved. He was recently hospitalized in March 2019 for concerns for obstructive uropathy and has since followed up with his urologist as an outpatient with repeat ultrasound showing improving findings. The patient is compliant with home medications. He denies any hematuria. His oncologist is Dr. Bustamante. PAST MEDICAL HISTORY: 1. Recurrent bladder cancer, status post TURP in May and September 2018, status post chemotherapy 7 weeks and status post radiation therapy 35 rounds last in November to December 2018 and last PET-CT scan in October 2018. 2. Coronary artery disease, status post CABG x4 in July 2018. 3. Ischemic cardiomyopathy, status post AICD in February 2019. 4. DVT and PE, secondary to heparin-induced thrombocytopenia, requiring femoral embolectomy, on Eliquis. 5. Hypertension. 6. COPD. 7. Prior nicotine dependence. 8. CKD 3. PAST SURGICAL HISTORY: TURP, CABG x4, AICD, and femoral embolectomy. SOCIAL HISTORY: The patient is a former smoker. He quit 10 years ago. He generally smoked 1-1/2 packs per day, but smoked up to 4 packs per day during his service in [employer] for 22 months. He denies any current tobacco or alcohol use. He is ambulatory without assistive device. He is not on home oxygen. ALLERGIES: HEPARIN. REVIEW OF SYSTEMS: Pertinent positives as per HPI. Remainder of systems negative. MEDICATIONS: Reviewed as per admission medication reconciliation. FAMILY HISTORY: His father had cardiac surgery at age 62. He denies any family history of malignancies. PHYSICAL EXAMINATION: VITAL SIGNS: T-max 98.4, pulse 90s to 100s, sinus rhythm, blood pressure 158/73 , oxygen saturation 94% on room air, and respirations 18 to 20, labored. GENERAL APPEARANCE: This is an elderly male, who is awake, alert, oriented, coherent, lucid, speaking in full complete sentences with increased work of breathing noted. HEENT: Normocephalic, atraumatic. No facial asymmetry. Mucous membranes moist. NECK: Supple. CARDIOVASCULAR: S1, S2. Regular rate and rhythm. No harsh murmurs. There is median sternotomy scar noted. There is a left chest wall ICD pocket noted. LUNGS: Increased work of breathing noted with tachypnea. Bilateral equal air entry on posterior auscultation without any significant wheezing or rales appreciated. Coarse breath sounds. ABDOMEN: Soft, obese, nontender, nondistended. EXTREMITIES: There is mild lower extremity pitting edema noted. Chronic skin changes of bilateral lower extremities. SKIN: Warm to touch without rash or pallor or abrasion. LABORATORY VALUES: WBC 6.9, H and H 11.2/33.4, and platelets 201. D-dimer 0.64. Sodium 141, potassium 3.8, chloride 107, bicarb 24, glucose 116, BUN/creatinine 17/1.06, GFR 68. Troponin I negative x3. IMAGING: One-view chest x-ray on 05/24/2019, reviewed, suggests a left lingular 4-cm diameter alveolar parenchymal density, which could certainly represent a mass in the infrahilar region resulting in bronchial obstruction and postobstructive pneumonitis. CTA of chest and thorax in 05/24/2019, negative for PE. Dense area of consolidation in the left upper lobe, which may be related to pneumonia; however, there is a small focal area of increased FDG-avid uptake in the anterior segmental left upper lobe bronchus on prior CT scan. Densities much larger in size. May be related to pneumonia, but a neoplastic process and postoperative changes are possibility. Left lower lobe pulmonary nodule which does not demonstrate FDG avidity on the recent PET scan in October 2018. Increased mediastinal lymphadenopathy . ASSESSMENT: 1. Dyspnea of unspecified etiology, possibly multifactorial etiology. The patient will be admitted as inpatient status and placed on telemetry monitoring. He has known history of recurrent bladder cancer with recent in October 2018 PET-CT scan noted. CTA chest and thorax with dense area of consolidation in the left upper lobe and cannot exclude a metastatic focus or even postobstructive pneumonia. At this time, we will consult Oncology and Pulmonology. We will maintain on a broad-spectrum respiratory dose, IV antibiotics with fluoroquinolone and noting recent hospitalization. The patient also has known history of ischemic cardiomyopathy, but does not appear to be in a decompensated state. We will resume home medications. We will obtain resting and ambulatory pulse oximetry. Further evaluation of dense left upper lobe consolidation, we will likely need to be evaluated as an outpatient with repeat imaging and further consideration of treatment. 2. History of bladder cancer. The patient underwent TURP in May and September 2018 and undergone prior chemotherapy and radiation therapy, and his last surveillance PET-CT scan was October 2018. We will consult his oncologist, Dr. Bustamante, for further evaluation of new left upper lobe dense consolidation and mediastinal lymphadenopathy. 3. Coronary artery disease, status post coronary artery bypass grafting x4 in July 2018. Continue home CAD prudent medications. 4. Ischemic cardiomyopathy, status post automatic implantable cardioverter-defibrillator in 03/18/2019. The patient appears to be compensated. Continue home medications. 5. Chronic kidney disease, stage 3. The patient was recently hospitalized for concerns for obstructive uropathy and consideration for percutaneous nephrostomy was noted at that time; however, the patient has followed up with his urologist, Dr. Almaraz, as recently as outpatient and was reassured. Chronic obstructive pulmonary disease, not in severe exacerbation. We will consult custom designer to assess for need for steroids. Start p.r.n. nebulizers. 6. History of deep venous thrombosis and pulmonary embolism. Resume Eliquis. The patient reports this is a result of heparin-induced thrombocytopenia. CODE STATUS: Full code. Discussed with the patient. The patient's surrogate decision makers are his daughters, Brenda and Susan. Check a.m. labs. DISPOSITION: The patient will be admitted as inpatient status and placed on telemetry monitoring. Job ID: [id number] MTDD
[2019-05-25] MEDS: Furosemide 40 MG TAB PO SCH (13:31)
[2019-05-25] MEDS: Ipratropium Bromide 2.5 ml Neb NEB SCH ×2 (14:18→19:43)
[2019-05-25] MEDS: Albuterol Sulfate 2.5 mg/3 ml Neb NEB SCH ×2 (14:18→19:43)
--- NOTE | 2019-05-25 15:39 | CON ---
DATE OF CONSULTATION: 05/25/2019 REASON FOR CONSULTATION: Abnormal CT scan. HISTORY OF PRESENT ILLNESS: Mr. Barahona is a 74-year-old male, who was admitted with increasing shortness of breath and left shoulder pain that has been present for over a week. He tells me he has been coughing up blood for the last 2 months that he notified his doctors and they said they would just watch it. He says his shortness of breath is mainly with exertion. The shoulder pain has been increasing and seems to be refractory to pain medication. PAST MEDICAL HISTORY: 1. Bladder cancer, treated by what sounds to be cryotherapy. 2. Transurethral resection of the prostate. 3. Coronary artery disease, requiring bypass surgery in 2019. 4. Ischemic cardiomyopathy, requiring AICD placement. 5. DVT/PE, requiring a femoral embolectomy, now on Eliquis therapy. 6. Hypertension. 7. COPD. 8. Nicotine dependence. 9. Chronic kidney disease, stage 3. PAST SURGICAL HISTORY: See above. SOCIAL HISTORY: Quit smoking 10 years ago after smoking a pack and a half a day most of his adult life. Does not consume alcohol. Does not use any illicit drugs. ALLERGIES: HEPARIN. MEDICATIONS: Prior to admission; 1. Proscar. 2. Citrucel. 3. Lipitor. 4. Extra-strength Tylenol. 5. Tamsulosin. 6. Symbicort. 7. Entresto. 8. Ditropan. 9. Omeprazole. 10. Multivitamin. 11. Hydrocodone. 12. Zinc. 13. Spiriva. REVIEW OF SYSTEMS: Twelve-point review of systems is otherwise negative. PHYSICAL EXAMINATION: VITAL SIGNS: Temperature 97.7, pulse 104, respirations 22, O2 saturation 91% on room air, and blood pressure 132/65. GENERAL: He is awake and alert, and in no distress. HEENT: Unremarkable. NECK: No adenopathy or JVD. LUNGS: He has diminished air entry in left upper lobe. Left lower lobe, clear. Right side, clear. CARDIAC: S1 and S2. Regular. ABDOMEN: Soft, nontender to palpation. EXTREMITIES: No clubbing or cyanosis. He has stasis changes over his ankles bilaterally. LABORATORY DATA: White blood cell count 6.9, hematocrit 33.4, and platelet count 201. D-dimer 0.6. Sodium 141, potassium 3.8, chloride 107, CO2 of 24, BUN 17, creatinine 1.1, and glucose 116. His CT was reviewed by myself personally, it shows atelectasis at the lingular portion of his left lung. ASSESSMENT: 1. Left lung atelectasis in conjunction with hemoptysis. 2. Increase dyspnea. 3. Shoulder pain. PLAN: I discussed my findings with the patient. I feel he would need a bronchoscopy for diagnosis to rule out endobronchial tumor, given that he is having hemoptysis and he has atelectasis on a CT scan. The patient told me unequivocally that he was told never to have any type of procedure again, where he went "under." He apparently was told this by Dr. Paulino. I would recommend that Cardiology see the patient again. The earliest bronchoscopy could be performed is next week, if he has cleared. An alternative would be to get a repeat PET scan as an outpatient to further work this up. In any event, I doubt the patient has acute pneumonia. I would be more worried about malignancy at this time. Job ID: [id number]
--- NOTE | 2019-05-25 17:03 | CON ---
DATE OF CONSULTATION: REASON FOR CONSULTATION: Bladder cancer. HISTORY OF PRESENT ILLNESS: Mr. Barahona is a pleasant 74-year-old gentleman, who completed concurrent chemoradiation for bladder cancer in 01/2019. He was originally diagnosed in October of this year and underwent a PET scan at that time, that showed a small 7-mm left lower lobe noncalcified pulmonary nodule, that was not FDG avid. There was also a left upper lobe soft tissue mass, abutting the left cardiac border, surrounding the anterior segment mental branch of the left upper lobe bronchus, had a max SUV of 3.5. There was no mediastinal or hilar metabolic activity on that PET scan. Over the last several weeks, the patient states he has been having blood-tinged sputum. He is on Eliquis for DVT and PE. He began to have chest pain yesterday in his left shoulder and was brought to the emergency room for evaluation. His BNP was elevated at 357, but his troponin was negative. He had a chest and thoracic CT angio performed, which showed no evidence of pulmonary emboli; however, the left upper lobe area of consolidation was much larger than on the PET scan. He now had mediastinal lymphadenopathy. Bronchoscopy was recommended. Unfortunately, the patient has cardiomyopathy with his last EF of 20% to 25%, and the patient states he was told to never undergo anesthesia. Again, he was seen at bedside. He has some shortness of breath with exertion and lower extremity edema, but denies any chest pain. PAST MEDICAL HISTORY: 1. Coronary artery disease. 2. Congestive heart failure. 3. COPD. 4. DVT and PE. 5. Bladder cancer. 6. Hypertension. 7. Arthritis. 8. Acid reflux. PAST SURGICAL HISTORY: 1. CABG. 2. Blood clot removal of the leg. 3. TURBT. ALLERGIES: TO HEPARIN. HOME MEDICATIONS: 1. Atorvastatin. 2. Sertraline. 3. Proscar. 4. [place]. 5. Prilosec. 6. Entresto. 7. Symbicort. 8. Flomax. 9. Spiriva. 10. Ditropan. FAMILY HISTORY: Noncontributory. SOCIAL HISTORY: He is , has 2 children. [id number] history of smoking, quit 10 years ago. REVIEW OF SYSTEMS: A 10-point review of systems is negative except for noted in HPI. PHYSICAL EXAMINATION: VITAL SIGNS: Temperature is 97.9, pulse is 99, respiratory rate 20, blood pressure is 138/67, and he is 93% on room air. GENERAL: This is a well-developed, well-nourished male, in no acute distress. HEENT: Normocephalic and atraumatic. Pupils are equal and reactive to light. NECK: Supple. CV: Regular rate and rhythm. LUNGS: Diminished throughout. ABDOMEN: Soft and nontender. Bowel sounds are positive. EXTREMITIES: He has 2+ bilateral lower extremity edema. SKIN: No rash. HEMATOLOGIC: No petechiae or purpura. NEUROLOGIC: Nonfocal. PERTINENT LABS AND X-RAYS: Current WBCs are 6.9, hemoglobin 11.2, hematocrit 33.4, and platelet count is 201,000. He has 80% neutrophils and 10% lymphocytes. Sodium is 141, potassium 3.8, chloride 107, CO2 is 24, BUN is 17, creatinine 1.06, and calcium 9.2. Bilirubin 0.4, AST is 15, ALT is 15, and alkaline phosphatase is 113. Troponin is negative. BNP is 357. Serum total protein 7.2, albumin 3.9, globulin 3.3, and lipase is 35. Radiology per HPI. ASSESSMENT: 1. Bladder cancer status post concurrent chemoradiation. 2. Cardiomyopathy with pacemaker placement. 3. Left upper lobe consolidation, concerning for neoplastic process. DISCUSSION: The patient is hesitant to undergo any procedure requiring anesthesia. He has been seen by Dr. Carolina on this admission. Case was discussed with Dr. Carolina. The patient is due for a PET scan, which could be done in the outpatient setting to further characterize his left upper lobe area of consolidation. He will follow up with Dr. Bustamante in the next week or so to discuss this option further and follow up with Dr. Hunter, his manager business banking, as scheduled. Thank you for the consult. Job ID: [id number]
[2019-05-25] MEDS: Mometasone/Formoterol 120 PUFF INHALER INH SCH (19:41)
[2019-05-25] MEDS ORDERED: Atorvastatin Calcium 40 MG TAB PO SCH (21:00)
[2019-05-25] MEDS: Acetaminophen 500 MG TAB PO PRN (21:40)
[2019-05-26] MEDS: Ipratropium Bromide 2.5 ml Neb NEB SCH ×4 (00:23→19:27)
[2019-05-26] MEDS: Albuterol Sulfate 2.5 mg/3 ml Neb NEB SCH ×3 (07:40→19:27)
[2019-05-26] MEDS: Mometasone/Formoterol 120 PUFF INHALER INH SCH ×2 (07:46→19:26)
[2019-05-26] MEDS ORDERED: Finasteride 5 MG TAB PO SCH (09:00)
[2019-05-26] MEDS ORDERED: Tamsulosin HCl 0.4 MG CAP PO SCH (09:00)
[2019-05-26] MEDS: Furosemide 40 MG TAB PO SCH ×2 (09:42→15:22)
[2019-05-26] MEDS: Acetaminophen 500 MG TAB PO PRN (09:42)
[2019-05-26 13:22] VITALS: TEMP 97.9
--- NOTE | 2019-05-26 13:34 | PRG ---
DATE OF SERVICE: 05/26/2019 SUBJECTIVE: The patient's principal complaint today is left shoulder pain. He is not having any shortness of breath. OBJECTIVE: VITAL SIGNS: His temperature is 98.3, pulse 111, O2 saturation 91% on room air, blood pressure 144/95. HEENT: Unremarkable. NECK: No JVD. LUNGS: Clear. CARDIAC: S1 and S2. Regular. ABDOMEN: Soft. EXTREMITIES: No edema. LABORATORY DATA: No labs were obtained today. ASSESSMENT: 1. Left upper lobe collapse with possible endobronchial component. 2. Left shoulder pain. 3. Increased dyspnea. 4. Hemoptysis. PLAN: 1. He really needs a bronchoscopy, but he will not consent because he was told never to undergo anesthesia again. Outpatient PET scan would be recommended if he cannot have additional procedures performed. 2. Might consider imaging shoulder or bone scan to rule out metastasis given the extreme pain in that area. I will leave that up to primary care team. Job ID: [id number]
--- NOTE | 2019-05-26 15:34 | RAD ---
EXAM: 3 views of the left shoulder HISTORY: Shoulder pain COMPARISON: None FINDINGS: There is no evidence of acute fracture or dislocation. Mild glenohumeral degenerative anderson es are present. No soft tissue swelling is seen. The pacemaker is partially visualized in the left chest. No suspicious osseous lesions are identified. IMPRESSION: Mild left shoulder osteoarthritis
[2019-05-26 16:26] VITALS: BP 130/76
--- NOTE | 2019-05-27 23:39 | PQF ---
NICCI COCHRAN SCOTT E MD [id number] [facility]-288 [id number] CLINICAL DOCUMENTATION CLARIFICATION FORM: POST DISCHARGE Addendum to original discharge summary date: ____ Late entry note date: __ DATE: 05/27/19 ATTN: Elías Oneil Please exercise your independent, professional judgment in responding to the clarification form. Clinical indicators are provided on the bottom of this form for your review Cam you please further clarify the type and acuity of CHF? Please check appropriate box(s): HEART FAILURE: A. TYPE: [ ] Systolic / HFrEF [ ] Diastolic / HFpEF [ ] Combined Systolic / Diastolic B. ACUITY [ ] Acute [ ] Acute on Chronic [ ] Chronic [ ] Other diagnosis [ ] Unable to determine In addition, please specify: Present on Admission (POA): [ ] Yes [ ] No [ ] Unable to determine For continuity of documentation, please document condition throughout progress notes and discharge summary. Thank You. CLINICAL INDICATORS - SIGNS / SYMPTOMS / LABS ED Provider pg.4- COPD exacerbation, additional: CHF exacerbation, lung mass, post obstructive pneumonia Chest/Thorax CTA pg.1- left upper lobe which may be related to pneumonia Chest/Thorax CTA pg.1- scarring versus atelectasis present in the right upper lobe H and P pg.3- dyspnea of unspecified etiology, possibly multifactorial Consult dr. Kolb pg.1- His BNP is elevated at 357, but his troponin was negative Consult pg.2 - left lung atelectasis in conjunction with hemoptysis Consult dr. Kolb pg.1- Last EF of 20 to 25% RISKS: COPD- H and P pg.1 CKD3- H and P pg.3 Hypertension- H and P pg.3 CAD- H and P pg.1 Cardiomyopathy-Consult Dr. Kolb pg.1 Congestive heart failure- Consult pg.1 TREATMENTS: Chest X ray 05/24 Chest /thorax CTA 05/24 Pulmonary Consult- Ge Newell IV fluids- JUL Albuterol sulfate 2.5mg NEB- JUL Furosemide 20mg IV- MAR 05/24 Levaquin 750mg IV- JUL (This form is maintained as a part of the permanent medical record) 2014 [employer]. All Rights Reserved [email or web address] [not provided] MTDD
--- NOTE | 2019-05-27 23:43 | PQF ---
NICCI COCHRAN SCOTT E MD [id number] [facility]-288 [id number] CLINICAL DOCUMENTATION CLARIFICATION FORM: POST DISCHARGE Addendum to original discharge summary date: ____ Late entry note date: __ DATE: 05/27/19 ATTN: Elías Oneil Please exercise your independent, professional judgment in responding to the clarification form. Clinical indicators are provided on the bottom of this form for your review Can you please further clarify if Pneumonia is ruled in or ruled out? Pneumonia [ ] Ruled in diagnosis [ ] Continue to treat [ ] Resolved [ ] Ruled out diagnosis [ ] Cannot rule out diagnosis [ ] Other diagnosis [ ] Unable to determine In addition, please specify: Present on Admission (POA): [ ] Yes [ ] No [ ] Unable to determine For continuity of documentation, please document condition throughout progress notes and discharge summary. Thank You. CLINICAL INDICATORS - SIGNS / SYMPTOMS / LABS H and P pg.1- consolidation In the left upper lobe may be related to pneumonia ED Provider pg.4- COPD exacerbation, additional: CHF exacerbation, lung mass, post obstructive pneumonia Chest/Thorax CTA pg.1- left upper lobe which may be related to pneumonia Chest/Thorax CTA pg.1- scarring versus atelectasis present in the right upper lobe H and P pg.3- dyspnea of unspecified etiology, possibly multifactorial Consult pg.2 - left lung atelectasis in conjunction with hemoptysis RISK FACTORS COPD- H and P pg.1 CKD3- H and P pg.3 Hypertension- H and P pg.3 CAD- H and P pg.1 Cardiomyopathy-Consult Dr. Kolb pg.1 Congestive heart failure- Consult pg.1 TREATMENTS Chest X ray 05/24 Chest /thorax CTA 05/24 Pulmonary Consult- Ge Newell IV fluids- MAR Albuterol sulfate 2.5mg NEB- MAR Furosemide 20mg IV- AUG 08 Levaquin 750mg IV- MAR (This form is maintained as a part of the permanent medical record) 2014 [employer] All Rights Reserved [email or web address] [not provided] MTDD
--- NOTE | 2019-05-31 19:29 | PQF ---
NICCI COCHRAN SCOTT E MD [id number] [facility]-288 [id number] CLINICAL DOCUMENTATION CLARIFICATION FORM: POST DISCHARGE Addendum to original discharge summary date: ____ Late entry note date: __ DATE: 05/31/18 ATTN: Elías Oneil Please exercise your independent, professional judgment in responding to the clarification form. Clinical indicators are provided on the bottom of this form for your review Can you please further clarify the etiology of patient shortness of breath? Please check appropriate box(s): [ ] COPD exacerbation [ ] Pneumonia [ ] Atelectasis [ ] CHF exacerbation (please specify type) [ ] diastolic [ ] systolic [ ] combined systolic and diastolic [ ] Other diagnosis please specify [ ] Unable to determine In addition, please specify: Present on Admission (POA): [ ] Yes [ ] No [ ] Unable to determine For continuity of documentation, please document condition throughout progress notes and discharge summary. Thank You. CLINICAL INDICATORS - SIGNS / SYMPTOMS / LABS H and P pg.1- consolidation In the left upper lobe may be related to pneumonia ED Provider pg.4- COPD exacerbation, additional: CHF exacerbation, lung mass, post obstructive pneumonia Chest/Thorax CTA pg.1- left upper lobe which may be related to pneumonia Chest/Thorax CTA pg.1- scarring versus atelectasis present in the right upper lobe H and P pg.3- dyspnea of unspecified etiology, possibly multifactorial Consult dr. Kolb pg.1- His BNP is elevated at 357, but his troponin was negative Consult pg.2 - left lung atelectasis in conduction with hemoptysis Consult dr. Kolb pg.1- Last EF of 20 to 25% RISK FACTORS COPD- H and P pg.1 CKD3- H and P pg.3 Hypertension- H and P pg.3 CAD- H and P pg.1 Cardiomyopathy-Consult Dr. Kolb pg.1 Congestive heart failure- Consult pg.1 TREATMENTS: Chest X ray 05/24 Chest /thorax CTA 05/24 Pulmonary Cosult- Ge Newell IV fluids- JUL Albuterol sulfae 2.5mg NEB- JUL Furosimide 20mg IV- MAR 05/24 Levaquin 750mg IV- JUL (This form is maintained as a part of the permanent medical record) 2014 [employer]. All Rights Reserved [email or web address] [not provided] MTDD
--- NOTE | 2019-06-05 01:24 | PQF ---
[employer] Crystal Reports Winform ViewerTADEN,ELÍAS RAMIREZ MD [id number] [facility] [id number] CLINICAL DOCUMENTATION CLARIFICATION FORM: POST DISCHARGE Addendum to original discharge summary date: ____ Late entry note date: __ DATE: 06/05/19 ATTN: Elías Oneil Please exercise your independent, professional judgment in responding to the clarification form. Clinical indicators are provided on the bottom of this form for your review In your clinical opinion based on clinical findings below, can you please clarify the patient's reason for inpatient admission, if due to: Please check appropriate box(s): [ ] Atelectasis [ ] Hemoptysis [ ] Left upper lobe collapse [ ] Left shoulder pain [ ] SOB of unknown etiology [ ] Other diagnosis [ ] Unable to determine In addition, please specify: Present on Admission (POA): [ ] Yes [ ] No [ ] Unable to determine For continuity of documentation, please document condition throughout progress notes and discharge summary. Thank You. CLINICAL INDICATORS - SIGNS / SYMPTOMS / LABS H and P pg.1- Chief complaint: Shortness of breath, orthopnea, left shoulder pain and chest pain times days H and P pg.3- Dyspnea of unspecified etiology, possible multifactorial PN 05/26 - left upper lobe collapse with possible endobronchial component PN 05/23 pg.1- Left shoulder pain PN 05/23 pg.1- hemoptysis Consult 05/25 pg.2- left lung atelectasis in junction with hemoptysis RISK FACTORS CAD- Marcano nd P pg.1 Ischemic cardiomyopathy- H and P pg.1 Hypertension- H and P pg.2 COPD- H and P pg.2 Nicotine dependence- H and P pg.2 TREATMENTS: Chest X ray 05/24 Chest/Thorax CTA- 05/24 IV Fluids- JUL Pulmonary Consult- Dr Carolina 12/27 Shoulder X ray IV antibiotics- MAR [place] 1tab PO- MAR (This form is maintained as a part of the permanent medical record) 2014 [email or web address]. All Rights Reserved [email or web address] [not provided] MTDD
== END 2019-05-26 19:48 | disposition home or self-care (01) | DRG 206 ==
LOC: ERS 14:36 → 2NO 21:24
PROVIDERS: ADMIT Emergency Medicine; ATTEND Emergency Medicine
DX: J98.11 Atelectasis (principal); R04.2 Hemoptysis; I13.0 Hypertensive heart and chronic kidney disease with heart failure and stage 1 through stage 4 chronic kidney disease, or unspecified chronic kidney disease; K59.00 Constipation, unspecified; J44.9 Chronic obstructive pulmonary disease, unspecified; I25.10 Atherosclerotic heart disease of native coronary artery without angina pectoris; K21.9 Gastro-esophageal reflux disease without esophagitis; N18.3 Chronic kidney disease, stage 3 (moderate); I25.5 Ischemic cardiomyopathy; D75.82 Heparin induced thrombocytopenia (HIT); T45.515A Adverse effect of anticoagulants, initial encounter; I50.9 Heart failure, unspecified; M25.512 Pain in left shoulder; Z95.1 Presence of aortocoronary bypass graft; Z87.442 Personal history of urinary calculi; Z85.51 Personal history of malignant neoplasm of bladder; Z95.810 Presence of automatic (implantable) cardiac defibrillator; Z87.891 Personal history of nicotine dependence; Z88.8 Allergy status to other drugs, medicaments and biological substances; Z79.51 Long term (current) use of inhaled steroids; Z79.82 Long term (current) use of aspirin; Z79.899 Other long term (current) drug therapy; Z79.01 Long term (current) use of anticoagulants; Z86.718 Personal history of other venous thrombosis and embolism; Z86.711 Personal history of pulmonary embolism
CPT/HCPCS: 36415; 71046; 71275; 80053; 82550; 83690; 83880; 84484; 85025; 85379; 93005; 94640; 94664; 96365; 96375; J1940; J1956; J2930; J7611; J7620

== ENCOUNTER 2019-06-06 07:35 | Day surgery (SDC) | payer MEDICARE ==
[2019-06-05 09:22] VITALS: BMI 32.1
--- NOTE | 2019-06-05 10:13 | HP ---
The patient is scheduled for outpatient bronchoscopy on Tuesday morning dated 06/06/2019. REASON FOR ADMISSION: Bronchoscopy, left lower lung mass, hemoptysis of 2 months' duration, rule out bronchogenic carcinoma. HISTORY OF PRESENT ILLNESS: Mr. Barahona is a 74-year-old gentleman, who has not been in our office for over a year. He has been in and out of [facility] numerous times, not once he is coughing up some blood and consulted Dr. Carolina, who recommended a bronchoscopy. The patient apparently declined as he was told not to have general anesthesia for any procedures. Unfortunately, he needs a bronchoscopy for an endobronchial mass. His CT chest was reviewed, which shows a left upper lung mass. He has been followed by local oncologist. Even this morning he started coughing up some blood without any fever or chills. He has lost 30 pounds. He is a former smoker. PAST MEDICAL HISTORY: Renal failure; hydronephrosis; coronary artery disease; cardiomyopathy, EF 25%; COPD; bladder cancer; nephrolithiasis; and chronic anemia. PAST SURGICAL HISTORY: Cystoscopy, tumor resection, endoscopy. SOCIAL HISTORY: He works for the [employer], [place]. Two pack-a-day smoker for 45 years, quit 8 years ago. HOME MEDICATIONS: Include; 1. Entresto with recent AICD. 2. Hydrocodone. 3. Tylenol. 4. Zyrtec. 5. Ditropan. 6. Flomax. 7. Zinc. 8. Multivitamin. 9. Spiriva. 10. Symbicort 160. 11. Omeprazole. 12. Prozac 5. 13. Lipitor. ALLERGIES: OTHERWISE, NONE. REVIEW OF SYSTEMS: Ten-point negative. PHYSICAL EXAMINATION: VITAL SIGNS: On examination, his saturations are 95% on room air, pulse 80, respiratory rate 18, and blood pressure 130/80. CHEST: Reveals no wheezing or crackles. CARDIAC: Normal S1 and S2. No gallops. ABDOMEN: No masses. IMPRESSION: 1. Chronic obstructive pulmonary disease, stable. 2. Left upper lung mass, hemoptysis, rule out bronchogenic carcinoma. 3. Bladder cancer. 4. Cardiomyopathy. PLAN: Outpatient bronchoscopy to be scheduled. Further recommendation above. Job ID: [id number]
[2019-06-06] MEDS ORDERED: Sodium Chloride 0.9% 1,000 ML IV SCH (09:00)
[2019-06-06] MEDS ORDERED: Lidocaine 4% PF 5 ML AMP NEB SCH (09:00)
[2019-06-06] MEDS ORDERED: ePHEDrine/0.9% NaCl/PF SYRINGE 50 mg/10 ml ONE (10:22)
[2019-06-06] MEDS ORDERED: PHENYLEPHRINE-NS 100 MCG/ML 10 ML SYRINGE ONE (10:22)
[2019-06-06] MEDS ORDERED: Lidocaine 1% PF 5 ML VIAL ONE (10:22)
[2019-06-06] MEDS ORDERED: PROPOFOL 200 MG/20 ML VIAL ONE (10:22)
[2019-06-06] MEDS ORDERED: Ondansetron PF 4 MG/2 ML Vial ONE (10:22)
[2019-06-06] MEDS ORDERED: Succinylcholine Chloride 20 MG/ML 10 ml SYRINGE FS ONE (10:22)
[2019-06-06] MEDS ORDERED: Lidocaine 1% (PF) 30 ML VIAL ONE (10:33)
[2019-06-06] MEDS ORDERED: Benzocaine 20% Spray 60 ML CAN ONE (10:33)
[2019-06-06] MEDS ORDERED: Fentanyl 100 MCG/2 ML VIAL ONE (10:35)
[2019-06-06] MEDS ORDERED: Midazolam HCl 2 mg/2 ml Vial ONE (10:35)
[2019-06-06] MEDS ORDERED: Famotidine/PF 20 mg/2ml Vial ONE (10:41)
--- NOTE | 2019-06-06 11:47 | OP ---
DATE OF PROCEDURE: 06/06/2019 PROCEDURE PERFORMED: Bronchoscopy with biopsy. INDICATION FOR PROCEDURE: Left lower lung mass, rule out bronchogenic carcinoma. POST-BRONCHOSCOPY DIAGNOSIS: Left lower lung mass, rule out bronchogenic carcinoma. DESCRIPTION OF PROCEDURE: After informed consent, the patient received DuoNeb along with 4 mL of 4% lidocaine. Anesthesia was present. He was intubated with a #8 tube. Under general anesthesia, the flexible Olympus bronchoscope was passed. Distal trachea was visualized and normal. Franny was sharp. Right lung was inspected initially. Right upper and right lower lobe, and right middle lobe were visualized and unremarkable. On entering the left lung, the left upper lung was normal. The left lower lobe bronchus, apical posterior and anterior segments were completely occluded. We were basically able to just see the lateral segment. The mass was friable and bled easily to touch. Washings were obtained from this area. Thereafter, initially multiple biopsies x4 were done, for which multiple brushings were obtained. Epinephrine, a total of 6 mL of 1:10,000, instilled to control the bleeding. The patient otherwise tolerated the procedure well. Washings were sent for cytology, AFB smear and culture, fungal smear and culture, routine Gram stain and C and S. Biopsies were sent to pathology. The patient was still sedated post bronchoscopy. Anesthesia, Dr. Tamie García, was present. She will extubate the patient. He will go to recovery. Results of the test will be made available to the patient and family. Further recommendation after above. BRIEF DISCHARGE NOTE: The patient tolerated the procedure well. Results of the biopsy will be made available to the patient and family. Further discussion thereafter. Job ID: [id number]
== END 2019-06-06 14:15 | disposition home or self-care (01) ==
LOC: SDC 07:35
PROVIDERS: ATTEND Internal Medicine Pulmonary Disease
PROC: 0BBB8ZX Excision of Left Lower Lobe Bronchus, Via Natural or Artificial Opening Endoscopic, Diagnostic (ICD-10-PCS; principal; 2019-06-06)
PROC: 0BDJ8ZX Extraction of Left Lower Lung Lobe, Via Natural or Artificial Opening Endoscopic, Diagnostic (ICD-10-PCS; 2019-06-06)
DX: C34.32 Malignant neoplasm of lower lobe, left bronchus or lung (principal); J44.9 Chronic obstructive pulmonary disease, unspecified; I42.9 Cardiomyopathy, unspecified; I25.10 Atherosclerotic heart disease of native coronary artery without angina pectoris; Z87.891 Personal history of nicotine dependence; Z79.899 Other long term (current) drug therapy; Z95.1 Presence of aortocoronary bypass graft
CPT/HCPCS: 87070; 87102; 87116; 87205; 87206; 88104; 88112; 88305; 88312; 88313; J2001; J2250; J2405; J2704; J3010; J7620; S0028

== ENCOUNTER 2019-06-12 12:48 | Outpatient (CLI) | payer MEDICARE ==
--- NOTE | 2019-06-12 15:06 | PET ---
EXAM: PET CT skull to mid thigh COMPARISON: 11/23/2018; CTA chest 05/24/2019 HISTORY: Malignant neoplasm of the urinary bladder. Abnormal findings on CTA chest. TECHNIQUE: A PET/CT was performed from the skull to the mid thigh after administration of 12.7 millic uries of F-18 FDG. Evaluation was performed on a [employer] workstation. FINDINGS: NECK: No areas of hypermetabolic activity CHEST: There is a small left pleural effusion which is not hypermetabolic. There is an area of consol idation in the left hilar region which measures approximately 7.8 cm in size. This has a max SUV value of 12. Small lymph nodes are seen scattered throughout the mediastinum which are not hypermetab olic. ABDOMEN/PELVIS: No areas of hypermetabolic activity SKELETON: No areas of hypermetabolic activity. Degenerative changes are seen in the spine. CT images used for attenuation correction show the patient is status post sternotomy. There is a pace maker with its leads in the right atrium and ventricle. There is slight prominence of both ureters without calyceal dilatation. IMPRESSION: Area of consolidation in the left hilar region. This has changed in appearance compared t o the CTA from a few weeks ago. It has gotten slightly smaller but more rounded configuration. This could represent an ongoing infection or this could represent malignancy. Correlate with white blood c ell count. This is in the region of the bronchi to the left upper and lower lobes and bronchoscopy and biopsy could be. Performed of this region.
== END 2019-06-12 12:49 | disposition home or self-care (01) ==
LOC: PET 12:48
PROVIDERS: ATTEND Internal Medicine Hematology & Oncology
DX: C67.9 Malignant neoplasm of bladder, unspecified (principal); R93.7 Abnormal findings on diagnostic imaging of other parts of musculoskeletal system; J18.1 Lobar pneumonia, unspecified organism
CPT/HCPCS: 78815; A9552

== ENCOUNTER 2019-06-19 07:19 | Outpatient (CLI) | payer MEDICARE ==
--- NOTE | 2019-06-19 09:01 | CT ---
EXAM: CT brain without and with contrast HISTORY: Lung cancer and history of malignant neoplasm of the bladder. COMPARISON: None TECHNIQUE: Multiple contiguous axial images were obtained and a CT of the brain without and with cont rast. FINDINGS: There are scattered hypodensities in the subcortical and periventricular white matter consi stent with small vessel ischemic disease. There is no evidence of hydrocephalus, intracranial hemorrhage, or extra-axial fluid collection. No abnormal enhancement is seen. The calvarium and overlying soft tissues are unremarkable. The visualized paranasal sinuses and masto id air cells are well aerated. IMPRESSION: No evidence of acute intracranial abnormality
[2019-06-19] MEDS ORDERED: Iopamidol 370 76% 100 ML VIAL ONE (15:12)
== END 2019-06-19 07:20 | disposition home or self-care (01) ==
LOC: CT 07:19
PROVIDERS: ATTEND Internal Medicine Hematology & Oncology
DX: C67.0 Malignant neoplasm of trigone of bladder (principal); C34.90 Malignant neoplasm of unspecified part of unspecified bronchus or lung; R20.2 Paresthesia of skin; H53.8 Other visual disturbances
CPT/HCPCS: 70470; 82565; Q9967

== ENCOUNTER 2019-07-05 08:53 | Day surgery (SDC) | payer MEDICARE ==
[2019-07-04 12:10] VITALS: BMI 33.4
[2019-07-05] MEDS ORDERED: Acetaminophen 500 MG TAB ONE (09:43)
[2019-07-05] MEDS ORDERED: Lidocaine 1% w/Epinephrine 1:100K 20 ML VIAL ONE (10:08)
[2019-07-05] MEDS ORDERED: Bupivacaine 0.25% HCL 30 ML VIAL ONE (10:08)
[2019-07-05 10:27] LABS: #Eosinphils 0.1 thou/uL (0.0-0.7); #Lymphocytes 0.4 thou/uL (1.20-3.40); #Monocytes 0.7 thou/uL (0.11-0.59); #Neutrophils 8.8 thou/uL (1.40-6.50); %Eosinophils 1.1 % (0.0-10.0); %Lymphocytes 4.3 % (21.0-51.0); %Monocytes 6.6 % (0.0-10.0); %Neutrophils 88.1 % (42.0-75.0); Hemoglobin 11.1 g/dL (14.0-18.0); Mean Corpuscular HGB CONC 30.2 g/dL (32.0-36.0); Mean Corpuscular Hemoglobin 24.2 pg (27.0-31.0); Mean Platelet Volume 8.6 fL (7.4-10.4); Platelet Count 215 thou/uL (130-400); RBC Distribution Width 15.9 % (11.5-14.5); Red Blood Cell (RBC) Count 4.59 mill/uL (4.70-6.10)
[2019-07-05] MEDS ORDERED: Midazolam HCl 2 mg/2 ml Vial ONE (10:48)
[2019-07-05 10:49] LABS: Anion Gap 14 mmol/L (10-20); BUN (Urea Nitrogen) 23 mg/dL (8.4-25.7); Calc. Creatinine Clearance 84 mL/min (70-130); Calcium 9.5 mg/dL (7.8-10.44); Carbon Dioxide 27 mmol/L (23-31); Chloride 106 mmol/L (98-107); Estimated GFR-MDRD 66; Glucose 114 mg/dL (83-110); Potassium 4.1 mmol/L (3.5-5.1); Sodium 143 mmol/L (136-145)
[2019-07-05] MEDS ORDERED: Fentanyl 100 MCG/2 ML VIAL ONE (10:49)
[2019-07-05] MEDS ORDERED: Ketorolac Tromethamine 30 MG/ML VIAL ONE (10:53)
--- NOTE | 2019-07-05 14:01 | RAD ---
PORTABLE CHEST: Date: 07/05/2019 HISTORY: MediPort placement. COMPARISON: 05/24/2019 chest x-ray is the most recent available. FINDINGS: Heart size appears slightly enlarged. A pacemaker is present. There are postop sternotomy changes not ed. Mass-like area of parenchymal density along the left heart border is again demonstrated. This are a has changed in character since the prior examination. It is somewhat denser along the left heart sandy rder, but does not have as much lateral extension. Right-sided MediPort catheter has been placed. Catheter tip overlies the superior vena cava. There ar e no signs of pneumothorax. IMPRESSION: Placement of a right-sided MediPort catheter. No signs of pneumothorax. POS: [facility]
--- NOTE | 2019-07-05 17:38 | OP ---
DATE OF PROCEDURE: 07/05/2019 PREOPERATIVE DIAGNOSIS: Lung cancer. POSTOPERATIVE DIAGNOSIS: Lung cancer. PROCEDURE PERFORMED: Placement of standard-size power compatible right subclavian MediPort. ANESTHESIA: Minimal intravenous sedation with local using a mixture of 1% lidocaine with epinephrine and 0.25% Marcaine. INDICATIONS FOR PROCEDURE: The patient is a 74-year-old white male with left lung cancer. MediPort placement has been requested for chemotherapy administration. Secondary to significant medical comorbidities, anesthetic plan is for minimal sedation with substantial local anesthesia. DESCRIPTION OF PROCEDURE: Informed consent was obtained. The patient was taken to the operating room where total intravenous anesthesia was obtained with the patient in supine position. Right periclavicular area was prepped with ChloraPrep and draped in sterile fashion. Local anesthetic was infiltrated and a large-gauge needle was passed under the clavicle in the subclavian vein. Guidewire was passed through the needle and fluoroscopically confirmed to enter the superior vena cava. Additional local anesthetic was infiltrated and transverse incision was created based on needle insertion site. A subcutaneous pocket was dissected inferiorly. Introducer dilator was passed over the guidewire under fluoroscopic guidance. The guidewire and dilator were removed, and the catheter was passed through the introducer. The tip of the catheter was positioned at the atriocaval junction and the catheter was trimmed to the appropriate length and secured to the locking hub of the MediPort. The port was then placed in the subcutaneous pocket where it was secured to the pectoral fascia with 2 interrupted sutures of 3-0 Prolene. The incision was then closed in layers with 3-0 and 4-0 Monocryl. Additional local anesthetic was infiltrated. The port was cannulated with a Wanrer needle and it aspirated blood freely and was flushed with heparinized saline. Dermabond was placed externally on the skin incision. There were no complications. Blood loss was negligible. The patient tolerated the procedure well and was taken to recovery room in stable condition. FINDINGS: As the patient had a left-sided pacemaker, I selected the right subclavian location for access. A standard-size port was placed. Extensive local anesthetic was infiltrated to maintain comfort during the procedure. There were no complications. Anatomy was essentially normal, and there was essentially no blood loss. The patient tolerated the procedure well. Fluoroscopy was used throughout. He was taken to recovery room in stable condition. Job ID: [id number]
== END 2019-07-05 13:50 | disposition home or self-care (01) ==
LOC: SDC 08:53
PROVIDERS: ATTEND Specialist
PROC: 02HV33Z Insertion of Infusion Device into Superior Vena Cava, Percutaneous Approach (ICD-10-PCS; principal; 2019-07-05)
DX: C34.92 Malignant neoplasm of unspecified part of left bronchus or lung (principal); I11.0 Hypertensive heart disease with heart failure; I50.9 Heart failure, unspecified; J44.9 Chronic obstructive pulmonary disease, unspecified; I25.10 Atherosclerotic heart disease of native coronary artery without angina pectoris; N40.1 Benign prostatic hyperplasia with lower urinary tract symptoms; I48.91 Unspecified atrial fibrillation; Z79.899 Other long term (current) drug therapy; Z87.891 Personal history of nicotine dependence; Z88.8 Allergy status to other drugs, medicaments and biological substances
CPT/HCPCS: 36561; 71045; 77386; 80048; 80053; 85025; C1788; J0690; J1642; J1885; J2250; J3010; S0020

== ENCOUNTER 2019-08-01 17:01 | Inpatient (IN) | payer MEDICARE ==
[~2019-08-01 17:01] MED LIST: Iopamidol 370 76% 100 ML VIAL ONE
[2019-08-01 17:48] LABS: Hemoglobin 8.9 g/dL (14.0-18.0); Mean Corpuscular HGB CONC 32.1 g/dL (32.0-36.0); Mean Corpuscular Hemoglobin 26.2 pg (27.0-31.0); Mean Corpuscular Volume 81.5 fL (78.0-98.0); Mean Platelet Volume 8.4 fL (7.4-10.4); Platelet Count 194 thou/uL (130-400); White Blood Cell (WBC) Count 2.5 thou/uL (4.8-10.8)
[2019-08-01 18:09] LABS: ALT (SGPT) 19 U/L (8-55); AST (SGOT) 18 U/L (5-34); Albumin 2.9 g/dL (3.4-4.8); Alkaline Phosphatase 95 U/L (40-110); Anion Gap 14 mmol/L (10-20); BUN (Urea Nitrogen) 34 mg/dL (8.4-25.7); Bilirubin, Total 0.6 mg/dL (0.2-1.2); Calc. Creatinine Clearance 0 mL/min (70-130); Calcium 8.5 mg/dL (7.8-10.44); Carbon Dioxide 27 mmol/L (23-31); Chloride 106 mmol/L (98-107); Estimated GFR-MDRD 75; Globulin 3.2 g/dL (2.4-3.5); Glucose 110 mg/dL (83-110); Potassium 3.8 mmol/L (3.5-5.1); Protein, Total 6.1 g/dL (5.8-8.1); Sodium 143 mmol/L (136-145)
[2019-08-01 18:11] LABS: Anisocytosis SLIGHT = 6-15 cells (100X) (0-5/hpf); Band 50 % (5-11); Hypochromia SLIGHT = 6-15 cells (100X) (0-5/hpf); Lymphocytes 10 % (21-51); MDiff Complete? YES; Metamyelocyte 1 % (0-0); Monocytes 19 % (0-10); Myelocyte 1 % (0-0); Neutrophil 17 % (42-75); Nucleated RBC 3 % (0); Ovalocytes SLIGHT = 2-5 cells (100X) (0-1/hpf); Platelet Morphology Comment Appears Adequate; Polychromasia MODERATE = 3-4 cells (100X) (0-2/hpf); Reactive Lymphocytes 2 % (0-10); Reflex for Review?? YES; Schistocytes SLIGHT = 2-5 cells (100X) (0-1/hpf); Tear Drops SLIGHT = 2-5 cells (100X) (0-1/hpf)
[2019-08-01 18:37] LABS: Bacteria/HPF None Seen HPF (None Seen); Bilirubin Negative (Negative); Blood, Urine 2+ (Negative); Clarity Clear (Clear); Glucose, Urine (Dipstick) Normal (Negative); Leukocyte Negative Leu/uL (Negative); Nitrite Negative (Negative); Protein, Urine (Dipstick) 30 mg/dL (Neg-Trace); RBC/HPF Greater than 50 HPF (0-3); Squamous Epithelial 0-3 HPF (0-3); Urobilinogen Normal mg/dL (Less than 2)
--- NOTE | 2019-08-01 18:56 | CT ---
CT ANGIOGRAM THORAX WITH IV CONTRAST AND 3-D RECONSTRUCTIONS CLINICAL INDICATION: Generalized weakness, hypoxia, diarrhea. Family reports decreased oxygen saturation during radiation treatment today. COMPARISON: 05/24/2019 FINDINGS: Pulmonary arteries: No filling defects are seen in the pulmonary arteries to suggest a pulmonary embo yfn. Aorta: Mild vascular calcifications and atherosclerotic plaque is present. Lungs: Dense area of consolidation in the left upper lobe is again seen. Area of consolidation is not significantly changed compared to prior study although there does appear to be redistribution of the area of consolidation the left upper lobe compared to the prior exams. There is thickening of the left upper lobe bronchi and bronchioles. There has been interval development of dense area of consolidation in the left lower lobe. Findings may be related to residual pneumonia with interval dev elopment of left lower lobe pneumonia or aspiration pneumonitis. Reticulonodular densities are also seen at the left lung base. Small left pleural effusion is identified. Evidence of COPD is again present with emphysematous changes in the lungs bilaterally. No consolidation or pleural fluid is seen on the right. Mediastinum: Increased number of mediastinal lymph nodes are present. There is been interval enlargem ent of left paratracheal lymph nodes when compared to the prior study with largest lymph node in this region measuring 1.6 cm in short axis dimension with previous measurement of 1 cm. Lymph nodes m ay be reactive in origin. A subclavian cardiac pacemaking device is again noted in place. Vascular calcifications are seen in t he coronary arteries. Thyroid gland: Normal in appearance where visualized. Osseous structures: Degenerative changes are again seen in the thoracic spine. No suspicious lytic or sclerotic osseous lesions are identified. Chest wall: No abnormality visualized. Upper abdomen: Mild left hydronephrosis is partially imaged.. This was also present on prior CTA ches t. Hypodense lesion in the medial aspect midportion left kidney is also again identified. IMPRESSION: 1. Dense area of consolidation again present in the left upper lobe also seen on prior studies; altho ugh, there is redistribution of the area of consolidation. Findings again may be related to residual pneumonia or possibly postobstructive process due to bronchial lesion. There is thickening o f the bronchi and bronchioles in the left upper lobe with mild narrowing of left upper lobe bronchi. There has been interval development of consolidation in the left lower lobe not present on p rior PET/CT exam on 06/12/2019 or CTA chest on 05/24/2019. Findings may be related to either aspiration pneumonitis or developing pneumonia at the left lung base. Follow-up to resolution is shama mmended. 2. Mediastinal lymphadenopathy which could be reactive, but neoplastic process cannot be excluded. 3. COPD. 4. Mild left hydronephrosis partially imaged. Stable hypodense lesion left kidney is again seen. 5. No CT evidence of a pulmonary embolus. 6. Small left pleural effusion.
[2019-08-01] MEDS ORDERED: cefTRIAXone\\ROCEPHIN 2 GM VIAL ONE (19:54)
--- NOTE | 2019-08-01 19:55 | RAD ---
EXAM: CHEST ONE VIEW: 08/01/19 HISTORY: Weakness, hypoxia, cough. COMPARISON: 07/05/19. FINDINGS: Moderate left hemidiaphragm elevation more marked than on the prior study indicating some probable as sociated left lower lobe atelectasis as well as some patchy parenchymal changes which certainly could represent some infectious pneumonia or post obstructive pneumonia or pneumonitis. Postop midline chace rnotomy. Left ICD. Right subclavian catheter and injection port. Hyperinflation changes in the upper lung zones. Stable right chest. IMPRESSION: Some progressive left sided volume loss and left hemidiaphragm elevation with some persistent parench ymal opacity changes in the left mid lower lung zone region evidence for possible bacterial pneumonia and/or post obstructive pneumonia or pneumonitis with associated atelectasis. Continued short term follow-up. POS: [facility]
[2019-08-01] MEDS ORDERED: Vancomycin 1 GM/200 ML BAG ONE (20:31)
[2019-08-01] MEDS ORDERED: Senokot S 8.6-50 MG TAB PO PRN (22:04)
[2019-08-01] MEDS ORDERED: Ondansetron PF 4 MG/2 ML Vial IVP PRN (22:04)
--- NOTE | 2019-08-01 22:12 | PDOC.HHP ---
Hospitalist HPI - History of Present Illness Shortness of breath History of Present Illness: 74 yo male with lung cancer on chemotherapy, CAD, CHF, AICD status presented to ER due to worsening shortness of breath. He states that he is usually short of breath. However, recently, he has had worsening shortness of breath even at rest , cough with brown sputum and blood in sputum. He reports wheezing, palpitations and lightheadedness. He reports weakness. He has 4/10 intermittent chest pains in the middle of the chest without any radiation. No fever, chills. He denies orthopnea or PND. He reports chronic diarrhea multiple times daily. No N/V/C. No abdominal pain, leg swelling, rash or bruising. No burning or pain with urination. No headache or changes in vision. He lives alone. Hospitalist ROS - Review of Systems All other systems reviewed; all pertinent +/- noted in HPI/Subj Hospitalist History - Past Medical History Source: patient, old records Cardiac: reports: CAD, CHF, HTN Pulmonary: reports: COPD Heme/Onc: reports: Cancer (Bladder cancer; Lung cancer) Renal/: reports: Chronic renal insuff - Past Surgical History Past Surgical History: reports: CABG, TURP Other Surgical History: AICD; Femoral Embolectomy - Family History Family History: reports: cardiac disorder (Father) - Social History Smoking Status: Former smoker Tobacco Type: cigarettes Alcohol: reports: None Drugs: reports: none Living Situation: Alone - Exam General Appearance: awake alert, ill appearing Eye: PERRL, anicteric sclera ENT: normocephalic atraumatic, no oropharyngeal lesions, dry oral mucosa Neck: supple, symmetric, no thyromegaly, no lymphadenopathy Heart: no murmur, no gallops, no rubs, normal peripheral pulses Heart - other findings: tachycardia present; Left AICD in place Respiratory: rales (LLL posteriorly), tachypneic, wheezes (Bilateral diffuse) Respiratory - other findings: Using accessory muscles of respiration Gastrointestinal: soft, non-tender, non-distended, normal bowel sounds, no palpable masses, no guarding, no rigidity Extremities: no cyanosis, no clubbing, no edema Skin: normal turgor, no rashes Neurological: cranial nerve grossly intact, normal sensation to touch, no weakness Musculoskeletal: normal tone, normal strength, no muscle wasting Psychiatric: oriented to person, oriented to place, oriented to time Hospitalist Results - Labs Result Diagrams: 08/01/19 17:35 08/01/19 17:35 Lab results: WBC 2.5 thou/uL (4.8-10.8) L 08/01/19 17:35 Hgb 8.9 g/dL (14.0-18.0) L 08/01/19 17:35 Hct 27.7 % (42.0-52.0) L 08/01/19 17:35 MCV 81.5 fL (78.0-98.0) 08/01/19 17:35 Plt Count 194 thou/uL (130-400) 08/01/19 17:35 Band Neuts % (Manual) 50 % (5-11) H 08/01/19 17:35 Sodium 143 mmol/L (136-145) 08/01/19 17:35 Potassium 3.8 mmol/L (3.5-5.1) 08/01/19 17:35 Chloride 106 mmol/L (98-107) 08/01/19 17:35 Carbon Dioxide 27 mmol/L (23-31) 08/01/19 17:35 BUN 34 mg/dL (8.4-25.7) H 08/01/19 17:35 Creatinine 0.98 mg/dL (0.7-1.3) 08/01/19 17:35 Glucose 110 mg/dL (83-110) 08/01/19 17:35 Lactic Acid 1.1 mmol/L (0.5-2.2) 08/01/19 17:35 Calcium 8.5 mg/dL (7.8-10.44) 08/01/19 17:35 Total Bilirubin 0.6 mg/dL (0.2-1.2) 08/01/19 17:35 AST 18 U/L (5-34) 08/01/19 17:35 ALT 19 U/L (8-55) 08/01/19 17:35 Alkaline Phosphatase 95 U/L (40-110) 08/01/19 17:35 Troponin I 0.014 ng/mL (< 0.028) 08/01/19 17:35 B-Natriuretic Peptide 258.8 pg/mL (0-100) H 08/01/19 17:35 Serum Total Protein 6.1 g/dL (5.8-8.1) 08/01/19 17:35 Albumin 2.9 g/dL (3.4-4.8) L 08/01/19 17:35 Urine Ketones Negative mg/dL (Negative) 08/01/19 18:02 Urine Blood 2+ (Negative) A 08/01/19 18:02 Urine Nitrite Negative (Negative) 08/01/19 18:02 Ur Leukocyte Esterase Negative Alfredo/uL (Negative) 08/01/19 18:02 Urine RBC Greater than 50 HPF (0-3) A 08/01/19 18:02 Urine WBC 11-20 HPF (0-3) A 08/01/19 18:02 Ur Squamous Epith Cells 0-3 HPF (0-3) 08/01/19 18:02 Urine Bacteria None Seen HPF (None Seen) 08/01/19 18:02 - EKG Interpretation EKG: Sinus tachycardia; T-inversions in leads I, aVL, V5-6 - Radiology Interpretation CT scan - chest Status: image reviewed by me (Left hilar consolidation; LLL consolidation) Hospitalist H&P A/P - Problem (1) Pneumonia Code(s): J18.9 - PNEUMONIA, UNSPECIFIED ORGANISM Status: Acute Qualifiers: Pneumonia type: due to unspecified organism Laterality: left Lung location: lower lobe of lung Qualified Code(s): J18.9 - Pneumonia, unspecified organism Assessment and Plan: Patient has sepsis due to pneumonia Has 50% bands, tachypnea, leukopenia and tachycardia Lactate level normal CTA personally reviewed and has new LLL consolidation with air bronchograms Admit to inpatient status. Expected to stay at least 2 midnights High risk due to risk of worsening respiratory failure that may need intubation and ventilation Patient using accessory muscles of breathing and unable to talk in complete sentences Admit to IMCU. High flow nasal cannula support as patient states he can't tolerate NIPPV therapy Broad spectrum ABX to cover for MRSA, MDR E.coli and pseudomonal (HCAP) Nebs IV steroids (2) Respiratory failure Code(s): J96.90 - RESPIRATORY FAILURE, UNSP, UNSP W HYPOXIA OR HYPERCAPNIA Status: Chronic Qualifiers: Chronicity: acute on chronic Respiratory failure complication: hypoxia Qualified Code(s): J96.21 - Acute and chronic respiratory failure with hypoxia Assessment and Plan: Related to PNA and sepsis High flow nasal cannula Pulm. consult (3) COPD (chronic obstructive pulmonary disease) Status: Chronic Qualifiers: COPD type: COPD with acute exacerbation Qualified Code(s): J44.1 - Chronic obstructive pulmonary disease with (acute) exacerbation Assessment and Plan: Related to pneumonia IV steroids Pulm. consult High flow nasal cannula support (4) Diarrhea Code(s): R19.7 - DIARRHEA, UNSPECIFIED Status: Acute Qualifiers: Diarrhea type: unspecified type Qualified Code(s): R19.7 - Diarrhea, unspecified Assessment and Plan: Likely related to chemotherapy However, patient has had recent admissions and is at risk of C.Diff Will obtain C.diff testing, stool studies If these are negative, then, he will be placed on Loperamide PRN Will consider Fecal Management System if his diarrhea is very bad (5) CHF (congestive heart failure) Code(s): I50.9 - HEART FAILURE, UNSPECIFIED Status: Chronic Qualifiers: Heart failure type: systolic Heart failure chronicity: chronic Qualified Code(s): I50.22 - Chronic systolic (congestive) heart failure Assessment and Plan: Appears dehydrated related to sepsis and PNA No indication for diuretics Cardiology consult ECHO (6) CAD (coronary artery disease) Code(s): I25.10 - ATHSCL HEART DISEASE OF [place] CORONARY ARTERY W/O ANG PCTRS Status: Chronic Qualifiers: Coronary Disease-Associated Artery/Lesion type: [place] artery [place] vs. transplanted heart: [place] heart Associated angina: angina presence unspecified Qualified Code(s): I25.10 - Atherosclerotic heart disease of [place] coronary artery without angina pectoris Assessment and Plan: EKG with changes of lateral ischemia Cardio consult Cycle cardiac markers ECHO (7) Lung cancer Code(s): C34.90 - MALIGNANT NEOPLASM OF UNSP PART OF UNSP BRONCHUS OR LUNG Status: Chronic Qualifiers: Laterality: left Lung location: hilum of lung Qualified Code(s): C34.02 - Malignant neoplasm of left main bronchus Assessment and Plan: In the left hilum Mgmt. per oncology as outpatient after acute infection resolved (8) HTN (hypertension) Code(s): I10 - ESSENTIAL (PRIMARY) HYPERTENSION Status: Chronic Qualifiers: Hypertension type: essential hypertension Qualified Code(s): I10 - Essential (primary) hypertension Assessment and Plan: Hold HTN meds due to risk of septic shock (9) AICD (automatic cardioverter/defibrillator) present Code(s): Z95.810 - PRESENCE OF AUTOMATIC (IMPLANTABLE) CARDIAC DEFIBRILLATOR Status: Chronic - Plan Plan: CODE STATUS - FULL CODE
[2019-08-01] MEDS ORDERED: methylPREDNISolone Sod Succ/PF 125 MG/2 ML VIAL IVP SCH (22:45)
[2019-08-01] MEDS ORDERED: Bacteriostatic Water 30 ML VIAL FS PRN ×2 (22:49)
[2019-08-01] MEDS ORDERED: Azithromycin 500 MG in Sodium Chloride 0.9% 250 ML 250 ML IVPB SCH (23:00)
[2019-08-01] MEDS: Ipratropium Bromide 2.5 ml Neb NEB SCH (23:48)
[2019-08-02 00:29] LABS: Troponin I Less than 0.010 ng/mL (< 0.028)
[2019-08-02] MEDS: Ipratropium Bromide 2.5 ml Neb NEB SCH ×6 (02:00→22:26)
--- NOTE | 2019-08-02 06:29 | PDOC.PULCN ---
Pulmonology Consult: HPI - Date of Consult Date: 08/02/19 Time: 06:27 - Consult Details Reason for Consult: Respiratory failure; COPD Exacerb; LLL PNA; Lungca Requesting Physician: Jing - History of Present Illness HPI: NICCI COCHRAN is a 74 year-old M with a PMH notable for lung CA currently undergoing chemotherapy & radiation, a hx of bladder CA, COPD on 4L @ O2, HFrEF s/p AICD placement and CKD who presented to the ED with a CC of progressively worsening SOB with exertion with associated hemoptysis over the last several weeks. Per chart review the patient was hospitalized in April of 2019 for similar reasons and was treated for PNA before being discharged. Reports his SOB just progressed to the point where he could not take it anymore so he decided to come to the ED. Reports a productive cough with bright red and dark blood. Denies any associated fever/chills, chest pain, LE edema, or N/V/C. Does have a decreased appetite and has had diarrhea "for a while now" since starting chemotherapy. Had a radiation tx yesterday and was supposed to have a chemo tx today. Denies any recent sick contacts. Lives at home alone in [place]. Pulmonology Consult: ROS - Review of Systems Constitutional: weakness, malaise. 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 Budesonide (Pulmicort Neb Solution) 0.25 mg INH BID-RT [facility] Fondaparinux (Arixtra) 2.5 mg SC DAILY@0600 [facility] Cefepime HCl 1 gm/ Sodium (Chloride) 100 mls @ 200 mls/hr IVPB Q12HR GABRIELLA Vancomycin HCl 1 gm/ Device 200 mls @ 200 mls/hr IVPB 0800,2000 [facility] Ipratropium [place] (Atrovent) 2.5 ml NEB [id number] [facility] Last Admin: 08/02/19 02:00 Dose: 2.5 ml Methylprednisolone Sodium Succinate (Solu-Medrol) [address] [facility] Miscellaneous Medication (Pharmacy To Dose) 1 each IVPB PRN PRN PRN Reason: Pharmacy to dose Ondansetron HCl (Zofran) 4 mg IVP Q6H PRN PRN Reason: Nausea/Vomiting Senna/Docusate Sodium (Senokot S) 2 tab PO BID PRN PRN Reason: Constipation Sterile Water (Bacteriostatic Water) 1 ml FS PRN PRN PRN Reason: RECONSTITUTION - Allergies Allergies/Adverse Reactions: Allergies Allergy/AdvReac Type Severity Reaction Status Date / Time heparin Allergy causes Verified 07/04/19 12:10 blood clots Pulmonology Consult: PE - Physical Exam Constitutional: NAD HEENT: moist MMs, sclera anicteric, oral pharynx no lesions Neck: no nodes, supple, full ROM Cardiovascular: RRR, no significant murmur Respiratory: decreased breath sounds, prolonged expiratory phase. negative: accessory muscle use, rhonchi, stridor, wheezes Gastrointestinal: soft, non-tender, no distention, positive bowel sounds Musculoskeletal: no edema, pulses present Neurological: non-focal, normal sensation, moves all 4 limbs Psychiatric: normal affect, A&O x 3 Skin: no rash, normal turgor, cap refill <2 seconds Deviation from normal: chronic venous stasis changes in B/L LEs Pulmonology Consult: Results - Labs Result Diagrams: 08/06/19 03:47 08/05/19 04:06 - EKG Data Rate: normal - Radiology Interpretation Chest x-ray Status: image reviewed by me, report reviewed by me (Some progressive left sided volume loss and left hemidiaphragm elevation with some persistent parenchymal opacity changes in the left mid lower lung zone region evidence for possible bacterial pneumonia and/or post obstructive pneumonia or pneumonitis with associated atelectasis.) CT scan - chest Status: image reviewed by me, report reviewed by me (Dense area of consolidation in JOY also seen on prior studies w/ redistribution of the area of consolidation. May be related to residual pneumonia or possibly postobstructive process due to bronchial lesion. New consolidation in the LLL which may be related to either aspiration pneumonitis or developing pneumonia at the left lung base; no PE; Small left pleural effusion.) Pulmonology Consult: A/P - Problem (1) Acute respiratory failure with hypoxia Current Visit: Yes Code(s): J96.01 - ACUTE RESPIRATORY FAILURE WITH HYPOXIA Status: Acute (2) Diarrhea Current Visit: Yes Code(s): R19.7 - DIARRHEA, UNSPECIFIED Status: Chronic Qualifiers: Diarrhea type: unspecified type Qualified Code(s): R19.7 - Diarrhea, unspecified (3) Pneumonia Current Visit: Yes Code(s): J18.9 - PNEUMONIA, UNSPECIFIED ORGANISM Status: Acute Qualifiers: Pneumonia type: due to Pseudomonas Laterality: left Lung location: lower lobe of lung Qualified Code(s): J15.1 - Pneumonia due to Pseudomonas (4) AICD (automatic cardioverter/defibrillator) present Current Visit: Yes Code(s): Z95.810 - PRESENCE OF AUTOMATIC (IMPLANTABLE) CARDIAC DEFIBRILLATOR Status: Chronic (5) CHF (congestive heart failure) Current Visit: Yes Code(s): I50.9 - HEART FAILURE, UNSPECIFIED Status: Chronic Qualifiers: Heart failure type: systolic Heart failure chronicity: chronic Qualified Code(s): I50.22 - Chronic systolic (congestive) heart failure (6) HTN (hypertension) Current Visit: Yes Code(s): I10 - ESSENTIAL (PRIMARY) HYPERTENSION Status: Chronic Qualifiers: Hypertension type: essential hypertension Qualified Code(s): I10 - Essential (primary) hypertension (7) Lung cancer Current Visit: Yes Code(s): C34.90 - MALIGNANT NEOPLASM OF UNSP PART OF UNSP BRONCHUS OR LUNG Status: Chronic Qualifiers: Laterality: left Lung location: hilum of lung Qualified Code(s): C34.02 - Malignant neoplasm of left main bronchus (8) Chronic disease anemia Current Visit: No Code(s): D63.8 - ANEMIA IN OTHER CHRONIC DISEASES CLASSIFIED ELSEWHERE Status: Chronic (9) History of venous thromboembolism Current Visit: No Code(s): Z86.718 - PERSONAL HISTORY OF OTHER VENOUS THROMBOSIS AND EMBOLISM Status: Chronic (10) CAD (coronary artery disease) Current Visit: No Code(s): I25.10 - ATHSCL HEART DISEASE OF [place] CORONARY ARTERY W/O ANG PCTRS Status: Chronic Qualifiers: Coronary Disease-Associated Artery/Lesion type: [place] artery [place] vs. transplanted heart: [place] heart Associated angina: angina presence unspecified Qualified Code(s): I25.10 - Atherosclerotic heart disease of [place] coronary artery without angina pectoris (11) COPD (chronic obstructive pulmonary disease) Current Visit: No Status: Chronic Qualifiers: COPD type: COPD with acute exacerbation Qualified Code(s): J44.1 - Chronic obstructive pulmonary disease with (acute) exacerbation - Time Time: 50% of the time was spent in coordination of care (as documented) at patient's floor/unit and/or counseling patient. Time with Patient: greater than 70 minutes - Plan Plan: 74YOM with a h/o lung CA currently on chemo, COPD, and HFrEF s/p AICD placement who presents to the ED for worsening SOB w/ hemoptysis and is found to have acute on chronic hypoxic respiratory failure and sepsis 2/2 L-sided PNA. 1) Acute on chronic hypoxic respiratory failure 2/2 Left lung PNA vs. pneumonitis and/or atelectasis: Continue HF NC PRN to maintain sats between 88- 92% as patient is on 4L @ home @ baseline. Continue BS abx given IC state and underlying lung disease. GABRIELLA steroids & Duonebs & PRN albuterol. Will add mucinex. 2) Sepsis 2/2 Left lung health care acquired PNA vs. pneumonitis, improving: Vitals WNLs on HF NC on exam. Continue BS abx pending bld & urine Cxs. Gentle fluid support PRN. 3) Acute on chronic COPD exacerbation 2/2 Left lung PNA vs. pneumonitis and/or atelectasis: See plan for problem #1. 4) chronic diarrhea- Stool studies pending per primary team. Suspect 2/2 chemotherapy. Would consider antidiarrheal if stool studies negative. 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 Bustamante. 6) HTN- Resume home meds as tolerated by patient per primary team. 7) CAD s/p CABG- Resume home meds. 8) HFrEF s/p AICD placement" Does not appear to be in acute exacerbation. Continue home meds. 9) CKD: Renal fxn WNLs. 10) Hx bladder CA 11) Hx VTE & PE: Continue home anticoagulation. 12) Lateral T wave inversions on EKG: Cardiology consulted by primary team but troponins negative x3 & no chest pain. Is having occasional PVCs on monitor but rate WNLs. Continue close monitoring in IMCU. Addendum - Attending - Attending Attestation Date/Time: 08/02/19 5822 I personally evaluated the patient and discussed the management with Dr. Amato. I agree with the History, Examination, Assessment and Plan documented above with any addition or exceptions noted below. 70 minutes have been devoted to this patient in various activities. I personally reviewed all imaging studies and laboratory data noted within this document. For fifty percent of this time, I was interacting with the patient at the bedside or coordinating care with the care team. For the remainder of the time I was immediately available to the patient in the hospital unit.
[2019-08-02] MEDS: Arformoterol 15 MCG/2 ML NEB NEB SCH ×2 (07:01→18:39)
[2019-08-02] MEDS: Budesonide 0.25 MG/2 ML NEB INH SCH ×2 (07:01→18:38)
[2019-08-02 07:34] LABS: ALT (SGPT) 17 U/L (8-55); AST (SGOT) 13 U/L (5-34); Albumin 2.6 g/dL (3.4-4.8); Alkaline Phosphatase 85 U/L (40-110); Anion Gap 11 mmol/L (10-20); BUN (Urea Nitrogen) 30 mg/dL (8.4-25.7); Bilirubin, Total 0.3 mg/dL (0.2-1.2); Calc. Creatinine Clearance 102 mL/min (70-130); Calcium 8.2 mg/dL (7.8-10.44); Carbon Dioxide 28 mmol/L (23-31); Chloride 109 mmol/L (98-107); Estimated GFR-MDRD Greater than 90; Globulin 2.9 g/dL (2.4-3.5); Glucose 129 mg/dL (83-110); Potassium 4.4 mmol/L (3.5-5.1); Protein, Total 5.5 g/dL (5.8-8.1); Sodium 144 mmol/L (136-145)
[2019-08-02 07:35] LABS: Troponin I Less than 0.010 ng/mL (< 0.028)
[2019-08-02 07:58] LABS: Band 48 % (5-11); Hemoglobin 8.2 g/dL (14.0-18.0); Hypochromia SLIGHT = 6-15 cells (100X) (0-5/hpf); MDiff Complete? YES; Mean Corpuscular HGB CONC 30.8 g/dL (32.0-36.0); Mean Corpuscular Hemoglobin 25.5 pg (27.0-31.0); Mean Corpuscular Volume 82.9 fL (78.0-98.0); Mean Platelet Volume 8.5 fL (7.4-10.4); Monocytes 4 % (0-10); Neutrophil 44 % (42-75); Ovalocytes SLIGHT = 2-5 cells (100X) (0-1/hpf); Platelet Count 180 thou/uL (130-400); Platelet Morphology Comment Appears Adequate; Polychromasia SLIGHT = 2-3 cells (100X) (0-2/hpf); RBC Distribution Width 20.8 % (11.5-14.5); Red Blood Cell (RBC) Count 3.23 mill/uL (4.70-6.10); White Blood Cell (WBC) Count 1.7 thou/uL (4.8-10.8)
[2019-08-02] MEDS: Fondaparinux Sodium 2.5 MG/0.5 ML SYRINGE SC SCH (08:17)
[2019-08-02] MEDS: Vancomycin 1 GM in Premix Bag 1 BAG IVPB SCH ×2 (08:18→21:39)
[2019-08-02] MEDS: Cefepime 1 GM in Sodium Chloride 0.9% 100 ML IVPB SCH ×2 (08:19→21:37)
[2019-08-02] MEDS: methylPREDNISolone Sod Succ 40 MG VIAL IVP SCH ×2 (08:19→21:40)
--- NOTE | 2019-08-02 14:30 | PDOC.HOSPP ---
- Subjective Encounter Date: 08/02/19 Encounter Time: 11:00 Subjective: The patient is doing better. He still has some shortness of breath and cough. He thinks it has improved, but is not sure. He denies chest pain - Objective Vital Signs & Weight: Vital Signs (12 hours) Temp Pulse Pulse Pulse Resp BP BP 08/02/19 13:57 08/02/19 13:56 90 25 H 08/02/19 13:42 92 08/02/19 10:46 75 24 H 08/02/19 10:14 96 94 113/71 133/72 08/02/19 08:00 08/02/19 07:01 08/02/19 07:00 98.6 F 08/02/19 06:56 92 24 H 08/02/19 05:00 98.7 F Pulse Ox Pulse Ox Pulse Ox 08/02/19 13:57 100 08/02/19 13:56 100 08/02/19 13:42 100 08/02/19 10:46 100 08/02/19 10:14 100 100 08/02/19 08:00 100 08/02/19 07:01 100 08/02/19 07:00 08/02/19 06:56 100 08/02/19 05:00 Weight Admit Weight 203 lb Weight 203 lb 0.732 oz Most Recent Monitor Data Heart Rate from ECG 93 NIBP 124/75 NIBP BP-Mean 91 Respiration from ECG 23 SpO2 99 I&O: 08/01/19 08/02/19 08/03/19 06:59 06:59 06:59 Intake Total 290 Output Total 0 0 Balance 0 290 Result Diagrams: 08/02/19 07:00 08/02/19 07:00 Hospitalist ROS - Review of Systems Constitutional: denies: fever, chills - Medication Medications: Active Medications Generic Name Dose Route Start Last Admin Trade Name Freq PRN Reason Stop Dose Admin Arformoterol Tartrate 15 mcg 08/02/19 06:30 08/02/19 07:01 Brovana NEB 15 mcg BID-RT GABRIELLA Administration Budesonide 0.25 mg 08/02/19 06:30 08/02/19 07:01 Pulmicort Neb Solution INH 0.25 mg BID-RT GABRIELLA Administration Fondaparinux 2.5 mg 08/02/19 06:00 08/02/19 08:17 Arixtra SC 2.5 mg DAILY@0600 GABRIELLA Administration Cefepime HCl 1 gm/ Sodium 100 mls @ 200 mls/hr 08/02/19 09:00 08/02/19 08:19 Chloride IVPB 100 mls Q12HR GABRIELLA Administration Vancomycin HCl 1 gm/ Device 200 mls @ 200 mls/hr 08/02/19 08:00 08/02/19 08: 18 IVPB 200 mls 0800,2000 GABRIELLA Administration Ipratropium [place] 2.5 ml 08/01/19 22:30 08/02/19 13:56 Atrovent NEB 2.5 ml [id number] GABRIELLA Administration Methylprednisolone Sodium Succinate 40 mg 08/02/19 09:00 08/02/19 08:19 Solu-Medrol IVP 40 mg BID GABRIELLA Administration - Exam General Appearance: NAD, awake alert General - other findings: on high flow nasal cannula Eye: PERRL, anicteric sclera ENT: normocephalic atraumatic, no oropharyngeal lesions Neck: supple, no JVD Heart: RRR, no murmur, no gallops, no rubs Respiratory: CTAB, no wheezes, no rales, no ronchi Gastrointestinal: soft, non-tender, non-distended, normal bowel sounds Extremities: no cyanosis, no clubbing, no edema Skin: normal turgor, no lesions, no rashes Neurological: cranial nerve grossly intact, normal sensation to touch, no focal deficits, no new deficit Musculoskeletal: normal tone, normal strength, no muscle wasting Psychiatric: normal affect, normal behavior, A&O x 3, oriented to person Hosp A/P - Plan CTA chest: no PE. Left pleural effusion. LLL pneumonia, JOY consolidation which is old. Thick bronchi + bronchioles in the JOY This is a 74 year old male with past medical history of lung cancer who presented with worsening shortness of breath, admitted for pneumonia Acute hypoxic respiratory failure secondary to pneumonia in setting of lung cancer - continue IV vanc and cefepime. CTA showed no PE - continue brovana bid, pulmicort bid, solumedrol 40 mg IV bid - troponin negative times three - pulmonary consulted and following - EKG shows lateral wall changes, repeat EKG ordered. Cardiology consult pending Leukopenia Anemia - secondary to chemotherapy - WbC 1.7, hemoglobin 8.2 - continue to monitor DVT prophylaxis: fondaparinux Code status: full code
[2019-08-02] MEDS ORDERED: Finasteride 5 MG TAB PO SCH (15:00)
[2019-08-02] MEDS ORDERED: Tamsulosin HCl 0.4 MG CAP PO SCH (15:00)
[2019-08-02] MEDS ORDERED: cefTRIAXone\\ROCEPHIN 1 GM in Sodium Chloride 0.9% 100 ML IVPB SCH (20:00)
[2019-08-03] MEDS: Ipratropium Bromide 2.5 ml Neb NEB SCH ×6 (02:13→22:31)
[2019-08-03 04:35] LABS: Vancomycin, Trough 16.5 ug/mL
[2019-08-03] MEDS: Fondaparinux Sodium 2.5 MG/0.5 ML SYRINGE SC SCH (06:39)
[2019-08-03] MEDS: Budesonide 0.25 MG/2 ML NEB INH SCH ×2 (07:17→18:27)
[2019-08-03] MEDS: Arformoterol 15 MCG/2 ML NEB NEB SCH ×2 (07:17→18:22)
[2019-08-03] MEDS: Vancomycin 1 GM in Premix Bag 1 BAG IVPB SCH ×2 (07:30→20:47)
--- NOTE | 2019-08-03 07:31 | CON ---
DATE OF CONSULTATION: 08/02/2019 REASON FOR CONSULTATION: Abnormal EKG. HISTORY OF PRESENT ILLNESS: Mr. Barahona is a very pleasant 74-year-old white gentleman, who is very well known to myself, who comes to the hospital for shortness of breath, respiratory insufficiency. He was seen in the ER for this. He was admitted and placed on high-flow nasal cannula. Cardiology is being consulted as he had an EKG that showed T-wave depressions. Mr. Barahona denies any chest pain, tightness, or pressure. He did have a bypass surgery done last year. His only complaint is shortness of breath. He actually had a CT of the chest, that showed no pulmonary edema. He has known lung cancer and his postobstructive pneumonia is actually better than what it looked back in April, but he also has a new infiltrate on the left lower lobe, which is most likely the source of his current issue. He has also developed diarrhea since starting on chemotherapy for his lung cancer. He also has had bladder cancer. PAST MEDICAL HISTORY: 1. COPD. 2. Lung cancer, on chemo and radiation. 3. Bladder cancer, status post cryotherapy. 4. BPH. 5. Hypertension. 6. CAD, status post CABG. 7. Chronic systolic heart failure. 8. AICD in place. 9. Chronic kidney disease. 10. Chronic diarrhea. 11. 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 PAST SURGICAL HISTORY: 1. CABG. 2. TURP. 3. AICD placement. 4. Right subclavian port placement. 5. Femoral embolectomy. FAMILY HISTORY: Noncontributory. SOCIAL HISTORY: Quit smoking 10 years ago. No alcohol, tobacco, or drugs currently. REVIEW OF SYSTEMS: A 12-point review of systems was done and was all negative unless stated in the history of present illness. PHYSICAL EXAMINATION: VITAL SIGNS: Temperature 98.7, pulse 93, respiratory rate 26, saturating 100% on 10 L. GENERAL: Awake, alert, in [id number] respiratory distress, much better than before. HEENT: Normocephalic atraumatic. NECK: Supple. LUNGS: Crackles at the left base. ABDOMEN: Soft. Positive bowel sounds. CARDIOVASCULAR: S1 and S2. No S3 or S4. EXTREMITIES: No edema. SKIN: There are some radiation dwyer on his upper back from radiation. LABORATORY AND DIAGNOSTIC DATA: Laboratory work was reviewed. White count of 1.7, hemoglobin of 8.3, hematocrit of 26, platelet count of 180. Chemistries were reviewed, pretty much unremarkable. GFR is greater than 90 with a creatinine of 0.83. Troponins have been negative x3. BNP was 258. UA with 2+ blood, greater than 50 red cells, and greater than [address] of the chest showed consolidation on the left upper lobe, which was seen on prior studies, but most likely residual pneumonia from postobstructive process that he had in the past. There is mediastinal lymphadenopathy. Findings consistent with COPD. Mild left hydronephrosis. No pulmonary embolus. Small left pleural effusion, and there is interval development of consolidation of left lower lobe, which was not present on CT scan in the middle of May. ASSESSMENT: 1. Left lower lobe pneumonia. 2. Lung cancer. 3. Abnormal EKG. This is at his baseline. 4. Chronic obstructive pulmonary disease with acute exacerbation. 5. Sepsis. 6. Squamous cell carcinoma of the lung. 7. Chronic diarrhea. PLAN: 1. CV seems to be stable. 2. Would continue pulmonary toilet. 3. Would not consider IV Lasix needed at this time. I think most of his respiratory situation is related to his infectious process. 4. His T-wave inversions on his EKG are chronic. He is not having any symptoms concerning for ischemia or any troponin change or any troponin elevation. Stable at this time. No plan on left heart catheterization for now. Thank you for letting us to participate in the care of your patient. We will follow. Job ID: [id number]
--- NOTE | 2019-08-03 09:10 | PRG ---
DATE OF SERVICE: 08/03/2019 SUBJECTIVE: Keith Barahona, well known to me, who has squamous cell carcinoma, status post radiation and chemo. He presented with weakness, diarrhea, and respiratory failure. This morning, he is sitting in the ICU high flow. He is better, but still weak. His brother normally is a spokesman. He unfortunately had some family issues and not here. OBJECTIVE: VITAL SIGNS: Saturations are 100% high flow, respiratory rate 24, pulse 94, blood pressure 100/60. CHEST: Wheezing, left greater than right. CARDIAC: Normal S1, S2. No gallops. ABDOMEN: No masses. LABORATORY DATA: His blood culture, coagulase negative staph. X-ray, elevated hemidiaphragm, atelectatic changes at left base. CT shows left upper lung mass. His white count is 1.7. Admission H and H are low. Platelet count is normal. His chemistry profile was otherwise unremarkable. IMPRESSION: 1. Marked weakness secondary to dehydration. 2. Chronic obstructive pulmonary disease. 3. Lung cancer, chemotherapy. PLAN: Continue present treatment. Broad-spectrum antibiotics, neb treatments, steroids. ICU. Prognosis remains guarded. Job ID: [id number]
[2019-08-03] MEDS: Multivit, Therapeutic 1 TAB PO SCH (09:36)
[2019-08-03] MEDS: Cetirizine HCl 10 MG TAB PO SCH (09:36)
[2019-08-03] MEDS: Finasteride 5 MG TAB PO SCH (09:38)
[2019-08-03] MEDS: Tamsulosin HCl 0.4 MG CAP PO SCH (09:38)
[2019-08-03] MEDS: methylPREDNISolone Sod Succ 40 MG VIAL IVP SCH ×2 (09:39→20:47)
[2019-08-03] MEDS: Cefepime 1 GM in Sodium Chloride 0.9% 100 ML IVPB SCH (09:39)
[2019-08-03] MEDS: Furosemide 40 MG/4 ML VIAL SLOW IVP SCH (09:40)
[2019-08-03] MEDS: Cefepime 2 GM in Sodium Chloride 0.9% 100 ML IVPB SCH (17:51)
--- NOTE | 2019-08-03 20:25 | PDOC.CPN ---
- Subjective Date: 08/03/19 Time: 20:23 Interval history: Doing better today. No angina. - Review of Systems General: denies: fever/chills, weight/appetite/sleep changes, night sweats, fatigue Respiratory: reports: cough, shortness of breath. denies: congestion, exercise intolerance Cardiovascular: denies: chest pain, palpitation, edema, paroxysmal nocturnal dyspnea, orthopnea Gastrointestinal: denies: nausea, vomiting, diarrhea, constipation, abd pain, GI bleeding Musculoskeletal: reports: pain. denies: tenderness, stiffness, swelling, arthritis/arthralgias Neurological: denies: numbness, syncope, seizure, weakness - Objective Allergies/Adverse Reactions: Allergies Allergy/AdvReac Type Severity Reaction Status Date / Time heparin Allergy causes Verified 07/04/19 12:10 blood clots Visit Medications: Current Medications Acetaminophen (Tylenol) 650 mg PO Q4H PRN PRN Reason: Headache/Fever/Mild Pain (1-3) Albuterol/Ipratropium (Duoneb) 3 ml NEB [id number] PRN PRN Reason: SOB &/or Wheezing Arformoterol Tartrate (Brovana) 15 mcg NEB BID-RT [facility] Last Admin: 08/03/19 18:22 Dose: 15 mcg Budesonide (Pulmicort Neb Solution) 0.25 mg INH BID-RT [facility] Last Admin: 08/03/19 18:27 Dose: 0.25 mg Cetirizine HCl (Zyrtec) 10 mg PO DAILY [facility] Last Admin: 08/03/19 09:36 Dose: 10 mg Finasteride (Proscar) 5 mg PO DAILY [facility] Last Admin: 08/03/19 09:38 Dose: 5 mg Fondaparinux (Arixtra) 2.5 mg SC DAILY@0600 [facility] Last Admin: 08/03/19 06:39 Dose: 2.5 mg Furosemide (Lasix) 40 mg SLOW IVP DAILY [facility] Stop: 08/05/19 09:01 Last Admin: 08/03/19 09:40 Dose: 40 mg Vancomycin HCl 1 gm/ Device 200 mls @ 200 mls/hr IVPB 0800,2000 [facility] Last Admin: 08/03/19 07:30 Dose: 200 mls Cefepime HCl 2 gm/ Sodium (Chloride) 100 mls @ 200 mls/hr IVPB 0100,0900,1700 [facility] Last Admin: 08/03/19 17:51 Dose: 100 mls Ipratropium [place] (Atrovent) 2.5 ml NEB [id number] [facility] Last Admin: 08/03/19 18:26 Dose: 2.5 ml Methylprednisolone Sodium Succinate (Solu-Medrol) 40 mg IVP BID [facility] Last Admin: 08/03/19 09:39 Dose: 40 mg Miscellaneous Medication (Pharmacy To Dose) 1 each IVPB PRN PRN PRN Reason: Pharmacy to dose Multivitamins (Theragran) 1 tab PO DAILY [facility] Last Admin: 08/03/19 09:36 Dose: 1 tab Ondansetron HCl (Zofran) 4 mg IVP Q6H PRN PRN Reason: Nausea/Vomiting Senna/Docusate Sodium (Senokot S) 2 tab PO BID PRN PRN Reason: Constipation Sterile Water (Bacteriostatic Water) 1 ml FS PRN PRN PRN Reason: RECONSTITUTION Tamsulosin HCl (Flomax) 0.8 mg PO DAILY [facility] Last Admin: 08/03/19 09:38 Dose: 0.8 mg Vital Signs & Weight: Vital Signs Temp Pulse Pulse Pulse Resp BP BP 08/03/19 18:22 93 18 08/03/19 16:36 08/03/19 16:30 97.7 F 93 22 H 08/03/19 14:43 92 19 08/03/19 12:00 97.9 F 08/03/19 11:21 94 25 H 08/03/19 09:08 71 85 95/59 L 106/75 BP Pulse Ox Pulse Ox Pulse Ox 08/03/19 18:22 08/03/19 16:36 99 08/03/19 16:30 150/72 H 99 08/03/19 14:43 100 08/03/19 12:00 08/03/19 11:21 98 08/03/19 09:08 95 99 Admit Weight 203 lb Weight 203 lb 0.732 oz - Physical Exam General: alert & oriented x3 HEENT: mucus membranes moist Neck: supple neck Cardiac: regular rate and rhythm Lungs: decreased breath sounds Neuro: grossly intact Abdomen: active bowel sounds Extremities: no edema Skin: clear Musculoskeletal: no pain - Labs Result Diagrams: 08/02/19 07:00 08/02/19 07:00 Troponin/CKMB Troponin I Less than 0.010 ng/mL (< 0.028) 08/02/19 07:00 - Telemetry Sinus rhythms and dysrhythmias: sinus rhythm - Assessment/Plan Assessment/Plan: 1. Left lower lobe pneumonia 2. Lung Cancer 3. COPD 4. Ischemic CM, stable. PLAN: - CV stable. - May transfer to telemetry floor.
--- NOTE | 2019-08-03 20:45 | PDOC.HOSPP ---
- Subjective Encounter Date: 08/15/19 Encounter Time: 18:00 Subjective: The patient states that his cough is about the same. He is producing some phlegm. No chest pain. No fevers - Objective Vital Signs & Weight: Vital Signs (12 hours) Temp Pulse Pulse Pulse Resp BP BP 08/03/19 18:22 93 18 08/03/19 16:36 08/03/19 16:30 97.7 F 93 22 H 08/03/19 14:43 92 19 08/03/19 12:00 97.9 F 08/03/19 11:21 94 25 H 08/03/19 09:08 71 85 95/59 L 106/75 BP Pulse Ox Pulse Ox Pulse Ox 08/03/19 18:22 08/03/19 16:36 99 08/03/19 16:30 150/72 H 99 08/03/19 14:43 100 08/03/19 12:00 08/03/19 11:21 98 08/03/19 09:08 95 99 Weight Admit Weight 203 lb Weight 203 lb 0.732 oz Most Recent Monitor Data Heart Rate from ECG 91 NIBP 135/85 NIBP BP-Mean 101 Respiration from ECG 23 SpO2 98 I&O: 08/02/19 08/03/19 08/04/19 06:59 06:59 06:59 Intake Total 690 1240 Output Total 0 53 950 Balance 0 637 290 Result Diagrams: 08/02/19 07:00 08/02/19 07:00 Hospitalist ROS - Review of Systems Constitutional: denies: fever, chills - Medication Medications: Active Medications Generic Name Dose Route Start Last Admin Trade Name Judy PRN Reason Stop Dose Admin Arformoterol Tartrate 15 mcg 08/02/19 06:30 08/03/19 18:22 Brovana NEB 15 mcg BID-RT GABRIELLA Administration Budesonide 0.25 mg 08/02/19 06:30 08/03/19 18:27 Pulmicort Neb Solution INH 0.25 mg BID-RT GABRIELLA Administration Cetirizine HCl 10 mg 08/03/19 09:00 08/03/19 09:36 Zyrtec PO 10 mg DAILY GABRIELLA Administration Finasteride 5 mg 08/03/19 09:00 08/03/19 09:38 Proscar PO 5 mg DAILY GABRIELLA Administration Fondaparinux 2.5 mg 08/02/19 06:00 08/03/19 06:39 Arixtra SC 2.5 mg DAILY@0600 GABRIELLA Administration Furosemide 40 mg 08/03/19 09:00 08/03/19 09:40 Lasix SLOW IVP 08/05/19 09:01 40 mg DAILY GABRIELLA Administration Vancomycin HCl 1 gm/ Device 200 mls @ 200 mls/hr 08/02/19 08:00 08/03/19 07: 30 IVPB 200 mls 0800,2000 GABRIELLA Administration Cefepime HCl 2 gm/ Sodium 100 mls @ 200 mls/hr 08/03/19 17:00 08/03/19 17:51 Chloride IVPB 100 mls 0100,0900,1700 GABRIELLA Administration Ipratropium [place] 2.5 ml 08/01/19 22:30 08/03/19 18:26 Atrovent NEB 2.5 ml [id number] GABRIELLA Administration Methylprednisolone Sodium Succinate 40 mg 08/02/19 09:00 08/03/19 09:39 Solu-Medrol IVP 40 mg BID GABRIELLA Administration Multivitamins 1 tab 08/03/19 09:00 08/03/19 09:36 Theragran PO 1 tab DAILY GABRIELLA Administration Tamsulosin HCl 0.8 mg 08/03/19 09:00 08/03/19 09:38 Flomax PO 0.8 mg DAILY GABRIELLA Administration - Exam General Appearance: NAD, awake alert Eye: PERRL, anicteric sclera ENT: normocephalic atraumatic, no oropharyngeal lesions Neck: no JVD Heart: RRR, no murmur, no gallops, no rubs Respiratory: CTAB, no wheezes, no rales, no ronchi Gastrointestinal: soft, non-tender, non-distended, normal bowel sounds Extremities: no cyanosis, no clubbing, no edema Skin: normal turgor, no lesions, no rashes Neurological: cranial nerve grossly intact, normal sensation to touch, no focal deficits, no new deficit Musculoskeletal: normal tone, normal strength, no muscle wasting Hosp A/P - Plan CTA chest: no PE. Left pleural effusion. LLL pneumonia, JOY consolidation which is old. Thick bronchi + bronchioles in the OJY This is a 74 year old male with past medical history of lung cancer who presented with worsening shortness of breath, admitted for pneumonia Acute hypoxic respiratory failure secondary to pseudomonas pneumonia in setting of lung cancer - continue IV vanc and cefepime. CTA showed no PE. SPutum culture growing pseudomonas - continue brovana bid, pulmicort bid, solumedrol 40 mg IV bid. Was also started on lasix 40 mg IV daily by pulmonary - troponin negative times three - EKG shows lateral wall changes, repeat EKG ordered. Cardiology consulted and following, no indication for cardiac cath Leukopenia Anemia - secondary to chemotherapy - WbC 1.7, hemoglobin 8.2 - continue to monitor Pseudomonas bacterial infection - noted in stool sample - continue IV cefepime DVT prophylaxis: fondaparinux Code status: full code
[2019-08-04] MEDS: Cefepime 2 GM in Sodium Chloride 0.9% 100 ML IVPB SCH ×3 (00:42→16:46)
[2019-08-04] MEDS: Ipratropium Bromide 2.5 ml Neb NEB SCH ×3 (01:49→10:24)
[2019-08-04] MEDS: Fondaparinux Sodium 2.5 MG/0.5 ML SYRINGE SC SCH (05:29)
[2019-08-04] MEDS: Budesonide 0.25 MG/2 ML NEB INH SCH ×2 (06:30→18:25)
[2019-08-04] MEDS: Arformoterol 15 MCG/2 ML NEB NEB SCH ×2 (06:30→18:24)
[2019-08-04] MEDS: Vancomycin 1 GM in Premix Bag 1 BAG IVPB SCH ×2 (07:41→19:55)
[2019-08-04] MEDS: Finasteride 5 MG TAB PO SCH (09:50)
[2019-08-04] MEDS: Tamsulosin HCl 0.4 MG CAP PO SCH (09:50)
[2019-08-04] MEDS: Multivit, Therapeutic 1 TAB PO SCH (09:51)
[2019-08-04] MEDS: methylPREDNISolone Sod Succ 40 MG VIAL IVP SCH ×2 (09:52→19:55)
[2019-08-04] MEDS: Furosemide 40 MG/4 ML VIAL SLOW IVP SCH (09:52)
[2019-08-04] MEDS: Cetirizine HCl 10 MG TAB PO SCH (09:55)
[2019-08-04] MEDS ORDERED: guaiFENesin ER 600 MG TAB PO PRN (10:00)
[2019-08-04] MEDS ORDERED: Docusate 100 MG CAP PO PRN (10:00)
--- NOTE | 2019-08-04 12:11 | PRG ---
DATE OF SERVICE: 08/04/2019 SUBJECTIVE: This morning, he is feeling better. He is no longer hypotensive. OBJECTIVE: VITAL SIGNS: Blood pressure 140/75, saturations are 96% on 3 L, pulse 106, and temperature 97. CHEST: Bilateral rhonchi, crackles. CARDIAC: Normal S1 and S2. No gallops. ABDOMEN: No masses. His sputum is growing Pseudomonas sensitive to present antibiotic. ASSESSMENT: 1. Status post chemo pancytopenia. 2. Diarrhea, resolved. 3. Hypertension, improved. 4. Chronic obstructive pulmonary disease, stable. 5. Lung cancer. PLAN: Probably switch over to oral antibiotics tomorrow. Probably discontinue vancomycin in the morning. Otherwise, continue supportive care, PT. Job ID: [id number]
--- NOTE | 2019-08-04 14:49 | EKG ---
Test Reason : Blood Pressure : / mmHG Vent. Rate : 102 BPM Atrial Rate : 102 BPM P-R Int : 130 ms QRS Dur : 092 ms QT Int : 356 ms P-R-T Axes : 042 021 143 degrees QTc Int : 463 ms Sinus tachycardia with Premature atrial complexes T wave abnormality, consider lateral ischemia Abnormal ECG Confirmed by IVA [facility] ([id number]), online content editor ELIZABETH ALEXANDRA ([id number]) on 08/04/2019 2:49:17 PM Referred By: Confirmed By:IVA RUTH
[2019-08-04] MEDS: Acetaminophen 325 MG TAB PO PRN (15:40)
--- NOTE | 2019-08-04 18:13 | PDOC.HOSPP ---
- Subjective Subjective: Follow-up evaluation on 74-year-old gentleman with past medical history of squamous cell lung cancer status post chemotherapy and radiation, bladder cancer , congestive heart failure the reduced ejection fraction, AICD, pancytopenia who is being treated for pseudomonas pneumonia. Patient pseudomonas is carson sensitive and the patient is on maxipime and Vancomycin. Patient is having a good response to broad-spectrum antibiotics. We are restarting the patient's congestive heart failure regimen with carvedilol and Entresto. Echocardiogram pending. Patient breathing comfortably on his baseline for liters nasal cannula. Patient denies chest pain. No other acute complaints at this time. Time was given for questions, all answered in detail. - Objective Vital Signs & Weight: Vital Signs (12 hours) Temp Pulse Resp BP Pulse Ox 08/04/19 15:18 98.4 F 95 133/71 97 08/04/19 13:38 92 16 93 L 08/04/19 11:53 97.8 F 103 H 24 H 142/79 H 96 08/04/19 09:50 96 08/04/19 07:34 97.8 F 106 H 23 H 144/75 H 96 08/04/19 06:30 94 16 94 L 08/04/19 06:27 94 16 94 L Weight Admit Weight 203 lb Weight 201 lb 3.2 oz Most Recent Monitor Data Heart Rate from ECG 91 NIBP 135/85 NIBP BP-Mean 101 Respiration from ECG 23 SpO2 98 I&O: 08/03/19 08/04/19 08/05/19 06:59 06:59 07:59 Intake Total 690 2040 Output Total 53 1600 Balance 637 440 Result Diagrams: 08/02/19 07:00 08/02/19 07:00 Radiology Reviewed by me: Yes Hospitalist ROS - Review of Systems All other systems reviewed; all pertinent +/- noted in HPI/Subj - Medication Medications: Active Medications Generic Name Dose Route Start Last Admin Trade Name Freq PRN Reason Stop Dose Admin Acetaminophen 650 mg 08/01/19 22:04 08/04/19 15:40 Tylenol PO 650 mg Q4H PRN Administration Headache/Fever/Mild Pain (1-3) Albuterol/Ipratropium 3 ml 08/04/19 13:00 08/04/19 13:38 Duoneb NEB 3 ml [id number] GABRIELLA Administration Arformoterol Tartrate 15 mcg 08/02/19 06:30 08/04/19 06:30 Brovana NEB 15 mcg BID-RT GABRIELLA Administration Budesonide 0.25 mg 08/02/19 06:30 08/04/19 06:30 Pulmicort Neb Solution INH 0.25 mg BID-RT GABRIELLA Administration Cetirizine HCl 10 mg 08/03/19 09:00 08/04/19 09:55 Zyrtec PO 10 mg DAILY GABRIELLA Administration Finasteride 5 mg 08/03/19 09:00 08/04/19 09:50 Proscar PO 5 mg DAILY GABRIELLA Administration Fondaparinux 2.5 mg 08/02/19 06:00 08/04/19 05:29 Arixtra SC 2.5 mg DAILY@0600 GABRIELLA Administration Furosemide 40 mg 08/03/19 09:00 08/04/19 09:52 Lasix SLOW IVP 08/05/19 09:01 40 mg DAILY GABRIELLA Administration Vancomycin HCl 1 gm/ Device 200 mls @ 200 mls/hr 08/02/19 08:00 08/04/19 07: 41 IVPB 200 mls 0800,2000 GABRIELLA Administration Cefepime HCl 2 gm/ Sodium 100 mls @ 200 mls/hr 08/03/19 17:00 08/04/19 16:46 Chloride IVPB 100 mls 0100,0900,1700 GABRIELLA Administration Methylprednisolone Sodium Succinate 40 mg 08/02/19 09:00 08/04/19 09:52 Solu-Medrol IVP 40 mg BID GABRIELLA Administration Multivitamins 1 tab 08/03/19 09:00 08/04/19 09:51 Theragran PO 1 tab DAILY GABRIELLA Administration Tamsulosin HCl 0.8 mg 08/03/19 09:00 08/04/19 09:50 Flomax PO 0.8 mg DAILY GABRIELLA Administration - Exam General Appearance: NAD, awake alert Eye: anicteric sclera ENT: normocephalic atraumatic, moist mucosa Neck: supple, symmetric, no lymphadenopathy Heart: no murmur, no gallops, no rubs Respiratory: no rales, normal chest expansion, no tachypnea, normal percussion, rhonchi, wheezes Gastrointestinal: soft, non-tender, no guarding, no rigidity Extremities: 2+ LE edema Skin: no lesions, no rashes Neurological: cranial nerve grossly intact, no focal deficits Musculoskeletal: generalized weakness Psychiatric: A&O x 3 Hosp A/P (1) Acute respiratory failure with hypoxia Code(s): J96.01 - ACUTE RESPIRATORY FAILURE WITH HYPOXIA Status: Acute (2) Pneumonia Code(s): J18.9 - PNEUMONIA, UNSPECIFIED ORGANISM Status: Acute Qualifiers: Pneumonia type: due to unspecified organism Laterality: left Lung location: lower lobe of lung Qualified Code(s): J18.9 - Pneumonia, unspecified organism (3) Pseudomonas aeruginosa infection Code(s): A49.8 - OTHER BACTERIAL INFECTIONS OF UNSPECIFIED SITE Status: Acute (4) AICD (automatic cardioverter/defibrillator) present Code(s): Z95.810 - PRESENCE OF AUTOMATIC (IMPLANTABLE) CARDIAC DEFIBRILLATOR Status: Chronic (5) CHF (congestive heart failure) Code(s): I50.9 - HEART FAILURE, UNSPECIFIED Status: Chronic Qualifiers: Heart failure type: systolic Heart failure chronicity: chronic Qualified Code(s): I50.22 - Chronic systolic (congestive) heart failure (6) Diarrhea Code(s): R19.7 - DIARRHEA, UNSPECIFIED Status: Chronic Qualifiers: Diarrhea type: unspecified type Qualified Code(s): R19.7 - Diarrhea, unspecified (7) HTN (hypertension) Code(s): I10 - ESSENTIAL (PRIMARY) HYPERTENSION Status: Chronic Qualifiers: Hypertension type: essential hypertension Qualified Code(s): I10 - Essential (primary) hypertension (8) Lung cancer Code(s): C34.90 - MALIGNANT NEOPLASM OF UNSP PART OF UNSP BRONCHUS OR LUNG Status: Chronic Qualifiers: Laterality: left Lung location: hilum of lung Qualified Code(s): C34.02 - Malignant neoplasm of left main bronchus (9) Respiratory failure Code(s): J96.90 - RESPIRATORY FAILURE, UNSP, UNSP W HYPOXIA OR HYPERCAPNIA Status: Chronic Qualifiers: Chronicity: acute on chronic Respiratory failure complication: hypoxia Qualified Code(s): J96.21 - Acute and chronic respiratory failure with hypoxia (10) LEENA (acute kidney injury) Code(s): N17.9 - ACUTE KIDNEY FAILURE, UNSPECIFIED Status: Acute (11) Bilateral hydronephrosis Code(s): N13.30 - UNSPECIFIED HYDRONEPHROSIS Status: Acute (12) Bilateral lower extremity edema Code(s): R60.0 - LOCALIZED EDEMA Status: Acute (13) Bladder tumor Code(s): D49.4 - NEOPLASM OF UNSPECIFIED BEHAVIOR OF BLADDER Status: Acute (14) Ischemic cardiomyopathy Code(s): I25.5 - ISCHEMIC CARDIOMYOPATHY Status: Acute (15) Lymphedema Code(s): I89.0 - LYMPHEDEMA, NOT ELSEWHERE CLASSIFIED Status: Acute (16) Malignant neoplasm of bladder Status: Acute (17) Penile edema Code(s): N48.89 - OTHER SPECIFIED DISORDERS OF PENIS Status: Acute (18) Scrotal edema Code(s): N50.89 - OTHER SPECIFIED DISORDERS OF THE MALE GENITAL ORGANS Status : Acute (19) UTI (urinary tract infection) Status: Acute (20) CAD (coronary artery disease) Code(s): I25.10 - ATHSCL HEART DISEASE OF [place] CORONARY ARTERY W/O ANG PCTRS Status: Chronic Qualifiers: Coronary Disease-Associated Artery/Lesion type: [place] artery [place] vs. transplanted heart: [place] heart Associated angina: angina presence unspecified Qualified Code(s): I25.10 - Atherosclerotic heart disease of [place] coronary artery without angina pectoris (21) COPD (chronic obstructive pulmonary disease) Status: Chronic Qualifiers: COPD type: COPD with acute exacerbation Qualified Code(s): J44.1 - Chronic obstructive pulmonary disease with (acute) exacerbation (22) Chronic disease anemia Code(s): D63.8 - ANEMIA IN OTHER CHRONIC DISEASES CLASSIFIED ELSEWHERE Status : Chronic (23) History of venous thromboembolism Code(s): Z86.718 - PERSONAL HISTORY OF OTHER VENOUS THROMBOSIS AND EMBOLISM Status: Chronic - Plan Plan: medical unit with telemetry cardiology consultation, recommendations appreciate pulmonology consultation, recommendations appreciated supplemental oxygen as needed to maintain O2 saturation greater than 88% broad-spectrum antibiotics with Maxipime and vancomycin pseudomonas, carson sensitive consider infectious disease specialist if does not respond to therapy restart cardiomyopathy regimen carvedilol, Entresto, Lasix echocardiogram avoid fluid overload continue other home medications as able blood pressure control blood sugar control G.I. prophylaxis DVT prophylaxis
[2019-08-04] MEDS: Mometasone/Formoterol 120 PUFF INHALER INH SCH (18:25)
[2019-08-04] MEDS ORDERED: Mometasone/Formoterol 120 PUFF INHALER INH SCH (18:30)
[2019-08-04] MEDS: Carvedilol 6.25 MG TAB PO SCH (19:55)
--- NOTE | 2019-08-04 20:46 | PDOC.CPN ---
- Subjective Date: 08/04/19 Time: 20:44 Interval history: Breathing is slowly improving. No angina. - Review of Systems General: denies: fever/chills, weight/appetite/sleep changes, night sweats, fatigue Respiratory: reports: cough, shortness of breath. denies: congestion, exercise intolerance Cardiovascular: denies: chest pain, palpitation, edema, paroxysmal nocturnal dyspnea, orthopnea Gastrointestinal: denies: nausea, vomiting, diarrhea, constipation, abd pain, GI bleeding Musculoskeletal: denies: pain, tenderness, stiffness, swelling, arthritis/ arthralgias Neurological: denies: numbness, syncope, seizure, weakness - Objective Allergies/Adverse Reactions: Allergies Allergy/AdvReac Type Severity Reaction Status Date / Time heparin Allergy causes Verified 07/04/19 12:10 blood clots Visit Medications: Current Medications Acetaminophen (Tylenol) 650 mg PO Q4H PRN PRN Reason: Headache/Fever/Mild Pain (1-3) Last Admin: 08/04/19 15:40 Dose: 650 mg Albuterol/Ipratropium (Duoneb) 3 ml NEB [id number] PRN PRN Reason: SOB &/or Wheezing Albuterol/Ipratropium (Duoneb) 3 ml NEB [id number] [facility] Last Admin: 08/04/19 18:22 Dose: 3 ml Arformoterol Tartrate (Brovana) 15 mcg NEB BID-RT [facility] Last Admin: 08/04/19 18:24 Dose: 15 mcg Aspirin (Aspirin Chewable) 81 mg PO DAILY [facility] Atorvastatin Calcium (Lipitor) 40 mg PO DAILY [facility] Budesonide (Pulmicort Neb Solution) 0.25 mg INH BID-RT [facility] Last Admin: 08/04/19 18:25 Dose: 0.25 mg Carvedilol (Coreg) 12.5 mg PO BID [facility] Last Admin: 08/04/19 19:55 Dose: 12.5 mg Cetirizine HCl (Zyrtec) 10 mg PO DAILY [facility] Last Admin: 08/04/19 09:55 Dose: 10 mg Docusate Sodium (Colace) 100 mg PO PRN PRN PRN Reason: STOOL SOFTENER Finasteride (Proscar) 5 mg PO DAILY [facility] Last Admin: 08/04/19 09:50 Dose: 5 mg Fondaparinux (Arixtra) 2.5 mg SC DAILY@0600 [facility] Last Admin: 08/04/19 05:29 Dose: 2.5 mg Furosemide (Lasix) 40 mg SLOW IVP DAILY [facility] Stop: 08/05/19 09:01 Last Admin: 08/04/19 09:52 Dose: 40 mg Furosemide (Lasix) 40 mg PO DAILY [facility] Guaifenesin (Mucinex) 600 mg PO PRN PRN PRN Reason: Secretions Vancomycin HCl 1 gm/ Device 200 mls @ 200 mls/hr IVPB 0800,2000 [facility] Last Admin: 08/04/19 19:55 Dose: 200 mls Cefepime HCl 2 gm/ Sodium (Chloride) 100 mls @ 200 mls/hr IVPB 0100,0900,1700 [facility] Last Admin: 08/04/19 16:46 Dose: 100 mls Methylprednisolone Sodium Succinate (Solu-Medrol) 40 mg IVP BID [facility] Last Admin: 08/04/19 19:55 Dose: 40 mg Miscellaneous Medication (Pharmacy To Dose) 1 each IVPB PRN PRN PRN Reason: Pharmacy to dose Mometasone Furoate/Formoterol Fumar (Dulera 200 Mcg/5 Mcg Inhaler) 2 puff INH BID-RT [facility] Last Admin: 08/04/19 18:25 Dose: 2 puff Multivitamins (Theragran) 1 tab PO DAILY [facility] Last Admin: 08/04/19 09:51 Dose: 1 tab Ondansetron HCl (Zofran) 4 mg IVP Q6H PRN PRN Reason: Nausea/Vomiting Pantoprazole Sodium (Protonix) 40 mg PO BID [facility] Last Admin: 08/04/19 19:55 Dose: 40 mg Sacubitril/Valsartan (Entresto 24 Mg-26 Mg Tablet) 1 tab PO BID [facility] Last Admin: 08/04/19 19:55 Dose: 1 tab Senna/Docusate Sodium (Senokot S) 2 tab PO BID PRN PRN Reason: Constipation Sodium Chloride (Flush - Normal Saline) 10 ml IVF Q12HR [facility] Last Admin: 08/04/19 19:56 Dose: 10 ml Sodium Chloride (Flush - Normal Saline) 10 ml IVF PRN PRN PRN Reason: Saline Flush Sterile Water (Bacteriostatic Water) 1 ml FS PRN PRN PRN Reason: RECONSTITUTION Tamsulosin HCl (Flomax) 0.8 mg PO DAILY [facility] Last Admin: 08/04/19 09:50 Dose: 0.8 mg Vital Signs & Weight: Vital Signs Temp Pulse Resp BP BP Pulse Ox 08/04/19 19:55 126/69 08/04/19 18:22 104 H 20 97 08/04/19 15:18 98.4 F 95 133/71 97 08/04/19 13:38 92 16 93 L 08/04/19 11:53 97.8 F 103 H 24 H 142/79 H 96 08/04/19 09:50 96 Admit Weight 203 lb Weight 201 lb 3.2 oz - Physical Exam General: alert & oriented x3 HEENT: mucus membranes moist Neck: supple neck Cardiac: regular rate and rhythm Lungs: clear to auscultation Neuro: grossly intact Abdomen: active bowel sounds Extremities: no edema Skin: clear Musculoskeletal: no pain - Labs Result Diagrams: 08/02/19 07:00 08/02/19 07:00 Troponin/CKMB Troponin I Less than 0.010 ng/mL (< 0.028) 08/02/19 07:00 - Telemetry Sinus rhythms and dysrhythmias: sinus rhythm - Assessment/Plan Assessment/Plan: 1. Left lower lobe pneumonia 2. Lung Cancer 3. COPD 4. Ischemic CM, stable. PLAN: - CV stable. - Seems euvolemic.
[2019-08-05] MEDS: Cefepime 2 GM in Sodium Chloride 0.9% 100 ML IVPB SCH ×3 (01:29→18:31)
[2019-08-05 04:53] LABS: ALT (SGPT) 41 U/L (8-55); AST (SGOT) 22 U/L (5-34); Albumin 2.5 g/dL (3.4-4.8); Alkaline Phosphatase 91 U/L (40-110); Anion Gap 9 mmol/L (10-20); BUN (Urea Nitrogen) 30 mg/dL (8.4-25.7); Bilirubin, Total 0.3 mg/dL (0.2-1.2); Calc. Creatinine Clearance 110 mL/min (70-130); Calcium 8.4 mg/dL (7.8-10.44); Carbon Dioxide 32 mmol/L (23-31); Chloride 105 mmol/L (98-107); Estimated GFR-MDRD Greater than 90; Globulin 3.4 g/dL (2.4-3.5); Glucose 151 mg/dL (83-110); Potassium 4.7 mmol/L (3.5-5.1); Protein, Total 5.9 g/dL (5.8-8.1); Sodium 141 mmol/L (136-145)
[2019-08-05 05:06] LABS: Band 19 % (5-11); Hemoglobin 9.2 g/dL (14.0-18.0); Lymphocytes 4 % (21-51); MDiff Complete? YES; Mean Corpuscular HGB CONC 32.2 g/dL (32.0-36.0); Mean Corpuscular Hemoglobin 26.8 pg (27.0-31.0); Mean Platelet Volume 8.9 fL (7.4-10.4); Metamyelocyte 5 % (0-0); Monocytes 6 % (0-10); Myelocyte 1 % (0-0); Neutrophil 65 % (42-75); Nucleated RBC 1 % (0); Platelet Count 207 thou/uL (130-400); Platelet Morphology Comment Appears Adequate; RBC Distribution Width 21.4 % (11.5-14.5); RBC Morphology Normal; Red Blood Cell (RBC) Count 3.44 mill/uL (4.70-6.10); White Blood Cell (WBC) Count 5.4 thou/uL (4.8-10.8)
[2019-08-05] MEDS: Fondaparinux Sodium 2.5 MG/0.5 ML SYRINGE SC SCH (05:44)
[2019-08-05] MEDS: Arformoterol 15 MCG/2 ML NEB NEB SCH ×2 (06:36→18:34)
[2019-08-05] MEDS: Mometasone/Formoterol 120 PUFF INHALER INH SCH ×2 (06:37→18:34)
[2019-08-05] MEDS: Budesonide 0.25 MG/2 ML NEB INH SCH ×2 (06:37→18:34)
[2019-08-05] MEDS: Aspirin Chewable 81 MG TAB PO SCH (08:55)
[2019-08-05] MEDS: Atorvastatin Calcium 40 MG TAB PO SCH (08:55)
[2019-08-05] MEDS: Carvedilol 6.25 MG TAB PO SCH ×2 (08:55→20:02)
[2019-08-05] MEDS: Cetirizine HCl 10 MG TAB PO SCH (08:56)
[2019-08-05] MEDS: Furosemide 40 MG/4 ML VIAL SLOW IVP SCH ×2 (08:56→09:02)
[2019-08-05] MEDS: Finasteride 5 MG TAB PO SCH (08:56)
[2019-08-05] MEDS: Tamsulosin HCl 0.4 MG CAP PO SCH (08:57)
[2019-08-05] MEDS: methylPREDNISolone Sod Succ 40 MG VIAL IVP SCH (08:57)
[2019-08-05] MEDS: Multivit, Therapeutic 1 TAB PO SCH (08:57)
[2019-08-05] MEDS: Vancomycin 1 GM in Premix Bag 1 BAG IVPB SCH (09:02)
[2019-08-05] MEDS: Furosemide 40 MG TAB PO SCH (09:02)
--- NOTE | 2019-08-05 12:56 | PRG ---
DATE OF SERVICE: 08/05/2019 SUBJECTIVE: This morning, he said he is weak, but he is less short of breath. OBJECTIVE: VITAL SIGNS: Temperature 97, pulse 80, blood pressure 120/60, and sats on 4 L. CHEST: Decreased breath sounds without any wheezing. CARDIAC: Normal S1 and S2. No gallops. ABDOMEN: Soft. LABORATORY DATA: Sputum is growing Pseudomonas. White count 5000, platelet count . ASSESSMENT: Gram-negative pneumonia, immunocompromised chemotherapy; chronic obstructive pulmonary disease. PLAN: Continue Maxipime for Pseudomonas coverage. Discontinue vancomycin. PT, supportive care. Home any time. Job ID: [id number]
--- NOTE | 2019-08-05 13:59 | PDOC.HOSPP ---
- Subjective Subjective: Seen and examined. Patient states that he is feeling better. Coughing less. Less short of breath. Saturating well on low-flow nasal cannula. Afebrile. Did not sleep well. Time was given for questions, all answered in detail. - Objective Vital Signs & Weight: Vital Signs (12 hours) Temp Pulse Pulse Resp BP BP BP 08/05/19 13:52 92 20 08/05/19 12:00 97.9 F 76 20 110/64 08/05/19 10:36 95 124/61 08/05/19 08:55 124/60 08/05/19 08:50 97.9 F 80 18 124/60 08/05/19 08:08 08/05/19 06:37 94 20 08/05/19 06:36 94 20 08/05/19 06:33 94 20 08/05/19 03:08 98.1 F 89 18 121/57 L Pulse Ox 08/05/19 13:52 95 08/05/19 12:00 93 L 08/05/19 10:36 08/05/19 08:55 08/05/19 08:50 96 08/05/19 08:08 96 08/05/19 06:37 96 08/05/19 06:36 96 08/05/19 06:33 96 08/05/19 03:08 95 Weight Admit Weight 203 lb Weight 198 lb Most Recent Monitor Data Heart Rate from ECG 91 NIBP 135/85 NIBP BP-Mean 101 Respiration from ECG 23 SpO2 98 I&O: 08/04/19 08/05/19 08/06/19 05:59 06:59 06:59 Intake Total Output Total Balance Result Diagrams: 08/05/19 04:06 08/05/19 04:06 Radiology Reviewed by me: Yes Hospitalist ROS - Review of Systems All other systems reviewed; all pertinent +/- noted in HPI/Subj - Medication Medications: Active Medications Generic Name Dose Route Start Last Admin Trade Name Freq PRN Reason Stop Dose Admin Acetaminophen 650 mg 08/01/19 22:04 08/04/19 15:40 Tylenol PO 650 mg Q4H PRN Administration Headache/Fever/Mild Pain (1-3) Albuterol/Ipratropium 3 ml 08/04/19 13:00 08/05/19 13:52 Duoneb NEB 3 ml [id number] [facility] Administration Arformoterol Tartrate 15 mcg 08/02/19 06:30 08/05/19 06:36 Brovana NEB 15 mcg BID-RT [facility] Administration Aspirin 81 mg 08/05/19 09:00 08/05/19 08:55 Aspirin Chewable PO 81 mg DAILY [facility] Administration Atorvastatin Calcium 40 mg 08/05/19 09:00 08/05/19 08:55 Lipitor PO 40 mg DAILY [facility] Administration Budesonide 0.25 mg 08/02/19 06:30 08/05/19 06:37 Pulmicort Neb Solution INH 0.25 mg BID-RT [facility] Administration Carvedilol 12.5 mg 08/04/19 21:00 08/05/19 08:55 Coreg PO 12.5 mg BID [facility] Administration Cetirizine HCl 10 mg 08/03/19 09:00 08/05/19 08:56 Zyrtec PO 10 mg DAILY [facility] Administration Finasteride 5 mg 08/03/19 09:00 08/05/19 08:56 Proscar PO 5 mg DAILY [facility] Administration Fondaparinux 2.5 mg 08/02/19 06:00 08/05/19 05:44 Arixtra SC 2.5 mg DAILY@0600 [facility] Administration Furosemide 40 mg 08/05/19 09:00 08/05/19 09:02 Lasix PO 40 mg DAILY [facility] Administration Cefepime HCl 2 gm/ Sodium 100 mls @ 200 mls/hr 08/03/19 17:00 08/05/19 08:55 Chloride IVPB 100 mls 0100,0900,1700 [facility] Administration Mometasone Furoate/Formoterol Fumar 2 puff 08/04/19 18:30 08/05/19 06:37 Dulera 200 Mcg/5 Mcg Inhaler INH 2 puff BID-RT [facility] Administration Multivitamins 1 tab 08/03/19 09:00 08/05/19 08:57 Theragran PO 1 tab DAILY [facility] Administration Pantoprazole Sodium 40 mg 08/04/19 21:00 08/05/19 08:57 Protonix PO 40 mg BID [facility] Administration Sacubitril/Valsartan 1 tab 08/04/19 21:00 08/05/19 08:57 Entresto 24 Mg-26 Mg Tablet PO 1 tab BID [facility] Administration Sodium Chloride 10 ml 08/04/19 21:00 03/08/20 08:58 Flush - Normal Saline IVF Not Given Q12HR [facility] Tamsulosin HCl 0.8 mg 08/03/19 09:00 08/05/19 08:57 Flomax PO 0.8 mg DAILY [facility] Administration - Exam General Appearance: NAD, awake alert Eye: anicteric sclera ENT: normocephalic atraumatic, moist mucosa Neck: supple, symmetric, no lymphadenopathy Heart: no murmur, no gallops, no rubs Respiratory: no rales, normal chest expansion, no tachypnea, rhonchi, wheezes ( improving) Gastrointestinal: soft, non-tender, no guarding, no rigidity Extremities: 2+ LE edema Skin: no rashes Neurological: cranial nerve grossly intact, no focal deficits Musculoskeletal: generalized weakness Psychiatric: normal affect, normal behavior, A&O x 3 Hosp A/P (1) Acute respiratory failure with hypoxia Code(s): J96.01 - ACUTE RESPIRATORY FAILURE WITH HYPOXIA Status: Acute (2) Pneumonia Code(s): J18.9 - PNEUMONIA, UNSPECIFIED ORGANISM Status: Acute Qualifiers: Pneumonia type: due to unspecified organism Laterality: left Lung location: lower lobe of lung Qualified Code(s): J18.9 - Pneumonia, unspecified organism (3) Pseudomonas aeruginosa infection Code(s): A49.8 - OTHER BACTERIAL INFECTIONS OF UNSPECIFIED SITE Status: Acute (4) AICD (automatic cardioverter/defibrillator) present Code(s): Z95.810 - PRESENCE OF AUTOMATIC (IMPLANTABLE) CARDIAC DEFIBRILLATOR Status: Chronic (5) CHF (congestive heart failure) Code(s): I50.9 - HEART FAILURE, UNSPECIFIED Status: Chronic Qualifiers: Heart failure type: systolic Heart failure chronicity: chronic Qualified Code(s): I50.22 - Chronic systolic (congestive) heart failure (6) Diarrhea Code(s): R19.7 - DIARRHEA, UNSPECIFIED Status: Chronic Qualifiers: Diarrhea type: unspecified type Qualified Code(s): R19.7 - Diarrhea, unspecified (7) HTN (hypertension) Code(s): I10 - ESSENTIAL (PRIMARY) HYPERTENSION Status: Chronic Qualifiers: Hypertension type: essential hypertension Qualified Code(s): I10 - Essential (primary) hypertension (8) Lung cancer Code(s): C34.90 - MALIGNANT NEOPLASM OF UNSP PART OF UNSP BRONCHUS OR LUNG Status: Chronic Qualifiers: Laterality: left Lung location: hilum of lung Qualified Code(s): C34.02 - Malignant neoplasm of left main bronchus (9) Respiratory failure Code(s): J96.90 - RESPIRATORY FAILURE, UNSP, UNSP W HYPOXIA OR HYPERCAPNIA Status: Chronic Qualifiers: Chronicity: acute on chronic Respiratory failure complication: hypoxia Qualified Code(s): J96.21 - Acute and chronic respiratory failure with hypoxia (10) LEENA (acute kidney injury) Code(s): N17.9 - ACUTE KIDNEY FAILURE, UNSPECIFIED Status: Acute (11) Bilateral hydronephrosis Code(s): N13.30 - UNSPECIFIED HYDRONEPHROSIS Status: Acute (12) Bilateral lower extremity edema Code(s): R60.0 - LOCALIZED EDEMA Status: Acute (13) Bladder tumor Code(s): D49.4 - NEOPLASM OF UNSPECIFIED BEHAVIOR OF BLADDER Status: Acute (14) Ischemic cardiomyopathy Code(s): I25.5 - ISCHEMIC CARDIOMYOPATHY Status: Acute (15) Lymphedema Code(s): I89.0 - LYMPHEDEMA, NOT ELSEWHERE CLASSIFIED Status: Acute (16) Malignant neoplasm of bladder Status: Acute (17) Penile edema Code(s): N48.89 - OTHER SPECIFIED DISORDERS OF PENIS Status: Acute (18) Scrotal edema Code(s): N50.89 - OTHER SPECIFIED DISORDERS OF THE MALE GENITAL ORGANS Status : Acute (19) UTI (urinary tract infection) Status: Acute (20) CAD (coronary artery disease) Code(s): I25.10 - ATHSCL HEART DISEASE OF [place] CORONARY ARTERY W/O ANG PCTRS Status: Chronic Qualifiers: Coronary Disease-Associated Artery/Lesion type: [place] artery [place] vs. transplanted heart: [place] heart Associated angina: angina presence unspecified Qualified Code(s): I25.10 - Atherosclerotic heart disease of [place] coronary artery without angina pectoris (21) COPD (chronic obstructive pulmonary disease) Status: Chronic Qualifiers: COPD type: COPD with acute exacerbation Qualified Code(s): J44.1 - Chronic obstructive pulmonary disease with (acute) exacerbation (22) Chronic disease anemia Code(s): D63.8 - ANEMIA IN OTHER CHRONIC DISEASES CLASSIFIED ELSEWHERE Status : Chronic (23) History of venous thromboembolism Code(s): Z86.718 - PERSONAL HISTORY OF OTHER VENOUS THROMBOSIS AND EMBOLISM Status: Chronic - Plan Plan: medical unit with telemetry ID consultation, recommendations appreciated cardiology consultation, recommendations appreciated pulmonology consultation, recommendations appreciated supplemental oxygen as needed to maintain O2 saturation greater than 88% Breathing treatments broad-spectrum antibiotics with Maxipime, de escalate vancomycin pseudomonas, carson sensitive restart continue cardiomyopathy regimen: carvedilol, Entresto, Lasix echocardiogram avoid fluid overload continue other home medications as able blood pressure control blood sugar control G.I. prophylaxis DVT prophylaxis
[2019-08-06] MEDS: Cefepime 2 GM in Sodium Chloride 0.9% 100 ML IVPB SCH ×3 (00:52→17:08)
[2019-08-06 04:58] LABS: Band 7 % (5-11); Hemoglobin 9.7 g/dL (14.0-18.0); Hypochromia SLIGHT = 6-15 cells (100X) (0-5/hpf); Lymphocytes 11 % (21-51); MDiff Complete? YES; Mean Corpuscular HGB CONC 31.5 g/dL (32.0-36.0); Mean Corpuscular Hemoglobin 26.4 pg (27.0-31.0); Mean Corpuscular Volume 83.8 fL (78.0-98.0); Mean Platelet Volume 8.9 fL (7.4-10.4); Monocytes 3 % (0-10); Neutrophil 79 % (42-75); Nucleated RBC 2 % (0); Platelet Count 221 thou/uL (130-400); Platelet Morphology Comment Appears Adequate; RBC Distribution Width 21.7 % (11.5-14.5); Red Blood Cell (RBC) Count 3.66 mill/uL (4.70-6.10); White Blood Cell (WBC) Count 6.9 thou/uL (4.8-10.8)
[2019-08-06] MEDS: Fondaparinux Sodium 2.5 MG/0.5 ML SYRINGE SC SCH (05:23)
[2019-08-06] MEDS: Arformoterol 15 MCG/2 ML NEB NEB SCH ×2 (07:16→23:55)
[2019-08-06] MEDS: Budesonide 0.25 MG/2 ML NEB INH SCH ×2 (07:16→19:11)
[2019-08-06] MEDS: Mometasone/Formoterol 120 PUFF INHALER INH SCH ×2 (07:16→19:10)
[2019-08-06] MEDS: Cetirizine HCl 10 MG TAB PO SCH (08:32)
[2019-08-06] MEDS: Finasteride 5 MG TAB PO SCH (08:33)
[2019-08-06] MEDS: Tamsulosin HCl 0.4 MG CAP PO SCH (08:33)
[2019-08-06] MEDS: Multivit, Therapeutic 1 TAB PO SCH (08:33)
[2019-08-06] MEDS: Carvedilol 6.25 MG TAB PO SCH ×2 (08:33→22:13)
[2019-08-06] MEDS: Atorvastatin Calcium 40 MG TAB PO SCH (08:33)
[2019-08-06] MEDS: Aspirin Chewable 81 MG TAB PO SCH (08:34)
[2019-08-06] MEDS: Furosemide 40 MG TAB PO SCH (08:34)
[2019-08-06] MEDS: predniSONE 20 MG TAB PO SCH (08:34)
--- NOTE | 2019-08-06 09:54 | PRG ---
DATE OF SERVICE: 08/06/2019 SUBJECTIVE: This morning, he is doing better. He is less short of breath. OBJECTIVE: VITAL SIGNS: Temperature 99, pulse 72, respiratory rate 20, saturations 96% on 4 L, and blood pressure 90/59. CHEST: Bilateral rhonchi. CARDIAC: Normal S1 and S2. No gallops. ABDOMEN: No masses. LABORATORY DATA: White count 6000, slight left shift. ASSESSMENT: 1. Status post chemo. Nausea, vomiting, and diarrhea, improved. 2. Pseudomonas pneumonia versus colonization. PLAN: Chest x-ray being ordered. Continue Maxipime. May consider switching over to oral anti-Pseudomonas antibiotic tomorrow. Eventually placement. Job ID: [id number]
--- NOTE | 2019-08-06 11:04 | RAD ---
Chest AP view INDICATION: Chest pain COMPARISON: August 01, 2019 FINDINGS: Lungs: There is worsening left basilar airspace opacity. Cardiac silhouette: There is stable moderate cardiomegaly Pulmonary vasculature: Normal Pleural spaces: There is worsening small left pleural effusion. There is persistent elevation the le ft hemidiaphragm. Upper abdomen: No abnormality seen. Osseous structures: No acute osseous abnormality. Additional findings: Dual-lead AICD is unchanged. Post-CABG changes stable. Right-sided clavian ches t wall port is stable. IMPRESSION: Worsening small left pleural effusion and left basilar atelectasis.
--- NOTE | 2019-08-06 13:55 | PDOC.HOSPP ---
- Subjective Subjective: Seen and examined. Patient continues to improve. Denies pain. Breathing more comfortably. He is responding well to current IV antibiotics. Infectious disease consultation requested for antibiotic selection. Patient progressing well with physical therapy. - Objective Vital Signs & Weight: Vital Signs (12 hours) Temp Pulse Resp BP Pulse Ox 08/06/19 13:49 67 20 08/06/19 12:22 61 99/54 L 08/06/19 11:45 97.9 F 73 18 79/57 L 08/06/19 08:28 98.1 F 82 20 99/59 L 97 08/06/19 08:00 97 08/06/19 07:15 74 20 08/06/19 03:31 98.0 F 60 16 96/53 L Weight Admit Weight 203 lb Weight 201 lb 8 oz Most Recent Monitor Data Heart Rate from ECG 91 NIBP 135/85 NIBP BP-Mean 101 Respiration from ECG 23 SpO2 98 I&O: 08/05/19 08/06/19 08/07/19 06:59 06:59 06:59 Intake Total 1525 480 Output Total 2000 850 Balance -475 -370 Result Diagrams: 08/06/19 03:47 08/05/19 04:06 Radiology Reviewed by me: Yes Hospitalist ROS - Review of Systems All other systems reviewed; all pertinent +/- noted in HPI/Subj - Medication Medications: Active Medications Generic Name Dose Route Start Last Admin Trade Name Freq PRN Reason Stop Dose Admin Acetaminophen 650 mg 08/01/19 22:04 08/04/19 15:40 Tylenol PO 650 mg Q4H PRN Administration Headache/Fever/Mild Pain (1-3) Albuterol/Ipratropium 3 ml 08/04/19 13:00 08/06/19 13:49 Duoneb NEB 3 ml [id number] [facility] Administration Arformoterol Tartrate 15 mcg 08/02/19 06:30 08/06/19 07:16 Brovana NEB 15 mcg BID-RT [facility] Administration Aspirin 81 mg 08/05/19 09:00 08/06/19 08:34 Aspirin Chewable PO 81 mg DAILY [facility] Administration Atorvastatin Calcium 40 mg 08/05/19 09:00 08/06/19 08:33 Lipitor PO 40 mg DAILY [facility] Administration Budesonide 0.25 mg 08/02/19 06:30 08/06/19 07:16 Pulmicort Neb Solution INH 0.25 mg BID-RT [facility] Administration Carvedilol 12.5 mg 08/04/19 21:00 08/06/19 08:33 Coreg PO 12.5 mg BID [facility] Administration Cetirizine HCl 10 mg 08/03/19 09:00 08/06/19 08:32 Zyrtec PO 10 mg DAILY [facility] Administration Finasteride 5 mg 08/03/19 09:00 08/06/19 08:33 Proscar PO 5 mg DAILY [facility] Administration Fondaparinux 2.5 mg 08/02/19 06:00 08/06/19 05:23 Arixtra SC 2.5 mg DAILY@0600 [facility] Administration Furosemide 40 mg 08/05/19 09:00 08/06/19 08:34 Lasix PO 40 mg DAILY [facility] Administration Cefepime HCl 2 gm/ Sodium 100 mls @ 200 mls/hr 08/03/19 17:00 08/06/19 08:35 Chloride IVPB 100 mls 0100,0900,1700 [facility] Administration Mometasone Furoate/Formoterol Fumar 2 puff 08/04/19 18:30 08/06/19 07:16 Dulera 200 Mcg/5 Mcg Inhaler INH 2 puff BID-RT [facility] Administration Multivitamins 1 tab 08/03/19 09:00 08/06/19 08:33 Theragran PO 1 tab DAILY [facility] Administration Pantoprazole Sodium 40 mg 08/04/19 21:00 08/06/19 08:34 Protonix PO 40 mg BID [facility] Administration Prednisone 20 mg 08/06/19 08:00 08/06/19 08:34 Prednisone PO 20 mg QAM-WM [facility] Administration Sacubitril/Valsartan 1 tab 08/04/19 21:00 08/06/19 08:33 Entresto 24 Mg-26 Mg Tablet PO 1 tab BID [facility] Administration Sodium Chloride 10 ml 08/04/19 21:00 08/06/19 08:35 Flush - Normal Saline IVF Not Given Q12HR [facility] Tamsulosin HCl 0.8 mg 08/03/19 09:00 08/06/19 08:33 Flomax PO 0.8 mg DAILY [facility] Administration - Exam General Appearance: NAD Eye: PERRL, anicteric sclera ENT: normocephalic atraumatic, moist mucosa Neck: supple, symmetric, no lymphadenopathy Heart: no murmur, no gallops, no rubs Respiratory: no rales, normal chest expansion, rhonchi, wheezes (Improving) Gastrointestinal: soft, non-tender, no bruit, no guarding Extremities: 1+ LE edema Skin - other findings: Chronic skin changes LE. Right upper chest port Neurological: cranial nerve grossly intact, no focal deficits Musculoskeletal: generalized weakness Psychiatric: normal behavior, A&O x 3, flat affect Hosp A/P (1) Acute respiratory failure with hypoxia Code(s): J96.01 - ACUTE RESPIRATORY FAILURE WITH HYPOXIA Status: Acute (2) Pneumonia Code(s): J18.9 - PNEUMONIA, UNSPECIFIED ORGANISM Status: Acute Qualifiers: Pneumonia type: due to unspecified organism Laterality: left Lung location: lower lobe of lung Qualified Code(s): J18.9 - Pneumonia, unspecified organism (3) Pseudomonas aeruginosa infection Code(s): A49.8 - OTHER BACTERIAL INFECTIONS OF UNSPECIFIED SITE Status: Acute (4) AICD (automatic cardioverter/defibrillator) present Code(s): Z95.810 - PRESENCE OF AUTOMATIC (IMPLANTABLE) CARDIAC DEFIBRILLATOR Status: Chronic (5) CHF (congestive heart failure) Code(s): I50.9 - HEART FAILURE, UNSPECIFIED Status: Chronic Qualifiers: Heart failure type: systolic Heart failure chronicity: chronic Qualified Code(s): I50.22 - Chronic systolic (congestive) heart failure (6) Diarrhea Code(s): R19.7 - DIARRHEA, UNSPECIFIED Status: Chronic Qualifiers: Diarrhea type: unspecified type Qualified Code(s): R19.7 - Diarrhea, unspecified (7) HTN (hypertension) Code(s): I10 - ESSENTIAL (PRIMARY) HYPERTENSION Status: Chronic Qualifiers: Hypertension type: essential hypertension Qualified Code(s): I10 - Essential (primary) hypertension (8) Lung cancer Code(s): C34.90 - MALIGNANT NEOPLASM OF UNSP PART OF UNSP BRONCHUS OR LUNG Status: Chronic Qualifiers: Laterality: left Lung location: hilum of lung Qualified Code(s): C34.02 - Malignant neoplasm of left main bronchus (9) Respiratory failure Code(s): J96.90 - RESPIRATORY FAILURE, UNSP, UNSP W HYPOXIA OR HYPERCAPNIA Status: Chronic Qualifiers: Chronicity: acute on chronic Respiratory failure complication: hypoxia Qualified Code(s): J96.21 - Acute and chronic respiratory failure with hypoxia (10) LEENA (acute kidney injury) Code(s): N17.9 - ACUTE KIDNEY FAILURE, UNSPECIFIED Status: Acute (11) Bilateral hydronephrosis Code(s): N13.30 - UNSPECIFIED HYDRONEPHROSIS Status: Acute (12) Bilateral lower extremity edema Code(s): R60.0 - LOCALIZED EDEMA Status: Acute (13) Bladder tumor Code(s): D49.4 - NEOPLASM OF UNSPECIFIED BEHAVIOR OF BLADDER Status: Acute (14) Ischemic cardiomyopathy Code(s): I25.5 - ISCHEMIC CARDIOMYOPATHY Status: Acute (15) Lymphedema Code(s): I89.0 - LYMPHEDEMA, NOT ELSEWHERE CLASSIFIED Status: Acute (16) Malignant neoplasm of bladder Status: Acute (17) Penile edema Code(s): N48.89 - OTHER SPECIFIED DISORDERS OF PENIS Status: Acute (18) Scrotal edema Code(s): N50.89 - OTHER SPECIFIED DISORDERS OF THE MALE GENITAL ORGANS Status : Acute (19) UTI (urinary tract infection) Status: Acute (20) CAD (coronary artery disease) Code(s): I25.10 - ATHSCL HEART DISEASE OF [place] CORONARY ARTERY W/O ANG PCTRS Status: Chronic Qualifiers: Coronary Disease-Associated Artery/Lesion type: [place] artery [place] vs. transplanted heart: [place] heart Associated angina: angina presence unspecified Qualified Code(s): I25.10 - Atherosclerotic heart disease of [place] coronary artery without angina pectoris (21) COPD (chronic obstructive pulmonary disease) Status: Chronic Qualifiers: COPD type: COPD with acute exacerbation Qualified Code(s): J44.1 - Chronic obstructive pulmonary disease with (acute) exacerbation (22) Chronic disease anemia Code(s): D63.8 - ANEMIA IN OTHER CHRONIC DISEASES CLASSIFIED ELSEWHERE Status : Chronic (23) History of venous thromboembolism Code(s): Z86.718 - PERSONAL HISTORY OF OTHER VENOUS THROMBOSIS AND EMBOLISM Status: Chronic - Plan Plan: medical unit with telemetry ID consultation, recommendations appreciated cardiology consultation, recommendations appreciated pulmonology consultation, recommendations appreciated supplemental oxygen as needed to maintain O2 saturation greater than 88% Breathing treatments broad-spectrum antibiotics with Maxipime, de escalate vancomycin pseudomonas, carson sensitive - IV vs Oral on D/c continue cardiomyopathy regimen: carvedilol, Entresto, Lasix echocardiogram avoid fluid overload continue other home medications as able blood pressure control blood sugar control G.I. prophylaxis DVT prophylaxis
--- NOTE | 2019-08-06 15:42 | PDOC.CPN ---
- Subjective Date: 08/06/19 Time: 15:39 Interval history: No chest pain. SOB unchanged. - Review of Systems General: reports: fatigue. denies: fever/chills, weight/appetite/sleep changes , night sweats Respiratory: reports: shortness of breath, exercise intolerance. denies: cough , congestion Cardiovascular: denies: chest pain, palpitation, edema, paroxysmal nocturnal dyspnea, orthopnea Gastrointestinal: denies: nausea, vomiting, diarrhea, constipation, abd pain, GI bleeding Musculoskeletal: denies: pain, tenderness, stiffness, swelling, arthritis/ arthralgias Neurological: denies: numbness, syncope, seizure, weakness - Objective Allergies/Adverse Reactions: Allergies Allergy/AdvReac Type Severity Reaction Status Date / Time heparin Allergy causes Verified 07/04/19 12:10 blood clots Visit Medications: Current Medications Acetaminophen (Tylenol) 650 mg PO Q4H PRN PRN Reason: Headache/Fever/Mild Pain (1-3) Last Admin: 08/04/19 15:40 Dose: 650 mg Albuterol/Ipratropium (Duoneb) 3 ml NEB [id number] PRN PRN Reason: SOB &/or Wheezing Albuterol/Ipratropium (Duoneb) 3 ml NEB [id number] [facility] Last Admin: 08/06/19 13:49 Dose: 3 ml Arformoterol Tartrate (Brovana) 15 mcg NEB BID-RT GABRIELLA Last Admin: 08/06/19 07:16 Dose: 15 mcg Aspirin (Aspirin Chewable) 81 mg PO DAILY [facility] Last Admin: 08/06/19 08:34 Dose: 81 mg Atorvastatin Calcium (Lipitor) 40 mg PO DAILY [facility] Last Admin: 08/06/19 08:33 Dose: 40 mg Budesonide (Pulmicort Neb Solution) 0.25 mg INH BID-RT [facility] Last Admin: 08/06/19 07:16 Dose: 0.25 mg Carvedilol (Coreg) 12.5 mg PO BID [facility] Last Admin: 08/06/19 08:33 Dose: 12.5 mg Cetirizine HCl (Zyrtec) 10 mg PO DAILY [facility] Last Admin: 08/06/19 08:32 Dose: 10 mg Docusate Sodium (Colace) 100 mg PO PRN PRN PRN Reason: STOOL SOFTENER Finasteride (Proscar) 5 mg PO DAILY [facility] Last Admin: 08/06/19 08:33 Dose: 5 mg Fondaparinux (Arixtra) 2.5 mg SC DAILY@0600 [facility] Last Admin: 08/06/19 05:23 Dose: 2.5 mg Furosemide (Lasix) 40 mg PO DAILY [facility] Last Admin: 08/06/19 08:34 Dose: 40 mg Guaifenesin (Mucinex) 600 mg PO PRN PRN PRN Reason: Secretions Cefepime HCl 2 gm/ Sodium (Chloride) 100 mls @ 200 mls/hr IVPB 0100,0900,1700 [facility] Last Admin: 08/06/19 08:35 Dose: 100 mls Mometasone Furoate/Formoterol Fumar (Dulera 200 Mcg/5 Mcg Inhaler) 2 puff INH BID-RT [facility] Last Admin: 08/06/19 07:16 Dose: 2 puff Multivitamins (Theragran) 1 tab PO DAILY [facility] Last Admin: 08/06/19 08:33 Dose: 1 tab Ondansetron HCl (Zofran) 4 mg IVP Q6H PRN PRN Reason: Nausea/Vomiting Pantoprazole Sodium (Protonix) 40 mg PO BID [facility] Last Admin: 08/06/19 08:34 Dose: 40 mg Prednisone (Prednisone) 20 mg PO QAM-WM [facility] Last Admin: 08/06/19 08:34 Dose: 20 mg Sacubitril/Valsartan (Entresto 24 Mg-26 Mg Tablet) 1 tab PO BID [facility] Last Admin: 08/06/19 08:33 Dose: 1 tab Senna/Docusate Sodium (Senokot S) 2 tab PO BID PRN PRN Reason: Constipation Sodium Chloride (Flush - Normal Saline) 10 ml IVF Q12HR [facility] Last Admin: 08/06/19 08:35 Dose: Not Given Sodium Chloride (Flush - Normal Saline) 10 ml IVF PRN PRN PRN Reason: Saline Flush Sterile Water (Bacteriostatic Water) 1 ml FS PRN PRN PRN Reason: RECONSTITUTION Tamsulosin HCl (Flomax) 0.8 mg PO DAILY [facility] Last Admin: 08/06/19 08:33 Dose: 0.8 mg Vital Signs & Weight: Vital Signs Temp Pulse Resp BP Pulse Ox 08/06/19 15:33 97.8 F 71 110/62 08/06/19 13:49 67 20 08/06/19 12:22 61 99/54 L 08/06/19 11:45 97.9 F 73 18 79/57 L 08/06/19 08:28 98.1 F 82 20 99/59 L 97 08/06/19 08:00 97 08/06/19 07:15 74 20 Admit Weight 203 lb Weight 201 lb 8 oz - Physical Exam General: alert & oriented x3 HEENT: mucus membranes moist Neck: supple neck Cardiac: regular rate and rhythm Lungs: decreased breath sounds Neuro: grossly intact Abdomen: active bowel sounds Extremities: no edema Skin: clear Musculoskeletal: no pain - Labs Result Diagrams: 08/06/19 03:47 08/05/19 04:06 Troponin/CKMB Troponin I Less than 0.010 ng/mL (< 0.028) 08/02/19 07:00 - Telemetry Sinus rhythms and dysrhythmias: sinus rhythm - Assessment/Plan Assessment/Plan: 1. Left lower lobe pneumonia 2. Lung Cancer 3. COPD 4. Ischemic CM, stable. PLAN: - CV stable. - Continue abx per primary team and ID - Will sign off. Please call with any questions.
[2019-08-06] MEDS: Acetaminophen 325 MG TAB PO PRN (16:00)
[2019-08-07] MEDS: Cefepime 2 GM in Sodium Chloride 0.9% 100 ML IVPB SCH ×3 (01:57→18:04)
--- NOTE | 2019-08-07 02:00 | CON ---
DATE OF CONSULTATION: 08/06/2019 REASON FOR CONSULTATION: Pneumonia with possible bacterial etiology. HISTORY OF PRESENT ILLNESS: A 74-year-old who has a history of coronary artery disease, ischemic cardiomyopathy with AICD in place, who has had recent diagnosis of bladder cancer with apparent metastases to left lung associated with renal insufficiency. The patient has a port in the right subclavian location and started receiving chemotherapy. He presented to the emergency room with worsening dyspnea for the past few days before admission associated with cough and sputum production with sometimes hemoptysis and brown sputum production, some wheezing, some lightheadedness, intermittent chest pains, but no radiation or association with breathing. No documented fever. No abdominal pain. The patient has chronic diarrhea and no genitourinary symptoms, no neurological symptoms. PAST MEDICAL HISTORY: Coronary artery disease, CHF, hypertension, AICD, COPD, bladder cancer with lung mets, and renal insufficiency. PAST SURGICAL HISTORY: Bypass graft surgery, TURP, cystoscopy with bladder mass biopsy, AICD, and femoral embolectomy. FAMILY HISTORY: Coronary artery disease. SOCIAL HISTORY: Former smoker. No drug use. He lives alone in the area. CURRENT MEDICATIONS: 1. DuoNeb. 2. Brovana. 3. Lipitor. 4. Pulmicort. 5. Coreg. 6. Cefepime. 7. Zyrtec. 8. Colace. 9. Proscar. 10. Arixtra. 11. Lasix. 12. Mucinex. 13. Mometasone. 14. Zofran. 15. Prednisone. 16. Entresto. 17. Senokot. 18. Tamsulosin. PHYSICAL EXAMINATION: VITAL SIGNS: The patient has been afebrile through the hospital stay. Pulse 71 , respirations 20, O2 saturation 95% with 4 L nasal cannula, and BP 110/62. SKIN: Shows an area of erythema in the thigh areas posteriorly with some areas of erythema in the lower extremity consistent with stasis dermatitis and lipodermatosclerosis. Peripheral IV access. He is voiding in the diaper. No lymphadenopathy. HEENT: Ocular movements conjugate. Oral cavity with no saxman teeth. NECK: Supple. LUNGS: With diminished breath sounds in the left base. A few expiratory crackles. HEART: S1 and S2, regular rate. No S3 or S4. ABDOMEN: Soft, not distended or tender. No ascites. No bladder distention. EXTREMITIES: No joint inflammatory activity. Pulses are 1+ in dorsalis pedis. Moves extremities equally. He is awake, alert, oriented. Follows commands. LABORATORY DATA: White cell count is 2.5 with a predominance of bands and mature neutrophils, the bands are 50% on arrival, now they are down to 7%. The total white cell count is up to 6.9, hemoglobin 9.7. Liver profile normal. Albumin 2.5. Urinalysis with 11 to 20 wbc's. Microbiology would have stool with Pseudomonas in sputum, Pseudomonas aeruginosa. Sputum with 0 to 5 epithelial cells and moderate gram-positive cocci in pairs and clusters, moderate gram-negative rods. The organism has had a broad susceptibility profile. One set of blood cultures with coagulase-negative Staph, likely contaminant. The stool workup was negative except for positive lactoferrin. DIAGNOSTIC STUDIES: Chest x-ray has shown left pleural effusion and left basilar atelectases. CT of scan was done in April and now in July that showed a dense area of consolidation in the left upper lobe and thickening of bronchioles in left upper lobe and consolidation in left lower lobe, not present on prior scan. Mediastinal lymphadenopathy noted as well. ASSESSMENT: 1. Ischemic cardiomyopathy with ejection fraction in the 20% to 25% range with automatic implantable cardioverter-defibrillator. 2. Bladder urothelial carcinoma. 3. 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 4. New area of consolidation in the left lower lobe with air bronchograms. DISCUSSION: Differential diagnosis includes postobstructive pneumonia with the usual pathogens, viral pneumonia, progression of malignancy. Thromboembolism has been evaluated and ruled out. The Pseudomonas aeruginosa isolated from the sputum, could represent colonization of the airway, rather than true pathogenic role. Fortunately it is a highly susceptible organism. At this point, I would consider transitioning the patient to oral levofloxacin in preparation for discharge planning. It is not clear which chemotherapeutic agent has been used for management of the patient's malignancies at this point in time and some of those drugs can be associated with pneumonitis, but typically this type of process manifests as bilateral infiltrates, unlike in this case. Job ID: [id number] MTDD
[2019-08-07] MEDS: Fondaparinux Sodium 2.5 MG/0.5 ML SYRINGE SC SCH (05:59)
[2019-08-07] MEDS: Arformoterol 15 MCG/2 ML NEB NEB SCH ×2 (07:11→18:59)
[2019-08-07] MEDS: Budesonide 0.25 MG/2 ML NEB INH SCH ×2 (07:12→18:59)
[2019-08-07] MEDS: Mometasone/Formoterol 120 PUFF INHALER INH SCH ×2 (07:35→19:20)
[2019-08-07] MEDS: Carvedilol 6.25 MG TAB PO SCH ×2 (08:54→20:56)
[2019-08-07] MEDS: Furosemide 40 MG TAB PO SCH (08:54)
[2019-08-07] MEDS: predniSONE 20 MG TAB PO SCH (08:54)
[2019-08-07] MEDS: Aspirin Chewable 81 MG TAB PO SCH (08:54)
[2019-08-07] MEDS: Multivit, Therapeutic 1 TAB PO SCH (08:54)
[2019-08-07] MEDS: Finasteride 5 MG TAB PO SCH (08:54)
[2019-08-07] MEDS: Tamsulosin HCl 0.4 MG CAP PO SCH (08:54)
[2019-08-07] MEDS: Atorvastatin Calcium 40 MG TAB PO SCH (08:56)
--- NOTE | 2019-08-07 09:23 | PRG ---
DATE OF SERVICE: 08/07/2019 SUBJECTIVE: This morning, he is awake, alert, and responsive. He is doing well. His x-ray shows stable left-sided lung mass. All cultures are negative. Pseudomonas in his lung from his immunocompromised state. OBJECTIVE: VITAL SIGNS: Temperature 97, pulse 74, respiratory rate 20, saturations 95% on 4 L, blood pressure . CHEST: Decreased breath sounds in left lung. CARDIAC: Normal S1, S2. No gallops. ABDOMEN: No masses. ASSESSMENT AND PLAN: Left lung bronchogenic carcinoma, Pseudomonas tracheobronchitis, status post chemoradiation. The patient probably can switch over to oral medication. Continue PT supportive care. Disposition, home soon. Job ID: [id number]
[2019-08-07] MEDS: Cetirizine HCl 10 MG TAB PO SCH (11:53)
--- NOTE | 2019-08-07 20:42 | PDOC.EVN ---
Event Note - Event Note Event Note: Patient had 21 beats asymptomatic vtach, vS, no chest pain. Will check mag and ph. Patient on BB. Instructed nursing to pass onto dayshift team.
--- NOTE | 2019-08-07 20:51 | PDOC.HOSPP ---
- Subjective Encounter Date: 08/07/19 Encounter Time: 10:00 Subjective: Patient in bed, no distress, denies chest pain/shortness of breath. - Objective Vital Signs & Weight: Vital Signs (12 hours) Temp Pulse Resp BP BP Pulse Ox 08/07/19 19:20 95 08/07/19 18:59 97 08/07/19 18:56 98 08/07/19 15:23 98.2 F 79 23 H 89/54 L 100 08/07/19 13:29 86 20 99 08/07/19 11:43 97.5 F L 68 23 H 91/54 L 100 08/07/19 08:54 112/58 L Weight Admit Weight 203 lb 0.732 oz Weight 195 lb Most Recent Monitor Data Heart Rate from ECG 91 NIBP 135/85 NIBP BP-Mean 101 Respiration from ECG 23 SpO2 98 I&O: 08/06/19 08/07/19 08/08/19 06:59 06:59 06:59 Intake Total 1525 1670 720 Output Total 2000 1650 320 Balance -475 20 400 Result Diagrams: 08/06/19 03:47 08/05/19 04:06 Hospitalist ROS - Medication Medications: Active Medications Generic Name Dose Route Start Last Admin Trade Name Freq PRN Reason Stop Dose Admin Acetaminophen 650 mg 08/01/19 22:04 08/06/19 16:00 Tylenol PO 650 mg Q4H PRN Administration Headache/Fever/Mild Pain (1-3) Albuterol/Ipratropium 3 ml 08/04/19 13:00 08/07/19 18:56 Duoneb NEB 3 ml [id number] GABRIELLA Administration Arformoterol Tartrate 15 mcg 08/02/19 06:30 08/07/19 18:59 Brovana NEB 15 mcg BID-RT GABRIELLA Administration Aspirin 81 mg 08/05/19 09:00 08/07/19 08:54 Aspirin Chewable PO 81 mg DAILY GABRIELLA Administration Atorvastatin Calcium 40 mg 08/05/19 09:00 08/07/19 08:56 Lipitor PO 40 mg DAILY GABRIELLA Administration Budesonide 0.25 mg 08/02/19 06:30 08/07/19 18:59 Pulmicort Neb Solution INH 0.25 mg BID-RT GABRIELLA Administration Carvedilol 12.5 mg 08/04/19 21:00 08/07/19 08:54 Coreg PO 12.5 mg BID GABRIELLA Administration Cetirizine HCl 10 mg 08/03/19 09:00 08/07/19 11:53 Zyrtec PO 10 mg DAILY GABRIELLA Administration Finasteride 5 mg 08/03/19 09:00 08/07/19 08:54 Proscar PO 5 mg DAILY G[facility]RIELLA Administration Fondaparinux 2.5 mg 08/02/19 06:00 08/07/19 05:59 Arixtra SC 2.5 mg DAILY@0600 GABRIELLA Administration Furosemide 40 mg 08/05/19 09:00 08/07/19 08:54 Lasix PO 40 mg DAILY GABRIELLA Administration Cefepime HCl 2 gm/ Sodium 100 mls @ 200 mls/hr 08/03/19 17:00 08/07/19 18:04 Chloride IVPB 100 mls 0100,0900,1700 GABRIELLA Administration Mometasone Furoate/Formoterol Fumar 2 puff 08/04/19 18:30 08/07/19 19:20 Dulera 200 Mcg/5 Mcg Inhaler INH 2 puff BID-RT GABRIELLA Administration Multivitamins 1 tab 08/03/19 09:00 08/07/19 08:54 Theragran PO 1 tab DAILY GABRIELLA Administration Pantoprazole Sodium 40 mg 08/04/19 21:00 08/07/19 08:54 Protonix PO 40 mg BID GABRIELLA Administration Prednisone 20 mg 08/06/19 08:00 08/07/19 08:54 Prednisone PO 20 mg QAM-WM GABRIELLA Administration Sacubitril/Valsartan 1 tab 08/04/19 21:00 08/07/19 08:54 Entresto 24 Mg-26 Mg Tablet PO 1 tab BID GABRIELLA Administration Sodium Chloride 10 ml 08/04/19 21:00 08/07/19 08:56 Flush - Normal Saline IVF 10 ml Q12HR GABRIELLA Administration Tamsulosin HCl 0.8 mg 08/03/19 09:00 08/07/19 08:54 Flomax PO 0.8 mg DAILY GABRIELLA Administration - Exam General Appearance: NAD, awake alert Eye: PERRL, anicteric sclera ENT: normocephalic atraumatic, no oropharyngeal lesions, moist mucosa Neck: supple, symmetric, no JVD, no thyromegaly, no lymphadenopathy, no carotid bruit Heart: RRR, no murmur, no gallops, no rubs, normal peripheral pulses Respiratory: CTAB, no wheezes, no rales, no ronchi, normal chest expansion, no tachypnea, normal percussion Gastrointestinal: soft, non-tender, non-distended, normal bowel sounds, no palpable masses, no hepatomegaly, no splenomegaly, no bruit Extremities: no cyanosis, no clubbing, no edema Skin: normal turgor, no lesions, no rashes Neurological: cranial nerve grossly intact, normal sensation to touch, no weakness, no focal deficits, no new deficit Musculoskeletal: normal tone, normal strength, no muscle wasting Psychiatric: normal affect, normal behavior, A&O x 3 Hosp A/P - Plan medical unit with telemetry ID consultation, recommendations appreciated cardiology consultation, recommendations appreciated pulmonology consultation, recommendations appreciated supplemental oxygen as needed to maintain O2 saturation greater than 88% Breathing treatments broad-spectrum antibiotics with Maxipime, de escalate vancomycin pseudomonas, carson sensitive - on PO levaquin appreciate ID continue cardiomyopathy regimen: carvedilol, Entresto, Lasix echocardiogram avoid fluid overload continue other home medications as able blood pressure control blood sugar control G.I. prophylaxis DVT prophylaxis - NSVT - electrolytes to be checked
[2019-08-07 21:12] LABS: Magnesium 1.8 mg/dL (1.6-2.6); Phosphorus 2.2 mg/dL (2.3-4.7)
[2019-08-07] MEDS ORDERED: Arformoterol 15 MCG/2 ML NEB ONE (22:04)
[2019-08-08] MEDS: Cefepime 2 GM in Sodium Chloride 0.9% 100 ML IVPB SCH ×3 (02:17→17:39)
[2019-08-08] MEDS ORDERED: Albumin 25% 25 GM/100 ML BOT IVPB SCH (05:00)
[2019-08-08 06:13] LABS: Norovirus GI Negative (Negative); Norovirus GII Negative (Negative)
[2019-08-08] MEDS: Fondaparinux Sodium 2.5 MG/0.5 ML SYRINGE SC SCH (06:21)
[2019-08-08] MEDS: Budesonide 0.25 MG/2 ML NEB INH SCH ×2 (06:33→18:41)
[2019-08-08] MEDS: Arformoterol 15 MCG/2 ML NEB NEB SCH ×2 (06:33→23:25)
[2019-08-08] MEDS: Mometasone/Formoterol 120 PUFF INHALER INH SCH ×2 (06:34→18:39)
[2019-08-08] MEDS: predniSONE 20 MG TAB PO SCH (08:58)
[2019-08-08] MEDS: Atorvastatin Calcium 40 MG TAB PO SCH (08:59)
[2019-08-08] MEDS: Aspirin Chewable 81 MG TAB PO SCH (08:59)
[2019-08-08] MEDS: Tamsulosin HCl 0.4 MG CAP PO SCH (09:00)
[2019-08-08] MEDS: Multivit, Therapeutic 1 TAB PO SCH (09:00)
[2019-08-08] MEDS: Furosemide 40 MG TAB PO SCH (09:00)
[2019-08-08] MEDS: Finasteride 5 MG TAB PO SCH (09:01)
[2019-08-08] MEDS: Cetirizine HCl 10 MG TAB PO SCH (09:13)
[2019-08-08] MEDS: Carvedilol 6.25 MG TAB PO SCH ×2 (09:13→20:48)
--- NOTE | 2019-08-08 09:48 | PRG ---
DATE OF SERVICE: SUBJECTIVE: This morning, he is awake, alert, responsive, very weak. OBJECTIVE: VITAL SIGNS: His temperature is 97, pulse 71, respiratory rate 20, sats are 100% on 4 L, and blood pressure 100/57. CHEST: Decreased breath sounds without any wheezing. CARDIAC: Normal S1 and S2. No gallops. ABDOMEN: No masses. IMPRESSION: Status post chemo, squamous cell carcinoma of the left lung, tracheobronchitis, colonization, Pseudomonas, immunocompromised, congestive heart failure. PLAN: Continue antibiotics for total of 10 days. PT, eventually placement. Job ID: [id number]
[2019-08-08] MEDS ORDERED: Sodium Phosphate 15 MMOL in Sodium Chloride 0.9% 250 ML 250 ML IVPB SCH (11:30)
--- NOTE | 2019-08-08 14:24 | PDOC.HOSPP ---
- Subjective Encounter Date: 08/08/19 Encounter Time: 10:45 Subjective: last night pt had asymptomatic NSVT and PAT, pt is very weak, pt has not decided for discharge place - Objective Vital Signs & Weight: Vital Signs (12 hours) Temp Pulse Resp BP Pulse Ox 08/08/19 12:44 85 20 100 08/08/19 11:24 97.6 F 70 25 H 106/70 98 08/08/19 07:16 97.8 F 71 20 100/55 L 100 08/08/19 06:34 59 L 16 92 L 08/08/19 06:33 59 L 20 92 L 08/08/19 06:32 59 L 20 92 L 08/08/19 03:45 97.9 F 70 20 90/55 L 97 Weight Admit Weight 203 lb 0.732 oz Weight 197 lb Most Recent Monitor Data Heart Rate from ECG 91 NIBP 135/85 NIBP BP-Mean 101 Respiration from ECG 23 SpO2 98 I&O: 08/07/19 08/08/19 08/09/19 06:59 06:59 06:59 Intake Total 1670 820 Output Total 1650 920 Balance 20 -100 Result Diagrams: 08/06/19 03:47 08/05/19 04:06 Radiology Reviewed by me: Yes EKG Reviewed by me: Yes Hospitalist ROS - Review of Systems Constitutional: reports: weakness, malaise. denies: fever, chills, sweats, other ENT: denies: ear pain, ear discharge, nose pain, nose discharge, nose congestion , mouth pain, mouth swelling, throat pain, throat swelling, other Respiratory: denies: cough, dry, shortness of breath, hemoptysis, SOB with excertion, pleuritic pain, sputum, wheezing, other Cardiovascular: denies: chest pain, palpitations, orthopnea, paroxysmal noc. dyspnea, edema, light headedness, other Gastrointestinal: denies: nausea, vomiting, abdominal pain, diarrhea, constipation, melena, hematochezia, other Genitourinary: denies: dysuria, frequency, incontinence, hematuria, retention, other Musculoskeletal: denies: neck pain, shoulder pain, arm pain, back pain, hand pain, leg pain, foot pain, other - Medication Medications: Active Medications Generic Name Dose Route Start Last Admin Trade Name Freq PRN Reason Stop Dose Admin Acetaminophen 650 mg 08/01/19 22:04 08/06/19 16:00 Tylenol PO 650 mg Q4H PRN Administration Headache/Fever/Mild Pain (1-3) Albuterol/Ipratropium 3 ml 08/04/19 13:00 08/08/19 12:44 Duoneb NEB 3 ml [id number] GABRIELLA Administration Arformoterol Tartrate 15 mcg 08/02/19 06:30 08/08/19 06:33 Brovana NEB 15 mcg BID-RT GABRIELLA Administration Aspirin 81 mg 08/05/19 09:00 08/08/19 08:59 Aspirin Chewable PO 81 mg DAILY GABRIELLA Administration Atorvastatin Calcium 40 mg 08/05/19 09:00 08/08/19 08:59 Lipitor PO 40 mg DAILY GABRIELLA Administration Budesonide 0.25 mg 08/02/19 06:30 08/08/19 06:33 Pulmicort Neb Solution INH 0.25 mg BID-RT GABRIELLA Administration Carvedilol 12.5 mg 08/04/19 21:00 08/08/19 09:13 Coreg PO 12.5 mg BID GABRIELLA Administration Cetirizine HCl 10 mg 08/03/19 09:00 08/08/19 09:13 Zyrtec PO 10 mg DAILY GABRIELLA Administration Finasteride 5 mg 08/03/19 09:00 08/08/19 09:01 Proscar PO 5 mg DAILY GABRIELLA Administration Fondaparinux 2.5 mg 08/02/19 06:00 08/08/19 06:21 Arixtra SC 2.5 mg DAILY@0600 GABRIELLA Administration Furosemide 40 mg 08/05/19 09:00 08/08/19 09:00 Lasix PO 40 mg DAILY GABRIELLA Administration Cefepime HCl 2 gm/ Sodium 100 mls @ 200 mls/hr 08/03/19 17:00 08/08/19 09:01 Chloride IVPB 100 mls 0100,0900,1700 GABRIELLA Administration Sodium Phosphate 15 mmol/ 255 mls @ 42.5 mls/hr 08/08/19 11:30 08/08/19 13:33 Sodium Chloride IVPB 08/08/19 17:29 255 mls NOW GABRIELLA Administration Mometasone Furoate/Formoterol Fumar 2 puff 08/04/19 18:30 08/08/19 06:34 Dulera 200 Mcg/5 Mcg Inhaler INH 2 puff BID-RT GABRIELLA Administration Multivitamins 1 tab 08/03/19 09:00 08/08/19 09:00 Theragran PO 1 tab DAILY GABRIELLA Administration Pantoprazole Sodium 40 mg 08/04/19 21:00 08/07/19 20:56 Protonix PO 40 mg BID GABRIELLA Administration Prednisone 20 mg 08/06/19 08:00 08/08/19 08:58 Prednisone PO 20 mg QAM-WM GABRIELLA Administration Sacubitril/Valsartan 1 tab 08/04/19 21:00 08/08/19 09:13 Entresto 24 Mg-26 Mg Tablet PO 1 tab BID GABRIELLA Administration Sodium Chloride 10 ml 08/04/19 21:00 08/08/19 09:00 Flush - Normal Saline IVF 10 ml Q12HR GABRIELLA Administration Tamsulosin HCl 0.8 mg 08/03/19 09:00 08/08/19 09:00 Flomax PO 0.8 mg DAILY GABRIELLA Administration - Exam General Appearance: NAD, awake alert Eye: PERRL, anicteric sclera ENT: normocephalic atraumatic, no oropharyngeal lesions Neck: supple, symmetric, no JVD, no thyromegaly Heart: RRR, no murmur, no gallops, no rubs Respiratory: no wheezes, no rales, no ronchi Gastrointestinal: soft, non-tender, non-distended, normal bowel sounds Extremities: no cyanosis, no clubbing Skin: normal turgor, no lesions Neurological: cranial nerve grossly intact, no focal deficits Musculoskeletal: normal tone, normal strength Psychiatric: normal affect, normal behavior Hosp A/P (1) Acute respiratory failure with hypoxia Code(s): J96.01 - ACUTE RESPIRATORY FAILURE WITH HYPOXIA Status: Acute (2) Pneumonia Code(s): J18.9 - PNEUMONIA, UNSPECIFIED ORGANISM Status: Acute Qualifiers: Pneumonia type: due to Pseudomonas Laterality: left Lung location: lower lobe of lung Qualified Code(s): J15.1 - Pneumonia due to Pseudomonas (3) AICD (automatic cardioverter/defibrillator) present Code(s): Z95.810 - PRESENCE OF AUTOMATIC (IMPLANTABLE) CARDIAC DEFIBRILLATOR Status: Chronic (4) CHF (congestive heart failure) Code(s): I50.9 - HEART FAILURE, UNSPECIFIED Status: Chronic Qualifiers: Heart failure type: systolic Heart failure chronicity: chronic Qualified Code(s): I50.22 - Chronic systolic (congestive) heart failure (5) HTN (hypertension) Code(s): I10 - ESSENTIAL (PRIMARY) HYPERTENSION Status: Chronic Qualifiers: Hypertension type: essential hypertension Qualified Code(s): I10 - Essential (primary) hypertension (6) Lung cancer Code(s): C34.90 - MALIGNANT NEOPLASM OF UNSP PART OF UNSP BRONCHUS OR LUNG Status: Chronic Qualifiers: Laterality: left Lung location: hilum of lung Qualified Code(s): C34.02 - Malignant neoplasm of left main bronchus (7) Ischemic cardiomyopathy Code(s): I25.5 - ISCHEMIC CARDIOMYOPATHY Status: Chronic (8) Malignant neoplasm of bladder Status: Chronic (9) CAD (coronary artery disease) Code(s): I25.10 - ATHSCL HEART DISEASE OF [place] CORONARY ARTERY W/O ANG PCTRS Status: Chronic Qualifiers: Coronary Disease-Associated Artery/Lesion type: [place] artery [place] vs. transplanted heart: [place] heart Associated angina: angina presence unspecified Qualified Code(s): I25.10 - Atherosclerotic heart disease of [place] coronary artery without angina pectoris (10) COPD (chronic obstructive pulmonary disease) Status: Chronic Qualifiers: COPD type: COPD with acute exacerbation Qualified Code(s): J44.1 - Chronic obstructive pulmonary disease with (acute) exacerbation (11) Chronic disease anemia Code(s): D63.8 - ANEMIA IN OTHER CHRONIC DISEASES CLASSIFIED ELSEWHERE Status : Chronic (12) History of venous thromboembolism Code(s): Z86.718 - PERSONAL HISTORY OF OTHER VENOUS THROMBOSIS AND EMBOLISM Status: Chronic (13) BPH (benign prostatic hyperplasia) Code(s): N40.0 - BENIGN PROSTATIC HYPERPLASIA WITHOUT LOWER URINRY TRACT SYMP Status: Chronic - Plan old records reviewed/req, continue antibiotics, PT/OT, 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 may need placement
--- NOTE | 2019-08-08 18:24 | PRG ---
DATE OF SERVICE: 08/08/2019 SUBJECTIVE: Mr. Barahona is sitting by the bedside. He appears chronically ill. He is voiding in the diaper, less cough. No chest pain. No abdominal pain. OBJECTIVE: VITAL SIGNS: T-max 98.4, blood pressure 130/50, pulse 85, respirations 20, and O2 saturation 100. GENERAL: Sitting on a chair. He is oriented, has little bit of difficulty remembering the sequence of events. For example, he did not remember if his lung cancer was lung or gastric. HEENT: Ocular movements are conjugate. LUNGS: With some inspiratory crackles, left side. ABDOMEN: Soft, not distended. LABORATORY DATA: White cell count is up to 6.9, hemoglobin 9.7, and platelets 221. Creatinine 0.76. ASSESSMENT AND DISCUSSION: Ischemic cardiomyopathy, bladder urothelial carcinoma, primary lung cancer with squamous cell histology, new area of consolidation in left lower lobe with air bronchograms. The patient is improving from the obstructive pneumonia, and for discharge planning, he can be transitioned to oral quinolone for another 5 to 7 days. He may need a bit longer because of the type of organism and the underlying immunosuppression and the postobstructive pneumonia manifestation. Job ID: [id number]
[2019-08-08] MEDS ORDERED: Arformoterol 15 MCG/2 ML NEB ONE (23:22)
[2019-08-09] MEDS: Cefepime 2 GM in Sodium Chloride 0.9% 100 ML IVPB SCH ×2 (00:48→09:15)
[2019-08-09] MEDS: Fondaparinux Sodium 2.5 MG/0.5 ML SYRINGE SC SCH (05:36)
[2019-08-09] MEDS: Budesonide 0.25 MG/2 ML NEB INH SCH ×2 (06:58→19:31)
[2019-08-09] MEDS: Arformoterol 15 MCG/2 ML NEB NEB SCH ×2 (06:58→19:29)
[2019-08-09] MEDS: Mometasone/Formoterol 120 PUFF INHALER INH SCH ×2 (06:59→19:32)
[2019-08-09] MEDS: Multivit, Therapeutic 1 TAB PO SCH (08:58)
[2019-08-09] MEDS: Carvedilol 6.25 MG TAB PO SCH ×2 (08:58→21:53)
[2019-08-09] MEDS: predniSONE 20 MG TAB PO SCH (08:58)
[2019-08-09] MEDS: Tamsulosin HCl 0.4 MG CAP PO SCH (08:58)
[2019-08-09] MEDS: Atorvastatin Calcium 40 MG TAB PO SCH (08:58)
[2019-08-09] MEDS: Aspirin Chewable 81 MG TAB PO SCH (08:58)
[2019-08-09] MEDS: Finasteride 5 MG TAB PO SCH (08:59)
[2019-08-09] MEDS: Loratadine 10 MG TAB PO SCH (08:59)
--- NOTE | 2019-08-09 09:05 | PRG ---
DATE OF SERVICE: 08/09/2019 This morning, he is awake, alert, responsive, still weak. OBJECTIVE: VITAL SIGNS: Temperature 97, pulse 70, respirations 18, saturations 94% on2l oxygen, blood pressure 126/90. CHEST: Decreased breath sounds. No wheezing. CARDIAC: Normal S1, S2. No gallops. IMPRESSION: Squamous cell carcinoma, left lung, small pleural effusion. Pseudomonas tracheobronchitis. He appears to have improved significantly. His hypotension resolved. He is off steroids. Eventually placement. Job ID: [id number] [facility]
[2019-08-09] MEDS: Furosemide 40 MG TAB PO SCH (10:24)
--- NOTE | 2019-08-09 11:37 | PDOC.HOSPP ---
- Subjective Encounter Date: 08/09/19 Encounter Time: 09:00 Subjective: Patient seen and examined. No new complaints. No overnight events pt feels that we are pushing him for discharge but i told him that he needs to do more therapy to prevent weakness, now he is stable other than his weakness - Objective Vital Signs & Weight: Vital Signs (12 hours) Temp Pulse Resp BP Pulse Ox 08/09/19 10:24 126/58 L 08/09/19 08:21 97.7 F 83 22 H 94/50 L 100 08/09/19 06:59 70 16 94 L 08/09/19 06:58 70 16 94 L 08/09/19 06:50 70 16 93 L 08/09/19 03:05 97.8 F 70 18 126/59 L 95 08/09/19 00:00 88 16 106/65 Weight Admit Weight 203 lb 0.732 oz Weight 196 lb 11.2 oz Most Recent Monitor Data Heart Rate from ECG 91 NIBP 135/85 NIBP BP-Mean 101 Respiration from ECG 23 SpO2 98 I&O: 08/08/19 08/09/19 08/10/19 06:59 06:59 06:59 Intake Total 820 1200 Output Total 920 2050 Balance -100 -850 Result Diagrams: 08/06/19 03:47 08/05/19 04:06 EKG Reviewed by me: Yes Hospitalist ROS - Review of Systems Constitutional: reports: weakness, malaise. denies: fever, chills, sweats, other ENT: denies: ear pain, ear discharge, nose pain, nose discharge, nose congestion , mouth pain, mouth swelling, throat pain, throat swelling, other Respiratory: denies: cough, dry, shortness of breath, hemoptysis, SOB with excertion, pleuritic pain, sputum, wheezing, other Cardiovascular: denies: chest pain, palpitations, orthopnea, paroxysmal noc. dyspnea, edema, light headedness, other Gastrointestinal: denies: nausea, vomiting, abdominal pain, diarrhea, constipation, melena, hematochezia, other Genitourinary: denies: dysuria, frequency, incontinence, hematuria, retention, other Musculoskeletal: denies: neck pain, shoulder pain, arm pain, back pain, hand pain, leg pain, foot pain, other Skin: denies: rash, lesions, zena, bruising, other - Medication Medications: Active Medications Generic Name Dose Route Start Last Admin Trade Name Freq PRN Reason Stop Dose Admin Acetaminophen 650 mg 08/01/19 22:04 08/06/19 16:00 Tylenol PO 650 mg Q4H PRN Administration Headache/Fever/Mild Pain (1-3) Albuterol/Ipratropium 3 ml 08/04/19 13:00 08/09/19 06:50 Duoneb NEB 3 ml [id number] GABRIELLA Administration Arformoterol Tartrate 15 mcg 08/02/19 06:30 08/09/19 06:58 Brovana NEB 15 mcg BID-RT GABRIELLA Administration Aspirin 81 mg 08/05/19 09:00 08/09/19 08:58 Aspirin Chewable PO 81 mg DAILY GABRIELLA Administration Atorvastatin Calcium 40 mg 08/05/19 09:00 08/09/19 08:58 Lipitor PO 40 mg DAILY GABRIELLA Administration Budesonide 0.25 mg 08/02/19 06:30 08/09/19 06:58 Pulmicort Neb Solution INH 0.25 mg BID-RT GABRIELLA Administration Carvedilol 12.5 mg 08/04/19 21:00 08/09/19 08:58 Coreg PO 12.5 mg BID GABRIELLA Administration Finasteride 5 mg 08/03/19 09:00 08/09/19 08:59 Proscar PO 5 mg DAILY GABRIELLA Administration Fondaparinux 2.5 mg 08/02/19 06:00 08/09/19 05:36 Arixtra SC 2.5 mg DAILY@0600 GABRIELLA Administration Furosemide 40 mg 08/05/19 09:00 08/09/19 10:24 Lasix PO 40 mg DAILY GABRIELLA Administration Cefepime HCl 2 gm/ Sodium 100 mls @ 200 mls/hr 08/03/19 17:00 08/09/19 09:15 Chloride IVPB 100 mls 0100,0900,1700 GABRIELLA Administration Loratadine 10 mg 08/09/19 09:00 08/09/19 08:59 Claritin PO 10 mg DAILY GABRIELLA Administration Mometasone Furoate/Formoterol Fumar 2 puff 08/04/19 18:30 08/09/19 06:59 Dulera 200 Mcg/5 Mcg Inhaler INH 2 puff BID-RT GABRIELLA Administration Multivitamins 1 tab 08/03/19 09:00 08/09/19 08:58 Theragran PO 1 tab DAILY GABRIELLA Administration Pantoprazole Sodium 40 mg 08/04/19 21:00 08/09/19 08:58 Protonix PO 40 mg BID GABRIELLA Administration Prednisone 20 mg 08/06/19 08:00 08/09/19 08:58 Prednisone PO 20 mg QAM-WM GABRIELLA Administration Sacubitril/Valsartan 1 tab 08/04/19 21:00 08/09/19 10:24 Entresto 24 Mg-26 Mg Tablet PO 1 tab BID GABRIELLA Administration Sodium Chloride 10 ml 08/04/19 21:00 08/09/19 09:16 Flush - Normal Saline IVF 10 ml Q12HR GABRIELLA Administration Tamsulosin HCl 0.8 mg 08/03/19 09:00 08/09/19 08:58 Flomax PO 0.8 mg DAILY GABRIELLA Administration - Exam General Appearance: NAD, awake alert Eye: PERRL, anicteric sclera ENT: normocephalic atraumatic, no oropharyngeal lesions Neck: supple, symmetric, no JVD, no thyromegaly Heart: RRR, no murmur, no gallops, no rubs Respiratory: CTAB, no wheezes, no rales Gastrointestinal: soft, non-tender, non-distended, normal bowel sounds Extremities: no cyanosis, no clubbing Skin: normal turgor, no lesions Neurological: no focal deficits Musculoskeletal: normal tone, normal strength Psychiatric: normal affect, normal behavior Hosp A/P (1) Acute respiratory failure with hypoxia Code(s): J96.01 - ACUTE RESPIRATORY FAILURE WITH HYPOXIA Status: Acute (2) Pneumonia Code(s): J18.9 - PNEUMONIA, UNSPECIFIED ORGANISM Status: Acute Qualifiers: Pneumonia type: due to Pseudomonas Laterality: left Lung location: lower lobe of lung Qualified Code(s): J15.1 - Pneumonia due to Pseudomonas (3) AICD (automatic cardioverter/defibrillator) present Code(s): Z95.810 - PRESENCE OF AUTOMATIC (IMPLANTABLE) CARDIAC DEFIBRILLATOR Status: Chronic (4) CHF (congestive heart failure) Code(s): I50.9 - HEART FAILURE, UNSPECIFIED Status: Chronic Qualifiers: Heart failure type: systolic Heart failure chronicity: chronic Qualified Code(s): I50.22 - Chronic systolic (congestive) heart failure (5) HTN (hypertension) Code(s): I10 - ESSENTIAL (PRIMARY) HYPERTENSION Status: Chronic Qualifiers: Hypertension type: essential hypertension Qualified Code(s): I10 - Essential (primary) hypertension (6) Lung cancer Code(s): C34.90 - MALIGNANT NEOPLASM OF UNSP PART OF UNSP BRONCHUS OR LUNG Status: Chronic Qualifiers: Laterality: left Lung location: hilum of lung Qualified Code(s): C34.02 - Malignant neoplasm of left main bronchus (7) Ischemic cardiomyopathy Code(s): I25.5 - ISCHEMIC CARDIOMYOPATHY Status: Chronic (8) Malignant neoplasm of bladder Status: Chronic (9) CAD (coronary artery disease) Code(s): I25.10 - ATHSCL HEART DISEASE OF [place] CORONARY ARTERY W/O ANG PCTRS Status: Chronic Qualifiers: Coronary Disease-Associated Artery/Lesion type: [place] artery [place] vs. transplanted heart: [place] heart Associated angina: angina presence unspecified Qualified Code(s): I25.10 - Atherosclerotic heart disease of [place] coronary artery without angina pectoris (10) COPD (chronic obstructive pulmonary disease) Status: Chronic Qualifiers: COPD type: COPD with acute exacerbation Qualified Code(s): J44.1 - Chronic obstructive pulmonary disease with (acute) exacerbation (11) Chronic disease anemia Code(s): D63.8 - ANEMIA IN OTHER CHRONIC DISEASES CLASSIFIED ELSEWHERE Status : Chronic (12) History of venous thromboembolism Code(s): Z86.718 - PERSONAL HISTORY OF OTHER VENOUS THROMBOSIS AND EMBOLISM Status: Chronic (13) BPH (benign prostatic hyperplasia) Code(s): N40.0 - BENIGN PROSTATIC HYPERPLASIA WITHOUT LOWER URINRY TRACT SYMP Status: Chronic - Plan old records reviewed/req, continue antibiotics, PT/OT, psychosocial rehabilitation counselor pt does not feel he is ready to go home he is so week, doubt he is candidate for chemo for now continue cefepime continue PT/OT encourage to participate with PT not stable for discharge yet. may need placement 08/09/19 will change to oral antibiotic encouraged pt to participate with PT based on his weakness, he may need snu or rehab oxygen may need to arrange start discharge planning medication reviewed as above symptomatic treatment supportive care
[2019-08-10] MEDS: Budesonide 0.25 MG/2 ML NEB INH SCH ×2 (05:40→19:44)
[2019-08-10] MEDS: Mometasone/Formoterol 120 PUFF INHALER INH SCH ×2 (05:40→19:41)
[2019-08-10] MEDS: Fondaparinux Sodium 2.5 MG/0.5 ML SYRINGE SC SCH (06:34)
[2019-08-10] MEDS: Carvedilol 6.25 MG TAB PO SCH ×2 (08:25→20:19)
[2019-08-10] MEDS: Tamsulosin HCl 0.4 MG CAP PO SCH (08:25)
[2019-08-10] MEDS: Atorvastatin Calcium 40 MG TAB PO SCH (08:26)
[2019-08-10] MEDS: Multivit, Therapeutic 1 TAB PO SCH (08:26)
[2019-08-10] MEDS: Aspirin Chewable 81 MG TAB PO SCH (08:26)
[2019-08-10] MEDS: Loratadine 10 MG TAB PO SCH (08:26)
[2019-08-10] MEDS: predniSONE 20 MG TAB PO SCH (08:26)
[2019-08-10] MEDS: Finasteride 5 MG TAB PO SCH (08:26)
[2019-08-10] MEDS: Furosemide 40 MG TAB PO SCH (08:26)
--- NOTE | 2019-08-10 10:01 | PDOC.HOSPP ---
- Subjective Encounter Date: 08/10/19 Encounter Time: 08:20 Subjective: Patient seen and examined. No new complaints. No overnight events - Objective Vital Signs & Weight: Vital Signs (12 hours) Temp Pulse Resp BP Pulse Ox 08/10/19 07:33 99 08/10/19 07:02 98.6 F 91 18 118/63 99 08/10/19 05:40 93 L 08/10/19 05:39 94 L 08/10/19 04:00 98.7 F 72 18 117/64 97 08/10/19 03:05 98.7 F 72 18 117/64 97 08/10/19 00:00 94 L 08/09/19 23:45 94 L 08/09/19 23:00 98.0 F 88 18 110/57 L 92 L Weight Admit Weight 203 lb 0.732 oz Weight 197 lb 9.6 oz Most Recent Monitor Data Heart Rate from ECG 91 NIBP 135/85 NIBP BP-Mean 101 Respiration from ECG 23 SpO2 98 I&O: 08/09/19 08/10/19 08/11/19 06:59 06:59 06:59 Intake Total 1200 1280 Output Total 2050 1150 Balance -850 130 Result Diagrams: 08/06/19 03:47 08/05/19 04:06 EKG Reviewed by me: Yes Hospitalist ROS - Review of Systems Constitutional: reports: weakness, malaise. denies: fever, chills, sweats, other ENT: denies: ear pain, ear discharge, nose pain, nose discharge, nose congestion , mouth pain, mouth swelling, throat pain, throat swelling, other Respiratory: denies: cough, dry, shortness of breath, hemoptysis, SOB with excertion, pleuritic pain, sputum, wheezing, other Cardiovascular: denies: chest pain, palpitations, orthopnea, paroxysmal noc. dyspnea, edema, light headedness, other Gastrointestinal: denies: nausea, vomiting, abdominal pain, diarrhea, constipation, melena, hematochezia, other Genitourinary: denies: dysuria, frequency, incontinence, hematuria, retention, other - Medication Medications: Active Medications Generic Name Dose Route Start Last Admin Trade Name Freq PRN Reason Stop Dose Admin Acetaminophen 650 mg 08/01/19 22:04 08/06/19 16:00 Tylenol PO 650 mg Q4H PRN Administration Headache/Fever/Mild Pain (1-3) Albuterol/Ipratropium 3 ml 08/04/19 13:00 08/10/19 05:39 Duoneb NEB 3 ml [id number] GABRIELLA Administration Arformoterol Tartrate 15 mcg 08/02/19 06:30 08/09/19 19:29 Brovana NEB 15 mcg BID-RT GABRIELLA Administration Aspirin 81 mg 08/05/19 09:00 08/10/19 08:26 Aspirin Chewable PO 81 mg DAILY GABRIELLA Administration Atorvastatin Calcium 40 mg 08/05/19 09:00 08/10/19 08:26 Lipitor PO 40 mg DAILY GABRIELLA Administration Budesonide 0.25 mg 08/02/19 06:30 08/10/19 05:40 Pulmicort Neb Solution INH 0.25 mg BID-RT GABRIELLA Administration Carvedilol 12.5 mg 08/04/19 21:00 08/10/19 08:25 Coreg PO 12.5 mg BID GABRIELLA Administration Finasteride 5 mg 08/03/19 09:00 08/10/19 08:26 Proscar PO 5 mg DAILY GABRIELLA Administration Fondaparinux 2.5 mg 08/02/19 06:00 08/10/19 06:34 Arixtra SC 2.5 mg DAILY@0600 GABRIELLA Administration Furosemide 40 mg 08/05/19 09:00 08/10/19 08:26 Lasix PO 40 mg DAILY GABRIELLA Administration Levofloxacin 750 mg 08/10/19 06:00 08/10/19 06:34 Levaquin PO 750 mg 0600 GABRIELLA Administration Loratadine 10 mg 08/09/19 09:00 08/10/19 08:26 Claritin PO 10 mg DAILY GABRIELLA Administration Mometasone Furoate/Formoterol Fumar 2 puff 08/04/19 18:30 08/10/19 05:40 Dulera 200 Mcg/5 Mcg Inhaler INH 2 puff BID-RT GABRIELLA Administration Multivitamins 1 tab 08/03/19 09:00 08/10/19 08:26 Theragran PO 1 tab DAILY GABRIELLA Administration Pantoprazole Sodium 40 mg 08/04/19 21:00 08/10/19 08:26 Protonix PO 40 mg BID GABRIELLA Administration Prednisone 20 mg 08/06/19 08:00 08/10/19 08:26 Prednisone PO 20 mg QAM-WM GABRIELLA Administration Sacubitril/Valsartan 1 tab 08/04/19 21:00 08/10/19 08:25 Entresto 24 Mg-26 Mg Tablet PO 1 tab BID GABRIELLA Administration Sodium Chloride 10 ml 08/04/19 21:00 08/10/19 08:29 Flush - Normal Saline IVF 10 ml Q12HR GABRIELLA Administration Tamsulosin HCl 0.8 mg 08/03/19 09:00 08/10/19 08:25 Flomax PO 0.8 mg DAILY GABRIELLA Administration - Exam General Appearance: NAD, awake alert Eye: PERRL, anicteric sclera ENT: normocephalic atraumatic, no oropharyngeal lesions Neck: supple, symmetric, no JVD, no thyromegaly Heart: RRR, no murmur, no gallops, no rubs Respiratory: CTAB, no wheezes, no rales Gastrointestinal: soft, non-tender, non-distended Extremities: no cyanosis, no clubbing Skin: normal turgor, no lesions Neurological: no focal deficits Musculoskeletal: normal tone, normal strength Psychiatric: normal affect, normal behavior Hosp A/P (1) Acute respiratory failure with hypoxia Code(s): J96.01 - ACUTE RESPIRATORY FAILURE WITH HYPOXIA Status: Acute (2) Pneumonia Code(s): J18.9 - PNEUMONIA, UNSPECIFIED ORGANISM Status: Acute Qualifiers: Pneumonia type: due to Pseudomonas Laterality: left Lung location: lower lobe of lung Qualified Code(s): J15.1 - Pneumonia due to Pseudomonas (3) AICD (automatic cardioverter/defibrillator) present Code(s): Z95.810 - PRESENCE OF AUTOMATIC (IMPLANTABLE) CARDIAC DEFIBRILLATOR Status: Chronic (4) CHF (congestive heart failure) Code(s): I50.9 - HEART FAILURE, UNSPECIFIED Status: Chronic Qualifiers: Heart failure type: systolic Heart failure chronicity: chronic Qualified Code(s): I50.22 - Chronic systolic (congestive) heart failure (5) HTN (hypertension) Code(s): I10 - ESSENTIAL (PRIMARY) HYPERTENSION Status: Chronic Qualifiers: Hypertension type: essential hypertension Qualified Code(s): I10 - Essential (primary) hypertension (6) Lung cancer Code(s): C34.90 - MALIGNANT NEOPLASM OF UNSP PART OF UNSP BRONCHUS OR LUNG Status: Chronic Qualifiers: Laterality: left Lung location: hilum of lung Qualified Code(s): C34.02 - Malignant neoplasm of left main bronchus (7) Ischemic cardiomyopathy Code(s): I25.5 - ISCHEMIC CARDIOMYOPATHY Status: Chronic (8) Malignant neoplasm of bladder Status: Chronic (9) CAD (coronary artery disease) Code(s): I25.10 - ATHSCL HEART DISEASE OF [place] CORONARY ARTERY W/O ANG PCTRS Status: Chronic Qualifiers: Coronary Disease-Associated Artery/Lesion type: [place] artery [place] vs. transplanted heart: [place] heart Associated angina: angina presence unspecified Qualified Code(s): I25.10 - Atherosclerotic heart disease of [place] coronary artery without angina pectoris (10) COPD (chronic obstructive pulmonary disease) Status: Chronic Qualifiers: COPD type: COPD with acute exacerbation Qualified Code(s): J44.1 - Chronic obstructive pulmonary disease with (acute) exacerbation (11) Chronic disease anemia Code(s): D63.8 - ANEMIA IN OTHER CHRONIC DISEASES CLASSIFIED ELSEWHERE Status : Chronic (12) History of venous thromboembolism Code(s): Z86.718 - PERSONAL HISTORY OF OTHER VENOUS THROMBOSIS AND EMBOLISM Status: Chronic (13) BPH (benign prostatic hyperplasia) Code(s): N40.0 - BENIGN PROSTATIC HYPERPLASIA WITHOUT LOWER URINRY TRACT SYMP Status: Chronic - Plan old records reviewed/req, PT/OT, executive secretary social welfare pt does not feel he is ready to go home he is so week, doubt he is candidate for chemo for now continue cefepime continue PT/OT encourage to participate with PT not stable for discharge yet. may need placement 08/09/19 will change to oral antibiotic encouraged pt to participate with PT based on his weakness, he may need snu or rehab oxygen may need to arrange start discharge planning medication reviewed as above symptomatic treatment supportive care 08/10/19 pt refuses to go to snu or rehab he is not confident to go home even with home health he feels he is not ready to go home he is on PO meds he is high risk for readmission if discharged to home prognosis is guarded
[2019-08-10] MEDS: Arformoterol 15 MCG/2 ML NEB NEB SCH ×2 (12:20→19:44)
[2019-08-11] MEDS: Fondaparinux Sodium 2.5 MG/0.5 ML SYRINGE SC SCH (05:41)
[2019-08-11] MEDS: Arformoterol 15 MCG/2 ML NEB NEB SCH ×2 (07:01→19:49)
[2019-08-11] MEDS: Budesonide 0.25 MG/2 ML NEB INH SCH ×2 (07:07→19:49)
[2019-08-11] MEDS: Mometasone/Formoterol 120 PUFF INHALER INH SCH ×2 (07:08→19:48)
[2019-08-11] MEDS: Multivit, Therapeutic 1 TAB PO SCH (08:53)
[2019-08-11] MEDS: predniSONE 20 MG TAB PO SCH (08:53)
[2019-08-11] MEDS: Furosemide 40 MG TAB PO SCH (08:53)
[2019-08-11] MEDS: Tamsulosin HCl 0.4 MG CAP PO SCH (08:53)
[2019-08-11] MEDS: Atorvastatin Calcium 40 MG TAB PO SCH (08:53)
[2019-08-11] MEDS: Loratadine 10 MG TAB PO SCH (08:53)
[2019-08-11] MEDS: Carvedilol 6.25 MG TAB PO SCH ×2 (08:53→20:33)
[2019-08-11] MEDS: Finasteride 5 MG TAB PO SCH (08:54)
[2019-08-11] MEDS: Aspirin Chewable 81 MG TAB PO SCH (08:54)
--- NOTE | 2019-08-11 14:24 | RAD ---
Chest one view HISTORY: Dyspnea. Pleural effusion. COMPARISON: 08/06/2019. FINDINGS: Cardiac silhouette remains predominantly obscured by an elevated left hemidiaphragm, small amount of fluid, and basilar atelectasis. Mediastinum remains midline. Lines and tubes unchanged in position. Postoperative changes are apparent. Right lung remains well-inflated. No evidence of pneumothorax. IMPRESSION: Left pleural fluid, hemidiaphragm elevation, and other findings are stable.
--- NOTE | 2019-08-11 17:13 | PRG ---
DATE OF SERVICE: 08/11/2019 SUBJECTIVE: Mr. Barahona had a reasonable night. OBJECTIVE: VITAL SIGNS: He said he is afebrile. Heart rate is 88, respiratory rate is 24, oximetry is 97% on 3 L. LUNGS: Distant and clear. HEART: Regular rhythm. ABDOMEN: Soft. EXTREMITIES: Without asymmetry or edema. DIAGNOSTIC DATA: Chest x-ray shows stable left effusion. IMPRESSION: 1. Pseudomonas bronchitis. 2. Small effusion. 3. Lung cancer. PLAN: Continue supportive care. Job ID: [id number]
--- NOTE | 2019-08-11 21:59 | PDOC.HOSPP ---
- Subjective Encounter Date: 08/11/19 Encounter Time: 21:00 Subjective: F/u: pneumonia The patient to continues to cough up some productive phlegm but thinks it has improved. He feels less short of breath slightly. He states he is getting daily radiation treatments Tuesday to Tuesday. - Objective Vital Signs & Weight: Vital Signs (12 hours) Temp Pulse Pulse Resp BP BP BP 08/11/19 20:33 105/59 L 08/11/19 19:50 08/11/19 19:49 08/11/19 19:48 78 18 08/11/19 19:44 98.5 F 84 16 08/11/19 16:00 98.6 F 78 20 08/11/19 15:07 71 91/53 L 107/63 08/11/19 13:35 88 24 H 08/11/19 12:00 98.3 F 20 BP BP Pulse Ox Pulse Ox Pulse Ox Pulse Ox 08/11/19 20:33 08/11/19 19:50 96 08/11/19 19:49 96 08/11/19 19:48 96 08/11/19 19:44 102/58 L 96 08/11/19 16:00 103/56 L 103/56 L 95 08/11/19 15:07 92 L 93 L 93 L 08/11/19 13:35 97 08/11/19 12:00 93/49 L 93 L Weight Admit Weight 203 lb 0.732 oz Weight 197 lb 9.6 oz Most Recent Monitor Data Heart Rate from ECG 91 NIBP 135/85 NIBP BP-Mean 101 Respiration from ECG 23 SpO2 98 I&O: 08/10/19 08/11/19 08/12/19 06:59 06:59 06:59 Intake Total 1280 200 500 Output Total 1150 Balance 130 200 500 Result Diagrams: 08/06/19 03:47 08/05/19 04:06 Hospitalist ROS - Medication Medications: Active Medications Generic Name Dose Route Start Last Admin Trade Name Freq PRN Reason Stop Dose Admin Acetaminophen 650 mg 08/01/19 22:04 08/06/19 16:00 Tylenol PO 650 mg Q4H PRN Administration Headache/Fever/Mild Pain (1-3) Albuterol/Ipratropium 3 ml 08/04/19 13:00 08/11/19 19:49 Duoneb NEB 3 ml [id number] GABRIELLA Administration Arformoterol Tartrate 15 mcg 08/02/19 06:30 08/11/19 19:49 Brovana NEB 15 mcg BID-RT GABRIELLA Administration Aspirin 81 mg 08/05/19 09:00 08/11/19 08:54 Aspirin Chewable PO 81 mg DAILY GABRIELLA Administration Atorvastatin Calcium 40 mg 08/05/19 09:00 08/11/19 08:53 Lipitor PO 40 mg DAILY GABRIELLA Administration Budesonide 0.25 mg 08/02/19 06:30 08/11/19 19:49 Pulmicort Neb Solution INH 0.25 mg BID-RT GABRIELLA Administration Carvedilol 12.5 mg 08/04/19 21:00 08/11/19 20:33 Coreg PO 12.5 mg BID GABRIELLA Administration Finasteride 5 mg 08/03/19 09:00 08/11/19 08:54 Proscar PO 5 mg DAILY GABRIELLA Administration Fondaparinux 2.5 mg 08/02/19 06:00 08/11/19 05:41 Arixtra SC Not Given DAILY@0600 GABRIELLA Furosemide 40 mg 08/05/19 09:00 08/11/19 08:53 Lasix PO 40 mg DAILY GABRIELLA Administration Levofloxacin 750 mg 08/10/19 06:00 08/11/19 06:06 Levaquin PO 750 mg 0600 GABRIELLA Administration Loratadine 10 mg 08/09/19 09:00 08/11/19 08:53 Claritin PO 10 mg DAILY GABRIELLA Administration Mometasone Furoate/Formoterol Fumar 2 puff 08/04/19 18:30 08/11/19 19:48 Dulera 200 Mcg/5 Mcg Inhaler INH 2 puff BID-RT GABRIELLA Administration Multivitamins 1 tab 08/03/19 09:00 08/11/19 08:53 Theragran PO 1 tab DAILY GABRIELLA Administration Pantoprazole Sodium 40 mg 08/04/19 21:00 08/11/19 20:33 Protonix PO 40 mg BID GABRIELLA Administration Prednisone 20 mg 08/06/19 08:00 08/11/19 08:53 Prednisone PO 20 mg QAM-WM GABRIELLA Administration Sacubitril/Valsartan 1 tab 08/04/19 21:00 08/11/19 20:33 Entresto 24 Mg-26 Mg Tablet PO Not Given BID GABRIELLA Sodium Chloride 10 ml 08/04/19 21:00 08/11/19 20:38 Flush - Normal Saline IVF 10 ml Q12HR GABRIELLA Administration Tamsulosin HCl 0.8 mg 08/03/19 09:00 08/11/19 08:53 Flomax PO 0.8 mg DAILY GABRIELLA Administration Hosp A/P - Plan CTA chest: no PE. Left pleural effusion. LLL pneumonia, JOY consolidation which is old. Thick bronchi + bronchioles in the JOY Chest X ray 08/10: left pleural fluid This is a 74 year old male with past medical history of lung cancer who presented with worsening shortness of breath, admitted for pneumonia #Acute hypoxic respiratory failure secondary to pseudomonas pneumonia in setting of lung cancer #Left pleural effusion - CTA showed no PE. SPutum culture growing pseudomonas. Was on IV vanc and cefepime and switched to oral levaquin on 08/09. Currently on 4L of oxygen, baseline around 3 - continue brovana bid, pulmicort bid. IV steroids transitioned to oral prednisone 20 mg daily - IV lasix transitioned to oral lasix 40 mg daily - troponin negative times three - EKG shows lateral wall changes. . Last EF was 20-25%. Cardiology consulted and signed off on 08/05, no indication for cath Leukopenia- resolved Anemia - secondary to chemotherapy -hemoglobin 9.2 - continue to monitor Pseudomonas bacterial infection - noted in stool sample -on oral levaquin Physical deconditioning - PT recommended home with home health DVT prophylaxis: fondaparinux Code status: full code
[2019-08-11] MEDS ORDERED: guaiFENesin ER 600 MG TAB PO SCH (22:00)
[2019-08-12] MEDS ORDERED: Arformoterol 15 MCG/2 ML NEB ONE (01:21)
[2019-08-12] MEDS: Acetaminophen 325 MG TAB PO PRN (01:47)
[2019-08-12] MEDS: Fondaparinux Sodium 2.5 MG/0.5 ML SYRINGE SC SCH (05:13)
[2019-08-12] MEDS: Budesonide 0.25 MG/2 ML NEB INH SCH ×2 (06:25→18:50)
[2019-08-12] MEDS: Arformoterol 15 MCG/2 ML NEB NEB SCH ×2 (06:35→18:51)
[2019-08-12] MEDS: Mometasone/Formoterol 120 PUFF INHALER INH SCH ×2 (06:40→18:51)
[2019-08-12] MEDS: predniSONE 20 MG TAB PO SCH (09:00)
[2019-08-12] MEDS: Multivit, Therapeutic 1 TAB PO SCH (10:04)
[2019-08-12] MEDS: Furosemide 40 MG TAB PO SCH (10:05)
[2019-08-12] MEDS: Carvedilol 6.25 MG TAB PO SCH ×2 (10:05→20:22)
[2019-08-12] MEDS: Atorvastatin Calcium 40 MG TAB PO SCH (10:05)
[2019-08-12] MEDS: Finasteride 5 MG TAB PO SCH (10:05)
[2019-08-12] MEDS: Tamsulosin HCl 0.4 MG CAP PO SCH (10:08)
[2019-08-12] MEDS: Loratadine 10 MG TAB PO SCH (10:09)
[2019-08-12] MEDS: guaiFENesin ER 600 MG TAB PO SCH ×2 (10:09→20:23)
[2019-08-12] MEDS: Aspirin Chewable 81 MG TAB PO SCH (10:10)
[2019-08-12 11:19] LABS: Hemoglobin 9.8 g/dL (14.0-18.0); Mean Corpuscular Hemoglobin 26.3 pg (27.0-31.0); Mean Platelet Volume 8.7 fL (7.4-10.4); Platelet Count 176 thou/uL (130-400); RBC Distribution Width 22.7 % (11.5-14.5); Red Blood Cell (RBC) Count 3.73 mill/uL (4.70-6.10); White Blood Cell (WBC) Count 9.9 thou/uL (4.8-10.8)
[2019-08-12 11:24] LABS: Anion Gap 10 mmol/L (10-20); BUN (Urea Nitrogen) 21 mg/dL (8.4-25.7); Calc. Creatinine Clearance 93 mL/min (70-130); Calcium 8.7 mg/dL (7.8-10.44); Carbon Dioxide 34 mmol/L (23-31); Chloride 100 mmol/L (98-107); Estimated GFR-MDRD 85; Glucose 126 mg/dL (83-110); Potassium 4.1 mmol/L (3.5-5.1); Sodium 140 mmol/L (136-145)
--- NOTE | 2019-08-12 16:22 | PDOC.HOSPP ---
- Subjective Encounter Date: 08/12/19 Encounter Time: 13:00 Subjective: The patient continues to have some productive cough with phlegm and some shortness of breath. He is on 3L of oxygen currently. PT recommended home with home health. Patient states he needs one more day of radiation tomorrow. He lives alone and has no transportation - Objective Vital Signs & Weight: Vital Signs (12 hours) Temp Pulse Resp BP BP Pulse Ox 08/12/19 13:17 70 16 08/12/19 10:05 95/56 L 08/12/19 07:29 95 08/12/19 07:23 98.3 F 70 20 95/56 L 98 08/12/19 06:40 80 18 08/12/19 06:25 80 18 Weight Admit Weight 203 lb 0.732 oz Weight 197 lb 9.6 oz Most Recent Monitor Data Heart Rate from ECG 91 NIBP 135/85 NIBP BP-Mean 101 Respiration from ECG 23 SpO2 98 I&O: 08/11/19 08/12/19 08/13/19 06:59 06:59 06:59 Intake Total 200 740 Balance 200 740 Result Diagrams: 08/12/19 10:54 08/12/19 10:54 Hospitalist ROS - Review of Systems Constitutional: denies: fever, chills Respiratory: denies: cough, dry - Medication Medications: Active Medications Generic Name Dose Route Start Last Admin Trade Name Freq PRN Reason Stop Dose Admin Acetaminophen 650 mg 08/01/19 22:04 08/12/19 01:47 Tylenol PO 650 mg Q4H PRN Administration Headache/Fever/Mild Pain (1-3) Albuterol/Ipratropium 3 ml 08/04/19 13:00 08/12/19 13:17 Duoneb NEB 3 ml [id number] GABRIELLA Administration Arformoterol Tartrate 15 mcg 08/02/19 06:30 08/12/19 06:35 Brovana NEB 15 mcg BID-RT GABRIELLA Administration Aspirin 81 mg 08/05/19 09:00 08/12/19 10:10 Aspirin Chewable PO 81 mg DAILY GABRIELLA Administration Atorvastatin Calcium 40 mg 08/05/19 09:00 08/12/19 10:05 Lipitor PO 40 mg DAILY GABRIELLA Administration Budesonide 0.25 mg 08/02/19 06:30 08/12/19 06:25 Pulmicort Neb Solution INH 0.25 mg BID-RT GABRIELLA Administration Carvedilol 12.5 mg 08/04/19 21:00 08/12/19 10:05 Coreg PO 12.5 mg BID GABRIELLA Administration Finasteride 5 mg 08/03/19 09:00 08/12/19 10:05 Proscar PO 5 mg DAILY GABRIELLA Administration Fondaparinux 2.5 mg 08/02/19 06:00 08/12/19 05:13 Arixtra SC 2.5 mg DAILY@0600 GABRIELLA Administration Furosemide 40 mg 08/05/19 09:00 08/12/19 10:05 Lasix PO 40 mg DAILY GABRIELLA Administration Guaifenesin 600 mg 08/12/19 09:00 08/12/19 10:09 Mucinex PO 600 mg Q12HR GABRIELLA Administration Levofloxacin 750 mg 08/10/19 06:00 08/12/19 05:13 Levaquin PO 750 mg 0600 GABRIELLA Administration Loratadine 10 mg 08/09/19 09:00 08/12/19 10:09 Claritin PO 10 mg DAILY GABRIELLA Administration Mometasone Furoate/Formoterol Fumar 2 puff 08/04/19 18:30 08/12/19 06:40 Dulera 200 Mcg/5 Mcg Inhaler INH 2 puff BID-RT GABRIELLA Administration Multivitamins 1 tab 08/03/19 09:00 08/12/19 10:04 Theragran PO 1 tab DAILY GABRIELLA Administration Pantoprazole Sodium 40 mg 08/04/19 21:00 08/12/19 10:05 Protonix PO 40 mg BID GABRIELLA Administration Prednisone 20 mg 08/06/19 08:00 08/12/19 09:00 Prednisone PO 20 mg QAM-WM GABRIELLA Administration Sacubitril/Valsartan 1 tab 08/04/19 21:00 08/12/19 09:00 Entresto 24 Mg-26 Mg Tablet PO Not Given BID GABRIELLA Sodium Chloride 10 ml 08/04/19 21:00 08/12/19 10:09 Flush - Normal Saline IVF 10 ml Q12HR GABRIELLA Administration Tamsulosin HCl 0.8 mg 08/03/19 09:00 08/12/19 10:08 Flomax PO 0.8 mg DAILY GABRIELLA Administration - Exam General Appearance: NAD, awake alert Eye: PERRL ENT: normocephalic atraumatic, no oropharyngeal lesions Neck: supple, no JVD Heart: RRR, no murmur, no gallops, no rubs Respiratory - other findings: diminished breath sounds at the bases Gastrointestinal: soft, non-tender, non-distended, no palpable masses Extremities: no cyanosis, no clubbing, no edema Hosp A/P - Plan CTA chest: no PE. Left pleural effusion. LLL pneumonia, JOY consolidation which is old. Thick bronchi + bronchioles in the JOY Chest X ray 08/10: left pleural fluid This is a 74 year old male with past medical history of lung cancer who presented with worsening shortness of breath, admitted for pneumonia #Acute hypoxic respiratory failure secondary to pseudomonas pneumonia in setting of lung cancer #Left pleural effusion - CTA showed no PE. SPutum culture growing pseudomonas. Was on IV vanc and cefepime and switched to oral levaquin on 08/09. Will continue for 2 more days - continue brovana bid, pulmicort bid. IV steroids transitioned to oral prednisone 20 mg daily -on oral lasix 40 mg daily - troponin negative times three - EKG shows lateral wall changes. . Last EF was 20-25%. Cardiology consulted and signed off on 08/05, no indication for cath Leukopenia- resolved Anemia - secondary to chemotherapy -hemoglobin 9.2 - continue to monitor Pseudomonas bacterial infection - noted in stool sample -on oral levaquin Physical deconditioning - PT recommended home with home health DVT prophylaxis: fondaparinux Code status: full code
[2019-08-13] MEDS: Fondaparinux Sodium 2.5 MG/0.5 ML SYRINGE SC SCH (05:17)
[2019-08-13 06:02] LABS: Anion Gap 6 mmol/L (10-20); BUN (Urea Nitrogen) 21 mg/dL (8.4-25.7); Calc. Creatinine Clearance 99 mL/min (70-130); Calcium 8.3 mg/dL (7.8-10.44); Carbon Dioxide 37 mmol/L (23-31); Chloride 101 mmol/L (98-107); Estimated GFR-MDRD Greater than 90; Glucose 114 mg/dL (83-110); Potassium 4.2 mmol/L (3.5-5.1); Sodium 140 mmol/L (136-145)
[2019-08-13] MEDS: Budesonide 0.25 MG/2 ML NEB INH SCH ×2 (06:05→19:07)
[2019-08-13 06:13] LABS: #Eosinphils 0.1 thou/uL (0.0-0.7); #Lymphocytes 0.1 thou/uL (1.20-3.40); #Monocytes 0.8 thou/uL (0.11-0.59); %Eosinophils 1.1 % (0.0-10.0); %Lymphocytes 1.7 % (21.0-51.0); %Monocytes 9.8 % (0.0-10.0); %Neutrophils 87.4 % (42.0-75.0); Anisocytosis SLIGHT = 6-15 cells (100X) (0-5/hpf); Hemoglobin 8.7 g/dL (14.0-18.0); MDiff Complete? YES; Mean Corpuscular HGB CONC 31.2 g/dL (32.0-36.0); Mean Corpuscular Hemoglobin 26.4 pg (27.0-31.0); Mean Corpuscular Volume 84.8 fL (78.0-98.0); Mean Platelet Volume 8.6 fL (7.4-10.4); Platelet Count 137 thou/uL (130-400); RBC Distribution Width 22.6 % (11.5-14.5)
[2019-08-13] MEDS: Arformoterol 15 MCG/2 ML NEB NEB SCH ×2 (06:15→19:07)
[2019-08-13] MEDS: Mometasone/Formoterol 120 PUFF INHALER INH SCH ×2 (06:20→19:33)
[2019-08-13] MEDS: Tamsulosin HCl 0.4 MG CAP PO SCH (08:47)
[2019-08-13] MEDS: Carvedilol 6.25 MG TAB PO SCH ×2 (08:47→20:10)
[2019-08-13] MEDS: predniSONE 20 MG TAB PO SCH (08:48)
[2019-08-13] MEDS: Aspirin Chewable 81 MG TAB PO SCH (08:48)
[2019-08-13] MEDS: Loratadine 10 MG TAB PO SCH (08:48)
[2019-08-13] MEDS: Multivit, Therapeutic 1 TAB PO SCH (08:49)
[2019-08-13] MEDS: Finasteride 5 MG TAB PO SCH (08:49)
[2019-08-13] MEDS: guaiFENesin ER 600 MG TAB PO SCH ×2 (08:49→20:11)
[2019-08-13] MEDS: Atorvastatin Calcium 40 MG TAB PO SCH (08:50)
[2019-08-13] MEDS: Furosemide 40 MG TAB PO SCH (08:50)
[2019-08-13] MEDS: Acetaminophen 325 MG TAB PO PRN (08:53)
--- NOTE | 2019-08-13 09:47 | PRG ---
DATE OF SERVICE: 08/11/2019 BEAU
--- NOTE | 2019-08-13 19:16 | PDOC.HOSPP ---
- Subjective Encounter Date: 08/13/19 Encounter Time: 14:30 Subjective: F/u: pneumonia1 The patient is doing a little better. Still having productive cough with some phlegm. No chest pain. Still short of breath .He got his last radiation treatment today. Patient is looking into being discharged to rehab, prefers one close to home - Objective Vital Signs & Weight: Vital Signs (12 hours) Temp Pulse Pulse Pulse Resp BP BP 08/13/19 19:07 94 18 08/13/19 19:05 97.5 F L 92 20 08/13/19 16:31 88 90 109/57 L 08/13/19 12:18 84 16 08/13/19 08:47 123/58 L 08/13/19 08:00 98.4 F 83 20 BP BP Pulse Ox 08/13/19 19:07 92 L 08/13/19 19:05 114/63 94 L 08/13/19 16:31 112/65 08/13/19 12:18 08/13/19 08:47 08/13/19 08:00 123/58 L 97 Weight Admit Weight 203 lb 0.732 oz Weight 197 lb 9.6 oz Most Recent Monitor Data Heart Rate from ECG 91 NIBP 135/85 NIBP BP-Mean 101 Respiration from ECG 23 SpO2 98 I&O: 08/12/19 08/13/19 08/14/19 06:59 06:59 06:59 Intake Total 740 2360 Output Total 3 Balance 740 2357 Result Diagrams: 08/13/19 05:05 08/13/19 05:05 Hospitalist ROS - Review of Systems Constitutional: denies: fever, chills ENT: denies: ear pain, ear discharge Respiratory: denies: pleuritic pain - Medication Medications: Active Medications Generic Name Dose Route Start Last Admin Trade Name Freq PRN Reason Stop Dose Admin Acetaminophen 650 mg 08/01/19 22:04 08/13/19 08:53 Tylenol PO 650 mg Q4H PRN Administration Headache/Fever/Mild Pain (1-3) Albuterol/Ipratropium 3 ml 08/04/19 13:00 08/13/19 19:07 Duoneb NEB 3 ml [id number] GABRIELLA Administration Arformoterol Tartrate 15 mcg 08/02/19 06:30 08/13/19 19:07 Brovana NEB 15 mcg BID-RT GABRIELLA Administration Aspirin 81 mg 08/05/19 09:00 08/13/19 08:48 Aspirin Chewable PO 81 mg DAILY GABRIELLA Administration Atorvastatin Calcium 40 mg 08/05/19 09:00 08/13/19 08:50 Lipitor PO 40 mg DAILY GABRIELLA Administration Budesonide 0.25 mg 08/02/19 06:30 08/13/19 19:07 Pulmicort Neb Solution INH 0.25 mg BID-RT GABRIELLA Administration Carvedilol 12.5 mg 08/04/19 21:00 08/13/19 08:47 Coreg PO 12.5 mg BID GABRIELLA Administration Finasteride 5 mg 08/03/19 09:00 08/13/19 08:49 Proscar PO 5 mg DAILY GABRIELLA Administration Fondaparinux 2.5 mg 08/02/19 06:00 08/13/19 05:17 Arixtra SC 2.5 mg DAILY@0600 GABRIELLA Administration Furosemide 40 mg 08/05/19 09:00 08/13/19 08:50 Lasix PO 40 mg DAILY GABRIELLA Administration Guaifenesin 600 mg 08/12/19 09:00 08/13/19 08:49 Mucinex PO 600 mg Q12HR GABRIELLA Administration Levofloxacin 750 mg 08/10/19 06:00 08/13/19 05:17 Levaquin PO 750 mg 0600 GABRIELLA Administration Loratadine 10 mg 08/09/19 09:00 08/13/19 08:48 Claritin PO 10 mg DAILY GABRIELLA Administration Mometasone Furoate/Formoterol Fumar 2 puff 08/04/19 18:30 08/13/19 06:20 Dulera 200 Mcg/5 Mcg Inhaler INH 2 puff BID-RT GABRIELLA Administration Multivitamins 1 tab 08/03/19 09:00 08/13/19 08:49 Theragran PO 1 tab DAILY GABRIELLA Administration Pantoprazole Sodium 40 mg 08/04/19 21:00 08/13/19 08:48 Protonix PO 40 mg BID GABRIELLA Administration Prednisone 20 mg 08/06/19 08:00 08/13/19 08:48 Prednisone PO 20 mg QAM-WM GABRIELLA Administration Sacubitril/Valsartan 1 tab 08/04/19 21:00 08/13/19 09:00 Entresto 24 Mg-26 Mg Tablet PO Not Given BID GABRIELLA Sodium Chloride 10 ml 08/04/19 21:00 08/13/19 09:00 Flush - Normal Saline IVF 10 ml Q12HR GABRIELLA Administration Tamsulosin HCl 0.8 mg 08/03/19 09:00 08/13/19 08:47 Flomax PO 0.8 mg DAILY GABRIELLA Administration - Exam General Appearance: NAD, awake alert General - other findings: on 3-4L oxygen Eye: PERRL, anicteric sclera ENT: normocephalic atraumatic, no oropharyngeal lesions Neck: supple, no JVD Heart: RRR, no murmur, no gallops, no rubs Respiratory: CTAB Respiratory - other findings: diminished breath sounds at the bases Gastrointestinal: soft, non-tender, non-distended, no palpable masses Extremities: no cyanosis, no clubbing, 1+ LE edema Hosp A/P - Plan CTA chest: no PE. Left pleural effusion. LLL pneumonia, JOY consolidation which is old. Thick bronchi + bronchioles in the JOY Chest X ray 08/10: left pleural fluid This is a 74 year old male with past medical history of lung cancer who presented with worsening shortness of breath, admitted for pneumonia #Acute hypoxic respiratory failure secondary to pseudomonas pneumonia in setting of lung cancer #Left pleural effusion - currently on 3-4 of oxygen, baseline at 3. Wean oxygen saturation to 92% - CTA showed no PE. SPutum culture growing pseudomonas. Was on IV vanc and cefepime and switched to oral levaquin on 08/09. Will continue for 1 more day - repeat chest X ray 08/10 shows mild left pleural fluid - continue brovana bid, pulmicort bid. IV steroids transitioned to oral prednisone 20 mg daily. Will d/c prednisone - continue on oral lasix 40 mg daily - troponin negative times three - EKG shows lateral wall changes. . Last EF was 20-25%. Cardiology consulted and signed off on 08/05, no indication for cath Leukopenia- resolved Anemia - secondary to chemotherapy -hemoglobin 9.8 - continue to monitor Pseudomonas bacterial infection - noted in stool sample -on oral levaquin Physical deconditioning - PT recommended home with home health, however will look into rehab facility Dispo: d/c to rehab tomorrow DVT prophylaxis: fondaparinux Code status: full code
[2019-08-14 06:24] LABS: Hemoglobin 8.6 g/dL (14.0-18.0); Mean Corpuscular HGB CONC 30.5 g/dL (32.0-36.0); Mean Corpuscular Hemoglobin 26.1 pg (27.0-31.0); Mean Corpuscular Volume 85.4 fL (78.0-98.0); Mean Platelet Volume 8.7 fL (7.4-10.4); Platelet Count 141 thou/uL (130-400); RBC Distribution Width 22.4 % (11.5-14.5); Red Blood Cell (RBC) Count 3.32 mill/uL (4.70-6.10); White Blood Cell (WBC) Count 9.2 thou/uL (4.8-10.8)
[2019-08-14 06:31] LABS: Anion Gap 9 mmol/L (10-20); BUN (Urea Nitrogen) 19 mg/dL (8.4-25.7); Calc. Creatinine Clearance 111 mL/min (70-130); Calcium 8.4 mg/dL (7.8-10.44); Carbon Dioxide 33 mmol/L (23-31); Chloride 103 mmol/L (98-107); Estimated GFR-MDRD Greater than 90; Glucose 84 mg/dL (83-110); Potassium 4.4 mmol/L (3.5-5.1); Sodium 141 mmol/L (136-145)
[2019-08-14] MEDS: Fondaparinux Sodium 2.5 MG/0.5 ML SYRINGE SC SCH (06:45)
[2019-08-14] MEDS: Mometasone/Formoterol 120 PUFF INHALER INH SCH ×2 (07:47→19:28)
[2019-08-14] MEDS: Budesonide 0.25 MG/2 ML NEB INH SCH ×2 (07:49→19:27)
[2019-08-14] MEDS: Arformoterol 15 MCG/2 ML NEB NEB SCH ×2 (07:49→19:25)
[2019-08-14] MEDS: Tamsulosin HCl 0.4 MG CAP PO SCH (08:31)
[2019-08-14] MEDS: guaiFENesin ER 600 MG TAB PO SCH ×2 (08:32→20:45)
[2019-08-14] MEDS: Loratadine 10 MG TAB PO SCH (08:32)
[2019-08-14] MEDS: Aspirin Chewable 81 MG TAB PO SCH (08:32)
[2019-08-14] MEDS: Finasteride 5 MG TAB PO SCH (08:32)
[2019-08-14] MEDS: Multivit, Therapeutic 1 TAB PO SCH (08:32)
[2019-08-14] MEDS: Acetaminophen 325 MG TAB PO PRN ×2 (08:32→20:44)
[2019-08-14] MEDS: Atorvastatin Calcium 40 MG TAB PO SCH (08:32)
[2019-08-14] MEDS: Furosemide 40 MG TAB PO SCH (09:06)
[2019-08-14] MEDS: Carvedilol 6.25 MG TAB PO SCH ×2 (09:06→20:44)
[2019-08-14] MEDS ORDERED: Carvedilol 3.125 MG TAB PO SCH (10:15)
--- NOTE | 2019-08-14 18:55 | PDOC.HOSPP ---
- Subjective Encounter Date: 08/14/19 Encounter Time: 11:00 Subjective: F/u: pneumonia Patient states his cough and shortness of breath around the same. He is bringing up green yellow phlegm. He is currently pending authorization for going to rehab bed - Objective Vital Signs & Weight: Vital Signs (12 hours) Temp Pulse Resp BP BP Pulse Ox 08/14/19 16:00 98.4 F 78 20 108/60 95 08/14/19 13:20 80 14 08/14/19 12:00 98.3 F 85 20 102/56 L 95 08/14/19 09:06 114/63 08/14/19 08:05 98.2 F 74 20 111/62 95 08/14/19 07:50 89 16 Weight Admit Weight 203 lb 0.732 oz Weight 197 lb 9.6 oz Most Recent Monitor Data Heart Rate from ECG 91 NIBP 135/85 NIBP BP-Mean 101 Respiration from ECG 23 SpO2 98 I&O: 08/13/19 08/14/19 08/15/19 06:59 06:59 06:59 Intake Total 2360 825 Output Total 3 Balance 2357 825 Result Diagrams: 08/14/19 06:04 08/14/19 06:04 Hospitalist ROS - Medication Medications: Active Medications Generic Name Dose Route Start Last Admin Trade Name Freq PRN Reason Stop Dose Admin Acetaminophen 650 mg 08/01/19 22:04 08/14/19 08:32 Tylenol PO 650 mg Q4H PRN Administration Headache/Fever/Mild Pain (1-3) Albuterol/Ipratropium 3 ml 08/04/19 13:00 08/14/19 13:20 Duoneb NEB 3 ml [id number] GABRIELLA Administration Arformoterol Tartrate 15 mcg 08/02/19 06:30 08/14/19 07:49 Brovana NEB 15 mcg BID-RT GABRIELLA Administration Aspirin 81 mg 08/05/19 09:00 08/14/19 08:32 Aspirin Chewable PO 81 mg DAILY GABRIELLA Administration Atorvastatin Calcium 40 mg 08/05/19 09:00 08/14/19 08:32 Lipitor PO 40 mg DAILY GABRIELLA Administration Budesonide 0.25 mg 08/02/19 06:30 08/14/19 07:49 Pulmicort Neb Solution INH 0.25 mg BID-RT GABRIELLA Administration Finasteride 5 mg 08/03/19 09:00 08/14/19 08:32 Proscar PO 5 mg DAILY GABRIELLA Administration Fondaparinux 2.5 mg 08/02/19 06:00 08/14/19 06:45 Arixtra SC 2.5 mg DAILY@0600 GABRIELLA Administration Guaifenesin 600 mg 08/12/19 09:00 08/14/19 08:32 Mucinex PO 600 mg Q12HR GABRIELLA Administration Levofloxacin 750 mg 08/10/19 06:00 08/14/19 06:44 Levaquin PO 750 mg 0600 GABRIELLA Administration Loratadine 10 mg 08/09/19 09:00 08/14/19 08:32 Claritin PO 10 mg DAILY GABRIELLA Administration Mometasone Furoate/Formoterol Fumar 2 puff 08/04/19 18:30 08/14/19 07:47 Dulera 200 Mcg/5 Mcg Inhaler INH 2 puff BID-RT GABRIELLA Administration Multivitamins 1 tab 08/03/19 09:00 08/14/19 08:32 Theragran PO 1 tab DAILY GABRIELLA Administration Pantoprazole Sodium 40 mg 08/04/19 21:00 08/14/19 08:32 Protonix PO 40 mg BID GABRIELLA Administration Sodium Chloride 10 ml 08/04/19 21:00 08/14/19 11:17 Flush - Normal Saline IVF 10 ml Q12HR GABRIELLA Administration Tamsulosin HCl 0.8 mg 08/03/19 09:00 08/14/19 08:31 Flomax PO 0.8 mg DAILY GABRIELLA Administration - Exam General Appearance: NAD, awake alert Eye: PERRL, anicteric sclera ENT: normocephalic atraumatic, no oropharyngeal lesions Neck: no JVD Heart: RRR, no murmur, no gallops, no rubs Respiratory: CTAB, no wheezes, no rales, no ronchi Gastrointestinal: soft, non-tender, non-distended, normal bowel sounds Extremities: no cyanosis, no clubbing, no edema Skin: normal turgor, no lesions, no rashes Hosp A/P - Plan CTA chest: no PE. Left pleural effusion. LLL pneumonia, JOY consolidation which is old. Thick bronchi + bronchioles in the JOY Chest X ray 08/10: left pleural fluid This is a 74 year old male with past medical history of lung cancer who presented with worsening shortness of breath, admitted for pneumonia #Acute hypoxic respiratory failure secondary to pseudomonas pneumonia in setting of lung cancer #Left pleural effusion - currently on 3-4 of oxygen, baseline at 3. Wean oxygen saturation to 92% - CTA showed no PE. SPutum culture growing pseudomonas. Was on IV vanc and cefepime and switched to oral levaquin on 08/09. Will d/c today - repeat chest X ray 08/10 shows mild left pleural fluid - continue brovana bid, pulmicort bid. S/p course of steroids - continue on oral lasix 40 mg daily - troponin negative times three - EKG shows lateral wall changes. . Last EF was 20-25%. Cardiology consulted and signed off on 08/05, no indication for cath Leukopenia- resolved Anemia - secondary to chemotherapy -hemoglobin 8.6 - continue to monitor Pseudomonas bacterial infection - finishing levaquin today Physical deconditioning -will be discharged to rehab facility pending authorization Dispo: stable for discharge to rehab DVT prophylaxis: fondaparinux Code status: full code
[2019-08-15] MEDS: Acetaminophen 325 MG TAB PO PRN (03:23)
[2019-08-15] MEDS: Fondaparinux Sodium 2.5 MG/0.5 ML SYRINGE SC SCH (05:18)
[2019-08-15 05:37] LABS: Hemoglobin 8.7 g/dL (14.0-18.0); Mean Corpuscular HGB CONC 31.9 g/dL (32.0-36.0); Mean Corpuscular Volume 84.5 fL (78.0-98.0); Platelet Count 120 thou/uL (130-400); RBC Distribution Width 22.5 % (11.5-14.5); Red Blood Cell (RBC) Count 3.23 mill/uL (4.70-6.10); White Blood Cell (WBC) Count 8.1 thou/uL (4.8-10.8)
[2019-08-15 05:54] LABS: Anion Gap 8 mmol/L (10-20); BUN (Urea Nitrogen) 19 mg/dL (8.4-25.7); Calc. Creatinine Clearance 104 mL/min (70-130); Calcium 8.4 mg/dL (7.8-10.44); Carbon Dioxide 34 mmol/L (23-31); Chloride 101 mmol/L (98-107); Estimated GFR-MDRD Greater than 90; Glucose 83 mg/dL (83-110); Potassium 4.4 mmol/L (3.5-5.1); Sodium 139 mmol/L (136-145)
[2019-08-15] MEDS: Arformoterol 15 MCG/2 ML NEB NEB SCH ×2 (07:19→18:50)
[2019-08-15] MEDS: Budesonide 0.25 MG/2 ML NEB INH SCH ×2 (07:20→18:52)
[2019-08-15] MEDS: Mometasone/Formoterol 120 PUFF INHALER INH SCH ×2 (07:21→18:52)
[2019-08-15] MEDS: Furosemide 40 MG TAB PO SCH (08:46)
[2019-08-15] MEDS: Aspirin Chewable 81 MG TAB PO SCH (08:59)
[2019-08-15] MEDS: Carvedilol 6.25 MG TAB PO SCH ×2 (08:59→20:15)
[2019-08-15] MEDS: Tamsulosin HCl 0.4 MG CAP PO SCH (08:59)
[2019-08-15] MEDS: Multivit, Therapeutic 1 TAB PO SCH (08:59)
[2019-08-15] MEDS: Loratadine 10 MG TAB PO SCH (08:59)
[2019-08-15] MEDS: guaiFENesin ER 600 MG TAB PO SCH ×2 (09:00→20:15)
[2019-08-15] MEDS: Finasteride 5 MG TAB PO SCH (09:00)
[2019-08-15] MEDS: Atorvastatin Calcium 40 MG TAB PO SCH (09:03)
[2019-08-15] MEDS: Clotrimazole 1 % Cream 30 GM TUBE TOP PRN (16:24)
--- NOTE | 2019-08-15 16:38 | PDOC.HOSPP ---
- Subjective Encounter Date: 08/15/19 Encounter Time: 11:00 Subjective: Patient has no complaints. SOB and cough are the same. He has a fungal rash on his leg, not itchy Pending authorization - Objective Vital Signs & Weight: Vital Signs (12 hours) Temp Pulse Pulse Resp BP BP BP 08/15/19 14:04 89 120/59 L 08/15/19 13:45 94 20 08/15/19 11:57 98.1 F 90 20 08/15/19 08:59 119/58 L 08/15/19 08:00 97.9 F 82 20 109/63 08/15/19 07:21 85 16 08/15/19 07:19 85 16 08/15/19 07:16 85 16 BP Pulse Ox 08/15/19 14:04 08/15/19 13:45 92 L 08/15/19 11:57 106/60 96 08/15/19 08:59 08/15/19 08:00 96 08/15/19 07:21 94 L 08/15/19 07:19 94 L 08/15/19 07:16 94 L Weight Admit Weight 203 lb 0.732 oz Weight 197 lb 9.6 oz Most Recent Monitor Data Heart Rate from ECG 91 NIBP 135/85 NIBP BP-Mean 101 Respiration from ECG 23 SpO2 98 I&O: 08/14/19 08/15/19 08/16/19 06:59 06:59 06:59 Intake Total 825 Balance 825 Result Diagrams: 08/15/19 05:22 08/15/19 05:22 Hospitalist ROS - Medication Medications: Active Medications Generic Name Dose Route Start Last Admin Trade Name Freq PRN Reason Stop Dose Admin Acetaminophen 650 mg 08/01/19 22:04 08/15/19 03:23 Tylenol PO 650 mg Q4H PRN Administration Headache/Fever/Mild Pain (1-3) Albuterol/Ipratropium 3 ml 08/04/19 13:00 08/15/19 13:45 Duoneb NEB 3 ml [id number] GABRIELLA Administration Arformoterol Tartrate 15 mcg 08/02/19 06:30 08/15/19 07:19 Brovana NEB 15 mcg BID-RT GABRIELLA Administration Aspirin 81 mg 08/05/19 09:00 08/15/19 08:59 Aspirin Chewable PO 81 mg DAILY GABRIELLA Administration Atorvastatin Calcium 40 mg 08/05/19 09:00 08/15/19 09:03 Lipitor PO 40 mg DAILY GABRIELLA Administration Budesonide 0.25 mg 08/02/19 06:30 08/15/19 07:20 Pulmicort Neb Solution INH 0.25 mg BID-RT GABRIELLA Administration Carvedilol 12.5 mg 08/14/19 21:00 08/15/19 08:59 Coreg PO 12.5 mg BID GABRIELLA Administration Clotrimazole 0 gm 08/15/19 10:52 08/15/19 16:24 Lotrimin 1% Cream TOP 1 applic BIDPRN PRN Administration TO GROIN AND PERINEUM Finasteride 5 mg 08/03/19 09:00 08/15/19 09:00 Proscar PO 5 mg DAILY GABRIELLA Administration Fondaparinux 2.5 mg 08/02/19 06:00 08/15/19 05:18 Arixtra SC 2.5 mg DAILY@0600 GABRIELLA Administration Furosemide 40 mg 08/15/19 09:00 08/15/19 08:46 Lasix PO Not Given DAILY [facility] Guaifenesin 600 mg 08/12/19 09:00 08/15/19 09:00 Mucinex PO 600 mg Q12HR GABRIELLA Administration Levofloxacin 750 mg 08/10/19 06:00 08/15/19 05:18 Levaquin PO 750 mg 0600 GABRIELLA Administration Loratadine 10 mg 08/09/19 09:00 08/15/19 08:59 Claritin PO 10 mg DAILY GABRIELLA Administration Mometasone Furoate/Formoterol Fumar 2 puff 08/04/19 18:30 08/15/19 07:21 Dulera 200 Mcg/5 Mcg Inhaler INH 2 puff BID-RT GABRIELLA Administration Multivitamins 1 tab 08/03/19 09:00 08/15/19 08:59 Theragran PO 1 tab DAILY GABRIELLA Administration Pantoprazole Sodium 40 mg 08/04/19 21:00 08/15/19 08:59 Protonix PO 40 mg BID GABRIELLA Administration Sodium Chloride 10 ml 08/04/19 21:00 08/15/19 09:03 Flush - Normal Saline IVF 10 ml Q12HR GABRIELLA Administration Tamsulosin HCl 0.8 mg 08/03/19 09:00 08/15/19 08:59 Flomax PO 0.8 mg DAILY GABRIELLA Administration - Exam General Appearance: NAD, awake alert Eye: anicteric sclera ENT: normocephalic atraumatic, no oropharyngeal lesions Neck: supple, no JVD Heart: RRR, no murmur, no gallops, no rubs Respiratory: CTAB, no wheezes, no rales, no ronchi Gastrointestinal: soft, non-tender, non-distended, normal bowel sounds Extremities: no cyanosis, no clubbing, no edema Skin - other findings: fungal rash on leg Neurological: cranial nerve grossly intact, normal sensation to touch, no focal deficits, no new deficit Musculoskeletal: normal tone, normal strength, no muscle wasting Hosp A/P - Plan CTA chest: no PE. Left pleural effusion. LLL pneumonia, JOY consolidation which is old. Thick bronchi + bronchioles in the JOY Chest X ray 08/10: left pleural fluid This is a 74 year old male with past medical history of lung cancer who presented with worsening shortness of breath, admitted for pneumonia #Acute hypoxic respiratory failure secondary to pseudomonas pneumonia in setting of lung cancer #Left pleural effusion - currently on 3-4 of oxygen, baseline at 3. Wean oxygen saturation to 92% - CTA showed no PE. SPutum culture growing pseudomonas. Finished course of antibiotics - repeat chest X ray 08/10 shows mild left pleural fluid - continue brovana bid, pulmicort bid. S/p course of steroids - continue on oral lasix 40 mg daily - troponin negative times three - EKG shows lateral wall changes. . Last EF was 20-25%. Cardiology consulted and signed off on 08/05, no indication for cath Tinea rash on leg - add clotimazole Leukopenia- resolved Anemia - secondary to chemotherapy -hemoglobin 8.7 - continue to monitor Pseudomonas bacterial infection - finished a course of levaquin Physical deconditioning -will be discharged to rehab facility pending authorization Dispo: stable for discharge to rehab DVT prophylaxis: fondaparinux Code status: full code
[2019-08-16] MEDS: Clotrimazole 1 % Cream 30 GM TUBE TOP PRN ×3 (04:09→20:44)
[2019-08-16] MEDS: Fondaparinux Sodium 2.5 MG/0.5 ML SYRINGE SC SCH (05:16)
[2019-08-16] MEDS: Acetaminophen 325 MG TAB PO PRN ×2 (06:16→11:37)
[2019-08-16] MEDS: Carvedilol 6.25 MG TAB PO SCH ×2 (08:14→20:34)
[2019-08-16] MEDS: Multivit, Therapeutic 1 TAB PO SCH (08:15)
[2019-08-16] MEDS: Aspirin Chewable 81 MG TAB PO SCH (08:15)
[2019-08-16] MEDS: Furosemide 40 MG TAB PO SCH (08:15)
[2019-08-16] MEDS: Atorvastatin Calcium 40 MG TAB PO SCH (08:15)
[2019-08-16] MEDS: guaiFENesin ER 600 MG TAB PO SCH ×2 (08:15→20:34)
[2019-08-16] MEDS: Tamsulosin HCl 0.4 MG CAP PO SCH (08:15)
[2019-08-16] MEDS: Finasteride 5 MG TAB PO SCH (08:16)
[2019-08-16] MEDS: Loratadine 10 MG TAB PO SCH (08:16)
[2019-08-16] MEDS: Mometasone/Formoterol 120 PUFF INHALER INH SCH ×2 (08:29→18:34)
[2019-08-16] MEDS: Budesonide 0.25 MG/2 ML NEB INH SCH ×2 (08:30→18:33)
[2019-08-16] MEDS: Arformoterol 15 MCG/2 ML NEB NEB SCH ×2 (08:30→18:34)
[2019-08-17] MEDS: Fondaparinux Sodium 2.5 MG/0.5 ML SYRINGE SC SCH (06:34)
[2019-08-17] MEDS: Arformoterol 15 MCG/2 ML NEB NEB SCH (07:04)
[2019-08-17] MEDS: Budesonide 0.25 MG/2 ML NEB INH SCH (07:04)
[2019-08-17] MEDS: Mometasone/Formoterol 120 PUFF INHALER INH SCH (07:04)
[2019-08-17 08:24] VITALS: BP 96/53; TEMP 98
[2019-08-17] MEDS: Tamsulosin HCl 0.4 MG CAP PO SCH (08:57)
[2019-08-17] MEDS: Atorvastatin Calcium 40 MG TAB PO SCH (08:57)
[2019-08-17] MEDS: Aspirin Chewable 81 MG TAB PO SCH (08:57)
[2019-08-17] MEDS: guaiFENesin ER 600 MG TAB PO SCH (08:57)
[2019-08-17] MEDS: Loratadine 10 MG TAB PO SCH (08:57)
[2019-08-17] MEDS: Multivit, Therapeutic 1 TAB PO SCH (08:57)
[2019-08-17] MEDS: Finasteride 5 MG TAB PO SCH (08:57)
[2019-08-17] MEDS ORDERED: predniSONE 5 MG TAB PO SCH (13:15)
[2019-08-17] MEDS: Clotrimazole 1 % Cream 30 GM TUBE TOP PRN (14:11)
[2019-08-17] MEDS ORDERED: Furosemide 40 MG TAB PO PRN (15:29)
--- NOTE | 2019-08-17 15:56 | DIS ---
DATE OF ADMISSION: 08/01/2019 DATE OF DISCHARGE: 08/15/2019 DISCHARGE DIAGNOSES: 1. Acute hypoxic respiratory failure secondary to Pseudomonas pneumonia versus lung cancer 2. Lung cancer 3. Left pleural effusion 4. Fungal rash on the legs, 5. Leukopenia 6. Anemia 7. Diarrhea secondary to Pseudomonas. CONSULTATIONS: Pulmonary with Dr. Ke Hunter, Cardiology with Dr. Pacheco Paulino, Infectious Disease with Dr. Tez Ware. PROCEDURES: Radiation treatment BRIEF HISTORY OF PRESENT ILLNESS: This is a 74-year-old male with a past medical history of lung cancer, on chemotherapy, who had presented to the emergency room secondary to worsening shortness of breath at rest, cough with brown sputum and blood in the sputum. He also reported wheezing, palpitations, lightheadedness. He also reported intermittent chest pains. Denies orthopnea or PND. His EKG had shown some changes of lateral ischemia. His initial troponin was negative. The patient had a CTA of his chest on admission which showed no evidence of a pulmonary embolism, but there was a left lower lobe pneumonia. The patient was started on IV antibiotics and was admitted for further workup. HOSPITAL COURSE: Acute hypoxic respiratory failure secondary to Pseudomonas pneumonia in the setting of lung cancer/left pleural effusion: The patient was originally started on IV vancomycin and cefepime. Pulmonary was consulted and the patient was placed on Brovana twice daily and Pulmicort twice daily. He was requiring up to 4 L of oxygen. He was switched to oral Levaquin on the and received antibiotics until 08/16. He was also receiving IV steroids 40 mg twice daily and was transitioned to oral prednisone 20 mg daily on the . Oral steroids were discontinued on the . The patient reports persistent shortness of breath and cough. However, he has been stable on the same oxygen requirement for the past few days. I feel that this is most likely his baseline. He did have a repeat chest x-ray done on the , which showed mild left pleural fluid. Cardiology was also consulted during his hospitalization for his EKG showing lateral wall changes. His last echocardiogram had showed an EF of 15% to 20%. Cardiology signed off on the and reported that there was no indication for a cardiac cath. The patient on the day of discharge has mild wheezing. He will be resumed on his home Spiriva and Symbicort and will be prescribed albuterol p.r.n. and DuoNeb p.r.n. for wheezing. He will be restarted on a prednisone taper of 10 mg for 5 days. 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 The patient did receive radiation therapy while in the hospital and has completed radiation treatment for now. He should follow up with Dr. Roberts and his oncologist on September 10 for his next dose of chemotherapy. Pseudomonas diarrhea: The patient had diarrhea on admission. He was tested for C diff and Campylobacter and shiga toxin were sent which were normal. His stool lactoferrin was elevated. Diarrhea resolved by the time of discharge. Tinea rash on the leg. The patient noted to have a mild fungal rash on his left leg. He was started on clotrimazole cream which can be applied twice daily as needed. Leukopenia/anemia: The patient's leukopenia resolved. However, he does have anemia of hemoglobin of 8.7/27.3. This is likely secondary to chemotherapy and can be monitored further as an outpatient. Physical deconditioning: The patient reports that he is dependent on all his ADLs. He was seen by PT and OT, who recommended rehab. The patient will be discharged to [facility] bed. DISCHARGE PHYSICAL EXAMINATION: VITAL SIGNS: Temperature 98, heart rate 96, respiratory rate 16, O2 saturation 92% on 4 L nasal cannula, blood pressure 96/ 53. GENERAL: The patient is alert, awake, and oriented x3. He is on 3 to 3.5 L of oxygen. CVS: Regular rate and rhythm with no murmurs, rubs, or gallops. LUNGS: Mild wheezing bilaterally at the bases. ABDOMEN: Positive bowel sounds, soft, nontender, nondistended. EXTREMITIES: The patient has some venous stasis in his lower extremities. He has mild tinea rash on the left groin. He has 1+ pitting edema. PERTINENT LABORATORY DATA: CBC 08/14: White count 8.1, hemoglobin 8.7, hematocrit 27.3, platelet count 120. BMP 08/14: Sodium 139, potassium 4.4, chloride 101, CO2 of 34, BUN 19, creatinine 0.79. LFTs 08/04: AST 22, ALT 41, alkaline phosphatase 91. Troponin I: 0.014, 0.010, 0.010. UA 07/31: Urine protein 30, 2+ blood, greater than 50 rbc, 11 to 20 white blood cells. Stool norovirus 08/02: Negative. IMAGING: Chest x-ray, 07/31: Progressive left-sided volume loss and left hemidiaphragm elevation with persistent parenchymal opacity changes in the left mid lower lung zone, evidence for possible bacterial pneumonia and a postobstructive pneumonia and pneumonitis. Chest CTA thorax, 07/31: Dense area of consolidation in the left upper lobe. Findings again may be related to residual pneumonia or possibly postobstructive process due to bronchial lesion. There is thickening of the bronchi and bronchials in the left upper lobe with mild narrowing of the left upper lobe bronchi. Interval development of consolidation in the left lower lobe, not present on prior PET- CT. Findings may be related to either aspiration pneumonitis or developing pneumonia at the left lung base. Mediastinal lymphadenopathy which could be reactive, but neoplastic process cannot be excluded. COPD. Mild left hydronephrosis. Stable hypodense left kidney. Small left pleural effusion. Chest x-ray, 08/05: Worsening small left pleural effusion with left basilar atelectasis. Chest x-ray, 08/10: Left pleural fluid is stable. DISCHARGE CONDITION: Stable. DISPOSITION: [facility]. ACTIVITY: As tolerated. DIET: Heart-healthy diet. DISCHARGE MEDICATIONS: New prescriptions: 1. Albuterol ProAir two puffs inhalation q.4 hours p.r.n. for wheezing. 2. Atrovent 2 puff inhalation q.i.d. two puffs inhaled p.r.n. for wheezing. 3. Prednisone 10 mg p.o. daily for 5 days. Discontinued medications: Entresto, due to low blood pressures. DISCHARGE INSTRUCTIONS: The patient should follow up with his PCP in a week and his cancer doctor for next chemotherapy, which is on September 10. Consider repeat chest x-ray in a few weeks. Continue steroid taper for 5 days. Continue Symbicort and Spiriva and take DuoNeb and albuterol only as needed. Job ID: [id number] [facility]
--- NOTE | 2019-08-20 12:29 | PQF ---
NICCI COCHRAN UMA [id number] CLINICAL DOCUMENTATION CLARIFICATION FORM: POST DISCHARGE Addendum to original discharge summary date: ____ Late entry note date: __ DATE:08/20/2019 ATTN:BETSY MISTRY Please exercise your independent, professional judgment in responding to the clarification form. Clinical indicators are provided on the bottom of this form for your review Please check appropriate box(s) to clarify if the following diagnosis has been ruled in or ruled out: Sepsis [ X ] Ruled in diagnosis [ ] Continue to treat [ ] Resolved [ ] Ruled out diagnosis [ ] Cannot rule out diagnosis [ ] Other diagnosis [ ] Unable to determine For continuity of documentation, please document condition throughout progress notes and discharge summary. Thank You. CLINICAL INDICATORS - SIGNS / SYMPTOMS / LABS WBC-2.5-Documented in H&P on 07/31 by aracelis Ch MD Patient has sepsis due to pneumonia--Documented in H&P on 07/31 by aracelis Ch MD Tachypnea, leukopenia and tachycardia -Documented in H&P on 07/31 by aracelis Ch MD Acute on chronic hypoxic respiratory failure-Documented in H&P on 07/31 by aracelis Ch MD Sepsis alert @17.04-Documented in ED on 07/31 by Thor Story SIRS scoring:Productive cough/PNA, Yes patient did meet at least 1 criteria for step A.,Respiratory rate >20 , Heart rate >90 , Yes , Patient did meet at least 2 ceriteria for Step B, A sepsis alert was activated due to patient meeting the activation requirements in Step A and Step B-Documented in ED on 07/31 by Thor Story Pseudomonas pneumonia-Discharge summary on 08/14 by Betsy Mistry MD Diarrhea secondary to Pseudomonas-Discharge summary on 08/14 by Betsy Mistry MD RISK FACTORS Pseudomonas pneumonia-Discharge summary on 08/14 by Betsy Mistry MD Diarrhea secondary to Pseudomonas-Discharge summary on 08/14 by Betsy Mistry MD TREATMENTS Broad spectrum ABX to cober for MRSA, MDR, E. coli and pseudomonal(HCAP)-- Documented in H&P on 07/31 by aracelis Ch MD IV vancomycin and cefepime-Discharge summary on 08/14 by Betsy Mistry MD [employer] Winform Viewer (This form is maintained as a part of the permanent medical record) 2014 [employer]. All Rights Reserved [email or web address] [phone] [place]
== END 2019-08-17 16:45 | DRG 871 ==
LOC: ERS 17:01 → ONC 22:42 → CCU 23:15 → 2NO 08-03 16:37 → ONC 08-10 16:13
PROVIDERS: ADMIT Internal Medicine Sleep Medicine; ATTEND Internal Medicine
DX: A41.9 Sepsis, unspecified organism (principal); J15.1 Pneumonia due to Pseudomonas; D61.810 Antineoplastic chemotherapy induced pancytopenia; J96.21 Acute and chronic respiratory failure with hypoxia; J90 Pleural effusion, not elsewhere classified; I50.22 Chronic systolic (congestive) heart failure; I13.0 Hypertensive heart and chronic kidney disease with heart failure and stage 1 through stage 4 chronic kidney disease, or unspecified chronic kidney disease; J44.1 Chronic obstructive pulmonary disease with (acute) exacerbation; N17.9 Acute kidney failure, unspecified; N13.6 Pyonephrosis; C34.82 Malignant neoplasm of overlapping sites of left bronchus and lung; A04.8 Other specified bacterial intestinal infections; I25.10 Atherosclerotic heart disease of native coronary artery without angina pectoris; Z95.810 Presence of automatic (implantable) cardiac defibrillator; J44.9 Chronic obstructive pulmonary disease, unspecified; I50.9 Heart failure, unspecified; D64.81 Anemia due to antineoplastic chemotherapy; D72.819 Decreased white blood cell count, unspecified; N40.0 Benign prostatic hyperplasia without lower urinary tract symptoms; Z95.1 Presence of aortocoronary bypass graft; N18.9 Chronic kidney disease, unspecified; C67.9 Malignant neoplasm of bladder, unspecified; E86.0 Dehydration; I25.5 Ischemic cardiomyopathy; I89.0 Lymphedema, not elsewhere classified; N48.89 Other specified disorders of penis; Z86.718 Personal history of other venous thrombosis and embolism; R21 Rash and other nonspecific skin eruption
CPT/HCPCS: 36415; 71045; 71275; 77386; 77417; 80048; 80053; 80202; 81003; 81015; 83605; 83630; 83735; 83880; 84100; 84484; 85025; 85027; 85060; 87045; 87046; 87070; 87077; 87149; 87186; 87205; 87324; 87427; 87449; 87798; 93005; 93010; 93306; 94640; 94760; 96361; 96365; 96367; J0692; J0696; J1652; J1940; J2920; J2930; J3370; J3490; J7050; J7512; J7620; J7626; P9047; Q9967

== ENCOUNTER 2019-08-20 16:39 | Inpatient (IN) | payer MEDICARE, OTHER ==
[2019-08-20 17:25] LABS: Actual Bicarbonate (HCO3a) 23.4 mEq/L (22-28); Analyzer IN Cardio ER; Base Excess (BEa) -0.6 mEq/L (-2.0 to +3.0); CO2 Tension 35.5 mmHg (35.0-45.0); Calcium, Ionized 1.13 mmol/L (1.12-1.30); Carboxyhemoglobin (COHb) 0.3 gm% (0.0-3.0); Potassium - ABG Lab 4.36 mmol/L (3.70-5.30); pH, Arterial 7.44 (7.35-7.45)
[2019-08-20 17:28] LABS: ALV-art Gradient 126.285 (0-20); O2 Tension (PaO2), arterial 57.5 mmHg (> 70.0); Puncture Site LRA
[2019-08-20 20:07] LABS: Lactic Acid 1.7 mmol/L (0.5-2.2)
[2019-08-20 21:34] LABS: Troponin I Less than 0.010 ng/mL (< 0.028)
[2019-08-20] MEDS ORDERED: Vancomycin 1 GM in Premix Bag 1 BAG IVPB SCH (23:45)
[2019-08-20] MEDS ORDERED: Senokot S 8.6-50 MG TAB PO PRN (23:57)
[2019-08-20] MEDS ORDERED: Ondansetron ODT 4 MG TAB PO PRN (23:57)
[2019-08-20] MEDS ORDERED: Ondansetron PF 4 MG/2 ML Vial IVP PRN (23:57)
[2019-08-20] MEDS ORDERED: Calcium Carbonate 500 MG ChewTAB PO PRN (23:57)
[2019-08-21] MEDS ORDERED: Diabetic Tussin 200 MG/10 ML UDCUP PO PRN (00:03)
[2019-08-21] MEDS ORDERED: Acetaminophen 325 MG TAB PO PRN (00:03)
--- NOTE | 2019-08-21 00:38 | HP ---
The patient was seen and examined on 19 August. CHIEF COMPLAINT: Shortness of breath. HISTORY OF PRESENT ILLNESS: The patient is a 74-year-old male white male with recent hospitalization for respiratory failure, was brought into [facility] Emergency Room with worsening shortness of breath. [facility]. He was found to have gradual worsening shortness of breath along with chest tightness and wheezing. His symptoms got worse over the past 24 hours. Despite using inhalers, his symptoms did not improve. He was started on Lasix along with oral Levaquin with minimal improvement. He eventually was sent to the emergency room for evaluation. He was started on noninvasive positive-pressure ventilation and was transferred to this facility. He was started on vancomycin and cefepime. The patient initially did not meet the criteria for COVID-19 testing. However, at this facility, COVID-19 testing has been sent. His respiratory viral panel was positive for adenovirus. A CT angiogram of the chest showed left lower lobe atelectasis with associated infiltrate with small left pleural effusion. PAST MEDICAL HISTORY: 1. Chronic systolic heart failure, ejection fraction 15% to 20% range. 2. Recent hospitalization for respiratory failure. 3. Chronic obstructive pulmonary disease. 4. Coronary artery disease. 5. Lung cancer, followed by Dr. Bustamante. 6. Hypertension. 7. Benign prostatic hypertrophy. 8. History of bladder cancer. PAST SURGICAL HISTORY: 1. AICD placement. 2. Coronary artery bypass grafting. 3. TURP. 4. Femoral embolectomy. ALLERGIES: THE PATIENT IS ALLERGIC TO HEPARIN. CURRENT HOME MEDICATIONS: We will try to obtain accurate list of medication from the nursing facility. No list in the chart. SOCIAL HISTORY: The patient is a former smoker. No alcohol or drug use. He is currently at a penit[facility]iary facility. He is full code. He makes his own decisions with the help of his family. FAMILY HISTORY: Positive for heart disease. REVIEW OF SYSTEMS: Limited due to current clinical condition. He is complaining of generalized weakness with fatigue. He denies any chest pain, palpitations at this time. No nausea, vomiting, diarrhea reported. PHYSICAL EXAMINATION: VITAL SIGNS: Showed temperature 97.8, pulse rate of 76, respirations of 28 with blood pressure of 110/82. GENERAL: A 74-year-old male, in mild respiratory distress. He is currently off BiPAP. HEENT: Head is atraumatic and normocephalic. Sclerae anicteric. No oral lesion. NECK: Supple. No JVD. No carotid bruits. LUNGS: Showed expiratory wheezing along with rhonchi. There were few rales at bases. There was some accessory muscle use. HEART: S1, S2 present. Regular rate and rhythm. No rubs or gallops. ABDOMEN: Soft, nontender. Bowel sounds present. EXTREMITIES: There is 2+ pitting edema in bilateral lower extremities. No calf tenderness. SKIN: Warm and dry. LYMPH NODES: No palpable lymph nodes in the neck. PERIPHERAL VASCULAR: Radial pulses palpable bilaterally. MUSCULOSKELETAL: No joint swelling or tenderness. LABORATORY FINDINGS: EKG by my review showed paced rhythm. Chemistry showed sodium of 141, potassium 4.5, chloride 103, bicarb 28, BUN 29, and creatinine 0.88. Total bilirubin 0.5 with AST of 127, ALT of 192, alkaline phosphatase of 273. Albumin of 2.8. ABGs showed pH of 7.44 with pCO2 of 35.5, PO2 of 57.5 with bicarbonate 23.4. Digoxin level was 0.21. Urinalysis yesterday showed greater than 50 wbc's with 2+ bacteria. Respiratory viral panel was positive for adenovirus. Influenza screen was negative. CBC showed WBC 8.1 with hemoglobin 10, hematocrit 32.7 with platelets of 59. CT angiogram of the chest by my review as discussed above. IMPRESSION: 1. Acute hypoxic respiratory failure secondary to chronic obstructive pulmonary disease exacerbation. 2. Acute adenovirus infection. 3. Recent Pseudomonas pneumonia. 4. History of lung cancer. 5. Anemia/Thrombocytoenia. 6. Chronic systolic heart failure. 7. Benign prostatic hypertrophy. 8. Coronary artery disease. 9. Hypertension. 10. History of bladder cancer. 11. Chronic anemia suspected due to nutritional deficiency. 12. Abnormal liver function tests of unclear etiology. 13. Obesity with a BMI of 31.1. PLAN: The patient will be monitored in the intensive care unit setting. We will continue noninvasive positive pressure ventilation as needed. We will resume home medications once verified. We will hold statins for now due to abnormal LFTs. DVT prophylaxis with SCDs. Continue empiric antibiotics. His COVID testing has been sent and pending at this time. Continue isolation. Cardiology and Pulmonary consultation. The patient understands the above plan of care. Job ID: [id number] [facility]
[2019-08-21 01:55] LABS: Troponin I 0.011 ng/mL (< 0.028)
[2019-08-21] MEDS: Cefepime 1 GM in Sodium Chloride 0.9% 100 ML IVPB SCH ×2 (03:11→16:30)
[2019-08-21] MEDS: PROVENTIL INHALER 6.7 G (200 INHALATIONS) INH SCH ×6 (03:16→22:40)
[2019-08-21 04:19] LABS: ALT (SGPT) 182 U/L (8-55); AST (SGOT) 122 U/L (5-34); Albumin 2.7 g/dL (3.4-4.8); Alkaline Phosphatase 266 U/L (40-110); Anion Gap 12 mmol/L (10-20); BUN (Urea Nitrogen) 27 mg/dL (8.4-25.7); Bilirubin, Total 0.5 mg/dL (0.2-1.2); Calc. Creatinine Clearance 105 mL/min (70-130); Calcium 8.5 mg/dL (7.8-10.44); Carbon Dioxide 29 mmol/L (23-31); Chloride 105 mmol/L (98-107); Estimated GFR-MDRD Greater than 90; Globulin 3.1 g/dL (2.4-3.5); Glucose 110 mg/dL (83-110); Magnesium 1.5 mg/dL (1.6-2.6); Potassium 4.3 mmol/L (3.5-5.1); Protein, Total 5.8 g/dL (5.8-8.1); Sodium 142 mmol/L (136-145)
[2019-08-21 04:29] LABS: Band 2 % (5-11); Hemoglobin 9.2 g/dL (14.0-18.0); Hypochromia SLIGHT = 6-15 cells (100X) (0-5/hpf); Lymphocytes 1 % (21-51); MDiff Complete? YES; Mean Corpuscular HGB CONC 30.5 g/dL (32.0-36.0); Mean Corpuscular Volume 85.1 fL (78.0-98.0); Mean Platelet Volume 11.8 fL (7.4-10.4); Monocytes 4 % (0-10); Neutrophil 93 % (42-75); Platelet Count 77 thou/uL (130-400); Platelet Morphology Comment Appears Decreased; RBC Distribution Width 22.5 % (11.5-14.5); Red Blood Cell (RBC) Count 3.54 mill/uL (4.70-6.10); White Blood Cell (WBC) Count 10.5 thou/uL (4.8-10.8)
[2019-08-21] MEDS ORDERED: Lorazepam 2 MG/ML VIAL ONE (08:18)
[2019-08-21] MEDS: Digoxin 0.125 MG TAB PO SCH (08:28)
[2019-08-21] MEDS: Carvedilol 6.25 MG TAB PO SCH ×2 (08:29→18:21)
[2019-08-21] MEDS: Famotidine 20 MG TAB PO SCH ×2 (08:29→21:21)
[2019-08-21] MEDS: guaiFENesin ER 600 MG TAB PO SCH ×2 (08:30→21:21)
[2019-08-21] MEDS: Saccharomyces boulardii 250 MG CAP PO SCH (08:30)
[2019-08-21] MEDS: Aspirin 81 mg Enteric Coated Tablet PO SCH (08:30)
[2019-08-21] MEDS ORDERED: Furosemide 40 MG/4 ML VIAL ONE (08:42)
--- NOTE | 2019-08-21 08:44 | PDOC.HOSPP ---
- Subjective Encounter Date: 08/21/19 Encounter Time: 08:43 Subjective: Mr. Barahona was seen today in follow-up of respiratory failure. He continues to feel short of breath. She denies any chest pain. - Objective Vital Signs & Weight: Vital Signs (12 hours) Temp Pulse Resp Pulse Ox 08/21/19 08:28 110 H 08/21/19 07:05 98 97 08/21/19 07:00 96.6 F L 08/21/19 04:00 97.5 F L 08/21/19 03:17 98 97 08/21/19 03:16 100 25 H 97 08/21/19 00:00 96.9 F L 08/20/19 23:29 100 24 H 98 Weight Weight 203 lb 11.314 oz Most Recent Monitor Data Heart Rate from ECG 110 NIBP 114/80 NIBP BP-Mean 91 Respiration from ECG 32 SpO2 97 I&O: 08/20/19 08/21/19 08/22/19 06:59 06:59 06:59 Intake Total 770 Output Total 588 70 Balance 182 -70 Result Diagrams: 08/21/19 03:15 08/21/19 03:15 Hospitalist ROS - Medication Medications: Active Medications Generic Name Dose Route Start Last Admin Trade Name Freq PRN Reason Stop Dose Admin Acetaminophen 325 mg 08/21/19 00:03 08/21/19 08:30 Tylenol PO 325 mg Q6H PRN Administration Headache/Fever or Pain Albuterol Sulfate 2 puff 08/21/19 02:30 08/21/19 07:16 Proventil Hfa INH Not Given [id number] GABRIELLA Aspirin 81 mg 08/21/19 09:00 08/21/19 08:30 Ecotrin PO 81 mg DAILY GABRIELLA Administration Carvedilol 12.5 mg 08/21/19 08:00 08/21/19 08:29 Coreg PO Not Given BID-WM GABRIELLA Digoxin 0.125 mg 08/21/19 09:00 08/21/19 08:28 Lanoxin PO 0.125 mg DAILY GABRIELLA Administration Famotidine 20 mg 08/21/19 09:00 08/21/19 08:29 Pepcid PO 20 mg BID GABRIELLA Administration Guaifenesin 600 mg 08/21/19 09:00 08/21/19 08:30 Mucinex PO 600 mg Q12HR GABRIELLA Administration Cefepime HCl 1 gm/ Sodium 100 mls @ 200 mls/hr 08/21/19 03:00 08/21/19 03:11 Chloride IVPB 100 mls 0300,1500 GABRIELLA Administration Saccharomyces Gleni 250 mg 08/21/19 09:00 08/21/19 08:30 Florastor PO 250 mg DAILY GABREILLA Administration - Exam Eye: PERRL Heart: RRR (tachycardic), no murmur, no gallops, no rubs, normal peripheral pulses Respiratory: CTAB (with decreased breath sounds at the bases) Gastrointestinal: soft, non-tender, non-distended, normal bowel sounds, no palpable masses, no hepatomegaly Extremities: 1+ LE edema (trace pedal edema in both legs, and chronic venous stasis changes) Hosp A/P (1) Acute on chronic systolic heart failure Code(s): I50.23 - ACUTE ON CHRONIC SYSTOLIC (CONGESTIVE) HEART FAILURE Status : Acute (2) HAP (hospital-acquired pneumonia) Code(s): J18.9 - PNEUMONIA, UNSPECIFIED ORGANISM; Y95 - NOSOCOMIAL CONDITION Status: Acute (3) Acute respiratory failure with hypoxia Code(s): J96.01 - ACUTE RESPIRATORY FAILURE WITH HYPOXIA Status: Acute (4) COPD (chronic obstructive pulmonary disease) Status: Chronic Qualifiers: COPD type: COPD with acute exacerbation Qualified Code(s): J44.1 - Chronic obstructive pulmonary disease with (acute) exacerbation (5) HTN (hypertension) Code(s): I10 - ESSENTIAL (PRIMARY) HYPERTENSION Status: Chronic Qualifiers: Hypertension type: essential hypertension Qualified Code(s): I10 - Essential (primary) hypertension (6) Lung cancer Code(s): C34.90 - MALIGNANT NEOPLASM OF UNSP PART OF UNSP BRONCHUS OR LUNG Status: Chronic Qualifiers: Laterality: left Lung location: hilum of lung Qualified Code(s): C34.02 - Malignant neoplasm of left main bronchus (7) Malignant neoplasm of bladder Status: Chronic - Plan * Acute on chronic respiratory failure- due to pneumonia, however I suspect he may have a degree of decompensated heart failure as a component. * His BNP is elevated above his baseline * Will continue IV antibiotics ( Cefepime and Vancomycin) * Will add a dose of IV Lasix * Will check an Echo- his last Echo was over 6 months ago * Will re-start his heart failure medications as tolerated ( his blood pressure has been borderline) - Entresto and Carvediolol * HTN- blood pressure is borderline- will continue to monitor- home medications as tolerated
[2019-08-21] MEDS ORDERED: Furosemide 20 MG/2 ML VIAL SLOW IVP SCH (08:45)
--- NOTE | 2019-08-21 08:53 | PDOC.FMACP ---
Advance Care Planning - Problem (1) Acute on chronic systolic heart failure Status: Acute Code(s): I50.23 - ACUTE ON CHRONIC SYSTOLIC (CONGESTIVE) HEART FAILURE (2) HAP (hospital-acquired pneumonia) Status: Acute Code(s): J18.9 - PNEUMONIA, UNSPECIFIED ORGANISM; Y95 - NOSOCOMIAL CONDITION (3) Acute respiratory failure with hypoxia Status: Acute Code(s): J96.01 - ACUTE RESPIRATORY FAILURE WITH HYPOXIA (4) COPD (chronic obstructive pulmonary disease) Status: Chronic Qualifiers: COPD type: COPD with acute exacerbation Qualified Code(s): J44.1 - Chronic obstructive pulmonary disease with (acute) exacerbation (5) HTN (hypertension) Status: Chronic Code(s): I10 - ESSENTIAL (PRIMARY) HYPERTENSION Qualifiers: Hypertension type: essential hypertension Qualified Code(s): I10 - Essential (primary) hypertension (6) Lung cancer Status: Chronic Code(s): C34.90 - MALIGNANT NEOPLASM OF UNSP PART OF UNSP BRONCHUS OR LUNG Qualifiers: Laterality: left Lung location: hilum of lung Qualified Code(s): C34.02 - Malignant neoplasm of left main bronchus (7) Malignant neoplasm of bladder Status: Chronic - Note Summary: Advanced Care Planning was discussed. The diagnosis, prognosis and goals of care were discussed. Appropriate forms and documentation to accomplish the goals of care were discussed. All questions were answered. Code status was addressed. He says he is not sure if he would want to be placed on a ventilator. As a result will continue FULL CODE status. Time Spent (mins): 18
[2019-08-21] MEDS ORDERED: Prevnar 13-Val Conj/PF 0.5 ML SYRINGE IM ONE (09:00)
[2019-08-21] MEDS ORDERED: Mometasone 200 MCG/Formoterol 5 MCG 120 PUFF INHALER INH SCH (09:00)
[2019-08-21] MEDS ORDERED: Magnesium 2 GM/50 ML 2 GM in Premix Bag 1 BAG IVPB SCH (09:00)
[2019-08-21] MEDS ORDERED: Lorazepam 2 MG/ML VIAL SLOW IVP SCH (10:00)
[2019-08-21] MEDS ORDERED: Morphine 4 MG/ML VIAL SLOW IVP PRN (10:12)
[2019-08-21] MEDS ORDERED: Bacteriostatic Water 30 ML VIAL FS PRN (10:17)
[2019-08-21] MEDS: Morphine 4 MG/ML VIAL ONE ×2 (10:23→11:00)
[2019-08-21] MEDS ORDERED: methylPREDNISolone Sod Succ/PF 125 MG/2 ML VIAL IVP SCH (10:30)
[2019-08-21] MEDS ORDERED: DOPamine 400 MG/D5W 250 ML 250 ML IVPB SCH (11:45)
[2019-08-21 12:20] VITALS: BMI 30.9
[2019-08-21] MEDS: Sodium Chloride 0.9% 500 ML IV SCH ×2 (12:48→15:28)
--- NOTE | 2019-08-21 13:43 | CON ---
DATE OF CONSULTATION: HISTORY OF PRESENT ILLNESS: Keith Barahona is a 74-year-old male, well known to our service from recent admissions. 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 He was recently in the hospital in [place] and here. He was seen by me when he was in the hospital here. He has been treated for bladder cancer and lung cancer. I believe he missed his last chemotherapy. He presented with shortness of breath on the after being referred back over for shortness of breath. He has a known cardiomyopathy. He is on noninvasive ventilation. His respiratory virus panel was positive for adenovirus. PAST MEDICAL HISTORY: 1. Remarkable for systolic cardiomyopathy with ejection fraction of 15%. 2. Chronic obstructive pulmonary disease with bullous changes on CT. 3. History of coronary artery disease. 4. History of hypertension. 5. Bladder cancer, has been treated. 6. BPH. 7. Systolic hypertension. 8. Lung cancer, that is almost completely treated per my discussion with his brother. 9. Status post defibrillator placement. 10. Status post coronary artery bypass grafting. 11. Status post TURP. 12. History of femoral embolectomy. 13. He reports heparin intolerance. PHYSICAL EXAMINATION: GENERAL: He is in moderate distress with noninvasive ventilation on. He does not really like the mask. It was taken off and then he wanted to put it back on. VITAL SIGNS: His heart rate is currently in the 80s, respiratory rates in the 30s, oximetry is in the 90s to 40%. His blood pressure transiently dropped this morning but responded to fluids. HEAD AND NECK: Unremarkable. LUNGS, HEART, ABDOMEN: Unchanged when compared to past visits per report. LABORATORY DATA: White count 10.5, hemoglobin 9.2, platelets 77,000. Electrolytes are normal. Blood gas, 7.44, CO2 of 35, pO2 of 57. IMPRESSION: Adenovirus induced chronic obstructive pulmonary disease exacerbation. I doubt this is a COVID case. Unfortunately, the COVID isolation has been started, so we will have to wait for return of the test. I talked to the brother by phone. I also talked to Mr. Barahona directly. He does not want intubation or life support. The brother states the entire family agreed that they did not want him to have that, so the order has been entered in the computer. I have added steroids. We are not using nebulizer treatments until people have been COVID ruled out. He does need some type of metered-dose inhaler every 4 hours via spacer device. TIME SPENT: This is a 70-minute consult, 50% of time was spent on the unit in coordinating care. Job ID: [id number] [id number]
[2019-08-21] MEDS: Trospium 20 MG TAB PO SCH ×2 (15:27→21:22)
[2019-08-21] MEDS ORDERED: Vancomycin HCl 1.75 GM in Sodium Chloride 0.9% 500 ML IVPB SCH (16:00)
[2019-08-21] MEDS: Vancomycin HCl 1.75 GM in Sodium Chloride 0.9% 500 ML IVPB SCH (18:31)
[2019-08-21] MEDS: Ipratropium Oral Inhaler INH SCH (18:54)
[2019-08-21] MEDS: Tamsulosin HCl 0.4 MG CAP PO SCH (21:21)
[2019-08-22] MEDS: PROVENTIL INHALER 6.7 G (200 INHALATIONS) INH SCH ×2 (02:49→07:41)
[2019-08-22] MEDS: Cefepime 1 GM in Sodium Chloride 0.9% 100 ML IVPB SCH ×2 (03:28→15:42)
[2019-08-22 04:06] LABS: #Lymphocytes 0.1 thou/uL (1.20-3.40); #Monocytes 0.4 thou/uL (0.11-0.59); #Neutrophils 6.3 thou/uL (1.40-6.50); %Basophils 0.2 % (0.0-1.0); %Eosinophils 0.2 % (0.0-10.0); %Lymphocytes 1.7 % (21.0-51.0); %Monocytes 5.9 % (0.0-10.0); %Neutrophils 92.1 % (42.0-75.0); Hemoglobin 8.4 g/dL (14.0-18.0); Mean Corpuscular HGB CONC 30.8 g/dL (32.0-36.0); Mean Corpuscular Hemoglobin 26.4 pg (27.0-31.0); Mean Corpuscular Volume 85.7 fL (78.0-98.0); Mean Platelet Volume 9.3 fL (7.4-10.4); Platelet Count 61 thou/uL (130-400); RBC Distribution Width 22.4 % (11.5-14.5); Red Blood Cell (RBC) Count 3.16 mill/uL (4.70-6.10); White Blood Cell (WBC) Count 6.8 thou/uL (4.8-10.8)
[2019-08-22 04:16] LABS: ALT (SGPT) 352 U/L (8-55); AST (SGOT) 319 U/L (5-34); Albumin 2.5 g/dL (3.4-4.8); Alkaline Phosphatase 233 U/L (40-110); Anion Gap 13 mmol/L (10-20); BUN (Urea Nitrogen) 33 mg/dL (8.4-25.7); Bilirubin, Total 0.5 mg/dL (0.2-1.2); Calc. Creatinine Clearance 103 mL/min (70-130); Calcium 8.6 mg/dL (7.8-10.44); Carbon Dioxide 27 mmol/L (23-31); Chloride 108 mmol/L (98-107); Estimated GFR-MDRD Greater than 90; Glucose 129 mg/dL (83-110); Potassium 4.6 mmol/L (3.5-5.1); Protein, Total 5.5 g/dL (5.8-8.1); Sodium 143 mmol/L (136-145)
--- NOTE | 2019-08-22 06:13 | CON ---
DATE OF CONSULTATION: 08/21/2019 REASON FOR CONSULTATION: Possible heart failure. PRIMARY SUPERVISOR [employer]: Pacheco Paulino MD HISTORY OF PRESENT ILLNESS: Mr. Barahona is a pleasant 74-year-old white gentleman, who comes to the hospital for increased shortness of breath. He was in the hospital recently with pseudomonal pneumonia, which was postobstructive for malignancy. He was treated adequately for it. He was in rehab and became more short of breath. He was admitted again with what appears to be COPD exacerbation secondary to adenovirus viral infection. Shortness of breath is better with steroids. He denies any chest pain, tightness, pressure. PAST MEDICAL HISTORY: 1. Chronic systolic heart failure with an EF of about 20%. 2. COPD. 3. Coronary artery disease status post CABG. 4. Lung cancer. 5. Bladder cancer. 6. Hypertension. 7. BPH. PAST SURGICAL HISTORY: 1. AICD placement. 2. Coronary artery bypass grafting. 3. TURP. 4. Femoral embolectomy. 5. Several bladder surgeries for dissection of the bladder cancer. OUTPATIENT MEDICATIONS: 1. Detrol. 2. Symbicort. 3. Entresto b.i.d. 4. Guaifenesin. 5. Zinc. 6. Spiriva. 7. Tamsulosin. 8. Saw palmetto. 9. Prednisone dose pack. 10. Potassium chloride. 11. Omeprazole. 12. Multivitamin. 13. Citrucel. 14. Hyophen. 15. Losartan/hydrochlorothiazide 100/25 mg a day. 16. Ipratropium. 17. Furosemide 40 mg a day as needed. 18. Proscar. 19. Docusate. 20. Digoxin 0.125 daily. 21. Lotrimin cream. 22. Carvedilol. 23. Atorvastatin. 24. Aspirin 81 a day. 25. Albuterol inhaler. ALLERGIES: HEPARIN CAUSED HIM TO DEVELOP HIT IN THE PAST. SOCIAL HISTORY: Former smoker. No alcohol or drug use. FAMILY HISTORY: Early coronary artery disease. REVIEW OF SYSTEMS: A 12-point review of systems was done and all negative unless stated in the history of present illness. PHYSICAL EXAMINATION: VITAL SIGNS: Temperature 96.9, pulse 95, respiratory rate 27, sat 96% on 2 L nasal cannula, and blood pressure 104/65. GENERAL: Awake, alert, oriented x3, in no distress. HEENT: Normocephalic and atraumatic. NECK: Supple. LUNGS: Have reduced breath sounds. CARDIOVASCULAR: S1, S2. No S3 or S4. ABDOMEN: Soft. Positive bowel sounds. EXTREMITIES: No edema. SKIN: Warm and dry. LABORATORY DATA: Laboratory work was reviewed. CBC with a white count of 10, hemoglobin 9.2, hematocrit 30, platelet count of 77. ABG was unremarkable. Chemistry was unremarkable except for a BUN of 27, GFR was over 90, total bilirubin of 0.5, AST 122, ALT 182, alkaline phosphatase of 266. Troponin is negative x2. BNP is 380, albumin of 2.7. Flu A and B were both negative. Respiratory viral panel was positive for adenovirus. ASSESSMENT/PLAN: 1. Chronic obstructive pulmonary disease exacerbation. 2. Viral pneumonia. 3. Lung cancer. 4. Prostate cancer. 5. Coronary artery disease, status post coronary artery bypass graft. 6. Ischemic cardiomyopathy, last ejection fraction 20% to 25%. PLAN: 1. CV appears to be stable at this time. 2. Agree with steroids and supportive care. 3. COVID-19 has been ordered. However, he fits no criteria for this, he has no leukopenia. He really does not have any fevers and he has a positive adenovirus screen. I doubt that this is going to be positive, but we will wait for this to come back. Thank you for letting us to participate in the care of your patient. We will follow. Job ID: [id number]
[2019-08-22] MEDS: Ipratropium Oral Inhaler INH SCH (07:25)
[2019-08-22] MEDS: Carvedilol 6.25 MG TAB PO SCH ×2 (08:09→17:25)
[2019-08-22] MEDS: Saccharomyces boulardii 250 MG CAP PO SCH (08:09)
[2019-08-22] MEDS: Famotidine 20 MG TAB PO SCH ×2 (08:09→19:42)
[2019-08-22] MEDS: guaiFENesin ER 600 MG TAB PO SCH ×2 (08:09→19:42)
[2019-08-22] MEDS: Aspirin 81 mg Enteric Coated Tablet PO SCH (08:10)
[2019-08-22] MEDS: methylPREDNISolone Sod Succ/PF 125 MG/2 ML VIAL IVP SCH (08:10)
[2019-08-22] MEDS: Digoxin 0.125 MG TAB PO SCH (08:10)
[2019-08-22] MEDS: Trospium 20 MG TAB PO SCH ×2 (08:11→19:41)
--- NOTE | 2019-08-22 09:09 | PDOC.HOSPP ---
- Subjective Encounter Date: 08/22/19 Encounter Time: 09:07 Subjective: Mr. Barahona was seen today in follow-up of respiratory failure. He says he feels better. - Objective Vital Signs & Weight: Vital Signs (12 hours) Temp Pulse Resp BP Pulse Ox 08/22/19 08:10 96 08/22/19 08:09 113/73 08/22/19 08:00 96.9 F L 08/22/19 07:46 100 08/22/19 07:41 96 26 H 99 08/22/19 07:25 101 H 29 H 95 08/22/19 04:00 97.1 F L 93 L 08/22/19 02:49 88 24 H 97 08/21/19 23:00 97.8 F 08/21/19 22:45 90 L Weight Admit Weight 203 lb Weight 206 lb 9.17 oz Most Recent Monitor Data Heart Rate from ECG 100 NIBP 113/73 NIBP BP-Mean 86 Respiration from ECG 25 SpO2 90 I&O: 08/21/19 08/22/19 08/23/19 06:59 06:59 06:59 Intake Total 770 2062 120 Output Total 588 1120 180 Balance 182 942 -60 Result Diagrams: 08/22/19 03:15 08/22/19 03:30 Hospitalist ROS - Medication Medications: Active Medications Generic Name Dose Route Start Last Admin Trade Name Freq PRN Reason Stop Dose Admin Acetaminophen 325 mg 08/21/19 00:03 08/21/19 08:30 Tylenol PO 325 mg Q6H PRN Administration Headache/Fever or Pain Aspirin 81 mg 08/21/19 09:00 08/22/19 08:10 Ecotrin PO 81 mg DAILY GABRIELLA Administration Carvedilol 12.5 mg 08/21/19 08:00 08/22/19 08:09 Coreg PO Not Given BID-WM GABRIELLA Digoxin 0.125 mg 08/21/19 09:00 08/22/19 08:10 Lanoxin PO 0.125 mg DAILY GABRIELLA Administration Famotidine 20 mg 08/21/19 09:00 08/22/19 08:09 Pepcid PO 20 mg BID GABRIELLA Administration Guaifenesin 600 mg 08/21/19 09:00 08/22/19 08:09 Mucinex PO 600 mg Q12HR GABRIELLA Administration Cefepime HCl 1 gm/ Sodium 100 mls @ 200 mls/hr 08/21/19 03:00 08/22/19 03:28 Chloride IVPB 100 mls 0300,1500 GABRIELLA Administration Dopamine HCl/Dextrose 250 mls @ 0 mls/hr 08/21/19 11:45 08/21/19 12:49 Dopamine 400 Mg/D5w 250 Ml IVPB 250 mls INF GABRIELLA Administration Protocol As Directed Vancomycin HCl 1.75 gm/ Sodium 500 mls @ 250 mls/hr 08/21/19 18:00 08/21/19 18:31 Chloride IVPB 500 mls 1800 GABRIELLA Administration Methylprednisolone Sodium Succinate 125 mg 08/22/19 09:00 08/22/19 08:10 Solu-Medrol IVP 125 mg DAILY GABRIELLA Administration Saccharomyces Boulardii 250 mg 08/21/19 09:00 08/22/19 08:09 Florastor PO 250 mg DAILY GABRIELLA Administration Sacubitril/Valsartan 1 tab 08/21/19 09:00 08/22/19 08:10 Entresto 24 Mg-26 Mg Tablet PO 1 tab BID GABRIELLA Administration Sterile Water 1 ml 08/21/19 10:17 08/22/19 08:11 Bacteriostatic Water FS 1 ml PRN PRN Administration RECONSTITUTION Tamsulosin HCl 0.4 mg 08/21/19 21:00 08/21/19 21:21 Flomax PO 0.4 mg HS GABRIELLA Administration Trospium 20 mg 08/21/19 09:00 08/22/19 08:11 Trospium PO 20 mg BID GABRIELLA Administration - Exam Eye: PERRL, anicteric sclera Heart: RRR, no murmur, no gallops, no rubs, normal peripheral pulses Respiratory: no rales, no ronchi, normal chest expansion, wheezes Gastrointestinal: soft, non-tender, non-distended, normal bowel sounds, no palpable masses, no hepatomegaly Extremities: 1+ LE edema Hosp A/P (1) Acute on chronic systolic heart failure Code(s): I50.23 - ACUTE ON CHRONIC SYSTOLIC (CONGESTIVE) HEART FAILURE Status : Acute (2) HAP (hospital-acquired pneumonia) Code(s): J18.9 - PNEUMONIA, UNSPECIFIED ORGANISM; Y95 - NOSOCOMIAL CONDITION Status: Acute (3) Acute respiratory failure with hypoxia Code(s): J96.01 - ACUTE RESPIRATORY FAILURE WITH HYPOXIA Status: Acute (4) COPD (chronic obstructive pulmonary disease) Status: Chronic Qualifiers: COPD type: COPD with acute exacerbation Qualified Code(s): J44.1 - Chronic obstructive pulmonary disease with (acute) exacerbation (5) HTN (hypertension) Code(s): I10 - ESSENTIAL (PRIMARY) HYPERTENSION Status: Chronic Qualifiers: Hypertension type: essential hypertension Qualified Code(s): I10 - Essential (primary) hypertension (6) Lung cancer Code(s): C34.90 - MALIGNANT NEOPLASM OF UNSP PART OF UNSP BRONCHUS OR LUNG Status: Chronic Qualifiers: Laterality: left Lung location: hilum of lung Qualified Code(s): C34.02 - Malignant neoplasm of left main bronchus (7) Malignant neoplasm of bladder Status: Chronic - Plan * Acute on chronic respiratory failure- due to COPD exacerbation from Adenovirus * COVID-19 has been ruled out- the test is negative * IV steroid have been added, * Will continue IV antibiotics ( Cefepime and Vancomycin) * Await Echo results * Chronic systolic heart failure- stable * HTN- blood pressure is borderline low- will adjus medication doses as needed- will give 1/2 dose of Coreg this AM
--- NOTE | 2019-08-22 14:12 | PRG ---
DATE OF SERVICE: 08/22/2019 SUBJECTIVE: Mr. Barahona says he is feeling better. He says he is backer up to his baseline. He denies being short of breath at rest. OBJECTIVE: VITAL SIGNS: Stable overnight. His respiratory rate is 20 this morning, oximetry is 97% on 4 L, blood pressure 104/64, heart rate is 95. LUNGS: Distant and clear. HEART: Regular rhythm. ABDOMEN: Soft. IMPRESSION AND PLAN: Chronic obstructive pulmonary disease with an exacerbation. He ruled out for COVID. He is clinically stable. Family was concerned that he might pass away, but he appears to have rallied, although I am not sure he can make it to the end of the year. He will transfer out of the critical care unit today. Job ID: [id number]
--- NOTE | 2019-08-22 16:47 | PQF ---
DATE: 08-22-19 ATTN: DR. JOSÉ MANUEL QUEEN Please exercise your independent, professional judgment in responding to the clarification form. Clinical indicators are provided on the bottom of this form for your review Please check appropriate box(s) to clarify if the following diagnosis has been ruled in or ruled out: SEPSIS [ X ] Ruled in diagnosis [ X ] Continue to treat [ ] Resolved [ ] Ruled out diagnosis [ ] Other diagnosis [ ] Unable to determine In addition, please specify: Present on Admission (POA): [X ] Yes [ ] No [ ] Unable to determine For continuity of documentation, please document condition throughout progress notes and discharge summary. Thank You. CLINICAL INDICATORS - SIGNS / SYMPTOMS / LABS / RESULTS AND LOCATION IN MR: ER NOTES 08-20-19: PATIENT HAS BEEN THOROUGHLY EVALUATED AND APPEARS TO HAS SEPSIS. ER DX 08-20-19: PNEUMONIA, RESPIRATORY DISTRESS, SEPSIS-UNSPECIFIED RISK FACTORS / RESULTS AND LOCATION IN MR: H&P 08-20-19: ACUTE HYPOXIC RESPIRATORY FAILURE SECONDARY TO CHRONIC OBSTRUCTIVE PULMONARY DISEASE EXACERBATION, ACUTE ADENOVIRUS INFECTION, RECENT PSEUDOMONAS PNEUMONIA, HX LUNG CA, ANEMIA/THROMBOCYTOPENIA TREATMENTS / RESULTS AND LOCATION IN MR: MAR: 08-20-19: VANCOMYCIN IV, MAXIPIME IV, NS IVF (This form is maintained as a part of the permanent medical record) 2014 [employer] All Rights Reserved [email or web address] Office: [phone] BEAU
[2019-08-22 17:43] LABS: Vancomycin, Trough 9.2 ug/mL
--- NOTE | 2019-08-22 18:12 | PDOC.CPN ---
- Subjective Date: 08/22/19 Time: 18:10 Interval history: COVID-19 was negative. He is still SOB. - Review of Systems General: reports: fever/chills Respiratory: reports: shortness of breath, exercise intolerance Cardiovascular: denies: chest pain, palpitation, edema, paroxysmal nocturnal dyspnea, orthopnea Gastrointestinal: denies: nausea, vomiting, diarrhea, constipation, abd pain, GI bleeding Musculoskeletal: denies: pain, tenderness, stiffness, swelling, arthritis/ arthralgias Neurological: denies: numbness, syncope, seizure, weakness - Objective Allergies/Adverse Reactions: Allergies Allergy/AdvReac Type Severity Reaction Status Date / Time heparin Allergy causes Verified 08/17/19 18:05 blood clots Visit Medications: Current Medications Acetaminophen (Tylenol) 325 mg PO Q6H PRN PRN Reason: Headache/Fever or Pain Last Admin: 08/21/19 08:30 Dose: 325 mg Albuterol/Ipratropium (Duoneb) 3 ml NEB [id number] [facility] Last Admin: 08/22/19 14:34 Dose: 3 ml Aspirin (Ecotrin) 81 mg PO DAILY [facility] Last Admin: 08/22/19 08:10 Dose: 81 mg Calcium Carbonate (Tums) 1,000 mg PO Q4H PRN PRN Reason: Heartburn or Indigestion Carvedilol (Coreg) 12.5 mg PO BID-WM [facility] Last Admin: 08/22/19 17:25 Dose: 12.5 mg Digoxin (Lanoxin) 0.125 mg PO DAILY [facility] Last Admin: 08/22/19 08:10 Dose: 0.125 mg Famotidine (Pepcid) 20 mg PO BID [facility] Last Admin: 08/22/19 08:09 Dose: 20 mg Guaifenesin (Mucinex) 600 mg PO Q12HR [facility] Last Admin: 08/22/19 08:09 Dose: 600 mg Guaifenesin (Robitussin Sf) 200 mg PO Q4H PRN PRN Reason: Cough Cefepime HCl 1 gm/ Sodium (Chloride) 100 mls @ 200 mls/hr IVPB 0300,1500 [facility] Last Admin: 08/22/19 15:42 Dose: 100 mls Methylprednisolone Sodium Succinate (Solu-Medrol) 125 mg IVP DAILY [facility] Last Admin: 08/22/19 08:10 Dose: 125 mg Miscellaneous Medication (Pharmacy To Dose) 1 each IVPB PRN PRN PRN Reason: Pharmacy to dose Morphine Sulfate (Morphine) 4 mg SLOW IVP Q1H PRN PRN Reason: Congestion Ondansetron HCl (Zofran Odt) 4 mg PO Q6H PRN PRN Reason: Nausea/Vomiting Ondansetron HCl (Zofran) 4 mg IVP Q6H PRN PRN Reason: Nausea/Vomiting Saccharomyces Boulardii (Florastor) 250 mg PO DAILY [facility] Last Admin: 08/22/19 08:09 Dose: 250 mg Sacubitril/Valsartan (Entresto 24 Mg-26 Mg Tablet) 1 tab PO BID [facility] Last Admin: 08/22/19 08:10 Dose: 1 tab Senna/Docusate Sodium (Senokot S) 2 tab PO BID PRN PRN Reason: Constipation Sodium Chloride (Flush - Normal Saline) 10 ml IVF PRN PRN PRN Reason: Saline Flush Sterile Water (Bacteriostatic Water) 1 ml FS PRN PRN PRN Reason: RECONSTITUTION Last Admin: 08/22/19 08:11 Dose: 1 ml Tamsulosin HCl (Flomax) 0.4 mg PO HS [facility] Last Admin: 08/21/19 21:21 Dose: 0.4 mg Trospium (Trospium) 20 mg PO BID [facility] Last Admin: 08/22/19 08:11 Dose: 20 mg Vital Signs & Weight: Vital Signs Temp Pulse Resp BP BP Pulse Ox 08/22/19 17:25 124/72 08/22/19 16:22 97.6 F 104 H 22 H 124/72 98 08/22/19 14:34 109 H 28 H 90 L 08/22/19 10:30 95 26 H 97 08/22/19 08:10 96 08/22/19 08:09 113/73 08/22/19 08:00 96.9 F L 08/22/19 07:46 100 08/22/19 07:41 96 26 H 99 08/22/19 07:25 101 H 29 H 95 Admit Weight 203 lb Weight 206 lb 9.17 oz - Physical Exam General: other (Mild to mod resp distress.) HEENT: normocephaly Neck: supple neck Cardiac: regular rate and rhythm Lungs: decreased breath sounds Neuro: grossly intact Abdomen: active bowel sounds Extremities: no edema Skin: clear Musculoskeletal: no pain - Labs Result Diagrams: 08/22/19 03:15 08/22/19 03:30 Troponin/CKMB Troponin I Less than 0.010 ng/mL (< 0.028) 08/20/19 20:51 - Telemetry Sinus rhythms and dysrhythmias: sinus rhythm - Assessment/Plan Assessment/Plan: 1. COPD with acute exacerbation. 2. Lung Ca 3. Bladder Ca 4. Pneumonia 5. Hx of HIT 6. Hx of DVT/PE 7. Hx of bleeding with Eliquis 8. S/P CABG 9. Laminated LV thrombus, old. PLAN: - Continue supportive care and COPD therapies per pulmonary and primary team. - CV stable. - LV thrombus is laminated and likely old, low risk of embolism. Will repeat echo to evaluate.
[2019-08-22] MEDS: Vancomycin 1 GM in Premix Bag 1 BAG IVPB SCH (18:22)
[2019-08-22] MEDS: Vancomycin HCl 1.75 GM in Sodium Chloride 0.9% 500 ML IVPB SCH (18:27)
[2019-08-22] MEDS: Tamsulosin HCl 0.4 MG CAP PO SCH (19:42)
[2019-08-23] MEDS: Cefepime 1 GM in Sodium Chloride 0.9% 100 ML IVPB SCH ×2 (03:47→15:09)
[2019-08-23] MEDS: Vancomycin 1 GM in Premix Bag 1 BAG IVPB SCH ×2 (05:26→17:13)
[2019-08-23 06:01] LABS: #Lymphocytes 0.3 thou/uL (1.20-3.40); #Monocytes 0.7 thou/uL (0.11-0.59); #Neutrophils 9.5 thou/uL (1.40-6.50); %Eosinophils 0.2 % (0.0-10.0); %Lymphocytes 2.5 % (21.0-51.0); %Monocytes 6.3 % (0.0-10.0); Hemoglobin 9.2 g/dL (14.0-18.0); Mean Corpuscular HGB CONC 31.7 g/dL (32.0-36.0); Mean Corpuscular Hemoglobin 27.2 pg (27.0-31.0); Mean Corpuscular Volume 85.6 fL (78.0-98.0); Mean Platelet Volume 11.5 fL (7.4-10.4); Platelet Count 48 thou/uL (130-400); RBC Distribution Width 22.5 % (11.5-14.5); White Blood Cell (WBC) Count 10.4 thou/uL (4.8-10.8)
[2019-08-23 06:12] LABS: ALT (SGPT) 507 U/L (8-55); AST (SGOT) 396 U/L (5-34); Albumin 2.5 g/dL (3.4-4.8); Alkaline Phosphatase 328 U/L (40-110); Anion Gap 17 mmol/L (10-20); BUN (Urea Nitrogen) 34 mg/dL (8.4-25.7); Bilirubin, Total 0.7 mg/dL (0.2-1.2); Calc. Creatinine Clearance 111 mL/min (70-130); Calcium 8.5 mg/dL (7.8-10.44); Carbon Dioxide 22 mmol/L (23-31); Chloride 108 mmol/L (98-107); Estimated GFR-MDRD Greater than 90; Glucose 142 mg/dL (83-110); Potassium 4.8 mmol/L (3.5-5.1); Protein, Total 5.5 g/dL (5.8-8.1); Sodium 142 mmol/L (136-145)
[2019-08-23] MEDS: Trospium 20 MG TAB PO SCH (08:15)
[2019-08-23] MEDS: Digoxin 0.125 MG TAB PO SCH (08:15)
[2019-08-23] MEDS: Saccharomyces boulardii 250 MG CAP PO SCH (08:15)
[2019-08-23] MEDS: Carvedilol 6.25 MG TAB PO SCH ×2 (08:15→17:13)
[2019-08-23] MEDS: guaiFENesin ER 600 MG TAB PO SCH (08:16)
[2019-08-23] MEDS: Famotidine 20 MG TAB PO SCH (08:16)
[2019-08-23] MEDS: Aspirin 81 mg Enteric Coated Tablet PO SCH (08:16)
[2019-08-23] MEDS: methylPREDNISolone Sod Succ/PF 125 MG/2 ML VIAL IVP SCH (08:17)
--- NOTE | 2019-08-23 11:03 | EKG ---
Test Reason : SOB Blood Pressure : / mmHG Vent. Rate : 088 BPM Atrial Rate : 082 BPM P-R Int : 112 ms QRS Dur : 090 ms QT Int : 366 ms P-R-T Axes : -13 012 150 degrees QTc Int : 442 ms Electronic atrial pacemaker T wave abnormality, consider lateral ischemia Abnormal ECG Confirmed by JUVENCIO HUFF, JUANITA ([id number]), market editor RAMON ANDINO ([id number]) on 08/23/2019 11:03:06 AM Referred By: Confirmed By:JUANITA HENNING MD
--- NOTE | 2019-08-23 14:44 | PRG ---
DATE OF SERVICE: 08/23/2019 OBJECTIVE: VITAL SIGNS: Heart rate is 100. He is afebrile. Respiratory rate is 20, oximetry is improved to 97%, and blood pressure 107/73. LUNGS: Essentially unchanged. HEART: Essentially unchanged. ABDOMEN: Essentially unchanged. He has no new complaints. IMPRESSION: 1. Chronic obstructive pulmonary disease exacerbation, requiring noninvasive ventilation. 2. History of lung cancer. 3. History of bladder cancer. 4. History of severe cardiomyopathy. 5. Severe deconditioning. 6. History of coronary artery disease and hypertension. 7. History of defibrillator placement. 8. History of coronary artery bypass grafting. 9. History of heparin intolerance. PLAN: We will continue with supportive care. His prognosis is guarded. He probably needs to be in a skilled environment at least temporarily if not permanently. Job ID: [id number]
[2019-08-23] MEDS ORDERED: Morphine 2 MG/ML SYRINGE SLOW IVP PRN (15:26)
--- NOTE | 2019-08-23 15:28 | PDOC.HOSPP ---
- Subjective Encounter Date: 08/23/19 Encounter Time: 15:27 Subjective: Mr. Barahona was seen today in follow-up of respiratory failure. He looks uncomfortable. He tells me he is short of breath, and says that he has not gotten much better since admission. He also notes pain in his groin. - Objective Vital Signs & Weight: Vital Signs (12 hours) Temp Pulse Resp BP BP BP Pulse Ox 08/23/19 14:56 104 H 20 94 L 08/23/19 12:22 98.1 F 101 H 20 107/73 97 08/23/19 10:59 100 22 H 94 L 08/23/19 10:40 08/23/19 08:15 102 H 108/68 08/23/19 07:31 97.9 F 102 H 18 108/68 99 08/23/19 07:30 99 08/23/19 06:49 97 20 92 L 08/23/19 04:00 97.7 F 95 20 106/72 95 Pulse Ox 08/23/19 14:56 08/23/19 12:22 08/23/19 10:59 08/23/19 10:40 93 L 08/23/19 08:15 08/23/19 07:31 08/23/19 07:30 08/23/19 06:49 08/23/19 04:00 Weight Admit Weight 203 lb Weight 202 lb 4 oz Most Recent Monitor Data Heart Rate from ECG 97 NIBP 104/64 NIBP BP-Mean 77 Respiration from ECG 25 SpO2 92 I&O: 08/22/19 08/23/19 08/24/19 06:59 06:59 06:59 Intake Total 2062 700 Output Total 1120 180 Balance 942 520 Result Diagrams: 08/23/19 05:35 08/23/19 05:35 Hospitalist ROS - Medication Medications: Active Medications Generic Name Dose Route Start Last Admin Trade Name Freq PRN Reason Stop Dose Admin Acetaminophen 325 mg 08/21/19 00:03 08/21/19 08:30 Tylenol PO 325 mg Q6H PRN Administration Headache/Fever or Pain Albuterol/Ipratropium 3 ml 08/22/19 10:30 08/23/19 14:56 Duoneb NEB 3 ml [id number] GABRIELLA Administration Aspirin 81 mg 08/21/19 09:00 08/23/19 08:16 Ecotrin PO 81 mg DAILY GABRIELLA Administration Carvedilol 12.5 mg 08/21/19 08:00 08/23/19 08:15 Coreg PO Not Given BID-[facility] Digoxin 0.125 mg 08/21/19 09:00 08/23/19 08:15 Lanoxin PO 0.125 mg DAILY GABRIELLA Administration Famotidine 20 mg 08/21/19 09:00 08/23/19 08:16 Pepcid PO Not Given BID [facility] Guaifenesin 600 mg 08/21/19 09:00 08/23/19 08:16 Mucinex PO 600 mg Q12HR GABRIELLA Administration Cefepime HCl 1 gm/ Sodium 100 mls @ 200 mls/hr 08/21/19 03:00 08/23/19 15:09 Chloride IVPB 100 mls 0300,1500 GABRIELLA Administration Vancomycin HCl 1 gm/ Device 200 mls @ 200 mls/hr 08/22/19 18:00 08/23/19 05: 26 IVPB 200 mls 0600,1800 GABRIELLA Administration Methylprednisolone Sodium Succinate 125 mg 08/22/19 09:00 08/23/19 08:17 Solu-Medrol IVP 125 mg DAILY GABRIELLA Administration Saccharomyces Boulardii 250 mg 08/21/19 09:00 08/23/19 08:15 Florastor PO 250 mg DAILY GABRIELLA Administration Sacubitril/Valsartan 1 tab 08/21/19 09:00 08/23/19 08:15 Entresto 24 Mg-26 Mg Tablet PO 1 tab BID GABRIELLA Administration Sterile Water 1 ml 08/21/19 10:17 08/22/19 08:11 Bacteriostatic Water FS 1 ml PRN PRN Administration RECONSTITUTION Tamsulosin HCl 0.4 mg 08/21/19 21:00 08/22/19 19:42 Flomax PO 0.4 mg HS GABRIELLA Administration Trospium 20 mg 08/21/19 09:00 08/23/19 08:15 Trospium PO 20 mg BID GABRIELLA Administration - Exam Eye: PERRL Heart: RRR, no murmur, no gallops, no rubs, normal peripheral pulses Respiratory: CTAB (with diminished sounds at the bases, and decreased air movement) Gastrointestinal: soft, non-tender, non-distended, normal bowel sounds, no palpable masses, no hepatomegaly Extremities: no cyanosis Hosp A/P (1) Acute on chronic systolic heart failure Code(s): I50.23 - ACUTE ON CHRONIC SYSTOLIC (CONGESTIVE) HEART FAILURE Status : Acute (2) HAP (hospital-acquired pneumonia) Code(s): J18.9 - PNEUMONIA, UNSPECIFIED ORGANISM; Y95 - NOSOCOMIAL CONDITION Status: Acute (3) Acute respiratory failure with hypoxia Code(s): J96.01 - ACUTE RESPIRATORY FAILURE WITH HYPOXIA Status: Acute (4) COPD (chronic obstructive pulmonary disease) Status: Chronic Qualifiers: COPD type: COPD with acute exacerbation Qualified Code(s): J44.1 - Chronic obstructive pulmonary disease with (acute) exacerbation (5) HTN (hypertension) Code(s): I10 - ESSENTIAL (PRIMARY) HYPERTENSION Status: Chronic Qualifiers: Hypertension type: essential hypertension Qualified Code(s): I10 - Essential (primary) hypertension (6) Lung cancer Code(s): C34.90 - MALIGNANT NEOPLASM OF UNSP PART OF UNSP BRONCHUS OR LUNG Status: Chronic Qualifiers: Laterality: left Lung location: hilum of lung Qualified Code(s): C34.02 - Malignant neoplasm of left main bronchus (7) Malignant neoplasm of bladder Status: Chronic - Plan * Acute on chronic respiratory failure- due to COPD exacerbation from Adenovirus * COVID-19 has been ruled out * Continue IV steroids * Will continue IV antibiotics ( Cefepime and Vancomycin) * Echo results noted -discussed with Dr. Paulino yesterday- the LV thrombus appears chronic, and there is no indication for anticoagulation * Chronic systolic heart failure- stable * Patient does not feel he has improved with regards to the COPD. He also has advanced cancer. He tells me he is " ready for Hospice". He says his famiil plans to come later tonight, or in the morning to discuss these arrangements. * Will add Morphine 2mg for symptom relief ( he is reluctant to try the higher dose for now )
--- NOTE | 2019-08-23 16:43 | PDOC.CPN ---
- Subjective Date: 08/23/19 Time: 16:41 Interval history: Continues to be very SOB but satting well on Venti mask. - Review of Systems General: denies: fever/chills, weight/appetite/sleep changes, night sweats, fatigue Respiratory: reports: congestion, shortness of breath, exercise intolerance. denies: cough Cardiovascular: denies: chest pain, palpitation, edema, paroxysmal nocturnal dyspnea, orthopnea Gastrointestinal: denies: nausea, vomiting, diarrhea, constipation, abd pain, GI bleeding Musculoskeletal: denies: pain, tenderness, stiffness, swelling, arthritis/ arthralgias Neurological: denies: numbness, syncope, seizure, weakness - Objective Allergies/Adverse Reactions: Allergies Allergy/AdvReac Type Severity Reaction Status Date / Time heparin Allergy causes Verified 08/17/19 18:05 blood clots Visit Medications: Current Medications Acetaminophen (Tylenol) 325 mg PO Q6H PRN PRN Reason: Headache/Fever or Pain Last Admin: 08/21/19 08:30 Dose: 325 mg Albuterol/Ipratropium (Duoneb) 3 ml NEB [id number] [facility] Last Admin: 08/23/19 14:56 Dose: 3 ml Aspirin (Ecotrin) 81 mg PO DAILY [facility] Last Admin: 08/23/19 08:16 Dose: 81 mg Calcium Carbonate (Tums) 1,000 mg PO Q4H PRN PRN Reason: Heartburn or Indigestion Carvedilol (Coreg) 12.5 mg PO BID-WM [facility] Last Admin: 08/23/19 08:15 Dose: Not Given Digoxin (Lanoxin) 0.125 mg PO DAILY [facility] Last Admin: 08/23/19 08:15 Dose: 0.125 mg Famotidine (Pepcid) 20 mg PO BID [facility] Last Admin: 08/23/19 08:16 Dose: Not Given Guaifenesin (Mucinex) 600 mg PO Q12HR [facility] Last Admin: 08/23/19 08:16 Dose: 600 mg Guaifenesin (Robitussin Sf) 200 mg PO Q4H PRN PRN Reason: Cough Cefepime HCl 1 gm/ Sodium (Chloride) 100 mls @ 200 mls/hr IVPB 0300,1500 [facility] Last Admin: 08/23/19 15:09 Dose: 100 mls Vancomycin HCl 1 gm/ Device 200 mls @ 200 mls/hr IVPB 0600,1800 [facility] Last Admin: 08/23/19 05:26 Dose: 200 mls Methylprednisolone Sodium Succinate (Solu-Medrol) 125 mg IVP DAILY [facility] Last Admin: 08/23/19 08:17 Dose: 125 mg Miscellaneous Medication (Pharmacy To Dose) 1 each IVPB PRN PRN PRN Reason: Pharmacy to dose Morphine Sulfate (Morphine) 4 mg SLOW IVP Q1H PRN PRN Reason: Congestion Morphine Sulfate (Morphine) 2 mg SLOW IVP Q4H PRN PRN Reason: Moderate Pain (4-6) Last Admin: 08/23/19 15:58 Dose: 2 mg Ondansetron HCl (Zofran Odt) 4 mg PO Q6H PRN PRN Reason: Nausea/Vomiting Ondansetron HCl (Zofran) 4 mg IVP Q6H PRN PRN Reason: Nausea/Vomiting Saccharomyces Boulardii (Florastor) 250 mg PO DAILY [facility] Last Admin: 08/23/19 08:15 Dose: 250 mg Sacubitril/Valsartan (Entresto 24 Mg-26 Mg Tablet) 1 tab PO BID [facility] Last Admin: 08/23/19 08:15 Dose: 1 tab Senna/Docusate Sodium (Senokot S) 2 tab PO BID PRN PRN Reason: Constipation Sodium Chloride (Flush - Normal Saline) 10 ml IVF PRN PRN PRN Reason: Saline Flush Last Admin: 08/23/19 15:59 Dose: 10 ml Sterile Water (Bacteriostatic Water) 1 ml FS PRN PRN PRN Reason: RECONSTITUTION Last Admin: 08/22/19 08:11 Dose: 1 ml Tamsulosin HCl (Flomax) 0.4 mg PO HS [facility] Last Admin: 08/22/19 19:42 Dose: 0.4 mg Trospium (Trospium) 20 mg PO BID [facility] Last Admin: 08/23/19 08:15 Dose: 20 mg Vital Signs & Weight: Vital Signs Temp Pulse Resp BP BP BP Pulse Ox 08/23/19 15:55 98 F 104 H 24 H 110/74 95 08/23/19 14:56 104 H 20 94 L 08/23/19 12:22 98.1 F 101 H 20 107/73 97 08/23/19 10:59 100 22 H 94 L 08/23/19 10:40 08/23/19 08:15 102 H 108/68 08/23/19 07:31 97.9 F 102 H 18 108/68 99 08/23/19 07:30 99 08/23/19 06:49 97 20 92 L Pulse Ox 08/23/19 15:55 08/23/19 14:56 08/23/19 12:22 08/23/19 10:59 08/23/19 10:40 93 L 08/23/19 08:15 08/23/19 07:31 08/23/19 07:30 08/23/19 06:49 Admit Weight 203 lb Weight 202 lb 4 oz - Physical Exam General: alert & oriented x3 HEENT: mucus membranes moist Neck: midline trachea Cardiac: regular rate and rhythm Lungs: decreased breath sounds Neuro: grossly intact Abdomen: active bowel sounds Extremities: no edema Skin: clear Musculoskeletal: no pain - Labs Result Diagrams: 08/23/19 05:35 08/23/19 05:35 Troponin/CKMB Troponin I Less than 0.010 ng/mL (< 0.028) 08/20/19 20:51 - Assessment/Plan Assessment/Plan: 1. COPD with acute exacerbation. 2. Lung Ca 3. Bladder Ca 4. Pneumonia 5. Hx of HIT 6. Hx of DVT/PE 7. Hx of bleeding with Eliquis 8. S/P CABG 9. Laminated LV thrombus, old. PLAN: - Continue supportive care and COPD therapies per pulmonary and primary team. - CV stable. - LV thrombus is laminated and likely old, low risk of embolism. Repeat echo pending - He would like to talk with palliative care to consider Hospice care.
[2019-08-23 19:13] VITALS: BP 117/84; TEMP 97.7
--- NOTE | 2019-08-24 13:37 | DIS ---
DATE OF ADMISSION: 08/20/2019 DATE OF DISCHARGE: 08/23/2019 DATE OF : 08/23/2019. DIAGNOSES: Include; 1. Acute on chronic respiratory failure with hypoxemia. 2. Healthcare-associated pneumonia. 3. Acute on chronic systolic heart failure. 4. History of lung cancer. 5. History of bladder cancer. CODE STATUS: DNAR. ALLERGIES: TO HEPARIN. HOSPITAL COURSE: Mr. Barahona was a 74-year-old gentleman, who presented to the emergency room complaining of shortness of breath. He was recently admitted for respiratory failure and was treated and released to a snf facility. There, he was found to have worsening shortness of breath, chest tightness, and wheezing. He was not getting any improvement with his inhalers. He was evaluated in the ER and admitted to the ICU. He was placed on noninvasive positive pressure ventilation. There was some concern for the SARS-CoV-2 virus or COVID-19, however, this was ruled out. It was felt that his symptoms were related to healthcare-acquired pneumonia, instead. He was treated with aggressive IV antibiotics and pulmonary support. However, he did not improve much, although he was able to be weaned off BiPAP. He also has severe systolic heart failure. Repeat echo showed an ejection fraction around 30%. Prior to this, it had been around 15%. There was a left ventricular mural thrombus, which was laminated and considered old. He was seen by his nurse orthopedic and anticoagulation was not recommended. The patient did not seem to improve much. He had multiple comorbidities including the lung cancer, systolic heart failure, COPD, and severe deconditioning. He asked to be changed to comfort care only and it was anticipated that he would be discharged on hospice. However, the night before these arrangements could be made around 10:30 p.m., the patient was found unresponsive and pronounced . He likely succumbed to the healthcare-associated pneumonia. Job ID: [id number]
--- NOTE | 2019-08-30 08:36 | PQF ---
NICCI COCHRAN TONI MD [id number] CLINICAL DOCUMENTATION CLARIFICATION FORM: POST DISCHARGE Addendum to original discharge summary date: ____ Late entry note date: __ DATE:08/30/2019 ATTN:AVERY QUEEN MD Please exercise your independent, professional judgment in responding to the clarification form. Clinical indicators are provided on the bottom of this form for your review Please check appropriate box(s): [ X] Viral pneumonia - Due to Adenovirus [ ] Healthcare associated pneumonia [ ] Hospital acquired pneumonia [ ] Other diagnosis [ ] Unable to determine In addition, please specify: Present on Admission (POA): [ X ] Yes [ ] No [ ] Unable to determine For continuity of documentation, please document condition throughout progress notes and discharge summary. Thank You. CLINICAL INDICATORS - SIGNS / SYMPTOMS / LABS -- Healthcare associated pneumonia-- Discharge summary 08/23/19- Avery Torres MD pg1 Pneumonia- Progress note 08/23/19- Jigar Weiner pg 4 -- HAP- (Hospital acquired pneumonia)- Progress note 08/23/19 Avery Torres MD pg6 - COPD exacerbation from Adenovirus - Progress note 08/23/19 Dr. Josi Garcia MD pg7 -- Viral pneumonia- Consultation note 08/22/19- Jigar Iglesias pg1 -- Has a positive adenovirus screen- Consultation note 08/22/19- Jigar Iglesias pg3 RISK FACTORS -- Acute on chronic CHF- Discharge summary 08/23/19- Avery Torres MD pg1 -- Acute on chronic respiratory failure with hypoxemia - Discharge summary 08/23/19- Avery Torres MD -- HX of lung cancer, COPD-- Discharge summary 08/23/19- Avery Torres MD pg1 -- COVID -19 has been ruled out - Consultation 08/23/19- Johnny Velasquez MD -- He was in the Hospital recently with pseudomonal Pneumonia- Consultation note 08/22/19- Jefferson Iglesias- pg1 -- HX of Smoked cigarettes- ED provider notes Bo West DO pg 4 -- Sepsis- ED provider notes Bo West DO pg 4 TREATMENTS: -- Admitted to ICU- Discharge summary 08/23/19- Avery Torres MD pg1 Non invasive positive pressure ventilation -Discharge summary 08/23/19- Avery Torres MD pg1 -- Cefepime IV- 08/20-08/22- Progress note 08/23/19- Jefferson Goel- pg 3 -- Vancomycin- IV- 08/20-08/22 Progress note 08/23/19- Jefferson Goel- pg 3 -- Unfortunately ,The COVID isolation has been started- Consultation 08/23/19- Johnny Velasquez MD [employer] Spanish Interpreter/Translator [employer] Win[employer] Viewer (This form is maintained as a part of the permanent medical record) 2014 [email or web address]. All Rights Reserved [email or web address] [phone] [email or web address]
== END 2019-08-23 20:30 | disposition expired | DRG 871 ==
LOC: ERS 16:39 → CCU 18:05 → T4-A 08-22 12:16
PROVIDERS: ADMIT Emergency Medicine; ATTEND Emergency Medicine
PROC: 5A09357 Assistance with Respiratory Ventilation, Less than 24 Consecutive Hours, Continuous Positive Airway Pressure (ICD-10-PCS; principal; 2019-08-20)
PROC: 8E0ZXY6 Isolation (ICD-10-PCS; 2019-08-20)
DX: A41.9 Sepsis, unspecified organism (principal); J96.21 Acute and chronic respiratory failure with hypoxia; I50.23 Acute on chronic systolic (congestive) heart failure; J12.0 Adenoviral pneumonia; J44.0 Chronic obstructive pulmonary disease with (acute) lower respiratory infection; J44.1 Chronic obstructive pulmonary disease with (acute) exacerbation; C34.02 Malignant neoplasm of left main bronchus; Z66 Do not resuscitate; Z51.5 Encounter for palliative care; I11.0 Hypertensive heart disease with heart failure; R26.9 Unspecified abnormalities of gait and mobility; N40.0 Benign prostatic hyperplasia without lower urinary tract symptoms; D69.6 Thrombocytopenia, unspecified; D53.9 Nutritional anemia, unspecified; I25.5 Ischemic cardiomyopathy; I51.3 Intracardiac thrombosis, not elsewhere classified; D63.8 Anemia in other chronic diseases classified elsewhere; R94.5 Abnormal results of liver function studies; E66.9 Obesity, unspecified; R53.81 Other malaise; C67.9 Malignant neoplasm of bladder, unspecified; I87.8 Other specified disorders of veins; I25.10 Atherosclerotic heart disease of native coronary artery without angina pectoris; Z95.810 Presence of automatic (implantable) cardiac defibrillator; Z87.891 Personal history of nicotine dependence; Z88.8 Allergy status to other drugs, medicaments and biological substances; Z87.442 Personal history of urinary calculi; Z90.79 Acquired absence of other genital organ(s); Z92.21 Personal history of antineoplastic chemotherapy; Z68.30 Body mass index [BMI] 30.0-30.9, adult; Z86.711 Personal history of pulmonary embolism; Z95.1 Presence of aortocoronary bypass graft; Z86.718 Personal history of other venous thrombosis and embolism; Z20.828 Contact with and (suspected) exposure to other viral communicable diseases
CPT/HCPCS: 80053; 80202; 82805; 83605; 83735; 83880; 85025; 87633; 87804; 93005; 94640; 94660; 94760; 96360; 96361; 99292; J0692; J1265; J1940; J2060; J2270; J2930; J3370; J3475; J3490; J7050; J7620; U0001